=== PATIENT | female | born 1970 | race Caucasian/White ===

== ENCOUNTER 2024-11-28 18:29 | Observation (INO) | payer OTHER, SELFPAY ==
[2024-11-28] VITALS (37 sets, daily range): BP systolic 101–137; BP diastolic 57–92; PULSE 83–135; TEMP 36.4; O2SAT 68–100; BMI 21.3; BMI 21.5
--- NOTE | 2024-11-28 18:59 | ECG_ITS ---
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 Measurements Intervals [place] Rate: 136 P: -20023 DE: -60227 QRS: 38 QRSD: 72 T: 165 QT: 310 QTc: 389 Interpretive Statements 91563 Atrial flutter with variable AV conduction with rapid ventricular response Nonspecific ST-T wave changes 9150 abnormal ECG No previous ECG available for comparison Electronically Signed On 11-29-2024 6:48:37 EST by JED GONZALEZ M.D.
--- NOTE | 2024-11-28 19:02 | ED.GENADUL1 ---
HPI HPI - General Adult General Chief complaint: Arrhythmia/Palpitations Stated complaint: HEART IS RACING Time Seen by Provider: 11/28/24 18:44 Source: patient Mode of arrival: walk-in Limitations: no limitations History of Present Illness HPI narrative: Patient is a 54-year-old female who presents to the emergency department for evaluation of palpitations that began about 3 hours ago. She states she picked up her son from school for spring and as she was walking into a store, she developed a sensation that her heart was racing. She has no jairo chest pain or shortness of breath. She states her mother has a history of A-fib so she took one of her mother's Cardizem pills. She does not know the dosage. She states she feels her symptoms are not as severe at this time. She states she had a similar episode in June of last year. She was seen at [facility] and had cardiology follow-up where she was instructed to take an aspirin daily. She does not believe she has been in A-fib since that time. She denies any fevers, cough, congestion or recent illness. Related Data Allergies Allergy/AdvReac Type Severity Reaction Status Date / Time codeine Allergy Severe Migraine Verified 11/28/24 20:03 Sulfa (Sulfonamide AdvReac Intermediate Weakness Verified 11/28/24 20:03 Antibiotics) Opioid HPI Opioid Management Most Recent Opioid Data: No Data to Display Review of Systems ROS Constitutional Denies: fever or chills Ears, nose, mouth, and throat Denies: throat pain or nasal congestion Cardiovascular Reports: palpitations; Denies: chest pain Respiratory Denies: shortness of breath or cough Gastrointestinal Denies: nausea or vomiting Musculoskeletal Denies: back pain Integumentary/Breast Denies: rash Neurological Denies: numbness in extremities or weakness in extremities Hematologic/Lymphatic Denies: easy bruising or easy bleeding PFSH PFS Social History Little interest or pleasure in doing things: not at all Feeling down, depressed, or hopeless: not at all Exam Narrative Exam Narrative: Gen.: Awake, alert, in no distress Head: Normocephalic, atraumatic ENT: Moist mucous membranes Respiratory: No respiratory distress, lungs clear bilaterally Cardio: Irregular rate and rhythm, tachycardic Extremities: Moves extremities equally Psych: Normal mood and affect Neuro: No focal neuro deficit Skin: Warm, dry, intact Constitutional Vital Signs, click to edit/add: Last Vital Signs Pulse 83 11/28/24 21:00 Resp 18 11/28/24 21:00 BP 106/66 11/28/24 21:00 Pulse Ox 80 L 11/28/24 21:00 O2 Del Method Room Air 11/28/24 19:03 Course Vital Signs Vital signs: Vital Signs Pulse Rate 127 H 11/28/24 18:47 Respiratory Rate 20 11/28/24 18:47 Blood Pressure 137/87 11/28/24 18:47 Pulse Oximetry 100 11/28/24 18:47 Oxygen Delivery Method Room Air 11/28/24 18:47 Pulse Rate 83 11/28/24 21:00 Respiratory Rate 18 11/28/24 21:00 Blood Pressure 106/66 11/28/24 21:00 Pulse Oximetry 80 L 11/28/24 21:00 Oxygen Delivery Method Room Air 11/28/24 19:03 Medical Decision Making MDM Narrative Medical decision making narrative: 2152: Based on the pill present in the patient's belongings, she took 30 mg of oral Cardizem prior to arrival. Patient was initially given 10 mg IV bolus of Cardizem in addition to a second bolus of 20 mg IV Cardizem and a drip was initiated at 10 mg/hr. laboratory studies reviewed and noted within normal limits. Chest x-ray is unremarkable. Patient reevaluated by attending physician. She is now rate controlled, still in A-fib. She was given prophylaxis of Lovenox subq. Patient will be admitted for further evaluation and treatment. SHARED APC VISIT, PHYSICIAN ATTESTATION: [id number] I performed a substantive part of the MDM during the patient?s E/M visit. I personally evaluated and examined the patient. I personally made or approved the documented management plan and acknowledge its risk of complications. Medical Records Medical records reviewed: Yes I reviewed the patient's medical records Lab Data Lab results reviewed: Yes I reviewed the patient's lab results Labs: Lab Results 11/28/24 Range/Units 18:58 WBC 7.7 (4.0-11.0) 10^3/uL RBC 5.07 (4.20-5.40) 10^6/uL Hgb 15.6 (12.0-16.0) g/dL Hct 46.1 (36.0-48.0) % MCV 90.9 (81.0-99.0) fL MCH 30.8 (26.7-34.0) pg MCHC 33.8 (29.9-35.2) g/dL RDW 12.4 (11.0-15.0) % Plt Count 311 (150-450) 10^3/uL MPV 8.7 L (9.5-13.5) fL Neut % (Auto) 68.9 (43.0-75.0) % Lymph % (Auto) 23.8 (20.5-60.0) % King % (Auto) 6.0 (1.7-12.0) % Eos % (Auto) 0.5 L (0.9-7.0) % Baso % (Auto) 0.5 (0.2-2.0) % Neut # (Auto) 5.3 (1.4-6.5) 10^3/uL Lymph # (Auto) 1.8 (1.2-3.8) 10^3/uL King # (Auto) 0.5 (0.3-0.8) 10^3/uL Eos # (Auto) 0.0 (0.0-0.7) 10^3/uL Baso # (Auto) 0.0 (0.0-0.1) 10^3/uL Abs Immat Gran (auto) 0.02 (0.00-0.03) 10^3/uL Imm/Tot Granulo (auto) 0.3 (0.0-0.5) % PT 10.2 (9.0-11.6) sec INR 0.96 Sodium 145 (136-145) mmol/L Potassium 3.6 (3.5-5.1) mmol/L Chloride 110 H (98-107) mmol/L Carbon Dioxide 26.2 (21.0-32.0) mmol/L Anion Gap 12.4 BUN 16.0 (7.0-18.0) mg/dL Creatinine 0.77 (0.55-1.02) mg/dL Est GFR ( Amer) >60 (>=60 mL/min/1.73m^2) Est GFR (Non-Af Amer) >60 (>=60 mL/min/1.73m^2) BUN/Creatinine Ratio 20.8 Glucose 81 (74-106) mg/dL Lactate 1.1 (0.4-2.0) mmol/L Calcium 8.9 (8.5-10.1) mg/dL Magnesium 2.1 (1.8-2.4) mg/dL Total Bilirubin 0.5 (0.2-1.0) mg/dL AST 23 (15-37) U/L ALT 32 (14-59) U/L Alkaline Phosphatase 50 (46-116) U/L Troponin I High Sens 23.6 (4.0-51.3) pg/mL NT-Pro-B Natriuret Pep 52.0 (<=900.0) pg/mL Total Protein 7.2 (6.4-8.2) g/dL Albumin 3.9 (3.4-5.0) g/dL Globulin 3.3 g/dL Albumin/Globulin Ratio 1.2 TSH 1.171 (0.358-3.740) uIU/mL Imaging Data Chest x-ray: Attestation: I have reviewed the pertinent imaging results. ECG Data Attestation: I personally reviewed and interpreted this ECG as follows: (A-fib with RVR at a rate of 136, no acute ST elevation. Mild artifact noted. EKG reviewed by attending physician.) Discharge Plan Discharge Chief Complaint: Arrhythmia/Palpitations Patient Disposition: Admitted as Observation Time of Disposition Decision: 21:57
[2024-11-28] MEDS: DILTIAZEM HCL 25 MG/5 ML VIAL 10 MG IV (19:18)
[2024-11-28] MEDS: 0.9 % SODIUM CHLORIDE 1,000 ML 999 ML IV (19:18)
[2024-11-28 19:35] LABS: Basophils Percent Auto 0.5 % (0.2-2.0); Eosinophils Percent Auto 0.5 % (0.9-7.0); Hematocrit 46.1 % (36.0-48.0); Hemoglobin 15.6 g/dL (12.0-16.0); Immature Granulocytes Abs Auto 0.02 10^3/uL (0.00-0.03); Immature Granulocytes Pct Auto 0.3 % (0.0-0.5); Lymphocytes Absolute Auto 1.8 10^3/uL (1.2-3.8); Lymphocytes Percent Auto 23.8 % (20.5-60.0); Mean Corpuscular HGB Conc 33.8 g/dL (29.9-35.2); Mean Corpuscular Hemoglobin 30.8 pg (26.7-34.0); Mean Corpuscular Volume 90.9 fL (81.0-99.0); Mean Platelet Volume 8.7 fL (9.5-13.5); Monocytes Absolute Auto 0.5 10^3/uL (0.3-0.8); Neutrophils Absolute Auto 5.3 10^3/uL (1.4-6.5); Neutrophils Percent Auto 68.9 % (43.0-75.0); Platelet Count 311 10^3/uL (150-450); Red Blood Count 5.07 10^6/uL (4.20-5.40); Red Cell Distribution Width 12.4 % (11.0-15.0); White Blood Count 7.7 10^3/uL (4.0-11.0)
[2024-11-28 19:46] LABS: INR 0.96; Prothrombin Time 10.2 sec (9.0-11.6)
[2024-11-28 19:50] LABS: Lactate/Lactic Acid 1.1 mmol/L (0.4-2.0)
[2024-11-28 19:56] LABS: Alanine Aminotransferase 32 U/L (14-59); Albumin Globulin Ratio 1.2; Albumin Level 3.9 g/dL (3.4-5.0); Alkaline Phosphatase 50 U/L (46-116); Anion Gap 12.4; Aspartate Amino Transferase 23 U/L (15-37); BUN Creatinine Ratio 20.8; Bilirubin Total 0.5 mg/dL (0.2-1.0); Calcium 8.9 mg/dL (8.5-10.1); Carbon Dioxide 26.2 mmol/L (21.0-32.0); Chloride 110 mmol/L (98-107); Estimated GFR (African America >60 (>=60 mL/min/1.73m^2); Estimated GFR (Non-African Ame >60 (>=60 mL/min/1.73m^2); Globulin 3.3 g/dL; Glucose 81 mg/dL (74-106); Magnesium 2.1 mg/dL (1.8-2.4); Potassium 3.6 mmol/L (3.5-5.1); Sodium 145 mmol/L (136-145); Thyroid Stimulating Hormone 1.171 uIU/mL (0.358-3.740); Total Protein 7.2 g/dL (6.4-8.2); Troponin I High Sensitivity 23.6 pg/mL (4.0-51.3)
[2024-11-28] MEDS: dilTIAZem HCL 125 MG in 0.9 % SODIUM CHLORIDE 100 ML 10 MG IV (20:03)
[2024-11-28] MEDS: ENOXAPARIN SODIUM 40 MG/0.4 ML SYRINGE SUBQ (20:19)
[2024-11-28] MEDS: DILTIAZEM HCL 25 MG/5 ML VIAL 20 MG IV (20:37)
[2024-11-29] VITALS (99 sets, daily range): BP systolic 81–113; BP diastolic 43–73; PULSE 54–127; TEMP 36.4–36.6; O2SAT 95–97
[2024-11-29 06:18] LABS: Hematocrit 41.5 % (36.0-48.0); Hemoglobin 13.7 g/dL (12.0-16.0); Mean Corpuscular Hemoglobin 30.3 pg (26.7-34.0); Mean Corpuscular Volume 91.8 fL (81.0-99.0); Mean Platelet Volume 8.8 fL (9.5-13.5); Platelet Count 271 10^3/uL (150-450); Red Blood Count 4.52 10^6/uL (4.20-5.40); Red Cell Distribution Width 12.5 % (11.0-15.0); White Blood Count 7.3 10^3/uL (4.0-11.0)
--- NOTE | 2024-11-29 06:27 | PC.NURSE ---
Decreased Cardizem gtt 5mg/hr d/t hypotension
[2024-11-29] MEDS: ACETAMINOPHEN 325 MG TABLET 650 MG PO (06:30)
[2024-11-29 06:33] LABS: Anion Gap 10.7; BUN Creatinine Ratio 16.4; Calcium 8.1 mg/dL (8.5-10.1); Carbon Dioxide 26.4 mmol/L (21.0-32.0); Chloride 111 mmol/L (98-107); Chol HDL Ratio 2.4; Cholesterol 181 mg/dL (<=200); Estimated GFR (African America >60 (>=60 mL/min/1.73m^2); Estimated GFR (Non-African Ame >60 (>=60 mL/min/1.73m^2); Glucose 93 mg/dL (74-106); HDL Cholesterol 74 mg/dL (40-60); Potassium 4.1 mmol/L (3.5-5.1); Sodium 144 mmol/L (136-145); Triglycerides 43 mg/dL (<=150); Troponin I High Sensitivity 42.3 pg/mL (4.0-51.3); VLDL CHOLESTEROL 8.6 mg/dL
[2024-11-29] MEDS: ENOXAPARIN SODIUM 60 MG/0.6 ML SYRINGE SUBQ (08:17)
[2024-11-29] MEDS: ASPIRIN 81 MG TABLET.DR PO (08:17)
[2024-11-29] MEDS: DIGOXIN 500 MCG/2 ML AMPUL 250 MCG IV (08:43)
[2024-11-29] MEDS: METOPROLOL TARTRATE 25 MG TABLET PO (08:43)
--- NOTE | 2024-11-29 09:57 | ECG_ITS ---
[facility] Test Date: 2024-11-29 Pat Name: OLEG CORDOVA Department: Room: 2731 Gender: Female Manager Of Case: : 1970 Requested By: [id number] Order Number: [id number] Reading MD: JED GONZALEZ M.D. Measurements Intervals [place] Rate: 57 P: 74 MD: 210 QRS: 60 QRSD: 78 T: 58 QT: 430 QTc: 424 Interpretive Statements 1100 Sinus rhythm 2231 First degree AV block 9150 abnormal ECG Compared to ECG 11/28/2024 18:47:03 First degree AV block now present Atrial flutter no longer present ST (T wave) deviation no longer present Electronically Signed On 11-29-2024 10:49:02 EST by JED GONZALEZ M.D.
--- NOTE | 2024-11-29 15:22 | P.HP_ITS ---
HPI H&P: HPI History of Present Illness Chief complaint: AFIB W RVR Narrative: HPI and Hospital Course: 54-year-old female presented to the emergency department for evaluation of palpitations that began about 3 hours prior to arrival. She she is stated that she was in her usual state of health and as she was walking into a store, she developed a sensation of heart palpitations and that her heart was beating really fast. She denied any chest pain, shortness of breath. She was admitted for evaluation for heart palpitations in June and was found to have atrial fibrillation with RVR. She was discharged from the hospital on aspirin and was not started on any medications. At that time, she had an echocardiogram that according to her was normal with no significant cardiac structural abnormalities noted. In ER, she was found to have A-fib with RVR with heart rate as high as 130. She was started on IV Cardizem drip and admitted overnight to stepdown unit. Earlier today, she was started on p.o. Lopressor and she also received IV digoxin. She converted to normal sinus rhythm and was taken off of Cardizem drip. She was monitored throughout the day off of Cardizem drip and she remained in normal sinus rhythm and asymptomatic. She was started on therapeutic Lovenox for stroke prophylaxis but her Moises vas score is 0 and as such will not require anticoagulation for stroke prophylaxis. Patient was educated on A-fib.all her questions and concerns were addressed and answered. She is medically stable for discharge on low-dose aspirin along with Lopressor 25 twice daily. She was also educated on worrisome signs and symptoms and was instructed to return to ED if she develop chest pain, shortness of breath or heart palpitations. She will need to follow-up with PCP in 1 to 2 weeks. She will also need to follow-up with cardiology in 2 weeks. She would like to follow-up with Dr. Hensley of [facility]. Discharge disposition: Home Discharge status: Stable Follow-up appointments: Follow-up with PCP in 1 to 2 weeks. Follow-up with cardiology in 2 weeks. Opioid HPI Opioid Management Most Recent Pain and Opioid Data: Last Pain Scale 0 11/29/24 07:29 11/29/24 Last Pain Assessment 11/29/24 15:00 Last MAR Pain Assessment 11/29/24 07:29 Last ORT Total Score 0 11/28/24 23:52 11/28/24 Last ORT Risk Category Low Risk 11/28/24 23:52 11/28/24 Review of Systems ROS Status of ROS 10 or more systems reviewed and unremark able except as noted in history and below [facility] Medical History (Updated 11/29/24 @ 00:55 by Jennifer Conrad) Adult idiopathic generalized osteoporosis ?M81.8 - Other osteoporosis without current pathological fracture (ICD-10) Injury of meniscus of left knee ?S83.8X2A - Sprain of other specified parts of left knee, initial encounter (ICD-10) Broken foot ?S92.909A - Unspecified fracture of unspecified foot, initial encounter for closed fracture (ICD-10) Surgical History (Updated 11/29/24 @ 00:55 by Jennifer Conrad) History of foot surgery ?Z98.890 - Other specified postprocedural states (ICD-10) Family History (Updated 11/29/24 @ 00:58 by Jennifer Conrad) Grandfather Family history of stroke Mother Atrial fibrillation Social History (Updated 11/29/24 @ 01:03 by Jennifer Conrad) Within the past year, how often did you have a drink containing alcohol: never Score interpretation: A score less than 3 is consistent with normal alcohol consumption. Smoking status: Never smoker Non-prescribed substance use: denies use Highest level of school completed/degree received: Master's degree Are you now , , , , never or living with a partner: Little interest or pleasure in doing things: not at all Feeling down, depressed, or hopeless: not at all Feel stressed/tense/nervous/anxious/difficulty sleeping: not at all Do you think of yourself as: straight/heterosexual Gender Identity: female Meds Home Medications and Allergies Home Medications ?Medication ?Instructions ?Recorded ?Confirmed ?Type aspirin 81 mg tablet,delayed 81 mg PO DAILY A-fib 11/28/24 11/29/24 History release metoprolol tartrate 25 mg tablet 25 mg PO BID #60 tabs 11/29/24 Rx Allergies Allergy/AdvReac Type Severity Reaction Status Date / Time codeine Allergy Severe Migraine Verified 11/28/24 20:03 Sulfa (Sulfonamide AdvReac Intermediate Weakness Verified 11/28/24 20:03 Antibiotics) Exam Constitutional Vital Signs, click to edit/add: Last Vital Signs Temp 98 F 11/29/24 06:00 Pulse 75 11/29/24 14:00 Resp 14 11/29/24 12:00 BP 95/61 11/29/24 11:51 Pulse Ox 97 11/29/24 06:00 O2 Del Method Room Air 11/29/24 12:00 Documenting provider has reviewed patient's vital signs: yes Common normals: no apparent distress and oriented x3 General appearance: cooperative HENMT Common normals: normocephalic and head/scalp atraumatic Head and scalp: normocephalic and atraumatic Eye Common normals: conjunctivae normal and no scleral icterus Conjunctiva: conjunctiva(e) normal Respiratory Common normals: normal respiratory effort and clear to auscultation bilaterally Effort & inspection: able to speak in complete sentences Auscultation: clear to auscultation bilaterally Cardio Common normals: regular rate, S1 normal heart sound and S2 normal heart sound Rate: regular rate Heart sounds: S1 normal and S2 normal GI Common normals: Normal to inspection, nondistended, normoactive bowel sounds present, soft to palpation, non-tender and no hepatosplenomegaly Palpation: soft and no hepatosplenomegaly Extremity Common normals: no clubbing, cyanosis or edema Neuro Common normals: oriented x3, moves all extremities and no focal motor deficits Psych Common normals: mental status grossly normal, denies hallucinations, denies homicidal ideation and denies suicidal ideation Results Labs Labs: Short CBC 11/28/24 11/29/24 Range/Units 18:58 05:36 WBC 7.7 7.3 (4.0-11.0) 10^3/uL Hgb 15.6 13.7 (12.0-16.0) g/dL Hct 46.1 41.5 (36.0-48.0) % Plt Count 311 271 (150-450) 10^3/uL BMP 11/28/24 11/29/24 18:58 05:36 Sodium 145 144 Potassium 3.6 4.1 Chloride 110 H 111 H Carbon Dioxide 26.2 26.4 BUN 16.0 11.0 Creatinine 0.77 0.67 Glucose 81 93 Calcium 8.9 8.1 L Liver Function 11/28/24 Range/Units 18:58 Total Bilirubin 0.5 (0.2-1.0) mg/dL AST 23 (15-37) U/L ALT 32 (14-59) U/L Alkaline Phosphatase 50 (46-116) U/L Albumin 3.9 (3.4-5.0) g/dL Assessment and Plan Assessment and Plan (1) Atrial fibrillation with rapid ventricular response: (2) Palpitations: Plan Patient converted to sinus rhythm in the morning. She was weaned off of IV Card izem drip. Patient is stable for discharge on p.o. Lopressor 25 twice daily. She does not need anticoagulation for stroke prophylaxis due to her low [id number]- VASc score. She was instructed to use low-dose aspirin. Patient will need to follow-up with PCP and cardiology as outpatient.
--- NOTE | 2024-11-29 16:10 | PC.NURSE ---
discharge instructions given to pt and . both verbalize understanding. iv and tele dc'd. pt dressed, ambulated to exit with belongings. discharged to private vehicle.
--- NOTE | 2024-12-01 15:28 | CM.DCFOLLOWU ---
Person spoke with:patient How are you feeling? well, just tired, may have over did it today How is your pain?none Did you understand your discharge instructions?yes Do you have any questions about your discharge instructions?no Were you given any prescriptions at discharge?yes Were you able to get your prescriptions filled?yes Do you understand how to take your medications as ordered?yes Do you have any questions about your follow up appointment and do you plan to keep your follow up appointment? no questions, follow ups reviewed Is there anything else that you would like to discuss?no Questions/Comments/Concerns/Other:none
== END 2024-11-29 16:04 | disposition home or self-care (01) ==
LOC: ER 22:23 → ICU 23:47
PROVIDERS: Physician Assistant; Registered Nurse; Admitting Provider Internal Medicine; Emergency Provider Emergency Medicine; Visit Provider Internal Medicine
DX: I48.91 Unspecified atrial fibrillation (principal); R00.2 Palpitations; Z79.82 Long term (current) use of aspirin
CPT/HCPCS: 36415; 71045; 80048; 80053; 80061; 83605; 83735; 83880; 84443; 84484; 85025; 85027; 85610; 93005; 96365; 96366; 96372; 96375; 96376; 99285; G0378; J1160; J1650

== ENCOUNTER 2024-12-15 08:32 | Outpatient (OUT) | payer OTHER, SELFPAY ==
--- NOTE | 2024-12-15 | NM_ITS ---
Patient Name: OLEG CORDOVA MR#: [id number] : 1970 Exam Date: 12/15/2024 Ordering Doctor: Jesus Alberto Hensley RADIOLOGY REPORT PROCEDURE: NM MELIDA PERF SPECT REST STR COMPARISON: None. INDICATIONS: Other chest pain TECHNIQUE: Exam Description: Stress/Rest one day protocol gated SPECT Rest Imagin.8 mCi Tc-99m Cardiolite IV on 12/15/2025 Stress Imaging 30.9 mCi Tc-99m Cardiolite IV on 12/15/2025 Exercise Protocol: Romeo Heart Rate (bpm): Rest: 75 Max: 226 PMHR: 137 Blood Pressure: Rest: 118/70 Max: 158/80 Exercise Time: Minutes: 9 Seconds: 21 Stage Reached: Stage: 4 Mets 11.2 Symptoms: Rest and peak stress ECG findings were pending and the exercise portion of the study was pending per attending physician [facility] . For more details, please see separate cardiac stress test report. FINDINGS: QUALITY OF STUDY: Satisfactory PERFUSION DEFECT: None LOCATION: N/A SIZE: N/A SEVERITY: N/A TYPE: N/A WALL MOTION: Normal wall motion LV SIZE: 33 mL. TID / TCD: 0.3 LVEF: Calculated EF 90%. SUMMARY: Myocardial perfusion imaging study is normal CONCLUSION: 1. Myocardial perfusion is normal with significant diaphragmatic attenuation 2. Global left ventricular systolic function is hyperdynamic 3. No evidence of transient ischemic dilatation Dictated by: Oscar Young M.D. on 12/15/2024 at 14:24 Approved by: Oscar Young M.D. on 12/15/2024 at 14:26
--- NOTE | 2024-12-15 09:47 | PC.NURSE ---
Nursing Note Cardiac Stress Test Reviewed: Medication, allergies and patient history reviewed. Stress Test: [x ] Patient tolerated stress test well. [ ] Patient unable to tolerate walking on treadmill. Switched to Lexiscan stress test. [ x] No chest pain noted per patient [ ] Chest pain that resolved prior to leaving stress lab. [ x] No dyspnea noted. [ ] Dyspnea that resolved prior to leaving stress lab. x[ ] Patient left stress lab asymptomatic and hemodynamically stable. [ ] Patient taken to the Emergency Room due to non-resolving symptoms following stress test. [ x] Patient achieved target heart rate. [ ] Patient unable to achieve target heart rate. [ ] Aminophylline administered as reversal agent to Lexiscan (Regadenoson). [ ] Nitro administered. Nursing Comments: Patient was able to walk on treadmill with no shortness of breath reported. As we were beginning the recovery phase patient had a short run of SVT. She was able to be moved from the treadmill to the cot safely and was provided some water. Patient reported feeling some racing which ended quickly and she was able to recover. Prior to leaving the stress lab patient stated she feels back to her baseline. She was escorted to the cafeteria for breakfast.
--- NOTE | 2024-12-15 13:23 | PM.STRESS ---
Stress Test Stress Test Allergies Allergy/AdvReac Type Severity Reaction Status Date / Time codeine Allergy Severe Migraine Verified 12/15/24 12:06 Sulfa (Sulfonamide AdvReac Intermediate Weakness Verified 12/15/24 12:06 Antibiotics) Requesting physician: Jesus Alberto Hensley Procedure: After risks, benefits and alternatives were explained, written informed consent was obtained. The patient underwent treadmill exercise for stress testing. Cardiolyte was injected per protocol. Due to persistent atrial fibrillation with uncontrolled rates, she was to be transferred to the emergency room. General Information: Reason for Stress Test: [AF, palpitations] Cardiac History and Risk Factors: [AF] Resting 12 - Lead Electrocardiogram: Normal sinus rhythm Septal infarct age indeterminate Abnormal ECG Stress Test: Protocol: [Treadmill cardiolyte] Exercise Capacity: [Good] Blood Pressure Response: [Normal] Rhythm: [Sinus, atrial fibrillation with rapid ventricular response, wide complex rhythm likely due to SVT with aberrancy] ST - Response: [No significant ST depressions] Patient Response: [Palpitations] Interpretation: 1. No ischemic ST T wave abnormalities on treadmill cardiolyte stress test. 2. The patient developed atrial fibrillation with rapid ventricular response. 3. Goss Treadmill Score is +9.2. Estimated 1 year mortality: 0.5-0.6%. Risk category: Low risk. Angiography: Usually not indicated. 3. Nuclear images are to be read, interpreted and reported separately.
== END 2024-12-15 08:33 | disposition home or self-care (01) ==
LOC: NM 08:32
PROVIDERS: Visit Provider Internal Medicine Cardiovascular Disease
DX: R07.89 Other chest pain (principal)
CPT/HCPCS: 78452; 93017; A9500

== ENCOUNTER 2024-12-15 11:42 | Observation (INO) | payer OTHER, SELFPAY ==
[2024-12-15] VITALS (13 sets, daily range): BP systolic 114–135; BP diastolic 51–82; PULSE 60–148; TEMP 36.4–36.8; O2SAT 97–100; BMI 21.3
--- NOTE | 2024-12-15 12:16 | ECG_ITS ---
[facility] Test Date: 2024-12-15 Pat Name: OLEG CORDOVA Department: Room: - Gender: Female Test Pilot: : 1970 Requested By: [id number] Order Number: [id number] Reading MD: GEO CUNHA Measurements Intervals [place] Rate: 140 P: -35316 MD: -[id number] QRS: 40 QRSD: 72 T: -67 QT: 290 QTc: 372 Interpretive Statements 77967 Atrial fibrillation with rapid ventricular response [address] depression, probably digitalis effect 47976 Twave abnormality, possible inferior ischemia or digitalis effect 9150 abnormal ECG Compared to ECG 11/29/2024 09:48:03 ST (T wave) deviation now present Possible ischemia now present Sinus rhythm no longer present First degree AV block no longer present Electronically Signed On 12-15-2024 14:43:49 EDT by GEO CUNHA
--- NOTE | 2024-12-15 12:27 | ECG_ITS ---
[facility] Test Date: 2024-12-15 Pat Name: OLEG CORDOVA Department: Room: - Gender: Female Field Care Coordinator: : 1970 Requested By: [id number] Order Number: [id number] Reading MD: GEO CUNHA Measurements Intervals [place] Rate: 86 P: 76 KS: 324 QRS: 23 QRSD: 88 T: 49 QT: 378 QTc: 422 Interpretive Statements 1100 Sinus rhythm 2231 First degree AV block 6220 Possible left atrial enlargement 0102 ARTIFACT PRESENT 9150 abnormal ECG Compared to ECG 12/15/2024 11:57:24 First degree AV block now present Atrial fibrillation no longer present ST (T wave) deviation no longer present Possible ischemia no longer present Electronically Signed On 12-15-2024 14:44:31 EDT by GEO CUNHA
[2024-12-15 12:31] LABS: Basophils Absolute Auto 0.1 10^3/uL (0.0-0.1); Basophils Percent Auto 0.6 % (0.2-2.0); Eosinophils Absolute Auto 0.1 10^3/uL (0.0-0.7); Eosinophils Percent Auto 0.7 % (0.9-7.0); Hematocrit 45.9 % (36.0-48.0); Hemoglobin 15.7 g/dL (12.0-16.0); Immature Granulocytes Abs Auto 0.03 10^3/uL (0.00-0.03); Immature Granulocytes Pct Auto 0.3 % (0.0-0.5); Lymphocytes Absolute Auto 2.2 10^3/uL (1.2-3.8); Lymphocytes Percent Auto 22.1 % (20.5-60.0); Mean Corpuscular HGB Conc 34.2 g/dL (29.9-35.2); Mean Corpuscular Hemoglobin 30.7 pg (26.7-34.0); Mean Corpuscular Volume 89.8 fL (81.0-99.0); Monocytes Absolute Auto 0.5 10^3/uL (0.3-0.8); Monocytes Percent Auto 5.4 % (1.7-12.0); Neutrophils Absolute Auto 6.9 10^3/uL (1.4-6.5); Neutrophils Percent Auto 70.9 % (43.0-75.0); Platelet Count 292 10^3/uL (150-450); Red Blood Count 5.11 10^6/uL (4.20-5.40); Red Cell Distribution Width 12.5 % (11.0-15.0); White Blood Count 9.7 10^3/uL (4.0-11.0)
[2024-12-15] MEDS: MAGNESIUM SULFATE IN WATER 2 GM/50 ML PREMIX IV (12:36)
[2024-12-15] MEDS: 0.9 % SODIUM CHLORIDE 1,000 ML 999 ML IV (12:37)
[2024-12-15 12:52] LABS: Anion Gap 14.9; BUN Creatinine Ratio 16.3; Calcium 8.8 mg/dL (8.5-10.1); Carbon Dioxide 25.2 mmol/L (21.0-32.0); Chloride 110 mmol/L (98-107); Estimated GFR (African America >60 (>=60 mL/min/1.73m^2); Estimated GFR (Non-African Ame >60 (>=60 mL/min/1.73m^2); Glucose 112 mg/dL (74-106); Magnesium 1.9 mg/dL (1.8-2.4); Potassium 4.1 mmol/L (3.5-5.1); Sodium 146 mmol/L (136-145)
[2024-12-15 12:54] LABS: Troponin I High Sensitivity 85.1 pg/mL (4.0-51.3)
[2024-12-15 13:29] LABS: Troponin I High Sensitivity 115.2 pg/mL (4.0-51.3)
--- NOTE | 2024-12-15 14:15 | P.HP_ITS ---
HPI H&P: HPI History of Present Illness Chief complaint: ABNORMAL STRESS TEST Narrative: Patient with a history of intermittent atrial fibrillation who is a candidate for ablation, had a stress test to workup for the ablation and after that she felt palpitations, EKG was obtained and showed she was in atrial fibrillation with rapid ventricular response in the 140s and transferred to the emergency room. In the emergency room she was given magnesium which did convert her to normal sinus rhythm When I saw patient in the emergency room, resting fairly comfortably bed excellent questions, no other complaints Opioid HPI Opioid Management Most Recent Pain and Opioid Data: Last Pain Scale 0 11/29/24 07:29 11/29/24 Last ORT Total Score 0 11/28/24 23:52 11/28/24 Last ORT Risk Category Low Risk 11/28/24 23:52 11/28/24 Review of Systems ROS Status of ROS 10 or more systems reviewed and unremark able except as noted in history and below PFSH PFS Medical History (Updated 12/15/24 @ 14:25 by Philip Wu MD) Osteoporosis ?M81.0 - Age-related osteoporosis without current pathological fracture (ICD- 10) Atrial fibrillation with rapid ventricular response ?I48.91 - Unspecified atrial fibrillation (ICD-10) Palpitations ?R00.2 - Palpitations (ICD-10) Adult idiopathic generalized osteoporosis ?M81.8 - Other osteoporosis without current pathological fracture (ICD-10) Injury of meniscus of left knee ?S83.8X2A - Sprain of other specified parts of left knee, initial encounter (ICD-10) Broken foot ?S92.909A - Unspecified fracture of unspecified foot, initial encounter for closed fracture (ICD-10) Surgical History History of foot surgery ?Z98.890 - Other specified postprocedural states (ICD-10) Family History (Updated 11/29/24 @ 00:58 by Jennifer Conrad) Grandfather Family history of stroke Mother Atrial fibrillation Social History (Updated 11/29/24 @ 01:03 by Jennifer Conrad) Within the past year, how often did you have a drink containing alcohol: never Score interpretation: A score less than 3 is consistent with normal alcohol consumption. Smoking status: Never smoker Non-prescribed substance use: denies use Highest level of school completed/degree received: Master's degree Are you now , , , , never or living with a partner: Little interest or pleasure in doing things: not at all Feeling down, depressed, or hopeless: not at all Feel stressed/tense/nervous/anxious/difficulty sleeping: not at all Do you think of yourself as: straight/heterosexual Gender Identity: female Meds Home Medications and Allergies Home Medications ?Medication ?Instructions ?Recorded ?Confirmed ?Type aspirin 81 mg tablet,delayed 81 mg PO DAILY A-fib 11/28/24 12/15/24 History release metoprolol tartrate 25 mg tablet 25 mg PO BID #60 tabs 11/29/24 Rx Allergies Allergy/AdvReac Type Severity Reaction Status Date / Time codeine Allergy Severe Migraine Verified 12/15/24 12:06 Sulfa (Sulfonamide AdvReac Intermediate Weakness Verified 12/15/24 12:06 Antibiotics) Exam Constitutional Vital Signs, click to edit/add: Last Vital Signs Temp 98.2 F 12/15/24 11:48 Pulse 78 12/15/24 13:08 Resp 20 12/15/24 13:08 BP 118/51 12/15/24 13:08 Pulse Ox 99 12/15/24 13:08 O2 Del Method Room Air 12/15/24 13:08 Documenting provider has reviewed patient's vital signs: yes Common normals: no apparent distress Chest Common normals: inspection of chest normal Respiratory Common normals: normal respiratory effort and no retractions Cardio Common normals: regular rate, regular rhythm and no murmurs GI Common normals: Normal to inspection, nondistended, normoactive bowel sounds present Extremity Common normals: normal to inspection Results Labs Labs: Short CBC 12/15/24 Range/Units 12:20 WBC 9.7 (4.0-11.0) 10^3/uL Hgb 15.7 (12.0-16.0) g/dL Hct 45.9 (36.0-48.0) % Plt Count 292 (150-450) 10^3/uL BMP 12/15/24 12:20 Sodium 146 H Potassium 4.1 Chloride 110 H Carbon Dioxide 25.2 BUN 14.0 Creatinine 0.86 Glucose 112 H Calcium 8.8 Assessment and Plan Assessment and Plan (1) Atrial fibrillation with rapid ventricular response: (2) Palpitations: (3) Elevated troponin level: Plan Admission findings: Tachycardia secondary to atrial fibrillation with rapid ventricular response converted after magnesium infusion. Review of labs shows elevated troponin and mild hypernatremia. Patient will be admitted for workup and treatment of same Atrial fibrillation-now converted, start patient on Eliquis, consult to cardiology, check echocardiogram, check urinalysis for anything else that may have triggered the atrial fibrillation although may be related to stress test completed, track down results of stress test Hypernatremia-repeat lab in a.m. Elevated high-sensitivity troponin status post stress test-second set is also elevated, case discussed with cardiology and was okay with staying here, consult to cardiology Admission status: Patient admitted with elevated troponin status post stress test with atrial fibrillation with rapid ventricular sponsor post stress test, start patient off as observation is medically necessary treatment likely will only span 1 midnight. If changes and she requires longer hospitalization, she will be changed to inpatient status
--- NOTE | 2024-12-15 14:21 | ED.GENADUL1 ---
HPI HPI - General Adult General Chief complaint: Arrhythmia/Palpitations Stated complaint: ABNORMAL STRESS TEST Time Seen by Provider: 12/15/24 11:50 Source: patient Mode of arrival: walk-in Limitations: no limitations History of Present Illness HPI narrative: 54-year-old female to the emergency department with chief complaint of palpitations. Patient reports she had a stress test this morning. It was complicated by her going into A-fib with RVR following. She was sent to the ER for evaluation. She does have a history of paroxysmal atrial fibrillation currently only on aspirin. She follows with [facility] cardiology. She denies any chest pain or shortness of breath. Otherwise has been at her baseline health. Related Data Home Medications ?Medication ?Instructions ?Recorded ?Confirmed aspirin 81 mg tablet,delayed 81 mg PO DAILY A-fib 11/28/24 12/15/24 release Previous Rx's ?Medication ?Instructions ?Recorded metoprolol tartrate 25 mg tablet 25 mg PO BID #60 tabs 11/29/24 Allergies Allergy/AdvReac Type Severity Reaction Status Date / Time codeine Allergy Severe Migraine Verified 12/15/24 12:06 Sulfa (Sulfonamide AdvReac Intermediate Weakness Verified 12/15/24 12:06 Antibiotics) Opioid HPI Opioid Management Most Recent Opioid Data: Last Pain Scale 0 11/29/24 07:29 11/29/24 Last ORT Total Score 0 11/28/24 23:52 11/28/24 Last ORT Risk Category Low Risk 11/28/24 23:52 11/28/24 Review of Systems ROS Status of ROS 10 or more systems reviewed and unremarkable except as noted in history and below PFSH PFS Medical History (Updated 12/15/24 @ 14:25 by Philip Wu MD) Osteoporosis ?M81.0 - Age-related osteoporosis without current pathological fracture (ICD-10) Atrial fibrillation with rapid ventricular response ?I48.91 - Unspecified atrial fibrillation (ICD-10) Palpitations ?R00.2 - Palpitations (ICD-10) Adult idiopathic generalized osteoporosis ?M81.8 - Other osteoporosis without current pathological fracture (ICD-10) Injury of meniscus of left knee ?S83.8X2A - Sprain of other specified parts of left knee, initial encounter (ICD-10) Broken foot ?S92.909A - Unspecified fracture of unspecified foot, initial encounter for closed fracture (ICD-10) Surgical History History of foot surgery ?Z98.890 - Other specified postprocedural states (ICD-10) Family History (Updated 11/29/24 @ 00:58 by Jennifer Conrad) Grandfather Family history of stroke Mother Atrial fibrillation Social History (Updated 11/29/24 @ 01:03 by Jennifer Conrad) Within the past year, how often did you have a drink containing alcohol: never Score interpretation: A score less than 3 is consistent with normal alcohol consumption. Smoking status: Never smoker Non-prescribed substance use: denies use Highest level of school completed/degree received: Master's degree Are you now , , , , never or living with a partner: Little interest or pleasure in doing things: not at all Feeling down, depressed, or hopeless: not at all Feel stressed/tense/nervous/anxious/difficulty sleeping: not at all Do you think of yourself as: straight/heterosexual Gender Identity: female Exam Narrative Exam Narrative: VITALS: I have reviewed the triage vital signs. GENERAL: Well developed, well appearing adult in no acute distress. NEURO: Alert and oriented. Moves all extremities. Face is symmetric and expressive. EYES: PERRL. No scleral icterus or conjunctival injection. No discharge. HENT: Normocephalic, atraumatic. Hearing is grossly intact. Nares grossly patent and without discharge. Mucous membranes moist. NECK: No JVD. Patient moves neck without restriction. CARDIO: Rhythm regular. Tachycardic. No murmur, rub, or gallop. Pulses equal bilaterally in the upper and lower extremity. No lower extremity edema. PULM: Lungs clear to auscultation in all baumann. No wheezes, rales, or rhonchi. No conversational dyspnea. No splinting, stridor, or accessory muscle use. GI/: Abdomen is soft and non-tender. Normoactive bowel sounds. EXTREMITIES: Symmetric muscle bulk. No joint swelling. No clubbing, cyanosis, or deformity. SKIN: Warm and dry. Normal turgor. No rash or lesions appreciated. PSYCH: Mood, affect, and interaction is appropriate to the setting. Constitutional Vital Signs, click to edit/add: Last Vital Signs Temp 98.2 F 12/15/24 11:48 Pulse 78 12/15/24 13:08 Resp 20 12/15/24 13:08 BP 118/51 12/15/24 13:08 Pulse Ox 99 12/15/24 13:08 O2 Del Method Room Air 12/15/24 13:08 Course Vital Signs Vital signs: Vital Signs Temperature 98.2 F 12/15/24 11:48 Pulse Rate 148 H 12/15/24 11:48 Respiratory Rate 18 12/15/24 11:48 Blood Pressure 114/82 12/15/24 11:48 Pulse Oximetry 100 12/15/24 11:48 Oxygen Delivery Method Room Air 12/15/24 11:48 Temperature 98.2 F 12/15/24 11:48 Pulse Rate 78 12/15/24 13:08 Respiratory Rate 20 12/15/24 13:08 Blood Pressure 118/51 12/15/24 13:08 Pulse Oximetry 99 12/15/24 13:08 Oxygen Delivery Method Room Air 12/15/24 13:08 Medical Decision Making MDM Narrative Medical decision making narrative: 54-year-old female to the emergency department chief complaint of A-fib with RVR after a stress test. Tachycardic, though otherwise stable vitals. The patient is afebrile. She feels otherwise well. Cardiac workup is initiated. Fluid bolus and magnesium bolus are ordered. CBC and chemistry without major abnormality. Chest x-ray without acute findings. EKG without evidence of ischemia. Her troponin is elevated. Patient spontaneously converted after the magnesium bolus. She has no chest pain. Repeat EKG without evidence of ischemia. Her second troponin continues to increase. Case was discussed with the on-call [facility] doctor of naprapathy Dr. Jones. He agrees with plan for admission here. Reports long-term the patient may be a candidate for ablation. Case discussed with Dr. Santiago who agrees admit the patient to his service. Medical Records Medical records reviewed: Yes I reviewed the patient's medical records Lab Data Lab results reviewed: Yes I reviewed the patient's lab results Labs: Lab Results 12/15/24 12/15/24 Range/Units 12:20 13:02 WBC 9.7 (4.0-11.0) 10^3/uL RBC 5.11 (4.20-5.40) 10^6/uL Hgb 15.7 (12.0-16.0) g/dL Hct 45.9 (36.0-48.0) % MCV 89.8 (81.0-99.0) fL MCH 30.7 (26.7-34.0) pg MCHC 34.2 (29.9-35.2) g/dL RDW 12.5 (11.0-15.0) % Plt Count 292 (150-450) 10^3/uL MPV 9.0 L (9.5-13.5) fL Neut % (Auto) 70.9 (43.0-75.0) % Lymph % (Auto) 22.1 (20.5-60.0) % [place] % (Auto) 5.4 (1.7-12.0) % Eos % (Auto) 0.7 L (0.9-7.0) % Baso % (Auto) 0.6 (0.2-2.0) % Neut # (Auto) 6.9 H (1.4-6.5) 10^3/uL Lymph # (Auto) 2.2 (1.2-3.8) 10^3/uL [place] # (Auto) 0.5 (0.3-0.8) 10^3/uL Eos # (Auto) 0.1 (0.0-0.7) 10^3/uL Baso # (Auto) 0.1 (0.0-0.1) 10^3/uL Abs Immat Gran (auto) 0.03 (0.00-0.03) 10^3/uL Imm/Tot Granulo (auto) 0.3 (0.0-0.5) % Sodium 146 H (136-145) mmol/L Potassium 4.1 (3.5-5.1) mmol/L Chloride 110 H (98-107) mmol/L Carbon Dioxide 25.2 (21.0-32.0) mmol/L Anion Gap 14.9 BUN 14.0 (7.0-18.0) mg/dL Creatinine 0.86 (0.55-1.02) mg/dL Est GFR ( Amer) >60 (>=60 mL/min/1.73m^2) Est GFR (Non-Af Amer) >60 (>=60 mL/min/1.73m^2) BUN/Creatinine Ratio 16.3 Glucose 112 H (74-106) mg/dL Calcium 8.8 (8.5-10.1) mg/dL Magnesium 1.9 (1.8-2.4) mg/dL Troponin I High Sens 85.1 H* 115.2 H* (4.0-51.3) pg/mL Imaging Data Chest x-ray: Attestation: I have reviewed the pertinent imaging results. Radiologist's impression: No acute process seen in the chest ECG Data Attestation: I personally reviewed and interpreted this ECG as follows: (Normal sinus rhythm at a rate 86. No STEMI. Normal QTc at 422.) Discharge Plan Discharge Chief Complaint: Arrhythmia/Palpitations Clinical Impression: Elevated troponin level, Atrial fibrillation with rapid ventricular response Patient Disposition: Admitted As Inpatient Prescriptions / Home Meds: No Action aspirin 81 mg tablet,delayed release (DR/EC) 81 mg PO DAILY metoprolol tartrate 25 mg tablet 25 mg PO BID Qty: 60 0RF Print Language: Divehi Referrals: Leonela Evans NP [Primary Care Provider] - 1 week
[2024-12-15 15:36] LABS: Troponin I High Sensitivity 151.4 pg/mL (4.0-51.3)
--- NOTE | 2024-12-15 16:33 | PC.NURSE ---
dr. blakely notified of elevated trop
[2024-12-15] MEDS: MAGNESIUM OXIDE 400 MG TABLET PO (16:53)
[2024-12-15 18:06] LABS: Troponin I High Sensitivity 104.2 pg/mL (4.0-51.3)
[2024-12-15] MEDS: APIXABAN 5 MG TABLET PO (21:51)
[2024-12-16] VITALS (11 sets, daily range): BP systolic 101–123; BP diastolic 60–70; PULSE 58–74; TEMP 36.4–37; O2SAT 98–99
[2024-12-16 05:54] LABS: Basophils Percent Auto 0.4 % (0.2-2.0); Eosinophils Absolute Auto 0.2 10^3/uL (0.0-0.7); Eosinophils Percent Auto 2.2 % (0.9-7.0); Hemoglobin 13.2 g/dL (12.0-16.0); Immature Granulocytes Abs Auto 0.03 10^3/uL (0.00-0.03); Immature Granulocytes Pct Auto 0.4 % (0.0-0.5); Lymphocytes Absolute Auto 2.5 10^3/uL (1.2-3.8); Lymphocytes Percent Auto 36.1 % (20.5-60.0); Mean Corpuscular Hemoglobin 30.1 pg (26.7-34.0); Mean Corpuscular Volume 91.1 fL (81.0-99.0); Mean Platelet Volume 8.9 fL (9.5-13.5); Monocytes Absolute Auto 0.5 10^3/uL (0.3-0.8); Monocytes Percent Auto 7.1 % (1.7-12.0); Neutrophils Absolute Auto 3.7 10^3/uL (1.4-6.5); Neutrophils Percent Auto 53.8 % (43.0-75.0); Platelet Count 234 10^3/uL (150-450); Red Blood Count 4.39 10^6/uL (4.20-5.40); Red Cell Distribution Width 12.7 % (11.0-15.0); White Blood Count 6.9 10^3/uL (4.0-11.0)
[2024-12-16 06:10] LABS: Anion Gap 11.7; BUN Creatinine Ratio 16.9; Calcium 8.4 mg/dL (8.5-10.1); Carbon Dioxide 27.1 mmol/L (21.0-32.0); Chloride 109 mmol/L (98-107); Estimated GFR (African America >60 (>=60 mL/min/1.73m^2); Estimated GFR (Non-African Ame >60 (>=60 mL/min/1.73m^2); Glucose 110 mg/dL (74-106); Potassium 3.8 mmol/L (3.5-5.1); Sodium 144 mmol/L (136-145)
[2024-12-16] MEDS: APIXABAN 5 MG TABLET PO (08:10)
[2024-12-16] MEDS: MAGNESIUM OXIDE 400 MG TABLET PO (08:10)
--- NOTE | 2024-12-16 11:53 | CM.NOTE ---
Rounds made with Dr. Posey, pt will discharge to home today and f/u with PCP and cardiology. Dr. Posey discussed discharge medications with pt, pt verbalizes understanding.
--- NOTE | 2024-12-16 12:28 | P.DS_ITS ---
DS: Providers Provider Date of admission: 12/15/24 15:19 Primary care physician: Leonela Evans NP Consults: 12/15/24 14:15 Consult to Pharmacy Routine Consulting Provider: Reason for consultation: Please [place] me when Med Rec is Updated Has provider been notified: No 12/15/24 14:20 Consult to Cardiology Routine Reason for consultation: Abn Trop Has provider been notified: No DS: Diagnosis Discharge Diagnosis (1) Type 2 myocardial infarction due to arrhythmia: (2) Atrial fibrillation with rapid ventricular response: (3) Elevated troponin level: DS: Summary Hospital Course Hospital Course: Reason for admission: See ER note and H&P for details. 54 y/o female with a history of paroxysmal afib to ER with rapid afib. Following with cardiology and planning on ablation. Ordered stress test and during stress test developed rapid afib. Directed to ER and labs showed low magnesium. Given IV magnesium and converted back to NSR. CE elevated and admitted for monitoring. Hospital course. Troponin elevated then started to decrease. No chest pain or pressure. Remained in NSR since ER. Stress test without ST or T wave abnormalities. Nuclear portion without evidence of ischemia. Resumed on oral metoprolol and Xarelto in hospital. Marks well and discharged home. Patient had type 2 SD due to rapid afib and flow demand mismatch. Will continue metoprolol and Xarelto. Follow with cardiology in 1-2 weeks. Time Spent with Patient Time attestation: Total time spent providing and/or coordinating discharge services: Time spent: greater than 30 minutes Exam Constitutional Vital Signs, click to edit/add: Last Vital Signs Temp 97.9 F 12/16/24 11:21 Pulse 74 12/16/24 12:00 Resp 16 12/16/24 11:21 BP 110/67 12/16/24 11:21 Pulse Ox 99 12/16/24 11:30 O2 Del Method Room Air 12/16/24 11:30 Documenting provider has reviewed patient's vital signs: yes Common normals: no apparent distress, oriented x3 and alert HENMT Common normals: normocephalic Eye Common normals: PERRL and EOMs intact bilaterally Respiratory Common normals: normal respiratory effort and clear to auscultation bilaterally Cardio Common normals: regular rate, regular rhythm, no gallops, no murmurs and no rub GI Common normals: Normal to inspection, nondistended, normoactive bowel sounds present and non-tender Extremity Common normals: no pedal edema DS: Data Data Completed and Pending Labs on day of discharge: Labs from last 24 hours 12/16/24 12/15/24 12/15/24 05:40 17:40 14:56 WBC 6.9 RBC 4.39 Hgb 13.2 Hct 40.0 MCV 91.1 MCH 30.1 MCHC 33.0 RDW 12.7 Plt Count 234 MPV 8.9 L Neut % (Auto) 53.8 Lymph % (Auto) 36.1 [place] % (Auto) 7.1 Eos % (Auto) 2.2 Baso % (Auto) 0.4 Neut # (Auto) 3.7 Lymph # (Auto) 2.5 [place] # (Auto) 0.5 Eos # (Auto) 0.2 Baso # (Auto) 0.0 Abs Immat Gran (auto) 0.03 Imm/Tot Granulo (auto) 0.4 Sodium 144 Potassium 3.8 Chloride 109 H Carbon Dioxide 27.1 Anion Gap 11.7 BUN 12.0 Creatinine 0.71 Est GFR ( Amer) >60 Est GFR (Non-Af Amer) >60 BUN/Creatinine Ratio 16.9 Glucose 110 H Calcium 8.4 L Magnesium 2.0 Troponin I High Sens 104.2 H* 151.4 H* NT-Pro-B Natriuret Pep 12/15/24 12/15/24 13:02 12:20 WBC 9.7 RBC 5.11 Hgb 15.7 Hct 45.9 MCV 89.8 MCH 30.7 MCHC 34.2 RDW 12.5 Plt Count 292 MPV 9.0 L Neut % (Auto) 70.9 Lymph % (Auto) 22.1 [place] % (Auto) 5.4 Eos % (Auto) 0.7 L Baso % (Auto) 0.6 Neut # (Auto) 6.9 H Lymph # (Auto) 2.2 [place] # (Auto) 0.5 Eos # (Auto) 0.1 Baso # (Auto) 0.1 Abs Immat Gran (auto) 0.03 Imm/Tot Granulo (auto) 0.3 Sodium 146 H Potassium 4.1 Chloride 110 H Carbon Dioxide 25.2 Anion Gap 14.9 BUN 14.0 Creatinine 0.86 Est GFR ( Amer) >60 Est GFR (Non-Af Amer) >60 BUN/Creatinine Ratio 16.3 Glucose 112 H Calcium 8.8 Magnesium 1.9 Troponin I High Sens 115.2 H* 85.1 H* NT-Pro-B Natriuret Pep 169.0 Discharge Plan Discharge Disposition: Home, Self-Care Discharge Medications: Continued aspirin 81 mg tablet,delayed release (DR/EC) 81 mg PO DAILY metoprolol tartrate 25 mg tablet 25 mg PO BID Qty: 60 0RF Xarelto 20 mg tablet 20 mg PO .EM Activity: resume usual activities as tolerated Diet: advance to your usual diet Print Language: Gabonese Patient Instructions: Metoprolol (By mouth), Aspirin (By mouth), Rivaroxaban (By mouth), A-fib (Atrial Fibrillation) (DC) Forms: Portal Instructions Follow Up Appointments: December 22 @ 11am with Leonela King NP [phone] December 24 @ 11:15am with [place] [facility] at [facility] [phone]
--- NOTE | 2024-12-16 14:18 | CA_ITS ---
Patient Name: OLEG CORDOVA MR#: [id number] : 1970 Exam Date: 12/16/2024 Ordering Doctor: DR Tyrel Santiago . ECHOCARDIOGRAM REPORT PROCEDURE: CA ECHO DOPPLER COMPLETE INDICATIONS: Dyspnea, elevated TROP, atrial fibrillation COMPARISON: None. DESCRIPTION: COMPLETE ECHOCARDIOGRAM Real-time transthoracic echocardiography with 2D, M-mode, spectral and color flow Doppler performed. QUALITY: Technical quality was good. LEFT VENTRICLE: Normal chamber size. Normal left ventricular wall thickness. Normal systolic function. LV EF: Normal left ventricular ejection fraction, (>55%). DIASTOLIC: Normal diastolic function. ATRIAL SEPTUM: Visually appears intact. LEFT ATRIUM: Normal chamber size. RIGHT ATRIUM: Normal chamber size. RIGHT VENTRICLE: Normal chamber size. Normal right ventricular systolic function. TRICUSPID VALVE: Normal mobility and thickness. No stenosis with no regurgitation. Unable to assess right-sided pressures due to lack of measurable tricuspid regurgitation. MITRAL VALVE: Normal mobility and thickness. No evidence of mitral valve stenosis. There is no mitral annular calcification. No mitral regurgitation. AORTIC VALVE: Normal trileaflet appearance. No visible sclerosis. Normal leaflet mobility. No evidence of aortic valve stenosis. No aortic regurgitation. AORTIC ROOT: Normal diameter and appearance, measuring 2.5 cm. PULMONIC VALVE: Not well visualized. No stenosis. No regurgitation. PERICARDIUM: No evidence of pericardial effusion. IVC: IVC is normal in size, does not fully collapse. PLEURA: CONCLUSION: 1. Normal ventricular size and systolic function. Estimated LVEF is 55 to 60%. 2. Normal diastolic function. 3. No significant valvular dysfunction. 4. Unable to assess right-sided pressures due to lack of measurable tricuspid regurgitation. 5. The patient appears to be in sinus rhythm during the exam. Adult Echocardiography Procedure Report Left Ventricle LVEDD (3.7 - 5.6 cm): 3.56 cm LVESD (2.2 - 4.0 cm): 2.49 cm LVIVS thickness (0.6 - 1.2 cm): 0.85 cm LVPW thickness (0.5 - 1.0 cm): 1.10 cm e': 0.10 m/s E - e': 7.66 LVOT Max Gradient: 5.17 mm[Hg] LVOT Area (cm2): 1.14 m/s Peak Velocity (LVOT): 1.14 m/s Mean Velocity (LVOT): 0.73 m/s LVOT Diameter 1.93 cm Left Atrium LA Volume Index (2D A2C): 30.53 ml/m2 Left Atrium Systolic Dimension: 3.38 cm Mitral Valve MV E to A Ratio: 1.26 Mitral Valve A-Wave Peak Velocity: 0.60 m/s Mitral Valve E-Wave Peak Velocity: 0.75 m/s Right Ventricle Aorta AO Root Diam: 2.45 cm Aortic Valve AoV Area (Peak Erik): 2.82 cm2, 2.82 cm2 AoV Area (VTI): 3.00 cm2, 3.00 cm2 Peak Velocity(Antegrade Flow): 1.18 m/s Peak Gradient(Antegrade Flow): 5.53 mm[Hg] Mean Velocity(Antegrade Flow): 0.80 m/s Mean Gradient(Antegrade Flow): 2.95 mm[Hg] Velocity Time Integral: 26.56 cm Tricuspid Valve Pulmonic Valve Mean Gradient: 2.46 mm[Hg] Mean Velocity: 0.72 m/s Peak Velocity: 1.07 m/s, 0.98 m/s Peak Gradient: 3.86 mm[Hg], 4.57 mm[Hg] Right Atrium Right Atrium Systolic Pressure: 34.14 ml, 34.14 ml Dictated by: Olaf Pizano M.D. on 12/16/2024 at 17:23 Approved by: Olaf Pizano M.D. on 12/16/2024 at 17:25
--- NOTE | 2024-12-19 13:49 | CM.DCFOLLOWU ---
Person spoke with:patient How are you feeling?well How is your pain?none Did you understand your discharge instructions?yes Do you have any questions about your discharge instructions?no Were you given any prescriptions at discharge?no Were you able to get your prescriptions filled?no Do you understand how to take your medications as ordered?no Do you have any questions about your follow up appointment and do you plan to keep your follow up appointment? no questions, reviewed follow ups Is there anything else that you would like to discuss?no Questions/Comments/Concerns/Other:none
== END 2024-12-16 15:10 | disposition home or self-care (01) ==
LOC: ER 14:25 → MS 16:04
PROVIDERS: Family Medicine; Admitting Provider Family Medicine; Emergency Provider Student in an Organized Health Care Education/Training Program; PCP Nurse Practitioner Family; Visit Provider Family Medicine
DX: I48.0 Paroxysmal atrial fibrillation (principal); I21.A1 Myocardial infarction type 2; R07.89 Other chest pain; R00.2 Palpitations; R79.89 Other specified abnormal findings of blood chemistry; E87.0 Hyperosmolality and hypernatremia; Z79.82 Long term (current) use of aspirin
CPT/HCPCS: 36415; 71045; 78452; 80048; 81001; 83735; 83880; 84484; 85025; 87086; 93005; 93017; 93306; 94761; 96365; 99285; A9500; G0378; J3475

== ENCOUNTER 2025-01-13 14:23 | Outpatient (OUT) | payer OTHER, SELFPAY ==
[2025-01-13 14:39] LABS: Basophils Absolute Auto 0.1 10^3/uL (0.0-0.1); Basophils Percent Auto 0.7 % (0.2-2.0); Eosinophils Absolute Auto 0.1 10^3/uL (0.0-0.7); Eosinophils Percent Auto 1.5 % (0.9-7.0); Hematocrit 43.2 % (36.0-48.0); Hemoglobin 14.4 g/dL (12.0-16.0); Immature Granulocytes Abs Auto 0.01 10^3/uL (0.00-0.03); Immature Granulocytes Pct Auto 0.1 % (0.0-0.5); Lymphocytes Absolute Auto 2.7 10^3/uL (1.2-3.8); Lymphocytes Percent Auto 33.4 % (20.5-60.0); Mean Corpuscular HGB Conc 33.3 g/dL (29.9-35.2); Mean Corpuscular Hemoglobin 30.6 pg (26.7-34.0); Mean Corpuscular Volume 91.7 fL (81.0-99.0); Mean Platelet Volume 8.6 fL (9.5-13.5); Monocytes Absolute Auto 0.6 10^3/uL (0.3-0.8); Monocytes Percent Auto 6.9 % (1.7-12.0); Neutrophils Absolute Auto 4.7 10^3/uL (1.4-6.5); Neutrophils Percent Auto 57.4 % (43.0-75.0); Platelet Count 292 10^3/uL (150-450); Red Blood Count 4.71 10^6/uL (4.20-5.40); Red Cell Distribution Width 12.6 % (11.0-15.0); White Blood Count 8.1 10^3/uL (4.0-11.0)
[2025-01-13 14:57] LABS: Anion Gap 12.8; Calcium 9.2 mg/dL (8.5-10.1); Carbon Dioxide 29.3 mmol/L (21.0-32.0); Chloride 104 mmol/L (98-107); Estimated GFR (African America >60 (>=60 mL/min/1.73m^2); Estimated GFR (Non-African Ame >60 (>=60 mL/min/1.73m^2); Glucose 146 mg/dL (74-106); Potassium 4.1 mmol/L (3.5-5.1); Sodium 142 mmol/L (136-145)
== END 2025-01-13 14:24 | disposition home or self-care (01) ==
LOC: LAB 14:27
PROVIDERS: PCP Nurse Practitioner Family; Visit Provider Internal Medicine Cardiovascular Disease
DX: I48.0 Paroxysmal atrial fibrillation (principal)
CPT/HCPCS: 36415; 80048; 85025

== ENCOUNTER 2025-02-03 10:37 | Outpatient (OUT) | payer OTHER, SELFPAY ==
--- OUTSIDE RECORDS SUMMARY | 2025-02-03 10:59 | XMS_ITS | CCD ---
Author Organization [facility] Care Team Providers Care Addictions Counselor Name Role Phone MISC, DOCTOR Unavailable Unavailable MISC, DOCTOR Unavailable Unavailable MISC, DOCTOR Unavailable Unavailable MISC, DOCTOR Unavailable Unavailable LELA MORALES Unavailable Unavailable ELKIN GUTIERREZ Unavailable Unavailable ELKIN GUTIERREZ Unavailable Unavailable HEATHER BUSTAMANTE Unavailable Unavailable ELKIN GUTIERREZ Unavailable Unavailable Heather Bustamante Primary Care Physician Unavailable Primary Care Provider UnavailLatonia Simmons Primary Care Physician Dr. ELICEO CUELLO Attending Unavailable PCP, OTHER Primary Care Unavailable LEILA Toro Attending Provider PRANAV TORO Primary Care Physician Unavailable Primary Care Provider UnavailDOMINIQUE Swanson Referring Unavailable Pranav Toro Unavailable LEILA Toro Primary Care Provider LEILA Toro Attending Provider [phone] ROCIO Christy Attending Provider Юлия Christy Unavailable CRISTIAN CASTRO Attending Unavailable Noah Rai Unavailable LEILA Toro Primary Care Provider [phone] ROCIO Christy Attending Provider MD Noah Rai Attending Provider MIREYA WASHINGTON Attending Unavailable Shahid Kinga Primary Care Provider UnavailSawyer Jaramillohanie Unavailable JAELYN, ЮЛИЯ GUEVARA Admitting Unavailab le JAELYN, ЮЛИЯ GUEVARA Attending Unavailab le JAELYN, ЮЛИЯ GUEVARA Referring Unavailab le JAELYN, ЮЛИЯ GUEVARA Admitting Unavailab le JAELYN, ЮЛИЯ GUEVARA Attending Unavailab le JAELYN, ЮЛИЯ GUEVARA Referring Unavailab le JAELYN, ЮЛИЯ GUEVARA Attending Unavailab le JAELYN, ЮЛИЯ GUEVARA Referring Unavailab le JAELYN, ЮЛИЯ GUEVARA Admitting Unavailab le WASHINGTON, SHAHLA Gomes Attending Unavaila ble REFERRAL, SELF Referring Unavailable WASHINGTON, SHAHLA Gomes Admitting Unavaila ble WASHINGTON, SHAHLA Gomes Consulting Unavaila ble WASHINGTON, Mireya Consulting Unavailable WASHINGTON, Mireya Consulting Unavailable WASHINGTON, Mireya Consulting Unavailable JAELYN, ЮЛИЯ GUEVARA Admitting Unavailab le JAELYN, ЮЛИЯ GUEVARA Attending Unavailab le JAELYN, ЮЛИЯ GUEVARA Admitting Unavailab le JAELYN, ЮЛИЯ GUEVARA Attending Unavailab le JAELYN, ЮЛИЯ GUEVARA Admitting Unavailab le JAELYN, ЮЛИЯ GUEVARA Attending Unavailab le JAELYN, QUILL WORKER ЮЛИЯ GUEVARA Admitting Unava ilable JAELYN, ЮЛИЯ GUEVARA Attending Unavailab le JAELYN, ЮЛИЯ GUEVARA Referring Unavailab le JAELYN, ЮЛИЯ GUEVARA Admitting Unavailab le JAELYN, ЮЛИЯ GUEVARA Attending Unavailab le JAELYN, ЮЛИЯ GUEVARA Referring Unavailab le JAELYN, ЮЛИЯ GUEVARA Admitting Unavailab le JAELYN, ЮЛИЯ GUEVARA Attending Unavailab le JAELYN, ЮЛИЯ GUEVARA Referring Unavailab le Nathan, LEILA Emmanuel Primary Care Provider ROCIO Christy Attending Provider JAELYN, JAIDA GUEVARA Admitting Unava ilable JAELYN, ЮЛИЯ GUEVARA Attending Unavailab le JAELYN, ЮЛИЯ GUEVARA Referring Unavailab le JAELYN, ЮЛИЯ GUEVARA Referring Unavailab le Gennari, Angella Admitting Unavailable Zak Meyer Attending Unavailable JAELYN, ЮЛИЯ GUEVARA Admitting Unavailab le JAELYN, ЮЛИЯ GUEVARA Referring Unavailab le JAELYN, ЮЛИЯ GUEVARA Attending Unavailab le JAELYN, ЮЛИЯ GUEVARA Referring Unavailab le JAELYN, ЮЛИЯ GUEVARA Attending Unavailab le JAELYN, ЮЛИЯ GUEVARA Admitting Unavailab le JAELYN, ЮЛИЯ GUEVARA Referring Unavailab le JAELYN, ЮЛИЯ GUEVARA Admitting Unavailab le JAELYN, ЮЛИЯ GUEVARA Attending Unavailab le JAELYN, ЮЛИЯ GUEVARA Attending Unavailab le JAELYN, ЮЛИЯ GUEVARA Referring Unavailab le JAELYN, ЮЛИЯ GUEVARA Referring Unavailab le JAELYN, ЮЛИЯ GUEVARA Admitting Unavailab le JAELYN, ЮЛИЯ GUEVARA Attending Unavailab le JAELYN, ЮЛИЯ GUEVARA Referring Unavailab le JAELYN, ЮЛИЯ GUEVARA Admitting Unavailab le JAELYN, ЮЛИЯ GUEVARA Attending Unavailab le [facility], JEWEL BEARING DRILLER Pranav Emmanuel Primary Care Provider Jaelyn, MARIANOC Юлия Azar Attending Provider JAELYN, ЮЛИЯ GUEVARA Attending Unavailab le JAELYN, ЮЛИЯ GUEVARA Referring Unavailab le JAELYN, ЮЛИЯ GUEVARA Admitting Unavailab le Hajddilip, Astrit H Attending Unavailable Angella Samano Attending Unavailable Angella Samano Admitting Unavailable JAELYN, QUILL WORKER ЮЛИЯ GUEVARA Admitting Unava ilable JAELYN, QUILL WORKER ЮЛИЯ GUEVARA Attending Unava ilable MD Stanley Prince Attending Unavaila ble Angella Samano Admitting Unavailable [facility] Cardio, XXXX Consulting Unavailable Elvis Pace Consulting Unavailable Elvis Pace Consulting Unavailable Elvis Pace Consulting Unavailable Jesu Díaz GSantiago Attending Unavailable Franca DEL CASTILLO Referring Unavailable SusannanElvis vazquez Admitting Unavailable KirnRamon vazquezl Sharon Attending Unavailable NONE, XXXX Referring Unavailable Díaz, Basem G. Attending Unavailable ABUNDIO, Franca Referring Unavailable REFERRAL, SELF Referring Unavailable REFERRAL, SELF Attending Unavailable REFERRAL, SELF Admitting Unavailable JAELYN, JAIDA GUEVARA Attending Unava ilable JAELYN, JAIDA GUEVARA Referring Unava ilable JAELYN, JAIDA GUEVARA Admitting Unava ilable JAELYN, JAIDA GUEVARA Attending Unava ilable [place], PRANAV Attending Unavailable HERBERTERBEBETO, PRANAV Admitting Unavailable TESTRAKE, OSCAR Referring Unavailable TESTRAKE, OSCAR Attending Unavailable TESTRAKE, OSCAR Attending Unavailable EASTER[place], PRANAV Admitting Unavailable [place], PRANAV Attending Unavailable JAELYN, ЮЛИЯ GUEVARA Referring Unavailab le JAELYN, ЮЛИЯ GUEVARA Attending Unavailab Tino Mcgregor MD Primary Care Provider Pranav Toro APRN Primary Care Provider Nico Ochoa MD Attending Provider Pranav Toro Primary Care Unavailable Юлия Christy Admitting Unavailable Crisp, Юлия Azar Attending Unavailable Pranav Toro Primary Care Unavailable Jaelyn, Юлия Azar Admitting Unavailable Jaelyn, Юлия Azar Attending Unavailable Nico Ochoa Admitting Unavailable Don, Nico Attending Unavailable Pranav Toro Primary Care Unavailable JESUS ALBERTO RICARDO Attending Unavailable JESUS ALBERTO RICARDO Referring Unavailable JESUS ALBERTO RICARDO Referring Unavailable KUMAR, MITZI Referring Unavailable KUMAR, MITZI Referring Unavailable KUMAR, MITZI Referring Unavailable KUMAR, MITZI Referring Unavailable RANI, HANI Referring Unavailable RANI, HANI Referring Unavailable JOSE CARLOS, JESENIA Referring Unavailable JOSE CARLOS, JESENIA Referring Unavailable DAVIONJESUS ALBERTO Nova Referring Unavailable DAVIONJESUS ALBERTO Nova Referring Unavailable DAVIONJESUS ALBERTO Referring Unavailable DAVIONJESUS ALBERTO Referring Unavailable DAVIONJESUS ALBERTO Nova Admitting Unavailable DAVIONJESUS ALBERTO Referring Unavailable RANI, ANABELLAI Attending Unavailable JESUS ALBERTO RICARDO Attending Unavailable Allergies Allergy Classification Reported Allergen(s) Allergy Type Date of Onset Reaction(s) Facility (20 sources) Codeine; Translations: [CODEINE] Drug Allergy 3 AOF, Migraine, Migraine, Migraines [facility] Repository (1 source) Sulfonamides (Antibiotic) Drug allergy (disorder) AOF [facility] Repository (20 sources) Codeine; Translations: [codeine] Drug Allergy 2 Intolerance, Headache, Rash [facility] (20 sources) Sulfonamides (Antibiotic); Translations: [sulfa drugs] Drug allergy Cutaneous eruption (morphologic abnormality) [facility] (20 sources) Sulfonamides (Antibiotic); Translations: [SULFA (SULFONAMIDE ANTIBIOTICS)] Drug Allergy 5 Rash, Swelling [facility] Work Phone: (20 sources) Sulfamethoxazole ; Translations: [sulfamethoxazol e] Drug Allergy 4 Rash, muscle tightness [facility] (1 source) Codeine Drug Allergy 5 [facility] Repository (1 source) SULFAMIDE; Translations: [SULFAMIDE] Propensity to adverse reactions to drug (disorder) 5 [facility] Repository Medications Current Medications Medication Drug Class(es) Dates Sig (Normalized) Sig (Original) aspirin 81 mg delayed release oral tablet (13 sources) Platelet Aggregation Inhibitor, Nonsteroidal Anti-inflammatory Drug Start: 07-01-2024 take 1 tablet by mouth once daily Aspirin 81 mg tablet,delayed release (DR/EC) Active 81 MG PO Daily July 02, 2024 12:00am benzonatate 200 mg oral capsule (4 sources) Non-narcotic Antitussive Start: 07-26-2023 take 1 capsule by mouth every eight hours Benzonatate 200 MG 1 capsule Orally Three times a day for 3 days Jul, Active Start: 10-12-2022 take 1 capsule by mo [facility] three times daily as needed Benzonatate 200 MG 1 capsule PRN Orally Three times a day for 3 days Sep, Not-Taking calcium ascorbate 500 mg oral tablet (8 sources) Start: 12-27-2023 take 1 tablet by mouth once daily Ascorbate Calcium (Vitamin C) 500 mg tablet Active 500 MG PO Daily December 27, 2023 12:00am calcium carbonate 420 mg chewable tablet (8 sources) Start: 12-27-2023 take 1 tablet by mouth three times daily Calcium Carbonate ([place]) 168 mg calcium (420 mg) tablet,chewable Active 168 MG PO Three times daily December 27, 2023 12:00am Calcium Carbonate / Vitamin D (1 source) Calcium Carbonate-Vitamin D (CALCIUM-D PO) Take by mouth Active Calcium Citrate / Vitamin D (13 sources) Start: 02-13-2024 take 1 tablet by mouth twice daily calcium-vitamin D 1 tab, Oral, BID, Refill(s) 0 Start Date: 02/13/24 Status: Ordered cephalexin 500 mg oral capsule (20 sources) Cephalosporin Antibacterial Start: 03-28-2023 take 1 capsule by mouth three times daily cephALEXin (KEFLEX) 500 mg capsule Take 1 capsule by mouth three times daily. 21 capsule 04/20/2023 Active Start: 11-02-2022 take 1 capsule by mo uth every eight hours cephALEXin (KEFLEX) 500 mg capsule Take 1 capsule by mouth every 8 hours. 15 capsule 2 11/02/2022 Active Start: 10-25-2022 End: 11-01-2022 take 1 capsule by mouth every twelve hours Keflex 500 mg Cap 500 mg = 1 cap(s), Oral, q12hr, X 7 day(s), # 14 cap(s), Refills(s) 0, Pharmacy: [facility] #[id number], 175, cm, 08/03/22 8:15:00 EST, Height/Length Dosing, 63.4, kg, 08/03/22 8:15:00 EST, Weight Dosing Start Date: 10/25/22 Stop Date: 11/01/22 Status: Ordered Start: 08-03-2022 End: 08-10-2022 take 1 capsule by mouth every twelve hours Keflex 500 mg Cap 500 mg = 1 cap(s), Oral, q12hr, X 7 day(s), # 14 cap(s), Refills(s) 0, Pharmacy: [facility] #[id number], 175, cm, 08/03/22 8:15:00 EST, Height/Length Dosing, 63.4, kg, 08/03/22 8:15:00 EST, Weight Dosing Start Date: 08/03/22 Stop Date: 08/10/22 Status: Ordered Start: 07-04-2022 End: 07-11-2022 take 1 capsule by mouth every twelve hours Keflex 500 mg Cap 500 mg = 1 cap(s), Oral, q12hr, X 7 day(s), # 14 cap(s), Refills(s) 0, Pharmacy: [facility] #[id number], 175, cm, 05/18/22 13:10:00 EDT, Height/Length Dosing, 63.4, kg, 05/18/22 13:10:00 EDT, Weight Dosing Start Date: 07/04/22 Stop Date: 07/11/22 Status: Ordered Comment on above: Take 1 capsule by mo ut every 8 hours. Take 1 capsule by mo ut three times daily. cholecalciferol 0.01 mg oral capsule (8 sources) Vitamin D Start: 12-27-19 take 1 capsule by mouth once daily Cholecalciferol (Vitamin D3) 10 mcg (400 unit) capsule Active 10 MCG PO Daily December 27, 2023 12:00am Start: 12-27-2023 take 1 capsule by mo uth once daily Cholecalciferol (Vitamin D3) 10 mcg (400 unit) capsule Active 10 MCG PO Daily December 26, 2023 11:00pm Start: 12-27-2023 take 10 ug by mouth once daily Cholecalciferol (Vitamin D3) Active 10 MCG PO Daily December 27, 2023 12:00am ciclopirox 80 mg/ml topical solution (4 sources) Start: 11-14-2024 End: 12-14-2024 Ciclopirox (CICLODAN) 8 % solution Apply to affected area daily at bedtime. 6.6 mL 2 11/14/2024 12/14/2024 Active Start: 04-05-2023 End: 05-05-2023 Ciclopirox (LOPROX) 8 % solu tion Indications: Onychomycosis Apply to affected area daily at bedtime. 6.6 mL 2 04/05/2023 05/05/2023 Active Comment on above: Apply to affected ar ea daily at bedtime. Clotrimazole (4 sources) Azole Antifungal Clotrimazole 1 % 1 application to affected area Topically Twice a day for 30 days Active Cranberry preparation (20 sources) Non-Standardized Food Allergenic Extract, Non-Standardized Plant Allergenic Extract Start: 03-11-2020 Cranberry oral capsule Refill(s) 0 Start Date: 03/11/20 Status: Ordered Daily Multiple Vitamins (20 sources) Start: 03-13-2011 Daily Multiple Vitamins Oral, Daily, Refill(s) 0 Start Date: 03/13/11 Status: Ordered 1 ml denosumab 60 mg/ml prefilled syringe (3 sources) RANK Ligand Inhibitor Start: 10-06-2024 Denosuma b (Prolia) 60 mg/mL syringe Active 60 MG SUBCUT EVERY 6 MONTHS October 06, 2024 1:00am Fish Oils (1 source) omega-3 (FISH OI L) 300 MG capsule Take by mouth Daily Active Magnesium Chloride (4 sources) Start: 07-04-2024 magnesium chlo ride Active PO July 03, 2024 11:00pm Start: 07-04-2024 magnesium chlo ride Active PO July 04, 2024 12:00am magnesium gluconate 550 mg oral tablet (1 source) take 1 tablet by mouth in the morning magnesium 30 MG tablet Take 30 mg by mouth in the morning and 30 mg before bedtime. Active methylPREDNISolone 4 mg oral tablet (2 sources) Corticosteroid Start: 2022 methylPREDNISolone 4 MG as directed Orally as directed for 6 days Jul, Active metoprolol tartrate 25 mg oral tablet (2 sources) beta-Adrenergic Kite Start: 2024 take 1 tablet by mouth twice daily Metoprolol Tartrate 25 mg tablet Active 25 MG PO Twice daily 60 December 05, 2024 12:00am Cardiology Milk thistle extract (3 sources) Start: 2024 milk thistle Active PO October 06, 2024 1:00am Start: 10-06-2024 milk thistle A ctive PO October 06, 2024 12:00am Multiple Vitamin (multivitamin) tablet (1 source) take 1 tablet by mouth once daily Multiple Vitamin (multivitamin) tablet Take 1 tablet by mouth Daily Active Probiotic Product (PROBIOTIC BLEND PO) (1 source) Probiotic Produc t (PROBIOTIC BLEND PO) Take by mouth Active rivaroxaban 20 mg oral tablet (17 sources) Factor Xa Inhibitor Start: 12-17-19 take 1 tablet by mouth once daily at dinner Rivaroxaban (Xarelto) 20 mg tablet Active 20 MG PO Daily December 16, 2024 12:00am must administer with evening meal take 1 tablet by essie th once daily at dinner rivaroxaban (XARELTO) 20 mg tablet Take 20 mg by mouth daily with dinner. Active Comment on above: Take 20 mg by mouth daily with dinner. terbinafine 250 mg oral tablet (10 sources) Allylamine Antifungal Start: 3 take 1 tablet by mouth once daily terbinafine HCl (LAMISIL) 250 mg tablet Indications: Onychomycosis Take 1 tablet by mouth once daily. 30 tablet 2 04/30/2023 Active Comment on above: Take 1 tablet by essie once daily. Ubidecarenone-[place] 3-Vit E (Co Z-15-[place] E-Fish Oil) 25-150-200 mg-mg-unit capsule (8 sources) Start: take 1 capsule by mouth once daily Ubidecarenone-[place] 3-Vit E (Co J-63-Yfgmaao E-Fish Oil) 25-150-200 mg-mg-unit capsule Active 1 CAP PO Daily December 26, 2023 11:00pm Start: 12-27-2023 take 1 capsule by mo [facility] once daily Ubidecarenone-[place] 3-Vit E (Co G-44-Jyqfdtt E-Fish Oil) 25-150-200 mg-mg-unit capsule Active 1 CAP PO Daily December 27, 2023 12:00am vitamin K2 (4 sources) Start: 07-04-2024 vitamin K2 Act hong PO July 03, 2024 11:00pm Start: 07-04-2024 vitamin K2 Act hong PO July 04, 2024 12:00am Completed/Discontinued Medications Medication Drug Class(es) Dates Sig (Normalized) Sig (Original) D-Mannose (14 sources) D-Mannose OTC, P RN Not-Taking/PRN D-Mannose OTC, P RN Not-Taking D-Mannose OTC, d aily Active D-Mannose (8 sources) Start: 12-24-2023 End: 12-27-2023 take 1 capsule by mouth once D-Mannose 500 mg capsule Discontinued 500 MG PO December 24, 2023 12:00am December 27, 2023 12:48pm Start: 12-24-2023 End: 12-27-2023 take 1 capsule by mouth once D-Mannose 500 mg capsule Discontinued 500 MG PO December 23, 2023 11:00pm December 27, 2023 11:48am Start: 12-24-2023 End: 12-27-2023 take 500 mg by mouth once D-Mannose Discontinued 500 M G PO December 24, 2023 12:00am December 27, 2023 12:48pm estradiol 0.1 mg/ml vaginal cream (20 sources) Estrogen Start: 12-24-2023 End: 12-27-2023 Estradiol 0.01 % (0.1 mg/gra m) cream Discontinued VAGINAL As Directed December 24, 2023 12:00am December 27, 2023 12:48pm FreeTextSig: as directed Vaginal; Note: Source Status: Not-TakingundefinedPRN; Provider: Nathan Gipson ( ) Start: 10-26-2022 estradiol (EST RACE) 0.01 % (0.1 mg/gram) vaginal cream Indications: Urethral caruncle Use 1 g vaginally two times a week. 42.5 g 10/26/2022 Active Estradiol 0.1 MG /GM as directed Vaginal Not-Taking/PRN Estradiol 0.1 MG /GM as directed Vaginal Not-Taking Comment on above: Use 1 g vaginally tw o times a week. Lactobacillus Combination No.9 (Adult 50 Plus Probiotic) 4 billion cell capsule (8 sources) Start: 12-27-19 End: 07-04-20 take 4 capsules by mouth once daily Lactobacillus Combination No.9 (Adult 50 Plus Probiotic) 4 billion cell capsule Discontinued 4000 MMU CELLS PO Daily December 26, 2023 11:00pm July 04, 2024 8:39am administer with a meal Start: 12-27-2023 End: 07-04-2024 take 4 capsules by mouth once daily Lactobacillus Combination No.9 (Adult 50 Plus Probiotic) 4 billion cell capsule Discontinued 4000 MMU CELLS PO Daily December 27, 2023 12:00am July 04, 2024 9:39am administer with a meal Start: 12-27-2023 take 4 capsules by m outh once daily Lactobacillus Combination No.9 (Adult 50 Plus Probiotic) 4 billion cell capsule Active 4000 MMU CELLS PO Daily December 27, 2023 12:00am administer with a meal nitrofurantoin, macrocrystals 25 mg / nitrofurantoin, monohydrate 75 mg oral capsule (3 sources) Nitrofuran Antibacterial Start: 10-12-2022 take 1 capsule by mouth every twelve hours Macrobid 100 MG 1 capsule with food Orally every 12 hrs for 7 day(s) Sep, Not-Taking Start: 05-18-2022 End: 05-25-2022 take 1 capsule by mouth twice daily Macrobid 100 mg Cap 100 mg = 1 cap(s), Oral, BID, X 7 day(s), # 14 cap(s), Refills(s) 0, Pharmacy: [facility] #[id number], 175, cm, 05/18/22 13:10:00 EDT, Height/Length Dosing, 63.4, kg, 05/18/22 13:10:00 EDT, Weight Dosing Start Date: 05/18/22 Stop Date: 05/25/22 Status: Ordered polymyxin b 29224 unt/ml / trimethoprim 1 mg/ml ophthalmic solution (2 sources) Dihydrofolate Reductase Inhibitor Antibacterial, Polymyxin-class Antibacterial Start: 10-12-2022 take 1 drop(s) into the eye(s) four times daily Polymyxin B-Trimethoprim 57882-8.1 UNIT/ML 1 drop into affected eye(s) Ophthalmic Four times a day for 5 day(s) Sep, Not-Taking 1.17 ml romosozumab-aqqg 89.7 mg/ml prefilled syringe (20 sources) Start: 06-30-2024 inject 210 mg by subcutaneous injection every month Evenity 210 mg, SubCutaneous, qMonth, Refills(s) 0 Start Date: 06/30/24 Status: Ordered Start: 09-12-2023 romosozumab-aq qg 105 mg/1.17 mL subcutaneous syringe every 3 months. 09/12/2023 Active Start: 09-12-2023 End: 10-06-2024 Romosozumab-Aqqg (Evenity) 1 05 mg/1.17 mL syringe Discontinued 105 MG SUBCUT every month 1.17 July 15, 2024 11:08am October 06, 2024 9:37am Evenity 105 MG/1 .17ML 2.34 mL Subcutaneous Active Problems Active Problems Problem Classification Problem Date Documented Da te Episodic/Chronic Abdominal pain (20 sources) Abdominal discomfort 12-01-2019 Episodic Acquired foot deformities (5 sources) Bunion; Translations: [Hallux valgus (acquired), unspecified foot] 02-05-2024 Chronic Anxiety disorders (3 sources) Anxiety; Translations: [Anxiety disorder, unspecified] 07-07-2024 Chronic Calculus of urinary tract (20 sources) History of calculus of kidney; Translations: [Personal history of urinary calculi] Onset: 2 05-18-2022 Episodic Cardiac dysrhythmias (11 sources) Unspecified atrial fibrillation; Translations: [Atrial fibrillation] Onset: 4 Chronic Comment on above: Afib [place] November 2024 Disorders of lipid metabolism (18 sources) Hyperlipidemia; Translations: [Hyperlipidemia, unspecified] Chronic Genitourinary symptoms and ill-defined conditions (20 sources) Urinary incontinence 12-01-2019 Chronic Genitourinary symptoms and ill-defined conditions (20 sources) Microscopic hematuria; Translations: [Michael hematuria] Onset: 3 12-01-2019 Episodic Inflammation; infection of eye (except that caused by tuberculosis or sexually transmitteddisease) (1 source) Unspecified conjunctivitis Episodic Joint disorders and dislocations; trauma-related (4 sources) Tear of meniscus of knee; Translations: [Unspecified tear of unspecified meniscus, current injury, unspecified knee, initial encounter] Episodic Mycoses (2 sources) Tinea unguium; Translations: [Onychomycosis] Episodic Nonspecific chest pain (2 sources) Other chest pain; Translations: [Other chest pain] Onset: 5 Episodic Open wounds of extremities (1 source) Open wound of toe; Translations: [Unspecified open wound of unspecified toe(s) without damage to nail, initial encounter] 05-17-2023 Episodic Osteoporosis (20 sources) Osteoporosis; Translations: [Age-related osteoporosis without current pathological fracture] Onset: 4 Chronic Other aftercare (1 source) 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; Translations: [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] Onset: 2 Episodic Other aftercare (2 sources) Patient encounter status; Translations: [Other mcc (current) drug therapy] 01-09-2025 Episodic Other aftercare (2 sources) Other mcc (current) drug therapy; Translations: [Long-term (current) use of other medications] Onset: 5 01-19-2025 Episodic Other and unspecified benign neoplasm (1 source) Benign neoplasm of transverse colon; Translations: [BENIGN NEOPLASM OF TRANSVERSE COLON] Onset: 8 Episodic Other and unspecified benign neoplasm (14 sources) Polyp of colon; Translations: [Polyp of colon] Episodic Other and unspecified benign neoplasm (1 source) Polyp of colon Episodic Other and unspecified benign neoplasm (4 sources) History of polyp of colon; Translations: [Personal history of colonic polyps] Episodic Other connective tissue disease (8 sources) Decrease in height; Translations: [Loss of height] 12-27-2023 Episodic Other connective tissue disease (1 source) Pain in right foot; Translations: [Pain in right foot] 02-05-2024 Episodic Other diseases of bladder and urethra (1 source) Urethral caruncle; Translations: [Urethral caruncle] Episodic Other diseases of veins and lymphatics (4 sources) Venous varices; Translations: [Varicose veins of other specified sites] Episodic Other nervous system disorders (4 sources) Complex regional pain syndrome I of left lower limb; Translations: [Complex regional pain syndrome I of left lower limb] Onset: 2 Chronic Other nervous system disorders (14 sources) Cataplexy; Translations: [Narcolepsy with cataplexy] Chronic Other nervous system disorders (1 source) Narcolepsy with cataplexy Chronic Other nervous system disorders (1 source) Complex regional pain syndrome; Translations: [Complex regional pain syndrome I, unspecified] 04-30-2023 Chronic Other nervous system disorders (1 source) Complex regional pain syndrome type II of left lower limb; Translations: [Causalgia of left lower limb] 07-05-2023 Chronic Other nervous system disorders (1 source) Causalgia of left lower limb; Translations: [Complex regional pain syndrome type 2 of left lower extremity] Onset: 3 Chronic Other nervous system disorders (4 sources) Complex regional pain syndrome, type I; Translations: [Complex regional pain syndrome I, unspecified] Chronic Other nervous system disorders (1 source) Skin sensation disturbance; Translations: [Unspecified disturbances of skin sensation] Episodic Other nutritional; endocrine; and metabolic disorders (2 sources) Hypocalcemia; Translations: [Hypocalcemia] 01-09-2025 Chronic Comment on above: hx of Other nutritional; endocrine; and metabolic disorders (2 sources) Hypocalcemia; Translations: [Hypocalcemia] Onset: 5 01-19-2025 Chronic Other screening for suspected conditions (not mental disorders or infectious disease) (20 sources) Encounter for screening for malignant neoplasm of colon; Translations: [Encounter for screening mammogram for malignant neoplasm of breast] Onset: 8 03-09-2014 Episodic Other skin disorders (1 source) Dystrophia unguium; Translations: [Nail dystrophy] 11-15-2024 Episodic Other upper respiratory infections (5 sources) Chronic sinusitis, unspecified; Translations: [Rhinosinusitis] Chronic Trisha-; endo-; and myocarditis; cardiomyopathy (except that caused by tuberculosis or sexually transmitted disease) (2 sources) Cardiac tamponade; Translations: [Cardiac tamponade] Onset: 5 Episodic Phlebitis; thrombophlebitis and thromboembolism (8 sources) Personal history of other venous thrombosis and embolism; Translations: [Phlebitis and thrombophlebitis of left tibial vein] Onset: 2 Episodic Prolapse of female genital organs (1 source) Pelvic floor dysfunction; Translations: [Other female genital prolapse] Chronic Residual codes; unclassified (8 sources) Obstructive sleep apnea syndrome; Translations: [Obstructive sleep apnea (adult) (pediatric)] Onset: 4 Chronic Residual codes; unclassified (14 sources) Postmenopausal state; Translations: [Asymptomatic menopausal state] Episodic Residual codes; unclassified (14 sources) Postoperative state; Translations: [Other specified postprocedural states] Episodic Residual codes; unclassified (1 source) Other specified postprocedural states Episodic Residual codes; unclassified (8 sources) Menopause present; Translations: [Asymptomatic menopausal state] 12-27-2023 Episodic Spondylosis; intervertebral disc disorders; other back problems (20 sources) Low back pain; Translations: [LBP [Low back pain]] Onset: 0 Episodic Unclassified (20 sources) Asymptomatic microscopic hematuria 05-18-2022 Urinary tract infections (20 sources) Recurrent urinary tract infection; Translations: [Urinary tract infectious disease] Onset: 2 12-01-2019 Episodic Varicose veins of lower extremity (20 sources) Varicose veins of lower extremity 08-25-2019 Episodic Past or Other Problems Problem Classification Problem Date Documented Da te Episodic/Chronic Acute bronchitis (14 sources) Acute bronchitis; Translations: [Acute bronchitis NOS] Onset: 07-21-2009 Episodic Other bone disease and musculoskeletal deformities (14 sources) Somatic dysfunction of lumbar region; Translations: [Nonallopathic lesion of lumbar region] Onset: 09-12-2010 Episodic Other connective tissue disease (3 sources) Loss of height; Translations: [Loss of height] Onset: 06-19-2024 12-27-2023 Episodic Other connective tissue disease (1 source) Pain in right foot; Translations: [Pain in right foot] Onset: 02-05-2024 Episodic Other connective tissue disease (1 source) Muscle weakness (generalized); Translations: [Muscle weakness (generalized)] Onset: 01-29-2024 Episodic Other lower respiratory disease (14 sources) Cough; Translations: [Cough] Onset: 08-08-2011 Episodic Other upper respiratory infections (20 sources) Acute pansinusitis; Translations: [Acute pansinusitis] Onset: 07-21-2009 Episodic Poisoning by other medications and drugs (14 sources) Allergic reaction to drug; Translations: [Allergic reaction to drug, not elsewhere classified] Onset: 07-25-2012 Episodic Residual codes; unclassified (1 source) Family history of malignant neoplasm of breast; Translations: [FAMILY HX MALIG NEOPLASM OF BREAST] Onset: 06-24-2018 Episodic Residual codes; unclassified (4 sources) Asymptomatic menopausal state; Translations: [Asymptomatic postmenopausal status (age-related) (natural)] Onset: 06-19-2024 Episodic Unclassified (1 source) Acute cough R05.1 Results Test Name Value Interpretation Reference Range Facility 30on 01-29-2025 30 Problem: Pain - Adul t Goal: Verbalizes/displays adequate comfort level or baseline comfort level 01/29/2025 105 by Lady Lopez RN Outcome: Adequate for Discharge 01/29/2025 0848 by Lady Lopez RN Outcome: Progressing Problem: Safety - Adult Goal: Free from fall injury 01/29/2025 1056 by Lady Lopez RN Outcome: Adequate for Discharge 01/29/2025 0848 by Lady Lopez RN Outcome: Progressing Problem: Discharge Planning Goal: Discharge to home or other facility with appropriate resources 01/29/2025 105 by Lady Lopez RN Outcome: Adequate for Discharge 01/29/2025 0848 by Lady Lopez RN Outcome: Progressing Problem: Chronic Conditions and Co-morbidities Goal: Patient's chronic conditions and co-morbidity symptoms are monitored and maintained or improved 01/29/2025 1056 by Lady Lopez RN Outcome: Adequate for Discharge 01/29/2025 0848 by Lady Lopez RN Outcome: Progressing Problem: Cardiovascular - Adult Goal: Maintains optimal cardiac output and hemodynamic stability Outcome: Adequate for Discharge Goal: Absence of cardiac dysrhythmias or at baseline Outcome: Adequate for Discharge Problem: Genitourinary - Adult Goal: Absence of urinary retention Outcome: Adequate for Discharge Goal: Urinary catheter remains patent Outcome: Adequate for Discharge Problem: Metabolic/Fluid and Electrolytes - Adult Goal: Electrolytes maintained within normal limits Outcome: Adequate for Discharge Goal: Hemodynamic stability and optimal renal function maintained Outcome: Adequate for Discharge Problem: Hematologic - Adult Goal: Maintains hematologic stability Outcome: Adequate for Discharge Problem: Skin/Tissue Integrity - Adult Goal: Incisions, wounds, or drain sites healing without S/S of infection Outcome: Adequate for Discharge Problem: Musculoskeletal - Adult Goal: Return mobility to safest level of function Outcome: Adequate for Discharge Goal: Return ADL status to a safe level of function Outcome: Adequate for Discharge Problem: Neurosensory - Adult Goal: Achieves stable or improved neurological status Outcome: Adequate for Discharge Problem: Respiratory - Adult Goal: Achieves optimal ventilation and oxygenation Outcome: Adequate for Discharge Problem: Infection - Adult Goal: Absence of infection at discharge Outcome: Adequate for Discharge [facility] 30 Problem: Pain - Adul t Goal: Verbalizes/displays adequate comfort level or baseline comfort level Outcome: Progressing Problem: Safety - Adult Goal: Free from fall injury Outcome: Progressing Problem: Discharge Planning Goal: Discharge to home or other facility with appropriate resources Outcome: Progressing Problem: Chronic Conditions and Co-morbidities Goal: Patient's chronic conditions and co-morbidity symptoms are monitored and maintained or improved Outcome: Progressing The patient is Moderately Stable - Low risk of patient condition declining or worsening The patient's goals for the shift include comfort The clinical goals for the shift include VSS Normal [facility] 30 The patient is Moderately Stable - Low risk of patient condition declining or worsening The patient's goals for the shift include comfort, rest The clinical goals for the shift include vss, safety Problem: Pain - Adult Goal: Verbalizes/displays adequate comfort level or baseline comfort level Outcome: Progressing Problem: Safety - Adult Goal: Free from fall injury Outcome: Progressing Problem: Discharge Planning Goal: Discharge to home or other facility with appropriate resources Outcome: Progressing Flowsheets (Taken 01/28/20251999) Discharge to home or other facility with appropriate resources: Identify barriers to discharge with patient and caregiver Arrange for needed discharge resources and transportation as appropriate Identify discharge learning needs (meds, wound care, etc) Problem: Chronic Conditions and Co-morbidities Goal: Patient's chronic conditions and co-morbidity symptoms are monitored and maintained or improved Outcome: Progressing Flowsheets (Taken 01/28/20251999) Care Plan - Patient's Chronic Conditions and Co-Morbidity Symptoms are Monitored and Maintained or Improved: Monitor and assess patient's chronic conditions and comorbid symptoms for stability, deterioration, or improvement Collaborate with multidisciplinary team to address chronic and comorbid conditions and prevent exacerbation or deterioration Update acute care plan with appropriate goals if chronic or comorbid symptoms are exacerbated and prevent overall improvement and discharge Problem: Cardiovascular - Adult Goal: Maintains optimal cardiac output and hemodynamic stability Outcome: Progressing Flowsheets (Taken 01/28/20251999) Maintains optimal cardiac output and hemodynamic stability: Monitor blood pressure and heart rate Monitor urine output and notify Licensed Independent Practitioner for values outside of normal range Assess for signs of decreased cardiac output Administer fluid and/or volume expanders as ordered Goal: Absence of cardiac dysrhythmias or at baseline Outcome: Progressing Flowsheets (Taken 01/28/20251999) Absence of cardiac dysrhythmias or at baseline: Monitor cardiac rate and rhythm Assess for signs of decreased cardiac output Administer antiarrhythmia medication and electrolyte replacement as ordered Problem: Genitourinary - Adult Goal: Absence of urinary retention Outcome: Progressing Flowsheets (Taken 01/28/20251999) Absence of urinary retention: Assess patient???s ability to void and empty bladder Monitor intake/output and perform bladder scan as needed Goal: Urinary catheter remains patent Outcome: Progressing Problem: Metabolic/Fluid and Electrolytes - Adult Goal: Electrolytes maintained within normal limits Outcome: Progressing Flowsheets (Taken 01/28/20251999) Electrolytes maintained within normal limits: Monitor labs and assess patient for signs and symptoms of electrolyte imbalances Administer electrolyte replacement as ordered Monitor response to electrolyte replacements, including repeat lab results as appropriate Goal: Hemodynamic stability and optimal renal function maintained Outcome: Progressing Flowsheets (Taken 01/28/20251999) Hemodynamic stability and optimal renal function maintained: Monitor labs and assess for signs and symptoms of volume excess or deficit Monitor intake, output and patient weight Monitor urine specific gravity, serum osmolarity and serum sodium as indicated or ordered Monitor response to interventions for patient's volume status, including labs, urine output, blood pressure (other measures as available) Problem: Hematologic - Adult Goal: Maintains hematologic stability Outcome: Progressing Flowsheets (Taken 01/28/20251999) Maintains hematologic stability: Assess for signs and symptoms of bleeding or hemorrhage Monitor labs for bleeding or clotting disorders Administer blood products/factors as ordered Problem: Skin/Tissue Integrity - Adult Goal: Incisions, wounds, or drain sites healing without S/S of infection Outcome: Progressing Flowsheets (Taken 01/28/20251999) Incisions, wounds, or drain sites healing without sign and symptoms of infection: ADMISSION and DAILY: Assess and document risk factors for pressure ulcer development TWICE DAILY: Assess and document dressing/incision, wound bed, drain sites and surrounding tissue Implement wound care per orders Initiate isolation precautions as appropriate Problem: Musculoskeletal - Adult Goal: Return mobility to safest level of function Outcome: Progressing Flowsheets (Taken 01/28/20251999) Return mobility to safest level of function: Assess patient stability and activity tolerance for standing, transferring and ambulating with or without assistive devices Assist with transfers and ambulation using safe patient handling equipment as needed Ensure adequate protection for wounds/incisions during mobilization Goal: Return (more content not included)... Normal [facility] NURSNOTEon 01-29-2025 NURSNOTE AVS reviewed with patient. All questions answered. Pt denies further questions. Pt discharged at this time and wheeled to main entrance. [facility] 30on 01-28-2025 30 Daily Case Managemen t Update Multidisciplinary rounds have been completed. Barriers to Discharge: Pending clinical course and improvement in clinical condition. Patient s/p ablation yesterday and developed hematoma. Plan to hold Xarelto today, monitor over night. Discharge dispo: pending clinical course, plan at this time is for patient to discharge home when medically ready. Diet: Dietary Orders (From admission, onward) Start Ordered 01/27/25 5141 Regular Diet Diet effective now Question: Room Service? Answer: Yes 01/27/25 1717 01/23/25 175 Special Kitchen Request Once Comments: [place] x 2 01/23/25 1757 Physician Expected Discharge Date: 01/29/2025 Discharge Delays: PT Six Click Score: 23 OT Six Click Score: PT Recommendations: Patient is able to return to prior living environment OT Recommendations: New Consults: Consult Orders (From admission, onward) Start Ordered 01/28/25 1007 Inpatient consult to Vascular Surgery Once Specialty: Vascular Surgery Provider: (Not yet assigned) Question Answer Comment [facility] VASCULAR SURGERY TEAM Reason for Consult? Per Dr. Ricardo, consult for hematoma s/p ablation Level of Consultation Consultation Only 01/28/25 1007 01/21/25 1638 Inpatient consult to MICU Once Provider: (Not yet assigned) Question Answer Comment [facility] MICU TEAM Reason for Consult? Tamponade Level of Consultation Consultation and Management 01/21/25 1638 Normal [facility] 30 The patient is Moderately Stable - Low risk of patient condition declining or worsening The patient's goals for the shift include comfort, rest The clinical goals for the shift include vss, safety Problem: Pain - Adult Goal: Verbalizes/displays adequate comfort level or baseline comfort level Outcome: Progressing Problem: Safety - Adult Goal: Free from fall injury Outcome: Progressing Problem: Discharge Planning Goal: Discharge to home or other facility with appropriate resources Outcome: Progressing Flowsheets (Taken 01/27/20252029) Discharge to home or other facility with appropriate resources: Identify barriers to discharge with patient and caregiver Arrange for needed discharge resources and transportation as appropriate Identify discharge learning needs (meds, wound care, etc) Problem: Chronic Conditions and Co-morbidities Goal: Patient's chronic conditions and co-morbidity symptoms are monitored and maintained or improved Outcome: Progressing Flowsheets (Taken 01/27/20252029) Care Plan - Patient's Chronic Conditions and Co-Morbidity Symptoms are Monitored and Maintained or Improved: Monitor and assess patient's chronic conditions and comorbid symptoms for stability, deterioration, or improvement Collaborate with multidisciplinary team to address chronic and comorbid conditions and prevent exacerbation or deterioration Update acute care plan with appropriate goals if chronic or comorbid symptoms are exacerbated and prevent overall improvement and discharge Problem: Cardiovascular - Adult Goal: Maintains optimal cardiac output and hemodynamic stability Outcome: Progressing Flowsheets (Taken 01/27/20252029) Maintains optimal cardiac output and hemodynamic stability: Monitor blood pressure and heart rate Monitor urine output and notify Licensed Independent Practitioner for values outside of normal range Assess for signs of decreased cardiac output Administer fluid and/or volume expanders as ordered Goal: Absence of cardiac dysrhythmias or at baseline Outcome: Progressing Flowsheets (Taken 01/27/20252029) Absence of cardiac dysrhythmias or at baseline: Monitor cardiac rate and rhythm Assess for signs of decreased cardiac output Administer antiarrhythmia medication and electrolyte replacement as ordered Problem: Genitourinary - Adult Goal: Absence of urinary retention Outcome: Progressing Flowsheets (Taken 01/27/20252029) Absence of urinary retention: Assess patient???s ability to void and empty bladder Monitor intake/output and perform bladder scan as needed Goal: Urinary catheter remains patent Outcome: Progressing Problem: Metabolic/Fluid and Electrolytes - Adult Goal: Electrolytes maintained within normal limits Outcome: Progressing Flowsheets (Taken 01/27/20252029) Electrolytes maintained within normal limits: Monitor labs and assess patient for signs and symptoms of electrolyte imbalances Administer electrolyte replacement as ordered Monitor response to electrolyte replacements, including repeat lab results as appropriate Goal: Hemodynamic stability and optimal renal function maintained Outcome: Progressing Flowsheets (Taken 01/27/20252029) Hemodynamic stability and optimal renal function maintained: Monitor labs and assess for signs and symptoms of volume excess or deficit Monitor intake, output and patient weight Monitor urine specific gravity, serum osmolarity and serum sodium as indicated or ordered Monitor response to interventions for patient's volume status, including labs, urine output, blood pressure (other measures as available) Problem: Hematologic - Adult Goal: Maintains hematologic stability Outcome: Progressing Flowsheets (Taken 01/27/20252029) Maintains hematologic stability: Assess for signs and symptoms of bleeding or hemorrhage Monitor labs for bleeding or clotting disorders Administer blood products/factors as ordered Problem: Skin/Tissue Integrity - Adult Goal: Incisions, wounds, or drain sites healing without S/S of infection Outcome: Progressing Flowsheets (Taken 01/27/20252029) Incisions, wounds, or drain sites healing without sign and symptoms of infection: ADMISSION and DAILY: Assess and document risk factors for pressure ulcer development TWICE DAILY: Assess and document dressing/incision, wound bed, drain sites and surrounding tissue Implement wound care per orders Initiate isolation precautions as appropriate Problem: Musculoskeletal - Adult Goal: Return mobility to safest level of function Outcome: Progressing Flowsheets (Taken 01/27/20252029) Return mobility to safest level of function: Assess patient stability and activity tolerance for standing, transferring and ambulating with or without assistive devices Assist with transfers and ambulation using safe patient handling equipment as needed Ensure adequate protection for wounds/incisions during mobilization Goal: Return (more content not included)... Normal [facility] CT ABDOMEN PELVIS W IV CONTR [place] 01-28-2025 CT ABDOMEN PELVIS W IV CONTRAST CT ABDOMEN AND PELVIS WITH CONTRAST COMPARISON: None. HISTORY: Status post ablation, hematoma, rule out bleed. TECHNIQUE: 100 mL of Omnipaque nonionic contrast injected intravenously without reported complication. Axial images obtained from the lung bases to the pubic symphysis with sagittal and coronal 2D reformatted images. Oral contrast administered: No. Automatic exposure control (AEC) was utilized. FINDINGS: Gallbladder is present. Small noncalcified gallstone or polyp. Subcentimeter benign cyst or meningioma at the dome of the liver. Innumerable hypoattenuating splenic lesions including with an accessory spleen likely benign cysts or hemangiomas. Pancreas, kidneys, and adrenal glands demonstrate no acute findings. No free intraperitoneal fluid or free intraperitoneal air. No bowel obstruction. Appendix is in the right lower quadrant extending into the pelvis and is unremarkable. No abdominal aortic aneurysm. There is fat stranding of the right inguinal region without a discrete hematoma. No evidence for pseudoaneurysm or active extravasation. There is an adjacent fat-containing hernia likely an inguinal hernia, although femoral hernia is not excluded. No bowel within the hernia sac. No acute osseous abnormality. Dilated left gonadal vein. There is change in caliber with narrowing of the left renal vein between the aorta and SMA which can be seen with nutcracker syndrome. There are prominent left pelvic vessels. IMPRESSION: 1. Fat stranding of the right inguinal region compatible with a recent catheterization, without a discrete hematoma. No evidence for pseudoaneurysm or active extravasation. 2. Innumerable hypoattenuating splenic lesions likely benign cysts or hemangiomas. Atypical infectious process is not excluded. 3. Chronic changes including prominent left pelvic vessels and left gonadal vein, which can be seen with nutcracker syndrome. All CT scans at this facility use dose modulation, iterative reconstruction, and/or weight based dosing when appropriate to reduce radiation dose to as low as reasonably achievable. Electronically signed: Guanako De Paz. Not Vldtd Invalid Interpretation Code [facility] HEMOGLOBIN AND HEMATOCRIT, B LOODon 01-28-2025 Hematocrit (Bld) [Volume fraction] 36.0 % Normal 36.0-45.0 [facility] Comment on above: Performed By: #### L [id number] #### [facility] ([facility]) [address] [place] [address] Hemoglobin (Bld) [Mass/Vol] 12.0 g/dL Normal 12.0-15.0 [facility] Comment on above: Performed By: #### L [id number] #### [facility] ([facility]) [address] [place] [address] Orders Onlyon 01-28-2025 Orders Only [id number] LivOleg Kate 1970 F Date Provider Department Center 01/28/2025 [facility] Family History Problem Relation Age of Onset Atrial fibrillation Mother Coronary artery disease Brother Family Status - Relation Status Age at Mother Alive Father Alive Brother Alive Normal [facility] 30on 01-27-2025 30 Daily Case Managemen t Update Multidisciplinary rounds have been completed. Barriers to Discharge: Pericardial drain removed yesterday, plan for repeat echo and ct today. Overnight patient converted in a flutter, due to this cardiology is planning for patient to go for atrial flutter ablation (possibly today). Discharge dispo: pending clinical course, plan at this time is for patient to discharge home when medically ready. Diet: Dietary Orders (From admission, onward) Start Ordered 01/27/25 0843 Diet NPO Diet effective now Comments: Sips with medications Question: Reason for NPO: Answer: Operation/Procedure 01/27/25 0842 01/23/25 175 Special Kitchen Request Once Comments: [place] x 2 01/23/25 175 Physician Expected Discharge Date: 01/28/2025 Discharge Delays: PT Six Click Score: 23 OT Six Click Score: PT Recommendations: Patient is able to return to prior living environment OT Recommendations: New Consults: Consult Orders (From admission, onward) Start Ordered 01/21/25 1638 Inpatient consult to MICU Once Provider: (Not yet assigned) Question Answer Comment [facility] MICU TEAM Reason for Consult? Tamponade Level of Consultation Consultation and Management 01/21/25 1638 Therapy Orders (From admission, onward) Start Ordered 01/22/25 0700 PT eval and treat Until therapy completed Question: Reason for PT? Answer: weakness post pericardiocentesis 01/22/25 0700 Normal [facility] 30 The patient is Moderately Stable - Low risk of patient condition declining or worsening The patient's goals for the shift include comfort The clinical goals for the shift include VSS Normal [facility] BASIC METABOLIC PANELon 05-0 Anion gap [Moles/Vol] 11 mmol/L Normal 7-20 [facility] Comment on above: Performed By: #### L [id number] #### [facility] ([facility]) [address] [place] [address] Calcium [Mass/Vol] 8.9 mg/dL Normal 8.6-10.3 [facility] Comment on above: Performed By: #### L [id number] #### [facility] ([facility]) [address] [place] [address] Chloride [Moles/Vol] 105 mmol/L Normal 98-107 [facility] Comment on above: Performed By: #### L [id number] #### [facility] ([facility]) [address] [place] [address] CO2 [Moles/Vol] 26 mmol/L Normal 21-31 [facility] Comment on above: Performed By: #### L [id number] #### [facility] ([facility]) [address] [place] [address] Creatinine [Mass/Vol] 0.68 mg/dL Normal 0.60-1.20 [facility] Comment on above: Performed By: #### L [id number] #### [facility] ([facility]) [address] [place] [address] GLOMERULAR FILTRATION RATE ML/MIN/1.73 SQ M.PREDICTED 102.2 mL/min/1.73m*2 Normal >60.0 [facility] Comment on above: Result Comment: The [facility]???s estimated glomerular filtration rate (eGFR) will no longer include consideration of race in its calculation. The National Kidney Foundation???s eGFR Task Force developed new recommendations for the estimation of the glomerular filtration rate in the [place] They recommend immediate implementation of the new equation refit without the race variable in all laboratories because the calculation does not include race. In addition to not including race in the calculation and reporting, it included diversity in its development, and has acceptable performance characteristics and potential consequences that do not disproportionately affect any one group of individuals. Performed By: #### L [id number] #### [facility] ([facility]) [address] [facility] [address] Glucose [Mass/Vol] 108 mg/dL High 70-100 [facility] Comment on above: Performed By: #### L [id number] #### [facility] ([facility]) [address] [place] [address] Potassium [Moles/Vol] 3.8 mmol/L Normal 3.5-5.1 [facility] Comment on above: Performed By: #### L [id number] #### [facility] ([facility]) [address] [place] [address] Sodium [Moles/Vol] 138 mmol/L Normal 136-145 [facility] Comment on above: Performed By: #### L [id number] #### [facility] ([facility]) [address] [place] [address] Urea nitrogen [Mass/Vol] 12 mg/dL Normal 7-25 [facility] Comment on above: Performed By: #### L [id number] #### [facility] ([facility]) [address] [place] [address] UREA NITROGEN/CREATININE (MASS RATIO) IN SER/PLAS 17.6 Normal [facility] Comment on above: Performed By: #### L [id number] #### [facility] ([facility]) [address] [place] [address] CT CHEST WO IV CONTRASTon CT CHEST WO IV CONTRAST CT CHEST WO IV CONTRAST 01/27/2025 9:54 AM CLINICAL INDICATIONS:Pericardi al effusion. Status post pericardiocentesis. TECHNIQUE: Multidetector CT axial slices of the chest were obtained without IV contrast. Multiplanar reformats were performed and viewed on a separate workstation and reviewed to further define anatomy and possible pathology. All CT scans at this facility use dose modulation, iterative reconstruction, and/or weight based dosing when appropriate to reduce radiation dose to as low as reasonably achievable. COMPARISON: Cardiac echo 01/26/2025 FINDINGS: Small concentric pericardial effusion thickness measuring up to 3 mm. No enlarged mediastinal or extra lymph nodes. No coronary artery calcifications. No thoracic aortic aneurysm. No lung nodules. Minimal left base atelectasis. Trace pleural effusions. Minimal basilar atelectasis greater on the left. IMPRESSION: Minimal pericardial effusion. Minimal basilar atelectasis, trace pleural effusions. Electronically signed: Lela Doe. Not Vldtd Invalid Interpretation Code [facility] HPon 01-27-2025 HP H&P reviewed. The patient was examined and there are no changes to the H&P. Normal [facility] MAGNESIUMon 01-27-2025 Magnesium [Mass/Vol] 1.7 mg/dL Low 1.9-2.7 [facility] Comment on above: Performed By: #### L [id number] #### [facility] ([facility]) [address] [place] [address] 30on 01-26-2025 30 Daily Case Managemen t Update Multidisciplinary rounds have been completed. Barriers to Discharge: This morning patient had c/o episodes of diarrhea. Due to this plan was made to decrease Colchicine dosage. Patient continues to be on amio gtt, with plan to transition to oral once closer to discharge. Pericardial drain removed today, with plan for repeat echo and ct tomorrow. Discharge dispo: Pending clinical course, PT rec home, plan at this time is for patient to discharge home when medically ready. Diet: Dietary Orders (From admission, onward) Start Ordered 01/23/251756 Special Kitchen Request Once Comments: [place] x 2 01/23/25 1757 01/22/25 0763 Regular Diet Diet effective now Question: Room Service? Answer: Yes 01/22/25 0738 Physician Expected Discharge Date: 01/24/2025 Discharge Delays: PT Six Click Score: 21 OT Six Click Score: PT Recommendations: Home OT Recommendations: New Consults: Consult Orders (From admission, onward) Start Ordered 01/21/25 1638 Inpatient consult to MICU Once Provider: (Not yet assigned) Question Answer Comment [facility] [employer] MICU TEAM Reason for Consult? Tamponade Level of Consultation Consultation and Management 01/21/25 1638 Therapy Orders (From admission, onward) Start Ordered 01/22/25 0700 PT eval and treat Until therapy completed Question: Reason for PT? Answer: weakness post pericardiocentesis 01/22/25 0700 [facility] 30 The patient is Moderately Stable - Low risk of patient condition declining or worsening The patient's goals for the shift include comfort, ambulation The clinical goals for the shift include VSS, safety Over the shift, the patient did not make progress toward the following goals. Barriers to progression include na. Recommendations to address these barriers include na. Normal [facility] 30 The patient is Moderately Stable - Low risk of patient condition declining or worsening The patient's goals for the shift include comfort, ambulation The clinical goals for the shift include VSS, safety . [facility] 30on 01-25-2025 30 The patient is Moderately Stable - Low risk of patient condition declining or worsening The patient's goals for the shift include comfort, ambulation The clinical goals for the shift include VSS, safety [facility] BASIC METABOLIC PANELon 05-0 Anion gap [Moles/Vol] 11 mmol/L Normal 7-20 [facility] Comment on above: Performed By: #### L [id number] #### [facility] ([facility]) [address] [place] [address] Calcium [Mass/Vol] 8.9 mg/dL Normal 8.6-10.3 [facility] Comment on above: Performed By: #### L [id number] #### [facility] ([facility]) [address] [place] [address] Chloride [Moles/Vol] 105 mmol/L Normal 98-107 [facility] Comment on above: Performed By: #### L [id number] #### [facility] ([facility]) [address] [place] [address] CO2 [Moles/Vol] 28 mmol/L Normal 21-31 [facility] Comment on above: Performed By: #### L [id number] #### [facility] ([facility]) [address] [place] [address] Creatinine [Mass/Vol] 0.76 mg/dL Normal 0.60-1.20 [facility] Comment on above: Performed By: #### L [id number] #### [facility] ([facility]) [address] [place] [address] GLOMERULAR FILTRATION RATE ML/MIN/1.73 SQ M.PREDICTED 91.9 mL/min/1.73m*2 Normal >60.0 [facility] Comment on above: Result Comment: The [facility]???s estimated glomerular filtration rate (eGFR) will no longer include consideration of race in its calculation. The National Kidney Foundation???s eGFR Task Force developed new recommendations for the estimation of the glomerular filtration rate in the [place] They recommend immediate implementation of the new equation refit without the race variable in all laboratories because the calculation does not include race. In addition to not including race in the calculation and reporting, it included diversity in its development, and has acceptable performance characteristics and potential consequences that do not disproportionately affect any one group of individuals. Performed By: #### L [id number] #### [facility] ([facility]) [address] [place] [address] Glucose [Mass/Vol] 120 mg/dL High 70-100 [facility] Comment on above: Performed By: #### L [id number] #### [facility] ([facility]) [address] [place] [address] Potassium [Moles/Vol] 3.8 mmol/L Normal 3.5-5.1 [facility] Comment on above: Performed By: #### L [id number] #### [facility] ([facility]) [address] [place] [address] Sodium [Moles/Vol] 140 mmol/L Normal 136-145 [facility] Comment on above: Performed By: #### L [id number] #### [facility] ([facility]) [address] [place] [address] Urea nitrogen [Mass/Vol] 13 mg/dL Normal 7-25 [facility] Comment on above: Performed By: #### L [id number] #### [facility] ([facility]) [address] [place] [address] UREA NITROGEN/CREATININE (MASS RATIO) IN SER/PLAS 17.1 Normal [facility] Comment on above: Performed By: #### L [id number] #### [facility] ([facility]) [address] [place] [address] CBCon 01-25-2025 Erythrocyte distribution width (RBC) [Ratio] 13.0 % Normal 11.5-15.0 [facility] Comment on above: Performed By: #### L [id number] #### [facility] ([facility]) [address] [place] [address] ERYTHROCYTE MEAN CORPUSCULAR HEMOGLOBIN CONCENTRATION (G/DL) BY AUTOMATED 32.8 g/dL Normal 32.0-35.0 [facility] Comment on above: Performed By: #### L [id number] #### [facility] ([facility]) [address] [place] [address] Hematocrit (Bld) [Volume fraction] 40.2 % Normal 36.0-45.0 [facility] Comment on above: Performed By: #### L [id number] #### [facility] ([facility]) [address] [place] [address] Hemoglobin (Bld) [Mass/Vol] 13.2 g/dL Normal 12.0-15.0 [facility] Comment on above: Performed By: #### L [id number] #### [facility] ([facility]) [address] [place] [address] MCH (RBC) [Entitic mass] 30.4 pg Normal 27.0-33.0 [facility] Comment on above: Performed By: #### L [id number] #### [facility] ([facility]) [address] [place] [address] MCV (RBC) [Entitic vol] 92.6 fL Normal 82.0-98.0 [facility] Comment on above: Performed By: #### L [id number] #### [facility] ([facility]) [address] [place] [address] PLATELETS (10*3/UL) IN BLOOD AUTOMATED COUNT 282 10*3/uL Normal 150-400 [facility] Comment on above: Performed By: #### L [id number] #### [facility] ([facility]) [address] [place] [address] RBC (Bld) [#/Vol] 4.34 10*6/uL Normal 3.80-5.00 [facility] Comment on above: Performed By: #### L [id number] #### [facility] ([facility]) [address] [place] [address] WBC (Bld) [#/Vol] 8.07 10*3/uL Normal 4.00-10.60 [facility] Comment on above: Performed By: #### L [id number] #### [facility] ([facility]) [address] [place] [address] NURSNOTEon 01-25-2025 NURSNOTE Patient Name: Oleg Peck : 1970 Primary Care Physician: Pranav Toro NP Admission Date: 01/21/2025 RAPID RESPONSE TEAM ICU TRANSFER FOLLOW-UP NOTE SUBJECTIVE / OBJECTIVE: Follow-up for previous transfer out of the ICU notification for 01/24/25 at 1810. ASSESSMENT / INTERVENTIONS: Recent Vital Signs: Vitals: 01/25/25 0430 01/25/25 0811 01/25/25 1200 01/25/251999 BP: 105/65 109/58 110/59 BP Location: Left arm Left arm Patient Position: Sitting Sitting Pulse: 72 62 70 Resp: 18 18 17 Temp: 36.1 ???C (97 ???F) TempSrc: Temporal SpO2: 98% 98% 94% Weight: 64.3 kg (141 lb 12.8 oz) Height: Latest Labs: Lab Results Component Value Date WBC 8.07 01/25/2025 WBC 11.06 (H) 01/23/2025 HGB 13.2 01/25/2025 HGB 12.3 01/24/2025 HCT 40.2 01/25/2025 HCT 37.7 01/24/2025 MCV 92.6 01/25/2025 MCV 94.3 01/23/2025 PLT 282 01/25/2025 PLT 220 01/23/2025 NEUTROABS 8.03 (H) 01/23/2025 NEUTROABS 10.50 (H) 01/21/2025 Lab Results Component Value Date GLUCOSE 120 (H) 01/25/2025 GLUCOSE 90 01/24/2025 CALCIUM 8.9 01/25/2025 CALCIUM 8.2 (L) 01/24/2025 NA 140 01/25/2025 NA 140 01/24/2025 K 3.8 01/25/2025 K 3.8 01/24/2025 CO2 28 01/25/2025 CO2 23 01/24/2025 CL 105 01/25/2025 CL 112 (H) 01/24/2025 BUN 13 01/25/2025 BUN 6 (L) 01/24/2025 CREATININE 0.76 01/25/2025 CREATININE 0.54 (L) 01/24/2025 EGFR 91.9 01/25/2025 EGFR 108.0 01/24/2025 BCR 17.1 01/25/2025 BCR 11.1 01/24/2025 Lab Results Component Value Date MG 1.7 (L) 01/24/2025 MG 1.9 01/23/2025 Lab Results Component Value Date PHOS 2.4 (L) 01/24/2025 PHOS 1.6 (L) 01/23/2025 Lab Results Component Value Date ALT 56 (H) 01/24/2025 ALT 54 (H) 01/23/2025 AST 42 (H) 01/24/2025 AST 66 (H) 01/23/2025 ALKPHOS 55 01/24/2025 ALKPHOS 44 01/23/2025 BILITOT 0.7 01/24/2025 BILITOT 0.9 01/23/2025 Lab Results Component Value Date INR 1.23 (H) 01/23/2025 INR 1.31 (H) 01/21/2025 Follow-up: Pt resting at time of follow-up. Vitals stable. Pt up and walking halls several times today per RN. No concerns noted per primary RN. Pericardial drain remains. Echo ordered in AM. Encourage RN to call with any questions or concerns. Michelle Whitney RN Rapid Response Team Nurse [phone] 01/25/2025 11:58 PM Normal [facility] NURSNOTE Patient Name: Oleg Peck : 1970 Primary Care Physician: Pranav Toro NP Admission Date: 01/21/2025 RAPID RESPONSE TEAM ICU TRANSFER FOLLOW-UP NOTE SUBJECTIVE / OBJECTIVE: Follow-up for previous transfer out of the ICU notification for 01/24 at 1810. ASSESSMENT / INTERVENTIONS: Recent Vital Signs: Vitals: 01/25/25 0123 01/25/25 0400 01/25/25 0430 01/25/25 0811 BP: 114/61 91/55 105/65 BP Location: Left arm Patient Position: Sitting Pulse: 73 65 72 Resp: 25 18 18 Temp: 36.1 ???C (97 ???F) TempSrc: Temporal SpO2: 97% 95% 98% Weight: 64.3 kg (141 lb 12.8 oz) Height: Latest Labs: Lab Results Component Value Date WBC 11.06 (H) 01/23/2025 WBC 13.26 (H) 01/23/2025 HGB 12.3 01/24/2025 HGB 10.9 (L) 01/23/2025 HCT 37.7 01/24/2025 HCT 34.2 (L) 01/23/2025 MCV 94.3 01/23/2025 MCV 91.7 01/23/2025 PLT 220 01/23/2025 PLT 202 01/23/2025 NEUTROABS 8.03 (H) 01/23/2025 NEUTROABS 10.50 (H) 01/21/2025 Lab Results Component Value Date GLUCOSE 90 01/24/2025 GLUCOSE 89 01/23/2025 CALCIUM 8.2 (L) 01/24/2025 CALCIUM 8.0 (L) 01/23/2025 NA 140 01/24/2025 NA 138 01/23/2025 K 3.8 01/24/2025 K 4.4 01/23/2025 CO2 23 01/24/2025 CO2 23 01/23/2025 CL 112 (H) 01/24/2025 CL 109 (H) 01/23/2025 BUN 6 (L) 01/24/2025 BUN 10 01/23/2025 CREATININE 0.54 (L) 01/24/2025 CREATININE 0.63 01/23/2025 EGFR 108.0 01/24/2025 EGFR 104.0 01/23/2025 BCR 11.1 01/24/2025 BCR 15.9 01/23/2025 Lab Results Component Value Date MG 1.7 (L) 01/24/2025 MG 1.9 01/23/2025 Lab Results Component Value Date PHOS 2.4 (L) 01/24/2025 PHOS 1.6 (L) 01/23/2025 Lab Results Component Value Date ALT 56 (H) 01/24/2025 ALT 54 (H) 01/23/2025 AST 42 (H) 01/24/2025 AST 66 (H) 01/23/2025 ALKPHOS 55 01/24/2025 ALKPHOS 44 01/23/2025 BILITOT 0.7 01/24/2025 BILITOT 0.9 01/23/2025 Lab Results Component Value Date INR 1.23 (H) 01/23/2025 INR 1.31 (H) 01/21/2025 Follow-up: Spoke with patient and primary RN. Patient resting comfortably in the chair. Vitals and labs are stable. No concerns at this time. Encouraged to reach out with any changes. Tesfaye Khan RN Rapid Response Team Nurse [phone] 01/25/2025 9:52 AM Normal [facility] 30on 01-24-2025 30 The patient is Moderately Stable - Low risk of patient condition declining or worsening The patient's goals for the shift include sleep The clinical goals for the shift include stable vs Over the shift, the patient did make progress toward the following goals. Problem: Pain - Adult Goal: Verbalizes/displays adequate comfort level or baseline comfort level Outcome: Progressing Problem: Safety - Adult Goal: Free from fall injury Outcome: Progressing Problem: Discharge Planning Goal: Discharge to home or other facility with appropriate resources Outcome: Progressing Normal [facility] CLOSTRIDIOIDES DIFFICILE DNA AMPLIFICATIONon 01-24-2025 CLOSTRIDIOIDES DIFFICILE (TOXIN A/B) Negative Normal Negative [facility] Comment on above: Order Comment: Testi ng methodology is an in vitro diagnostic test for the direct, qualitative detection of the Clostridioides difficile Toxin A gene (tcdA) in unformed stool specimens of patients suspected of having Clostridioides difficile-infection (CDI). The Dinorah C. difficile Assay is intended for use as an aid in diagnosis of CDI. The assay utilizes helicase-dependent amplification (HDA) for the amplification of a highly conserved fragment of the Toxin A gene sequence.Testing methodology is an in vitro diagnostic test for the direct, qualitative detection of the Clostridioides difficile Toxin A gene (tcdA) in unformed stool specimens of patients suspected of having Clostridioides difficile-infection (CDI). The Dinorah C. difficile Assay is intended for use as an aid in diagnosis of CDI. The assay utilizes helicase-dependent amplification (HDA) for the amplification of a highly conserved fragment of the Toxin A gene sequence. Performed By: #### L [id number] ####[facility] ([facility])[address] [place] [address] COMPREHENSIVE METABOLIC PANE Rishi 01-24-2025 Albumin [Mass/Vol] 3.5 g/dL Normal 3.5-5.7 [facility] Comment on above: Performed By: #### L [id number] #### [facility] ([facility]) [address] [place] [address] ALP [Catalytic activity/Vol] 55 U/L Normal 34-104 [facility] Comment on above: Performed By: #### L [id number] #### [facility] ([facility]) [address] [place] [address] ALT [Catalytic activity/Vol] 56 U/L High 7-52 [facility] Comment on above: Performed By: #### L [id number] #### [facility] ([facility]) [address] [place] [address] Anion gap [Moles/Vol] 9 mmol/L Normal 7-20 [facility] Comment on above: Performed By: #### L [id number] #### [facility] ([facility]) [address] [place] [address] AST [Catalytic activity/Vol] 42 U/L High 13-39 [facility] Comment on above: Performed By: #### L [id number] #### [facility] ([facility]) [address] [place] [address] Bilirubin [Mass/Vol] 0.7 mg/dL Normal 0.3-1.0 [facility] Comment on above: Performed By: #### L [id number] #### [facility] ([facility]) [address] [place] [address] Calcium [Mass/Vol] 8.2 mg/dL Low 8.6-10.3 [facility] Comment on above: Performed By: #### L [id number] #### [facility] ([facility]) [address] [place] [address] Chloride [Moles/Vol] 112 mmol/L High 98-107 [facility] Comment on above: Performed By: #### L [id number] #### [facility] ([facility]) [address] [place] [address] CO2 [Moles/Vol] 23 mmol/L Normal 21-31 [facility] Comment on above: Performed By: #### L [id number] #### [facility] ([facility]) [address] [place] [address] Creatinine [Mass/Vol] 0.54 mg/dL Low 0.60-1.20 [facility] Comment on above: Performed By: #### L [id number] #### [facility] ([facility]) [address] [place] [address] GLOMERULAR FILTRATION RATE ML/MIN/1.73 SQ M.PREDICTED 108.0 mL/min/1.73m*2 Normal >60.0 [facility] Comment on above: Result Comment: The [facility]???s estimated glomerular filtration rate (eGFR) will no longer include consideration of race in its calculation. The National Kidney Foundation???s eGFR Task Force developed new recommendations for the estimation of the glomerular filtration rate in the [place] They recommend immediate implementation of the new equation refit without the race variable in all laboratories because the calculation does not include race. In addition to not including race in the calculation and reporting, it included diversity in its development, and has acceptable performance characteristics and potential consequences that do not disproportionately affect any one group of individuals. Performed By: #### L [id number] #### [facility] ([facility]) [address] [place] [address] Glucose [Mass/Vol] 90 mg/dL Normal 70-100 [facility] Comment on above: Performed By: #### L [id number] #### [facility] ([facility]) [address] [place] [address] Potassium [Moles/Vol] 3.8 mmol/L Normal 3.5-5.1 [facility] Comment on above: Performed By: #### L [id number] #### [facility] ([facility]) [address] [place] [address] Protein [Mass/Vol] 5.9 g/dL Low 6.0-8.3 [facility] Comment on above: Performed By: #### L [id number] #### [facility] ([facility]) [address] [place] [address] Sodium [Moles/Vol] 140 mmol/L Normal 136-145 [facility] Comment on above: Performed By: #### L [id number] #### [facility] ([facility]) [address] [place] [address] Urea nitrogen [Mass/Vol] 6 mg/dL Low 7-25 [facility] Comment on above: Performed By: #### L [id number] #### [facility] ([facility]) [address] [place] [address] UREA NITROGEN/CREATININE (MASS RATIO) IN SER/PLAS 11.1 Normal [facility] Comment on above: Performed By: #### L [id number] #### [facility] ([facility]) [address] [place] [address] HEMOGLOBIN AND HEMATOCRIT, B LOODon 01-24-2025 Hematocrit (Bld) [Volume fraction] 37.7 % Normal 36.0-45.0 [facility] Comment on above: Performed By: #### L [id number] #### [facility] ([facility]) [address] [facility] [place] [address] Hemoglobin (Bld) [Mass/Vol] 12.3 g/dL Normal 12.0-15.0 [facility] Comment on above: Performed By: #### L [id number] #### [facility] ([facility]) [address] [place] [address] MAGNESIUMon 01-24-2025 Magnesium [Mass/Vol] 1.7 mg/dL Low 1.9-2.7 [facility] Comment on above: Performed By: #### L [id number] #### [facility] ([facility]) [address] [place] [address] NURSNOTEon 01-24-2025 NURSNOTE Patient Name: Oleg Peck : 1970 Primary Care Physician: Pranav Toro NP Admission Date: 01/21/2025 RAPID RESPONSE TEAM ICU TRANSFER FOLLOW-UP NOTE SUBJECTIVE / OBJECTIVE: Follow-up for previous transfer out of the ICU notification for 01/24 at 1510. ASSESSMENT / INTERVENTIONS: Recent Vital Signs: Vitals: 01/24/25 0700 01/24/25 0800 01/24/25 1811 01/24/252021 BP: 104/60 102/71 100/52 113/50 BP Location: Left arm Patient Position: Sitting Pulse: (!) 133 (!) 121 91 82 Resp: Temp: 37.1 ???C (98.8 ???F) TempSrc: Temporal SpO2: 98% 97% 98% Weight: Height: Latest Labs: Lab Results Component Value Date WBC 11.06 (H) 01/23/2025 WBC 13.26 (H) 01/23/2025 HGB 12.3 01/24/2025 HGB 10.9 (L) 01/23/2025 HCT 37.7 01/24/2025 HCT 34.2 (L) 01/23/2025 MCV 94.3 01/23/2025 MCV 91.7 01/23/2025 PLT 220 01/23/2025 PLT 202 01/23/2025 NEUTROABS 8.03 (H) 01/23/2025 NEUTROABS 10.50 (H) 01/21/2025 Lab Results Component Value Date GLUCOSE 90 01/24/2025 GLUCOSE 89 01/23/2025 CALCIUM 8.2 (L) 01/24/2025 CALCIUM 8.0 (L) 01/23/2025 NA 140 01/24/2025 NA 138 01/23/2025 K 3.8 01/24/2025 K 4.4 01/23/2025 CO2 23 01/24/2025 CO2 23 01/23/2025 CL 112 (H) 01/24/2025 CL 109 (H) 01/23/2025 BUN 6 (L) 01/24/2025 BUN 10 01/23/2025 CREATININE 0.54 (L) 01/24/2025 CREATININE 0.63 01/23/2025 EGFR 108.0 01/24/2025 EGFR 104.0 01/23/2025 BCR 11.1 01/24/2025 BCR 15.9 01/23/2025 Lab Results Component Value Date MG 1.7 (L) 01/24/2025 MG 1.9 01/23/2025 Lab Results Component Value Date PHOS 2.4 (L) 01/24/2025 PHOS 1.6 (L) 01/23/2025 Lab Results Component Value Date ALT 56 (H) 01/24/2025 ALT 54 (H) 01/23/2025 AST 42 (H) 01/24/2025 AST 66 (H) 01/23/2025 ALKPHOS 55 01/24/2025 ALKPHOS 44 01/23/2025 BILITOT 0.7 01/24/2025 BILITOT 0.9 01/23/2025 Lab Results Component Value Date INR 1.23 (H) 01/23/2025 INR 1.31 (H) 01/21/2025 Follow-up: Vital signs have remained stable since transfer out of ICU earlier today. Recent lab work is largely unchanged. No questions or concerns reported by primary nurse, but encouraged to reach out to [employer] if anything changes over night. Ayan Galvin RN Rapid Response Team Nurse [phone] 01/24/2025 11:48 PM Normal [facility] PHOSPHORUSon 01-24-2025 Magnesium [Mass/Vol] 2.4 mg/dL Low 2.5-5.0 [facility] Comment on above: Performed By: #### L [id number] #### [facility] ([place]) [address] [place] [address] 30on 01-23-2025 30 Problem: Pain - Adul t Goal: Verbalizes/displays adequate comfort level or baseline comfort level Outcome: Progressing Problem: Safety - Adult Goal: Free from fall injury Outcome: Progressing Problem: Discharge Planning Goal: Discharge to home or other facility with appropriate resources Outcome: Progressing Problem: Chronic Conditions and Co-morbidities Goal: Patient's chronic conditions and co-morbidity symptoms are monitored and maintained or improved Outcome: Progressing Problem: Cardiovascular - Adult Goal: Maintains optimal cardiac output and hemodynamic stability Outcome: Progressing Goal: Absence of cardiac dysrhythmias or at baseline Outcome: Progressing Problem: Genitourinary - Adult Goal: Absence of urinary retention Outcome: Progressing Goal: Urinary catheter remains patent Outcome: Progressing Problem: Metabolic/Fluid and Electrolytes - Adult Goal: Electrolytes maintained within normal limits Outcome: Progressing Goal: Hemodynamic stability and optimal renal function maintained Outcome: Progressing Problem: Hematologic - Adult Goal: Maintains hematologic stability Outcome: Progressing Problem: Skin/Tissue Integrity - Adult Goal: Incisions, wounds, or drain sites healing without S/S of infection Outcome: Progressing Problem: Musculoskeletal - Adult Goal: Return mobility to safest level of function Outcome: Progressing Goal: Return ADL status to a safe level of function Outcome: Progressing Normal [facility] APTTon 01-23-2025 ACTIVATED PARTIAL THROMBOPLASTIN TIME IN PPP BY COAGULATION ASSAY 38.1 Seconds High 25.0-35.0 [facility] Comment on above: Order Comment: Check aPTT every 6 hours while on heparin infusion, or per protocol. Result Comment: Clin ical significance of the APTT is questionable in the presence of heparin. Performed By: #### L [id number] #### [facility] ([facility]) [address] [place] [address] ACTIVATED PARTIAL THROMBOPLASTIN TIME IN PPP BY COAGULATION ASSAY 130.3 Seconds Critically high 25.0-35.0 [facility] Comment on above: Order Comment: Check aPTT every 6 hours while on heparin infusion, or per protocol. Result Comment: Clin ical significance of the APTT is questionable in the presence of heparin. Performed By: #### L [id number] ####[facility] ([facility])[address] [facility] [place] [address] ACTIVATED PARTIAL THROMBOPLASTIN TIME IN PPP BY COAGULATION ASSAY 102.2 Seconds High 25.0-35.0 [facility] Comment on above: Order Comment: Check aPTT every 6 hours while on heparin infusion, or per protocol. Result Comment: Clin ical significance of the APTT is questionable in the presence of heparin. Performed By: #### L [id number] ####[facility] ([facility])[address] [place] [address] BASIC METABOLIC PANELon 05-0 2-2024 Anion gap [Moles/Vol] 10 mmol/L Normal 7-20 [facility] Comment on above: Performed By: #### L [id number] #### [facility] ([facility]) [address] [place] [address] Calcium [Mass/Vol] 8.0 mg/dL Low 8.6-10.3 [facility] Comment on above: Performed By: #### L [id number] #### [facility] ([facility]) [address] [place] [address] Chloride [Moles/Vol] 109 mmol/L High 98-107 [facility] Comment on above: Performed By: #### L [id number] #### [facility] ([facility]) [address] [place] [address] CO2 [Moles/Vol] 23 mmol/L Normal 21-31 [facility] Comment on above: Performed By: #### L [id number] #### [facility] ([facility]) [address] [place] [address] Creatinine [Mass/Vol] 0.63 mg/dL Normal 0.60-1.20 [facility] Comment on above: Performed By: #### L [id number] #### [facility] ([facility]) [address] [place] [address] GLOMERULAR FILTRATION RATE ML/MIN/1.73 SQ M.PREDICTED 104.0 mL/min/1.73m*2 Normal >60.0 [facility] Comment on above: Result Comment: The [facility]???s estimated glomerular filtration rate (eGFR) will no longer include consideration of race in its calculation. The National Kidney Foundation???s eGFR Task Force developed new recommendations for the estimation of the glomerular filtration rate in the [place] They recommend immediate implementation of the new equation refit without the race variable in all laboratories because the calculation does not include race. In addition to not including race in the calculation and reporting, it included diversity in its development, and has acceptable performance characteristics and potential consequences that do not disproportionately affect any one group of individuals. Performed By: #### L [id number] #### [facility] ([facility]) [address] [place] [address] Glucose [Mass/Vol] 89 mg/dL Normal 70-100 [facility] Comment on above: Performed By: #### L [id number] #### [facility] ([facility]) [address] [place] [address] Potassium [Moles/Vol] 4.4 mmol/L Normal 3.5-5.1 [facility] Comment on above: Performed By: #### L [id number] #### [facility] ([facility]) [address] [place] [address] Sodium [Moles/Vol] 138 mmol/L Normal 136-145 [facility] Comment on above: Performed By: #### L [id number] #### [facility] ([facility]) [address] [place] [address] Urea nitrogen [Mass/Vol] 10 mg/dL Normal 7-25 [facility] Comment on above: Performed By: #### L [id number] #### [facility] ([facility]) [address] [place] [address] UREA NITROGEN/CREATININE (MASS RATIO) IN SER/PLAS 15.9 Normal [facility] Comment on above: Performed By: #### L [id number] #### [facility] ([facility]) [address] [place] [address] CBCon 01-23-2025 Erythrocyte distribution width (RBC) [Ratio] 13.4 % Normal 11.5-15.0 [facility] Comment on above: Performed By: #### L [id number] ####[facility] ([facility])[address] [place] [address] ERYTHROCYTE MEAN CORPUSCULAR HEMOGLOBIN CONCENTRATION (G/DL) BY AUTOMATED 33.1 g/dL Normal 32.0-35.0 [facility] Comment on above: Performed By: #### L [id number] ####[facility] ([facility])[address] [place] [address] Hematocrit (Bld) [Volume fraction] 34.1 % Low 36.0-45.0 [facility] Comment on above: Performed By: #### L [id number] ####[facility] ([facility])[address] [place] [address] Hemoglobin (Bld) [Mass/Vol] 11.3 g/dL Low 12.0-15.0 [facility] Comment on above: Performed By: #### L [id number] ####[facility] ([facility])[address] [place] [address] MCH (RBC) [Entitic mass] 30.4 pg Normal 27.0-33.0 [facility] Comment on above: Performed By: #### L [id number] ####[facility] ([facility])[address] [place] [address] MCV (RBC) [Entitic vol] 91.7 fL Normal 82.0-98.0 [facility] Comment on above: Performed By: #### L [id number] ####[facility] ([facility])[address] [place] [address] PLATELETS (10*3/UL) IN BLOOD AUTOMATED COUNT 202 10*3/uL Normal 150-400 [facility] Comment on above: Performed By: #### L [id number] ####[facility] ([facility])[address] [place] [address] RBC (Bld) [#/Vol] 3.72 10*6/uL Low 3.80-5.00 [facility] Comment on above: Performed By: #### L [id number] ####[facility] ([facility])[address] [place] [address] WBC (Bld) [#/Vol] 13.26 10*3/uL High 4.00-10.60 [facility] Comment on above: Performed By: #### L [id number] ####[facility] ([facility])[address] [place] [address] CBC WITH AUTO DIFFERENTIALon 01-23-2025 Basophils (Bld) [#/Vol] 0.03 10*3/uL Normal 0.00-0.20 [facility] Comment on above: Performed By: #### L [id number] #### [facility] ([facility]) [address] [place] [address] Basophils/100 WBC (Bld) 0.3 % Normal 0.0-1.0 [facility] Comment on above: Performed By: #### L [id number] #### [facility] ([facility]) [address] [address] Eosinophils (Bld) [#/Vol] 0.03 10*3/uL Normal 0.00-0.50 [facility] Comment on above: Performed By: #### L [id number] #### [facility] ([facility]) [address] [place] [address] Eosinophils/100 WBC (Bld) 0.3 % Normal 0.0-6.0 [facility] Comment on above: Performed By: #### L [id number] #### [facility] ([facility]) [address] [place] [address] Erythrocyte distribution width (RBC) [Ratio] 13.7 % Normal 11.5-15.0 [facility] Comment on above: Performed By: #### L [id number] #### [facility] ([facility]) [address] [place] [address] ERYTHROCYTE MEAN CORPUSCULAR HEMOGLOBIN CONCENTRATION (G/DL) BY AUTOMATED 32.5 g/dL Normal 32.0-35.0 [facility] Comment on above: Performed By: #### L [id number] #### [facility] ([facility]) [address] [place] [address] Hematocrit (Bld) [Volume fraction] 36.3 % Normal 36.0-45.0 [facility] Comment on above: Performed By: #### L [id number] #### [facility] ([facility]) [address] [place] [address] Hemoglobin (Bld) [Mass/Vol] 11.8 g/dL Low 12.0-15.0 [facility] Comment on above: Performed By: #### L [id number] #### [facility] ([facility]) [address] [place] [address] Immature granulocytes (Bld) [#/Vol] 0.05 10*3/uL Normal 0.00-0.20 [facility] Comment on above: Performed By: #### L [id number] #### [facility] ([facility]) [address] [place] [address] Immature granulocytes/100 WBC (Bld) 0.5 % Normal 0.0-1.0 [facility] Comment on above: Performed By: #### L [id number] #### [facility] ([facility]) [address] [place] [address] Lymphocytes (Bld) [#/Vol] 1.85 10*3/uL Normal 1.20-4.00 [facility] Comment on above: Performed By: #### L [id number] #### [facility] ([facility]) [address] [place] [address] Lymphocytes/100 WBC (Bld) 16.7 % Low 20.0-45.0 [facility] Comment on above: Performed By: #### L [id number] #### [facility] ([facility]) [address] [place] [address] MCH (RBC) [Entitic mass] 30.6 pg Normal 27.0-33.0 [facility] Comment on above: Performed By: #### L [id number] #### [facility] ([facility]) [address] [place] [address] MCV (RBC) [Entitic vol] 94.3 fL Normal 82.0-98.0 [facility] Comment on above: Performed By: #### L [id number] #### [facility] ([facility]) [address] [place] [address] Monocytes (Bld) [#/Vol] 1.07 10*3/uL High 0.10-1.00 [facility] Comment on above: Performed By: #### L [id number] #### [facility] ([facility]) [address] [place] [address] Monocytes/100 WBC (Bld) 9.7 % Normal 5.0-12.0 [facility] Comment on above: Performed By: #### L [id number] #### [facility] ([facility]) [address] [place] [address] Neutrophils (Bld) [#/Vol] 8.03 10*3/uL High 1.60-7.60 [facility] Comment on above: Performed By: #### L [id number] #### [facility] ([facility]) [address] [place] [address] Neutrophils/100 WBC (Bld) 72.5 % High 40.0-72.0 [facility] Comment on above: Performed By: #### L [id number] #### [facility] ([facility]) [address] [place] [address] NRBC (PER 100 WBCS) BY AUTOMATED COUNT 0.0 % Normal 0 [facility] Comment on above: Performed By: #### L [id number] #### [facility] ([facility]) [address] [place] [address] PLATELETS (10*3/UL) IN BLOOD AUTOMATED COUNT 220 10*3/uL Normal 150-400 [facility] Comment on above: Performed By: #### L [id number] #### [facility] ([facility]) [address] [place] [address] RBC (Bld) [#/Vol] 3.85 10*6/uL Normal 3.80-5.00 [facility] Comment on above: Performed By: #### L [id number] #### [facility] ([facility]) [address] [place] [address] WBC (Bld) [#/Vol] 11.06 10*3/uL High 4.00-10.60 [facility] Comment on above: Performed By: #### L [id number] #### [facility] ([facility]) [address] [place] [address] COMPREHENSIVE METABOLIC PANE Rishi 01-23-2025 Albumin [Mass/Vol] 3.5 g/dL Normal 3.5-5.7 [facility] Comment on above: Performed By: #### L [id number] #### [facility] ([facility]) [address] [place] [address] ALP [Catalytic activity/Vol] 44 U/L Normal 34-104 [facility] Comment on above: Performed By: #### L [id number] #### [facility] ([facility]) [address] [place] [address] ALT [Catalytic activity/Vol] 54 U/L High 7-52 [facility] Comment on above: Performed By: #### L [id number] #### [facility] ([facility]) [address] [place] [address] Anion gap [Moles/Vol] 8 mmol/L Normal 7-20 [facility] Comment on above: Performed By: #### L [id number] #### [facility] ([facility]) [address] [place] [address] AST [Catalytic activity/Vol] 66 U/L High 13-39 [facility] Comment on above: Performed By: #### L [id number] #### [facility] ([facility]) [address] [place] [address] Bilirubin [Mass/Vol] 0.9 mg/dL Normal 0.3-1.0 [facility] Comment on above: Performed By: #### L [id number] #### [facility] ([facility]) [address] [place] [address] Calcium [Mass/Vol] 7.8 mg/dL Low 8.6-10.3 [facility] Comment on above: Performed By: #### L [id number] #### [facility] ([facility]) [address] [place] [address] Chloride [Moles/Vol] 109 mmol/L High 98-107 [facility] Comment on above: Performed By: #### L [id number] #### [facility] ([facility]) [address] [place] [address] CO2 [Moles/Vol] 26 mmol/L Normal 21-31 [facility] Comment on above: Performed By: #### L [id number] #### [facility] ([facility]) [address] [place] [address] Creatinine [Mass/Vol] 0.51 mg/dL Low 0.60-1.20 [facility] Comment on above: Performed By: #### L [id number] #### [facility] ([facility]) [address] [place] [address] GLOMERULAR FILTRATION RATE ML/MIN/1.73 SQ M.PREDICTED 109.5 mL/min/1.73m*2 Normal >60.0 [facility] Comment on above: Result Comment: The [facility]???s estimated glomerular filtration rate (eGFR) will no longer include consideration of race in its calculation. The National Kidney Foundation???s eGFR Task Force developed new recommendations for the estimation of the glomerular filtration rate in the [place] They recommend immediate implementation of the new equation refit without the race variable in all laboratories because the calculation does not include race. In addition to not including race in the calculation and reporting, it included diversity in its development, and has acceptable performance characteristics and potential consequences that do not disproportionately affect any one group of individuals. Performed By: #### L [id number] #### [facility] ([facility]) [address] [place] [address] Glucose [Mass/Vol] 98 mg/dL Normal 70-100 [facility] Comment on above: Performed By: #### L [id number] #### [facility] ([facility]) [address] [place] [address] Potassium [Moles/Vol] 3.7 mmol/L Normal 3.5-5.1 [facility] Comment on above: Performed By: #### L [id number] #### [facility] ([facility]) [address] [place] [address] Protein [Mass/Vol] 5.5 g/dL Low 6.0-8.3 [facility] Comment on above: Performed By: #### L [id number] #### [facility] ([facility]) [address] [place] [address] Sodium [Moles/Vol] 139 mmol/L Normal 136-145 [facility] Comment on above: Performed By: #### L [id number] #### [facility] ([facility]) [address] [place] [address] Urea nitrogen [Mass/Vol] 10 mg/dL Normal 7-25 [facility] Comment on above: Performed By: #### L [id number] #### [facility] ([facility]) [address] [place] [address] UREA NITROGEN/CREATININE (MASS RATIO) IN SER/PLAS 19.6 Normal [facility] Comment on above: Performed By: #### L [id number] #### [facility] ([facility]) [address] [place] [address] HEMOGLOBIN AND HEMATOCRIT, B LOODon 01-23-2025 Hematocrit (Bld) [Volume fraction] 34.2 % Low 36.0-45.0 [facility] Comment on above: Performed By: #### L [id number] ####[facility] ([facility])[address] [place] [address] Hemoglobin (Bld) [Mass/Vol] 10.9 g/dL Low 12.0-15.0 [facility] Comment on above: Performed By: #### L [id number] ####[facility] ([facility])[address] [place] [address] Hematocrit (Bld) [Volume fraction] 37.6 % Normal 36.0-45.0 [facility] Comment on above: Performed By: #### L [id number] ####[facility] ([facility])[address] [place] [address] Hemoglobin (Bld) [Mass/Vol] 12.3 g/dL Normal 12.0-15.0 [facility] Comment on above: Performed By: #### L [id number] ####[facility] ([facility])[address] [place] [address] Hematocrit (Bld) [Volume fraction] 38.2 % Normal 36.0-45.0 [facility] Comment on above: Performed By: #### L [id number] ####[facility] ([facility])[address] [place] [address] Hemoglobin (Bld) [Mass/Vol] 12.6 g/dL Normal 12.0-15.0 [facility] Comment on above: Performed By: #### L [id number] ####[facility] ([facility])[address] [place] [address] HIGH SENSITIVITY TROPONIN Io n 01-23-2025 HS TROPONIN I (NG/L) 1765 ng/L Critically high <15 [facility] Comment on above: Performed By: #### L [id number] #### [facility] ([facility]) [address] [place] [address] MAGNESIUMon 01-23-2025 Magnesium [Mass/Vol] 1.9 mg/dL Normal 1.9-2.7 [facility] Comment on above: Performed By: #### L [id number] #### [facility] ([facility]) [address] [place] [address] Magnesium [Mass/Vol] 1.9 mg/dL Normal 1.9-2.7 [facility] Comment on above: Performed By: #### L [id number] ####[facility] ([facility])[address] [place] [address] PHOSPHORUSon 01-23-2025 Magnesium [Mass/Vol] 1.6 mg/dL Low 2.5-5.0 [facility] Comment on above: Performed By: #### L [id number] #### [facility] ([facility]) [address] [place] [address] Magnesium [Mass/Vol] 1.6 mg/dL Low 2.5-5.0 [facility] Comment on above: Performed By: #### L [id number] ####[facility] ([facility])[address] [place] [address] PROTIME-INRon 01-23-2025 INR IN PPP BY COAGULATION ASSAY 1.23 High 0.90-1.10 [facility] Comment on above: Result Comment: [facility]ARFARIN THERAPY CONDITION INR PROPHYLAXIS OF VENOUS THROMBOSIS 2-3 (HIGH-RISK SURGERY) TREATMENT OF VENOUS THROMBOSIS 2-3 TREATMENT OF PULMONARY EMBOLISM 2-3 PREVENTION OF SYSTEMIC EMBOLISM: 2-3 ACUTE MYOCARDIAL INFARCTION TISSUE HEART VALVES VALVULAR HEART DISEASE ATRIAL FIBRILLATION RECURRENT SYSTEMIC EMBOLISM MECHANICAL HEART VALVE 2.5-3.5 FROM: ORAL ANTICOAGULANTS. MECHANISM OF ACTION, CLINICAL EFFECTIVENESS, AND OPTIMAL THERAPEUTIC RANGE. CHEST 1995;108:231S-246S. Performed By: #### L [id number] ####[facility] ([facility])[address] [place] [address] PROTHROMBIN TIME (PT) IN PPP BY COAGULATION ASSAY 15.5 Seconds High 12.3-14.8 [facility] Comment on above: Performed By: #### L [id number] ####[facility] ([facility])[address] [place] [address] VENOUS BLOOD GAS WITH IONIZE D CALCIUMon 01-23-2025 Base excess Calc (BldV) [Moles/Vol] 0.7 mmol/L Normal [facility] Comment on above: Performed By: #### L [id number] ####[facility] [id number] [place] [address] [place] CALCIUM IONIZED (MMOL/L) IN BLOOD 1.17 mmol/L Normal 1.15-1.33 [facility] Comment on above: Performed By: #### L [id number] ####[facility] RESP[facility] [id number] [place] [address] [place] CO2 (BldV) [Partial pressure] 40 mm[Hg] Normal 40-50 [facility] Comment on above: Performed By: #### L [id number] ####[facility] RESPIRATORY [id number] [place] [address] [place] HCO3 (Bld) [Moles/Vol] 25.4 mmol/L Normal [facility] Comment on above: Performed By: #### L [id number] ####[facility] RESPIRATORY [id number] [place] [address] [facility] Oxygen (BldV) [Partial pressure] 21 mm[Hg] Invalid Interpretation Code 35-45 [facility] Comment on above: Performed By: #### L [id number] ####[facility] RESPIRATORY [id number] [place] [address] [facility] OXYGEN SATURATION (%) IN VENOUS BLOOD 28.8 % Invalid Interpretation Code 65.0-75.0 [facility] Comment on above: Performed By: #### L [id number] ####[facility] RESPIRATORY [id number] [place] [address] [facility] PH OF VENOUS BLOOD 7.41 Normal 7.31-7.41 [facility] Comment on above: Performed By: #### L [id number] ####[facility] RESPIRATORY [id number] [place] [address] [facility] 30on 01-22-2025 30 Daily Case Managemen t Update Multidisciplinary rounds have been completed. Barriers to Discharge: 01/22- patient went for afib ablation, patient turned hernandez in PACU, bedside ECHO showed cardiac tamponade, taken to technology lab teacher and urgent pericardiocentesis / drain placement completed. No pressors, doing well, drain output minimal. Pt ot = home. cb Diet: Dietary Orders (From admission, onward) Start Ordered 01/22/25 0739 Regular Diet Diet effective now Question: Room Service? Answer: Yes 01/22/25 0738 Physician Expected Discharge Date: 01/24/2025 Discharge Delays: PT Six Click Score: 18 OT Six Click Score: PT Recommendations: Home OT Recommendations: New Consults: Consult Orders (From admission, onward) Start Ordered 01/21/25 1706 Inpatient consult to Cardiothoracic Surgery Once Specialty: Cardiothoracic Surgery Provider: (Not yet assigned) Question Answer Comment [facility]ing Group CARDIOTHORACIC SURGERY TEAM Reason for Consult? tamponade Level of Consultation Consultation and Management 01/21/25 1705 01/21/25 1638 Inpatient consult to MICU Once Provider: (Not yet assigned) Question Answer Comment Consulting Group MICU TEAM Reason for Consult? Tamponade Level of Consultation Consultation and Management 01/21/25 1638 Therapy Orders (From admission, onward) Start Ordered 01/22/25 0700 PT eval and treat Until therapy completed Question: Reason for PT? Answer: weakness post pericardiocentesis 01/22/25 0700 Normal [facility] APTTon 01-22-2025 ACTIVATED PARTIAL THROMBOPLASTIN TIME IN PPP BY COAGULATION ASSAY 27.8 Seconds Normal 25.0-35.0 [facility] Comment on above: Order Comment: Basel ine aPTT before initiating heparin infusion. Result Comment: Clin ical significance of the APTT is questionable in the presence of heparin. Performed By: #### L [id number] #### [facility] ([facility]) [address] [place] [address] BASIC METABOLIC PANELon 05 Anion gap [Moles/Vol] 11 mmol/L Normal 7-20 [facility] Comment on above: Performed By: #### L [id number] ####[facility] ([facility])[address] [place] [address] Calcium [Mass/Vol] 7.9 mg/dL Low 8.6-10.3 [facility] Comment on above: Performed By: #### L [id number] ####[facility] ([facility])[address] [place] [address] Chloride [Moles/Vol] 106 mmol/L Normal 98-107 [facility] Comment on above: Performed By: #### L [id number] ####[facility] ([facility])[address] [place] [address] CO2 [Moles/Vol] 26 mmol/L Normal 21-31 [facility] Comment on above: Performed By: #### L [id number] ####[facility] ([facility])[address] [place] [address] Creatinine [Mass/Vol] 0.60 mg/dL Normal 0.60-1.20 [facility] Comment on above: Performed By: #### L [id number] ####[facility] ([facility])[address] [place] [address] GLOMERULAR FILTRATION RATE ML/MIN/1.73 SQ M.PREDICTED 105.3 mL/min/1.73m*2 Normal >60.0 [facility] Comment on above: Result Comment: The [facility]???s estimated glomerular filtration rate (eGFR) will no longer include consideration of race in its calculation. The National Kidney Foundation???s eGFR Task Force developed new recommendations for the estimation of the glomerular filtration rate in the [place] They recommend immediate implementation of the new equation refit without the race variable in all laboratories because the calculation does not include race. In addition to not including race in the calculation and reporting, it included diversity in its development, and has acceptable performance characteristics and potential consequences that do not disproportionately affect any one group of individuals. Performed By: #### L [id number] ####[facility] ([facility])[address] [place] [address] Glucose [Mass/Vol] 132 mg/dL High 70-100 [facility] Comment on above: Performed By: #### L [id number] ####[facility] ([facility])[address] [place] [address] Potassium [Moles/Vol] 3.6 mmol/L Normal 3.5-5.1 [facility] Comment on above: Performed By: #### L [id number] ####[facility] ([facility])[address] [place] [address] Sodium [Moles/Vol] 139 mmol/L Normal 136-145 [facility] Comment on above: Performed By: #### L [id number] ####[facility] ([facility])[address] [place] [address] Urea nitrogen [Mass/Vol] 15 mg/dL Normal 7-25 [facility] Comment on above: Performed By: #### L [id number] ####[facility] ([facility])[address] [place] [address] UREA NITROGEN/CREATININE (MASS RATIO) IN SER/PLAS 25.0 Normal [facility] Comment on above: Performed By: #### L [id number] ####[facility] ([facility])[address] [place] [address] CBCon 01-22-2025 Erythrocyte distribution width (RBC) [Ratio] 12.8 % Normal 11.5-15.0 [facility] Comment on above: Performed By: #### L [id number] #### [facility] ([facility]) [address] [place] [address] ERYTHROCYTE MEAN CORPUSCULAR HEMOGLOBIN CONCENTRATION (G/DL) BY AUTOMATED 33.5 g/dL Normal 32.0-35.0 [facility] Comment on above: Performed By: #### L [id number] #### [facility] ([facility]) [address] [place] [address] Hematocrit (Bld) [Volume fraction] 32.2 % Low 36.0-45.0 [facility] Comment on above: Performed By: #### L [id number] #### [facility] ([facility]) [address] [place] [address] Hemoglobin (Bld) [Mass/Vol] 10.8 g/dL Low 12.0-15.0 [facility] Comment on above: Performed By: #### L [id number] #### [facility] ([facility]) [address] [place] [address] MCH (RBC) [Entitic mass] 30.1 pg Normal 27.0-33.0 [facility] Comment on above: Performed By: #### L [id number] #### [facility] ([facility]) [address] [place] [address] MCV (RBC) [Entitic vol] 89.7 fL Normal 82.0-98.0 [facility] Comment on above: Performed By: #### L [id number] #### [facility] ([facility]) [address] [place] [address] PLATELETS (10*3/UL) IN BLOOD AUTOMATED COUNT 214 10*3/uL Normal 150-400 [facility] Comment on above: Performed By: #### L [id number] #### [facility] ([facility]) [address] [place] [address] RBC (Bld) [#/Vol] 3.59 10*6/uL Low 3.80-5.00 [facility] Comment on above: Performed By: #### L [id number] #### [facility] ([facility]) [address] [place] [address] WBC (Bld) [#/Vol] 14.50 10*3/uL High 4.00-10.60 [facility] Comment on above: Performed By: #### L [id number] #### [facility] ([facility]) [address] [place] [address] CONSULTon 01-22-2025 CONSULT Inpatient consult to Cardiothoracic Surgery Consult performed by: Js Jaime CNP Consult ordered by: Jesus Alberto Ricardo MD Reason for consult: Pericardial Effusion, Possible need for Pericardial Window Cardiothoracic Surgery Consultation Note 01/22/2025 Room: [address] [place] [address] Reason For Consult tamponade Referring Provider: Jesus Alberto Ricardo MD History Of Present Illness Oleg Peck is a 54 y.o. female with PMH of paroxysmal atrial fibrillation, first knew about June 2024 at which she had sudden episode of Afib with RVR admitted to [facility] and converted spontaneously on the second day. Had another episode in november that converted back on the next day. Patient was given pill in pocket by Dr. Ricardo. Underwent elective PBI ([facility]) with PFA ablation on 01/22/2025, became hypotensive in the PACU, bedside echo performed and showed cardiac tamponade. She was emergently taken to technology lab teacher with urgent pericardiocentesis with removal of 250mL of saguinous pericardial fluid. Admitted to MICU for close observation. CT Surgery was consulted during the case yesterday for assessment of pericardial window. CT Surgery Team present in technology lab teacher, cardiology interventionalist successfully placed pericardial drain and hemodynamics improved with patient. She received Kcentra in wire coater due to xarelto stopped morning of ablation. Colchine started prophylactically for pericarditis. Overnight patient had around 70mL of sanguinous output from pericardial drain. Remains hemodynamically stable. HGB 11.6 today. Limited echo performed this morning. Assessment: Principal Problem: Paroxysmal atrial fibrillation (CMS/HCC) Active Problems: Tamponade Plan : -Patient seen and evaluated by Cardiothoracic Team. Dr. Joseph Harrison personally reviewed Echocardiogram, CXR, and Other Diagnostic Testing. Findings discussed with patient. Explained current disease process and reviewed treatment options. -CT Surgery Recommendation: Cardiology planning to start heparin gtt and assess re-accumulation of pericardial fluid, transition to Xarelto, and if no re-accumulation Cardiology team will pull drain. If re-accumulation CT Surgery will assess need for pericardial window. -Medical management per primary and Cardiology Teams. -CT Surgery will continue to follow from a distance. Past Medical History She has a past medical history of Atrial fibrillation (CMS/HCC), Complex regional pain syndrome of lower limb, Deep vein thrombosis (CMS/HCC), Displaced fracture of fifth metatarsal bone, left foot, initial encounter for closed fracture, Hallux rigidus of right foot, Peripheral vascular disease, Recurrent UTI, and Varicose veins of both lower extremities with pain. Surgical History She has a past surgical history that includes Foot fracture surgery and Knee surgery. Family History Family History Problem Relation Name Age of Onset Atrial fibrillation Mother Coronary artery disease Brother Social History She reports that she has never smoked. She has never used smokeless tobacco. She reports that she does not currently use alcohol. She reports that she does not use drugs. Allergies Codeine and Sulfamide Medications Medications Prior to Admission Medication Sig Dispense Refill Last Dose calcium carb/vit D3/minerals (CALCIUM-VITAMIN D ORAL) Take by mouth. Past Week magnesium carb,citrate,oxide 300 mg magnesium tablet Take 30 mg by mouth twice a day. Past Week multivitamin tablet Take by mouth. Past Week mjkws-5t-ioq-epa-fish oil ([place]-3 Fish OiL) 300-1,000 mg capsule Take by mouth in the morning. Past Week rivaroxaban (Xarelto) 20 mg tablet Take 1 tablet (20 mg) by mouth daily with evening meal. Take with food. 90 tablet 3 Past Week aspirin 81 mg EC tablet Take 81 mg by mouth in the morning. Not Taking flecainide (Tambocor) 100 mg tablet Take 2 tablets (200 mg) by mouth 1 (one) time if needed (take with metoprolol when in Afib. Do not repeat) for up to 4 doses. (Patient not taking: Reported on 01/21/2025) 2 tablet 3 Not Taking metoprolol tartrate (Lopressor) 25 mg tablet Take 25 mg by mouth if needed. As needed when in A-Fib Not Taking Active Hospital Medications Medication Dose Route Frequency Last Admin acetaminophen 650 mg oral q4h PRN 650 mg at 01/22/25 0507 amoxicillin-pot clavulanate 1 tablet oral BID 1 tablet at 01/22/25 0958 colchicine 0.6 mg oral BID 0.6 mg at 01/22/25 0958 furosemide 40 mg intravenous Once melatonin 6 mg oral Nightly PRN 6 mg at 01/22/25 0119 prochlorperazine 5 mg intravenous Once PRN Review of Systems Review of Systems: All 14 Systems Reviewed and Negative unless otherwise indicated in the above HPI. Last Recorded Vitals Patient Vitals for the past 24 hrs: BP Temp Temp src Pulse Resp SpO2 Weight 01/22/25 1100 -- -- -- 82 21 97 % -- 01/22/25 1000 128/73 -- -- 81 24 98 % -- 01/22/25 0900 128/64 -- -- 86 (!) 29 96 % -- 01/22/25 0800 127/66 -- -- 77 20 (more content not included)... [facility] CONSULT - Attestation signed by Rubin Alcantara MD at 01/23/2025 3:54 PM I personally saw the patient on rounds and agree with the assessment And plan of the medical anthropology director as documented in his patient progress note from today Cardiology Consult Note Reason for Consult: afib s/p ablation complicated with pericardial effusion HPI: Oleg Peck is a 54 y.o. female with pmh of paroxysmal atrial fibrillation, first knew about June 2024 at which she had sudden episode of Afib with RVR admitted to [facility] and converted spontaneously on the second day, had another episode in november that converted back on the next day. Patient was given pill in pocket by Dr. Ricardo. Patient underwent elective afib, patient udnerwent PBI ([facility]ACA) with PFA ablation on 01/22/2025, patient turned sandy in the PACU, bedside echo showed cardiac tamponade, patient was taken to technology lab teacher with urgent pericardiocentesis with removal of 250 and admitted to MICU. Overnight patient had around 70ml of blood from pericardial drain. Didn't require pressor or transfusion. Cardiology ROS: Review of Systems Constitutional: Negative for activity change and unexpected weight change. HENT: Negative for congestion and rhinorrhea. Respiratory: Negative for cough. Cardiovascular: Negative for chest pain. Gastrointestinal: Negative for abdominal pain. Genitourinary: Negative for urgency. Musculoskeletal: Negative for back pain. Skin: Negative for rash. Neurological: Negative for syncope. Psychiatric/Behaviora l: Negative for behavioral problems. Past Medical History She has a past medical history of Atrial fibrillation (CMS/HCC), Complex regional pain syndrome of lower limb, Deep vein thrombosis (CMS/HCC), Displaced fracture of fifth metatarsal bone, left foot, initial encounter for closed fracture, Hallux rigidus of right foot, Peripheral vascular disease, Recurrent UTI, and Varicose veins of both lower extremities with pain. Surgical History She has a past surgical history that includes Foot fracture surgery and Knee surgery. Social History She reports that she has never smoked. She has never used smokeless tobacco. She reports that she does not currently use alcohol. She reports that she does not use drugs. Family History Family History Problem Relation Name Age of Onset Atrial fibrillation Mother Coronary artery disease Brother Allergies Codeine and Sulfamide Medications Current Outpatient Medications Medication Instructions aspirin 81 mg, oral, Daily calcium carb/vit D3/minerals (CALCIUM-VITAMIN D ORAL) oral flecainide (TAMBOCOR) 200 mg, oral, Once as needed magnesium carb,citrate,oxide 30 mg, oral, 2 times daily metoprolol tartrate (LOPRESSOR) 25 mg, oral, As needed, As needed when in A-Fib multivitamin tablet oral uuksu-7q-tit-epa-fish oil ([place]-3 Fish OiL) 300-1,000 mg capsule oral, Daily RT rivaroxaban (XARELTO) 20 mg, oral, Daily with evening meal, Take with food. Medications Prior to Admission Medication Sig Dispense Refill Last Dose calcium carb/vit D3/minerals (CALCIUM-VITAMIN D ORAL) Take by mouth. Past Week magnesium carb,citrate,oxide 300 mg magnesium tablet Take 30 mg by mouth twice a day. Past Week multivitamin tablet Take by mouth. Past Week kzqkt-8p-acy-epa-fish oil ([place]-3 Fish OiL) 300-1,000 mg capsule Take by mouth in the morning. Past Week rivaroxaban (Xarelto) 20 mg tablet Take 1 tablet (20 mg) by mouth daily with evening meal. Take with food. 90 tablet 3 Past Week aspirin 81 mg EC tablet Take 81 mg by mouth in the morning. Not Taking flecainide (Tambocor) 100 mg tablet Take 2 tablets (200 mg) by mouth 1 (one) time if needed (take with metoprolol when in Afib. Do not repeat) for up to 4 doses. (Patient not taking: Reported on 01/21/2025) 2 tablet 3 Not Taking metoprolol tartrate (Lopressor) 25 mg tablet Take 25 mg by mouth if needed. As needed when in A-Fib Not Taking Last Recorded Vitals Patient Vitals for the past 24 hrs: BP Temp Temp src Pulse Resp SpO2 Height Weight 01/22/25 0900 128/64 -- -- 86 (!) 29 96 % -- -- 01/22/25 0800 127/66 -- -- 77 20 99 % -- -- 01/22/25 0700 125/65 -- -- 75 20 98 % -- -- 01/22/25 0600 125/66 -- -- 73 24 98 % -- -- 01/22/25 0500 83/52 -- -- 62 (!) 28 98 % -- -- 01/22/25 0400 116/73 36.4 ???C (97.5 ???F) Temporal 74 25 99 % -- 69 kg (152 lb 1.9 oz) 01/22/25 0306 94/54 -- -- -- -- -- -- -- 01/22/25 0300 (!) 86/48 -- -- 59 21 98 % -- -- 01/22/25 0200 126/71 -- -- 87 21 97 % -- -- 01/22/25 0100 136/79 -- -- 89 (!) 27 99 % -- -- 01/22/25 0045 -- -- -- 90 (!) 27 99 % -- -- 01/22/25 0000 125/78 36.4 ???C (97.5 ???F) Temporal 95 20 98 % -- -- 01/21/25 2300 129/78 -- -- 98 25 99 % -- -- 01/21/25 2245 -- -- -- 95 23 99 % -- -- 01/21/25 2230 128/75 -- -- -- -- -- -- -- (more content not included)... Normal [facility] HEMOGLOBIN AND HEMATOCRIT, B LOODon 01-22-2025 Hematocrit (Bld) [Volume fraction] 36.6 % Normal 36.0-45.0 [facility] Comment on above: Performed By: #### L [id number] #### [facility]) [address] [place] [address] Hemoglobin (Bld) [Mass/Vol] 12.2 g/dL Normal 12.0-15.0 [facility] Comment on above: Performed By: #### L [id number] #### [facility]) [address] [place] [address] Hematocrit (Bld) [Volume fraction] 34.3 % Low 36.0-45.0 [facility] Comment on above: Performed By: #### L [id number] ####[facility])[address] [place] [address] Hemoglobin (Bld) [Mass/Vol] 11.6 g/dL Low 12.0-15.0 [facility] Comment on above: Performed By: #### L [id number] ####[facility] ([facility])[address] [place] [address] HPon 01-22-2025 HP - Attestation signed by Rubin Alcantara MD at 01/23/2025 3:54 PM I personally saw the patient on rounds and agree with the assessment And plan of the medical anthropology director as documented in his patient progress note from today Cardiology Consult Note Reason for Consult: afib s/p ablation complicated with pericardial effusion HPI: Oleg Peck is a 54 y.o. female with pmh of paroxysmal atrial fibrillation, first knew about June 2024 at which she had sudden episode of Afib with RVR admitted to [facility] and converted spontaneously on the second day, had another episode in november that converted back on the next day. Patient was given pill in pocket by Dr. Ricardo. Patient underwent elective afib, patient udnerwent PBI ([facility]ACA) with PFA ablation on 01/22/2025, patient turned sandy in the PACU, bedside echo showed cardiac tamponade, patient was taken to technology lab teacher with urgent pericardiocentesis with removal of 250 and admitted to MICU. Overnight patient had around 70ml of blood from pericardial drain. Didn't require pressor or transfusion. Cardiology ROS: Review of Systems Constitutional: Negative for activity change and unexpected weight change. HENT: Negative for congestion and rhinorrhea. Respiratory: Negative for cough. Cardiovascular: Negative for chest pain. Gastrointestinal: Negative for abdominal pain. Genitourinary: Negative for urgency. Musculoskeletal: Negative for back pain. Skin: Negative for rash. Neurological: Negative for syncope. Psychiatric/Behaviora l: Negative for behavioral problems. Past Medical History She has a past medical history of Atrial fibrillation (CMS/HCC), Complex regional pain syndrome of lower limb, Deep vein thrombosis (CMS/HCC), Displaced fracture of fifth metatarsal bone, left foot, initial encounter for closed fracture, Hallux rigidus of right foot, Peripheral vascular disease, Recurrent UTI, and Varicose veins of both lower extremities with pain. Surgical History She has a past surgical history that includes Foot fracture surgery and Knee surgery. Social History She reports that she has never smoked. She has never used smokeless tobacco. She reports that she does not currently use alcohol. She reports that she does not use drugs. Family History Family History Problem Relation Name Age of Onset Atrial fibrillation Mother Coronary artery disease Brother Allergies Codeine and Sulfamide Medications Current Outpatient Medications Medication Instructions aspirin 81 mg, oral, Daily calcium carb/vit D3/minerals (CALCIUM-VITAMIN D ORAL) oral flecainide (TAMBOCOR) 200 mg, oral, Once as needed magnesium carb,citrate,oxide 30 mg, oral, 2 times daily metoprolol tartrate (LOPRESSOR) 25 mg, oral, As needed, As needed when in A-Fib multivitamin tablet oral uwlly-6n-unx-epa-fish oil ([place]-3 Fish OiL) 300-1,000 mg capsule oral, Daily RT rivaroxaban (XARELTO) 20 mg, oral, Daily with evening meal, Take with food. Medications Prior to Admission Medication Sig Dispense Refill Last Dose calcium carb/vit D3/minerals (CALCIUM-VITAMIN D ORAL) Take by mouth. Past Week magnesium carb,citrate,oxide 300 mg magnesium tablet Take 30 mg by mouth twice a day. Past Week multivitamin tablet Take by mouth. Past Week lnkrv-1n-cug-epa-fish oil ([place]-3 Fish OiL) 300-1,000 mg capsule Take by mouth in the morning. Past Week rivaroxaban (Xarelto) 20 mg tablet Take 1 tablet (20 mg) by mouth daily with evening meal. Take with food. 90 tablet 3 Past Week aspirin 81 mg EC tablet Take 81 mg by mouth in the morning. Not Taking flecainide (Tambocor) 100 mg tablet Take 2 tablets (200 mg) by mouth 1 (one) time if needed (take with metoprolol when in Afib. Do not repeat) for up to 4 doses. (Patient not taking: Reported on 01/21/2025) 2 tablet 3 Not Taking metoprolol tartrate (Lopressor) 25 mg tablet Take 25 mg by mouth if needed. As needed when in A-Fib Not Taking Last Recorded Vitals Patient Vitals for the past 24 hrs: BP Temp Temp src Pulse Resp SpO2 Height Weight 01/22/25 0900 128/64 -- -- 86 (!) 29 96 % -- -- 01/22/25 0800 127/66 -- -- 77 20 99 % -- -- 01/22/25 0700 125/65 -- -- 75 20 98 % -- -- 01/22/25 0600 125/66 -- -- 73 24 98 % -- -- 01/22/25 0500 83/52 -- -- 62 (!) 28 98 % -- -- 01/22/25 0400 116/73 36.4 ???C (97.5 ???F) Temporal 74 25 99 % -- 69 kg (152 lb 1.9 oz) 01/22/25 0306 94/54 -- -- -- -- -- -- -- 01/22/25 0300 (!) 86/48 -- -- 59 21 98 % -- -- 01/22/25 0200 126/71 -- -- 87 21 97 % -- -- 01/22/25 0100 136/79 -- -- 89 (!) 27 99 % -- -- 01/22/25 0045 -- -- -- 90 (!) 27 99 % -- -- 01/22/25 0000 125/78 36.4 ???C (97.5 ???F) Temporal 95 20 98 % -- -- 01/21/25 2300 129/78 -- -- 98 25 99 % -- -- 01/21/25 2245 -- -- -- 95 23 99 % -- -- 01/21/25 2230 128/75 -- -- -- -- -- -- -- (more content not included)... Normal [facility] MAGNESIUMon 01-22-2025 Magnesium [Mass/Vol] 1.3 mg/dL Low 1.9-2.7 [facility] Comment on above: Performed By: #### L [id number] #### [facility] ([facility]) [address] [place] [address] PHOSPHORUSon 01-22-2025 Magnesium [Mass/Vol] 2.6 mg/dL Normal 2.5-5.0 [facility] Comment on above: Performed By: #### L [id number] #### [facility] ([facility]) [address] [place] [address] PLATELET COUNTon 01-22-2025 PLATELETS (10*3/UL) IN BLOOD AUTOMATED COUNT 217 10*3/uL Normal 150-400 [facility] Comment on above: Performed By: #### L [id number] #### [facility] ([facility]) [address] [place] [address] ANESon 01-21-2025 ANES - Attestation signed by Nico Waggoner MD at 01/21/2025 12:42 PM I reviewed the patient's history and examined the patient. I attest to this preprocedural evaluation. Patient: Oleg Peck Procedure Information Date/Time: 01/21/25 1130 Procedure: Ablation a-fib paroxysmal - PC APPROVED Location: [facility] SLACKLINE OPERATOR 1 EP / [facility] (Cath) Providers: Jesus Alberto Ricardo MD Relevant Problems Anesthesia (within normal limits) No issues with anesthesia in the past. Sleep study done 07/2024 negative for sleep apnea. Cardio Patient has no significant cardiac history outside of Afib. METS > 4 (+) Paroxysmal atrial fibrillation (CMS/HCC) (+) Varicose veins of both lower extremities with pain Endo (within normal limits) /Renal (within normal limits) Neuro/Psych (within normal limits) Pulmonary (within normal limits) Past Surgical History: Procedure Laterality Date FOOT FRACTURE SURGERY KNEE SURGERY Allergies Allergen Reactions Codeine Headache Sulfamide Other JOINT PAIN OB History No obstetric history on file. Estimated Date of Delivery: None noted. Scheduled Meds:ceFAZolin, 2 g, intravenous, Once Continuous Infusions:lactated Ringer's, 50 mL/hr PRN Meds:.PRN medications: Insert peripheral IV AND Saline lock IV AND sodium chloride Temp 35.9 ???C (96.6 ???F) (Temporal) No lab exists for component: LABALBU Date of Last Liquid: 01/20/25 Date of Last Solid: 01/20/25 Time of Last Liquid: 2100 Time of Last Solid: 1800 Clinical information reviewed: Tobacco Allergies Meds Problems Med Hx Surg Hx Fam Hx Soc Hx Physical Exam Airway Mallampati: I TM distance: >3 FB Neck ROM: full Cardiovascular - normal exam Dental - normal exam Pulmonary - normal exam Abdominal - normal exam Anesthesia Plan ASA 3 general (GETA with standard ASA monitoring and arterial line) The patient is not a current smoker. Patient was previously instructed to abstain from smoking on day of procedure. Patient did not smoke on day of procedure. intravenous induction Postoperative administration of opioids is intended. Trial extubation is planned. Anesthetic plan and risks discussed with patient. Use of blood products discussed with patient who consented to blood products. Plan discussed with attending. Additional Equipment Requests Normal [facility] BILIRUBIN, DIRECTon 01-22-20 25 Magnesium [Mass/Vol] 0.2 mg/dL Normal 0-0.2 [facility] Comment on above: Performed By: #### L [id number] #### [facility] ([facility]) [address] [place] [address] BILIRUBIN, TOTALon 5 Bilirubin [Mass/Vol] 0.9 mg/dL Normal 0.3-1.0 [facility] Comment on above: Performed By: #### L [id number] ####[facility] ([facility])[address] [place] [address] CBCon 01-21-2025 Erythrocyte distribution width (RBC) [Ratio] 12.8 % Normal 11.5-15.0 [facility] Comment on above: Performed By: #### L [id number] #### [facility] ([facility]) [address] [place] [address] ERYTHROCYTE MEAN CORPUSCULAR HEMOGLOBIN CONCENTRATION (G/DL) BY AUTOMATED 33.0 g/dL Normal 32.0-35.0 [facility] Comment on above: Performed By: #### L [id number] #### [facility] ([facility]) [address] [place] [address] Hematocrit (Bld) [Volume fraction] 38.5 % Normal 36.0-45.0 [facility] Comment on above: Performed By: #### L [id number] #### [facility] ([facility]) [address] [place] [address] MCH (RBC) [Entitic mass] 30.5 pg Normal 27.0-33.0 [facility] Comment on above: Performed By: #### L [id number] #### [facility] ([facility]) [address] [place] [address] MCV (RBC) [Entitic vol] 92.3 fL Normal 82.0-98.0 [facility] Comment on above: Performed By: #### L [id number] #### [facility] ([facility]) [address] [place] [address] PLATELETS (10*3/UL) IN BLOOD AUTOMATED COUNT 248 10*3/uL Normal 150-400 [facility] Comment on above: Performed By: #### L [id number] #### [facility] ([facility]) [address] [place] [address] RBC (Bld) [#/Vol] 4.17 10*6/uL Normal 3.80-5.00 [facility] Comment on above: Performed By: #### L [id number] #### [facility] ([facility]) [address] [place] [address] WBC (Bld) [#/Vol] 7.62 10*3/uL Normal 4.00-10.60 [facility] Comment on above: Performed By: #### L [id number] #### [facility] ([facility]) [address] [place] [address] CBC WITH AUTO DIFFERENTIALon 01-21-2025 Basophils (Bld) [#/Vol] 0.02 10*3/uL Normal 0.00-0.20 [facility] Comment on above: Performed By: #### L [id number] ####[facility] ([facility])[address] [place] [address] Basophils/100 WBC (Bld) 0.2 % Normal 0.0-1.0 [facility] Comment on above: Performed By: #### L [id number] ####[facility] ([facility])[address] [place] [address] Eosinophils (Bld) [#/Vol] 0.01 10*3/uL Normal 0.00-0.50 [facility] Comment on above: Performed By: #### L [id number] ####[facility] ([facility])[address] [place] [address] Eosinophils/100 WBC (Bld) 0.1 % Normal 0.0-6.0 [facility] Comment on above: Performed By: #### L [id number] ####[facility] ([facility])[address] [place] [address] Erythrocyte distribution width (RBC) [Ratio] 12.8 % Normal 11.5-15.0 [facility] Comment on above: Performed By: #### L [id number] ####[facility] ([facility])[address] [place] [address] ERYTHROCYTE MEAN CORPUSCULAR HEMOGLOBIN CONCENTRATION (G/DL) BY AUTOMATED 34.1 g/dL Normal 32.0-35.0 [facility] Comment on above: Performed By: #### L [id number] ####[facility] ([facility])[address] [place] [address] Hematocrit (Bld) [Volume fraction] 34.9 % Low 36.0-45.0 [facility] Comment on above: Performed By: #### L [id number] ####[facility] ([facility])[address] [place] [address] Hemoglobin (Bld) [Mass/Vol] 11.9 g/dL Low 12.0-15.0 [facility] Comment on above: Performed By: #### L [id number] ####[facility] ([facility])[address] [place] [address] Immature granulocytes (Bld) [#/Vol] 0.05 10*3/uL Normal 0.00-0.20 [facility] Comment on above: Performed By: #### L [id number] ####[facility] ([facility])[address] [place] [address] Immature granulocytes/100 WBC (Bld) 0.4 % Normal 0.0-1.0 [facility] Comment on above: Performed By: #### L [id number] ####[facility] ([facility])[address] [place] [address] Lymphocytes (Bld) [#/Vol] 1.10 10*3/uL Low 1.20-4.00 [facility] Comment on above: Performed By: #### L [id number] ####[facility] ([facility])[address] [place] [address] Lymphocytes/100 WBC (Bld) 9.2 % Low 20.0-45.0 [facility] Comment on above: Performed By: #### L [id number] ####[facility] ([facility])[address] [place] [address] MCH (RBC) [Entitic mass] 30.7 pg Normal 27.0-33.0 [facility] Comment on above: Performed By: #### L [id number] ####[facility] ([facility])[address] [place] [address] MCV (RBC) [Entitic vol] 89.9 fL Normal 82.0-98.0 [facility] Comment on above: Performed By: #### L [id number] ####[facility] ([facility])[address] [place] [address] Monocytes (Bld) [#/Vol] 0.23 10*3/uL Normal 0.10-1.00 [facility] Comment on above: Performed By: #### L [id number] ####[facility] ([facility])[address] [place], [place] [address] Monocytes/100 WBC (Bld) 1.9 % Low 5.0-12.0 [facility] Comment on above: Performed By: #### L [id number] ####[facility] ([facility])[address] [place] [address] Neutrophils (Bld) [#/Vol] 10.50 10*3/uL High 1.60-7.60 [facility] Comment on above: Performed By: #### L [id number] ####[facility] ([facility])[address] [place], [place] [address] Neutrophils/100 WBC (Bld) 88.2 % High 40.0-72.0 [facility] Comment on above: Performed By: #### L [id number] ####[facility] ([facility])[address] [place] [address] NRBC (PER 100 WBCS) BY AUTOMATED COUNT 0.0 % Normal 0 [facility] Comment on above: Performed By: #### L [id number] ####[facility] ([facility])[address] [place] [address] PLATELETS (10*3/UL) IN BLOOD AUTOMATED COUNT 236 10*3/uL Normal 150-400 [facility] Comment on above: Performed By: #### L [id number] ####[facility] ([facility])[address] [place] [address] RBC (Bld) [#/Vol] 3.88 10*6/uL Normal 3.80-5.00 [facility] Comment on above: Performed By: #### L [id number] ####[facility] ([facility])[address] [address] WBC (Bld) [#/Vol] 11.91 10*3/uL High 4.00-10.60 [facility] Comment on above: Performed By: #### L [id number] ####[facility] ([facility])[address] [place] [address] FIBRINOGENon 01-21-2025 Magnesium [Mass/Vol] 219 mg/dL Normal 150-425 [facility] Comment on above: Performed By: #### L [id number] #### [facility] ([facility]) [address] [address] HEMOGLOBINon 01-21-2025 Hemoglobin (Bld) [Mass/Vol] 12.7 g/dL Normal 12.0-15.0 [facility] Comment on above: Performed By: #### L [id number] ####[facility] ([facility])[address] [place] [address] Performed By: #### L [id number] #### [facility] ([facility]) [address] [place] [address] Hemoglobin (Bld) [Mass/Vol] 12.9 g/dL Normal 12.0-15.0 [facility] Comment on above: Performed By: #### L [id number] ####[facility] ([facility])[address] [place] [address] HEMOGLOBIN AND HEMATOCRIT, B LOODon 01-21-2025 Hematocrit (Bld) [Volume fraction] 33.7 % Low 36.0-45.0 [facility] Comment on above: Performed By: #### L [id number] #### [facility] ([facility]) [address] [place] [address] Hemoglobin (Bld) [Mass/Vol] 11.5 g/dL Low 12.0-15.0 [facility] Comment on above: Performed By: #### L [id number] #### [facility] [place]) [place] [address] HPon 01-21-2025 HP - Attestation signed by Mitzi Valero MD at 01/22/2025 1:36 PM I evaluated the patient with the resident/fellow Angela Peterson MD on the same day, agree with the findings as described with the following additions or corrections: 54-year-old female, brought in for elective A-fib ablation. Complicated by obstructive shock secondary to cardiac tamponade, stat pericardiocentesis performed. Hemorrhagic pericardial effusion noted. Keep in ICU, maintain MAP above 65. Pericardial drain in place, drainage per cardiology recommendations. Coagulopathy secondary to anticoagulation, status post Kcentra. She will need resumption of anticoagulation after resolution of pericardial effusion. Chest pain, likely secondary to above, symptomatic management. Atrial fibrillation status post ablation, I personally provided direct critical care services consisting of decision making of high complexity to assess, and support: Circulatory failure requiring vasopressor support Coordination of care with cardiology and to prevent further deterioration for the organ dysfunction. Critical Care minutes were 36, which excludes time performing separately billed procedures, updating family, and teaching. Adult ICU History & Physical Patient - Oleg Pekc Age - 54 y.o. - 1970 Date of Admission - 01/21/2025 9:47 AM Chief Complaint Cardiac tamponade History of Present Illness 54 years old female past medical history significant for A-fib presented today for elective ablation with Dr. Ricardo. After A-fib ablation procedure, while in PACU, patient was observed to be hernandez?, Blood pressure dropped to systolic of 60s in PACU, stat bedside echo did show cardiac tamponade, Kcentra was given to reverse the Xarelto that was received earlier, patient was taken emergently [employer] for pericardiocentesis, with 280 mL fluid removed. Upon arrival to the ICU, patient was on nonrebreather, blood pressure 140s/60s mmHg, not requiring pressors, heart rate in 90s, pericardial drain in place, feeling tired, with no SOB reported. PMH: Patient has a past medical history of Atrial fibrillation (CMS/HCC), Complex regional pain syndrome of lower limb, Deep vein thrombosis (CMS/HCC), Displaced fracture of fifth metatarsal bone, left foot, initial encounter for closed fracture, Hallux rigidus of right foot, Peripheral vascular disease, Recurrent UTI, and Varicose veins of both lower extremities with pain. PSH: Patient has a past surgical history that includes Foot fracture surgery and Knee surgery. SH: Patient reports that she has never smoked. She has never used smokeless tobacco. She reports that she does not currently use alcohol. She reports that she does not use drugs. Alc/Tobacco/Drug: Patient reports that she does not currently use alcohol. reports that she has never smoked. She has never used smokeless tobacco. reports no history of drug use. Medications: Patient Current Facility-Administered Medications: diphenhydrAMINE (BENADryl) injection 12.5 mg, 12.5 mg, intravenous, q15 min PRN, Uriah Tierney MD fentaNYL (Sublimaze) injection 25 mcg, 25 mcg, intravenous, q15 min PRN, Uriah Tierney MD fentaNYL (Sublimaze) injection 50 mcg, 50 mcg, intravenous, q5 min PRN, Nico Waggoner MD fentaNYL (Sublimaze) injection 50 mcg, 50 mcg, intravenous, Once, Uriah Tierney MD fentaNYL (Sublimaze) injection 50 mcg, 50 mcg, intravenous, q15 min PRN, Uriah Tierney MD furosemide (Lasix) injection 40 mg, 40 mg, intravenous, Once, Jesus Alberto Ricardo MD haloperidol lactate (Haldol) injection 2 mg, 2 mg, intravenous, q10 min PRN, Nico Waggoner MD, 2 mg at 01/21/25 1511 heparin irrigation 2 units/mL in NS, , , PRN, John Hamm MD, 1,000 mL at 01/21/25 1657 lactated Ringer's bolus 300 mL, 300 mL, intravenous, Once, Nico Waggoner MD lactated Ringer's infusion, 50 mL/hr, intravenous, Continuous, Jesus Alberto Ricardo MD, Last Rate: 50 mL/hr at 01/21/25 1138, 900 mL at 01/21/25 1339 lidocaine (PF) (Xylocaine) 10 mg/mL (1 %) injection, , , PRN, John Hamm MD, 20 mL at 01/21/25 1657 naloxone (Narcan) injection 0.1 mg, 0.1 mg, intravenous, PRN, Uriah Tierney MD Oxygen Therapy, , inhalation, Continuous, Uriah Tierney MD Oxygen Therapy, , inhalation, Continuous, Uriah Tierney MD prochlorperazine (Compazine) injection 5 mg, 5 mg, intravenous, Once PRN, Uriah Tierney MD sodium chloride 0.9 % infusion, 20 mL/hr, intravenous, Continuous, Jesus Alberto Ricardo MD sodium chloride 0.9 % infusion, 20 mL/hr, intravenous, Continuous, Jose Fernandez MD Insert peripheral IV, , , Once AND Saline lock IV, , , Once AND sodium chloride flush 10 mL, 10 mL, intravenous, q8h PRN, Jesus Alberto Ricardo MD Allergies: Patient Codeine and Sulfa (more content not included)... Normal [facility] H&P reviewed. The patient was examined and there are no changes to the H&P. Patient received atrial fibrillation ablation today on 01/21/2025. Post-op, patient became hemodynamically unstable. Bedside TTE revealed tamponade. Patient will undergo emergency pericardiocentesis. Normal [facility] Electrophysiology Consult Note [place] [facility] Reason for visit: Afib 01/13/25 Pt here to discuss about ablation. Prior HPI: Oleg Peck is a 54 y.o. year old with JASE? no significant cardiac medical history has come here to establish care for afib. She was recently admitted to [facility] in Jun 2024 for afib. Cardiology was consulted for AF while she was inpatient where she spontaneously converted to SR. Patient then presented to [facility] ED last week for palpitations and was noted to be in Afib and converted to SR without any DCCV. Sleep study done 07/2024 negative for sleep apnea. She has come to seek more treatment options. EKG: SR PMH: Past Medical History: Diagnosis Date Atrial fibrillation (CMS/HCC) Complex regional pain syndrome of lower limb Deep vein thrombosis (CMS/HCC) Displaced fracture of fifth metatarsal bone, left foot, initial encounter for closed fracture Hallux rigidus of right foot Peripheral vascular disease Recurrent UTI Varicose veins of both lower extremities with pain PSH: Past Surgical History: Procedure Laterality Date FOOT FRACTURE SURGERY KNEE SURGERY SH: Social Determinants of Health Tobacco Use: Low Risk (01/20/2025) Patient History Smoking Tobacco Use: Never Smokeless Tobacco Use: Never Passive Exposure: Not on file Alcohol Use: Not on file Financial Resource Strain: Not on file Food Insecurity: Not on file Transportation Needs: Not on file Physical Activity: Not on file Stress: Not on file Social Connections: Not on file Intimate Partner Violence: Not on file Depression: Not at risk (07/05/2023) Received from [facility] PHQ-2 PHQ-2 score: 0 Housing Stability: Not on file Utilities: Not on file Health Literacy: Not on file Allergies: Allergies Allergen Reactions Codeine Headache Sulfamide Other JOINT PAIN Weight: 64.9kg Visit Vitals Smoking Status Never Meds: No current facility-administered medications on file prior to encounter. Current Outpatient Medications on File Prior to Encounter Medication Sig Dispense Refill aspirin 81 mg EC tablet Take 81 mg by mouth in the morning. calcium carb/vit D3/minerals (CALCIUM-VITAMIN D ORAL) Take by mouth. magnesium carb,citrate,oxide 300 mg magnesium tablet Take 30 mg by mouth twice a day. metoprolol tartrate (Lopressor) 25 mg tablet Take 25 mg by mouth if needed. As needed when in A-Fib multivitamin tablet Take by mouth. sryyr-5i-ryp-epa-fish oil ([place]-3 Fish OiL) 300-1,000 mg capsule Take by mouth in the morning. ROS: Review of Systems Cardiovascular: Positive for chest pain and irregular heartbeat. Respiratory: Negative for hemoptysis. Physical Exam: Constitutional General Appearance: well-nourished, well-developed, appears stated age Level of Distress: comfortable Eyes CARLA Neck Neck: supple, trachea midline Carotid Arteries: bilateral normal upstroke, no bruits Jugular Veins: normal jugular venous pressure Thyroid: not enlarged Lungs Respiratory Effort: unlabored Chest Exam: normal curvature, no thoracic deformity Auscultation: clear, no wheezing, no rales, no rhonchi Cardiovascular Chest wall: Rate And Rhythm: regular Heart Sounds: normal S1, normal s2, no gallop Systolic Murmur: not heard Diastolic Murmur: not heard Extremities: no cyanosis, no edema, no peripheral signs of emboli Peripheral Pulses Radial Pulse: normal Abdomen Inspection and Palpation: soft, non distended, no bruit, non tender Neurologic Gait: normal gait Labs: @LABRESULTS@ No results found for: CHOLESTEROL TOTAL , HDL , LDL CALC , LDL DIRECT , TRIGLYCERIDES , TSH , T3 TOTAL , T4 TOTAL , THYROID PEROXIDASE AB , BNP EKG: No results found for this or any previous visit (from the past 4464 hour(s)). Echo: 07/01/24 Assessment and Plan: - New Dx of AF: Patient has a new Dx of AF. I discussed with her about various treatment options and RF modification. At this stage, the option would be to consider a pill in pocket approach vs Afib ablation as she wants to rely less on medications mcc. Afib ablation would require placement of multiple catheters in the heart under moderate sedation which will include diagnostic catheters, ICE catheters and ablation catheters. The risk of the procedures can be described as minor and major minor complications being discomfort in the groin area, bleeding, infection and vascular complications at this fistula formation, pseudoaneurysm, nerve injury. Major complications would include catheter induced cardiac perforation leading to tamponade/ pericardial effusion which may or may not require surgical intervention. Other complications are phrenic nerve injury leading to paralysis, thromboembolism including pulmonary and systemic event leading to stroke or endorgan injury or or PV stenosis or AE fistula as post ablation adverse effects. (more content not included)... Normal [facility] LACTATE DEHYDROGENASEon 04-3 0-2024 LACTATE DEHYDROGENASE (U/L) IN SER/PLAS BY LAC->PYR RXN 186 U/L Normal 140-271 [facility] Comment on above: Performed By: #### L [id number] ####[facility] ([facility])[address] [place] [address] POCT GLUCOSE METER UNSOLICIT ED RESULTSon 01-21-2025 Glucose [Mass/Vol] 92 mg/dL Normal 70-105 [facility] Comment on above: Order Comment: Waive d Testing in the ED is performed under the ED CLIA certificate #[id number]. Result Comment: lwag enh Performed By: #### L [id number] #### [facility] ([facility]) [address] [place] [address] POCT PERFUSION PANEL UNSOLIC ITED RESULTSon 01-21-2025 CO2 [Moles/Vol] 19.0 mmol/L Low 21.0-29.0 [facility] Comment on above: Performed By: #### L [id number] ####[facility] ([facility])[address] [place] [address] Glucose [Mass/Vol] 213 mg/dL High 70-105 [facility] Comment on above: Performed By: #### L [id number] ####[facility] ([facility])[address] [place] [address] HCO3 (Bld) [Moles/Vol] 17.7 mmol/L Low 23.0-28.0 [facility] Comment on above: Performed By: #### L [id number] ####[facility] ([facility])[address] [place] [address] Hematocrit (Bld) [Volume fraction] 35 % Low 38-51 [facility] Comment on above: Performed By: #### L [id number] ####[facility] ([facility])[address] [place] [address] Hemoglobin (Bld) [Mass/Vol] 11.9 g/dL Low 12.0-17.0 [facility] Comment on above: Performed By: #### L [id number] ####[facility] ([facility])[address] [place] [address] POCT BASE EXCESS -7.0 mmol/L Low -2.0-3.0 [facility] Comment on above: Performed By: #### L [id number] ####[facility] ([facility])[address] [place] [address] POCT IONIZED CALCIUM 1.19 mmol/L Normal 1.12-1.32 [facility] Comment on above: Performed By: #### L [id number] ####[facility] ([facility])[address] [place] [address] POCT PCO2 30.9 mmHg Low 41.0-51.0 [facility] Comment on above: Performed By: #### L [id number] ####[facility] ([facility] [facility] [address] POCT PH 7.37 Normal 7.31-7.41 [facility] Comment on above: Performed By: #### L [id number] ####[facility] ([facility])[address] [address] POCT PO2 81 mmHg Normal 80-105 [facility] Comment on above: Performed By: #### L [id number] ####[facility] ([facility])[address] [address] POCT SO2 96 % Normal 95-98 [facility] Comment on above: Performed By: #### L [id number] ####[facility] ([facility])[address] [address] Potassium [Moles/Vol] 3.4 mmol/L Low 3.5-4.9 [facility] Comment on above: Performed By: #### L [id number] ####[facility] ([facility])[address] [address] Sodium [Moles/Vol] 139 mmol/L Normal 138.0-146.0 [facility] Comment on above: Performed By: #### L [id number] ####[facility] ([facility])[address] [address] PROTIME-INRon 01-21-2025 INR IN PPP BY COAGULATION ASSAY 1.31 High 0.90-1.10 [facility] Comment on above: Result Comment: [facility] P RECOMMENDED INR FOR WARFARIN THERAPY CONDITION INR PROPHYLAXIS OF VENOUS THROMBOSIS 2-3 (HIGH-RISK SURGERY) TREATMENT OF VENOUS THROMBOSIS 2-3 TREATMENT OF PULMONARY EMBOLISM 2-3 PREVENTION OF SYSTEMIC EMBOLISM: 2-3 ACUTE MYOCARDIAL INFARCTION TISSUE HEART VALVES VALVULAR HEART DISEASE ATRIAL FIBRILLATION RECURRENT SYSTEMIC EMBOLISM MECHANICAL HEART VALVE 2.5-3.5 FROM: ORAL ANTICOAGULANTS. MECHANISM OF ACTION, CLINICAL EFFECTIVENESS, AND OPTIMAL THERAPEUTIC RANGE. CHEST 1995;108:231S-246S. Performed By: #### L [id number] ####[facility] [place] [address] PROTHROMBIN TIME (PT) IN PPP BY COAGULATION ASSAY 16.2 Seconds High 12.3-14.8 [facility] Comment on above: Performed By: #### L [id number] ####[facility] ([facility])[address] [place] [address] INR IN PPP BY COAGULATION ASSAY 1.05 Normal 0.90-1.10 [facility] Comment on above: Result Comment: [facility] P RECOMMENDED INR FOR WARFARIN THERAPY CONDITION INR PROPHYLAXIS OF VENOUS THROMBOSIS 2-3 (HIGH-RISK SURGERY) TREATMENT OF VENOUS THROMBOSIS 2-3 TREATMENT OF PULMONARY EMBOLISM 2-3 PREVENTION OF SYSTEMIC EMBOLISM: 2-3 ACUTE MYOCARDIAL INFARCTION TISSUE HEART VALVES VALVULAR HEART DISEASE ATRIAL FIBRILLATION RECURRENT SYSTEMIC EMBOLISM MECHANICAL HEART VALVE 2.5-3.5 FROM: ORAL ANTICOAGULANTS. MECHANISM OF ACTION, CLINICAL EFFECTIVENESS, AND OPTIMAL THERAPEUTIC RANGE. CHEST 1995;108:231S-246S. Performed By: #### L [id number] ####[facility] ([facility])[address] [place] [address] PROTHROMBIN TIME (PT) IN PPP BY COAGULATION ASSAY 13.7 Seconds Normal 12.3-14.8 [facility] Comment on above: Performed By: #### L [id number] ####[facility] ([facility])[address] [place] [address] Prep for Procedureon 025 Prep for Procedure [id number] Oleg Peck 1970 F Date Provider Department Center 01/21/20251986-ARLET OL[facility] Family History Problem Relation Age of Onset Atrial fibrillation Mother Coronary artery disease Brother Family Status - Relation Status Age at Mother Alive Father Alive Brother Alive Normal [facility] TYPE AND SCREENon 01-21-2025 AB SCREEN Negative Normal [facility] Comment on above: Performed By: #### L [id number] #### [facility] ([facility]) [address] [place] [address] ABO group Nom (Bld) A Normal [facility] Comment on above: Performed By: #### L [id number] #### [facility] ([facility]) [address] [place] [address] RH TYPE IN BLOOD Positive Normal [facility] Comment on above: Performed By: #### L [id number] #### [facility] ([facility]) [address] [place] [address] Orders Onlyon 01-19-2025 Orders Only [id number] Oleg Peck 1970 F Date Provider Department Center 01/19/2025 CODY VANEGAS [facility] Family History Problem Relation Age of Onset Atrial fibrillation Mother Coronary artery disease Brother Family Status - Relation Status Age at Mother Alive Father Alive Brother Alive Normal [facility] Basophils Auto (Bld) [#/Vol] on 01-13-2025 Basophils (Bld) [#/Vol] Automated basoph il count 0.0-0.1 [facility] Basophils/100 WBC Auto (Bld) on 01-13-2025 Basophils/100 WBC (Bld) Automated basophil % 0. 2-2.0 [facility] Eosinophils/100 WBC Auto (Bl d)on 01-13-2025 Eosinophils/100 WBC (Bld) Automated eosinophil % 0.9-7.0 [facility] Erythrocyte distribution wid th Auto (RBC) [Ratio]on 01-13-2025 Erythrocyte distribution width (RBC) [Ratio] Erythrocyte distribution width [Ratio] by Automated count 11.0-15.0 [facility] Estimated glomerular filtrat ion rate (GFR) non- Americanon 01-13-2025 GFR/1.73 sq M.predicted among non-blacks MDRD (S/P/Bld) [Vol rate/Area] Estimated glomerular filtration rate (GFR) non- >=60 mL/min/1.73 m 2 [facility] Follow-Upon 01-13-2025 Follow-Up [id number] Oleg Peck 1970 F Date Provider Department Center 01/13/2025 JESUS ALBERTO MANCINI MELANY [facility] Family History Problem Relation Age of Onset Atrial fibrillation Mother Coronary artery disease Brother Family Status - Relation Status Age at Mother Alive Father Alive Brother Alive Level of Service:[address] [place] OFFICE/OUTPATIENT ESTABLISHED HIGH MDM 40 MIN Normal [facility] Hematocrit Auto (Bld) [Volum e fraction]on 01-13-2025 Hematocrit (Bld) [Volume fraction] Hematocrit [Volume Fraction] of Blood by Automated count 36.0-48.0 [facility] Hemoglobin [Mass/volume] in Bloodon 01-13-2025 Hemoglobin (Bld) [Mass/Vol] Hemoglobin [Mass/volume] in Blood 12.0-16.0 [facility] Laboratory - Chemistry and C hemistry - challengeon 01-13-2025 Calcium [Mass/Vol] 9.2 mg/dL 8.5-10.1 [facility] Chloride [Moles/Vol] 104 mmol/L 98-107 [facility] CO2 [Moles/Vol] 29.3 mmol/L 21.0-32.0 [facility] Creatinine [Mass/Vol] 0.76 mg/dL 0.55-1.02 [facility] GFR/1.73 sq M.predicted MDRD (S/P/Bld) [Vol rate/Area] mL/min/{1.73_m2} >=60 mL/min/1.73 m 2 [facility] Glucose [Mass/Vol] 146 mg/dL High 74-106 [facility] Potassium [Moles/Vol] 4.1 mmol/L 3.5-5.1 [facility] Sodium [Moles/Vol] 142 mmol/L 136-145 [facility] Urea nitrogen [Mass/Vol] 19.0 mg/dL High 7.0-18.0 [facility] Urea nitrogen/Creatinine [Mass ratio] 25.0 mg/mg [facility] Laboratory - Hematology and Cell countson 01-13-2025 Immature granulocytes/100 WBC (Bld) 0.1 % 0.0-0.5 [facility] Leukocytes [#/volume] correc jacob for nucleated erythrocytes in Blood by Automated counon 01-13-2025 WBC corrected for nucl RBC Auto (Bld) [#/Vol] Leukocytes [#/volume] corrected for nucleated erythrocytes in Blood by Automated coun 4.0-11.0 [facility] Lymphocytes Auto (Bld) [#/Vo l]on 01-13-2025 Lymphocytes (Bld) [#/Vol] Lymphocytes [#/volume] in Blood by Automated count 1.2-3.8 [facility] Lymphocytes/100 WBC Auto (Bl d)on 01-13-2025 Lymphocytes/100 WBC (Bld) Lymphocytes/100 leukocytes in Blood by Automated count 20.5-60.0 [facility] MCH Auto (RBC) [Entitic mass ]on 01-13-2025 MCH (RBC) [Entitic mass] MCH [Entitic mass] by Automated count 26.7-34.0 [facility] MCHC Auto (RBC) [Mass/Vol]on 01-13-2025 MCHC (RBC) [Mass/Vol] MCHC [Mass/volume] by Automated count 29.9-35.2 [facility] MCV Auto (RBC) [Entitic vol] on 01-13-2025 MCV (RBC) [Entitic vol] MCV [Entitic vol ume] by Automated count 81.0-99.0 [facility] Monocytes Auto (Bld) [#/Vol] on 01-13-2025 Monocytes (Bld) [#/Vol] Automated blood monocyte count 0.3-0.8 [facility] Monocytes/100 WBC Auto (Bld) on 01-13-2025 Monocytes/100 WBC (Bld) Automated monocyte % 1. 7-12.0 [facility] Neutrophils Auto (Bld) [#/Vo l]on 01-13-2025 Neutrophils (Bld) [#/Vol] Neutrophils [#/volume] in Blood by Automated count 1.4-6.5 [facility] Neutrophils/100 WBC Auto (Bl d)on 01-13-2025 Neutrophils/100 WBC (Bld) Automated neutrophil % 43.0-75.0 [facility] No Panel Informationon 01-13 Eosinophils # (Auto) 0.1 10 3/uL 0.0-0.7 [facility] Immature Granulocyte # (Auto) 0.01 10 3/uL 0.00-0.03 [facility] Platelet mean volume Auto (B ld) [Entitic vol]on 01-13-2025 Platelet mean volume (Bld) [Entitic vol] Platelet mean volume [Entitic volume] in Blood by Automated count Low 9.5-13.5 [facility] Platelets Auto (Bld) [#/Vol] on 01-13-2025 Platelets (Bld) [#/Vol] Platelets [#/vol ume] in Blood by Automated count 150-450 [facility] RBC Auto (Bld) [#/Vol]on RBC (Bld) [#/Vol] Erythrocytes [#/volume] in Blood by Automated count 4.20-5.40 [facility] Serum or plasma anion gap de terminationon 01-13-2025 Anion gap [Moles/Vol] Serum or plasma an ion gap determination [facility] Calciumon 01-12-2025 Calcium [Mass/Vol] 9.7 mg/dL Normal 8.6-10.3 [facility] Comment on above: Performed By: #### V [id number], [place] #### [facility] [address] [place] [address] [facility] Calcium [Mass/volume] in Ser um or PlasmaOrdered By: Nico Ochoa on 01-12-2025 Calcium [Mass/Vol] Calcium [Mass/volume ] in Serum or Plasma 8.6-10.3 [facility] Vitamin D 25 Hydroxy Totalon 01-12-2025 Vitamin D 25 Hydroxy Total 70.9 ng/mL Normal 30-100 [facility] Comment on above: Result Comment: GRETA MIN D STATUS 25([place])VITAMIN D RANGE (ng/mL) Deficient <20 Insufficient 20 to <30 Sufficient 30 to 100 Reference: Miguel MF,Maalika NC, Danielle LITTLE, et al. Evaluation,treatment, and prevention of vitamin D deficiency; an Endocrine Society clinical practice guideline. JCEM. 2010; 96(7):1911-30. PERFORMED BY: [facility] [address] [id number] PATHOLOGIST [employer] PRETTY DE LA CRUZ M.D. Performed By: #### V [id number], [place] #### [facility] [address] [id number] [facility] Vitamin D+Metabolites [Mass/ volume] in Serum or PlasmaOrdered By: Nico Ochoa on 01-12-2025 Vitamin D+Metabolites [Mass/Vol] Vitamin D+Metabolites [Mass/volume] in Serum or Plasma 30-100 [facility] Comment on above: VITAMIN D STATUS 25( [place])VITAMIN D RANGE (ng/mL) Deficient <20 Insufficient 20 to <30Sufficient 30 to 100Reference: Miguel MF,Malaika NC, Danielle LITTLE, et al. Evaluation,treatment, and prevention of vitamin D deficiency; an Endocrine Society clinical practice guideline. JCEM. 2010; 96(7):1911-30. Orders Onlyon 12-17-2024 Orders Only [id number] Oleg Peck 1970 F Date Provider Department Center 12/17/2024 241-JESUS ALBERTO RICARDO [facility] Family History Problem Relation Age of Onset Atrial fibrillation Mother Coronary artery disease Brother Family Status - Relation Status Age at Mother Alive Father Alive Brother Alive Normal [facility] Orders Only [id number] Oleg Peck S 1970 F Date Provider Department Center 12/17/2024 Edgar-ARLET OLIVA [facility] Family History Problem Relation Age of Onset Atrial fibrillation Mother Coronary artery disease Brother Family Status - Relation Status Age at Mother Alive Father Alive Brother Alive Normal [facility] Basophils Auto (Bld) [#/Vol] on 12-16-2024 Basophils (Bld) [#/Vol] Automated basoph il count 0.0-0.1 [facility] Basophils/100 WBC Auto (Bld) on 12-16-2024 Basophils/100 WBC (Bld) Automated basophil % 0. 2-2.0 [facility] Eosinophils/100 WBC Auto (Bl d)on 12-16-2024 Eosinophils/100 WBC (Bld) Automated eosinophil % 0.9-7.0 [facility] Erythrocyte distribution wid th Auto (RBC) [Ratio]on 12-16-2024 Erythrocyte distribution width (RBC) [Ratio] Erythrocyte distribution width [Ratio] by Automated count 11.0-15.0 [facility] Estimated glomerular filtrat ion rate (GFR) non- Americanon 12-16-2024 GFR/1.73 sq M.predicted among non-blacks MDRD (S/P/Bld) [Vol rate/Area] Estimated glomerular filtration rate (GFR) non- >=60 mL/min/1.73 m 2 [facility] Hematocrit Auto (Bld) [Volum e fraction]on 12-16-2024 Hematocrit (Bld) [Volume fraction] Hematocrit [Volume Fraction] of Blood by Automated count 36.0-48.0 [facility] Hemoglobin [Mass/volume] in Bloodon 12-16-2024 Hemoglobin (Bld) [Mass/Vol] Hemoglobin [Mass/volume] in Blood 12.0-16.0 [facility] Laboratory - Chemistry and C hemistry - challengeon 12-16-2024 Calcium [Mass/Vol] 8.4 mg/dL Low 8.5-10.1 [facility] Chloride [Moles/Vol] 109 mmol/L High 98-107 [facility] CO2 [Moles/Vol] 27.1 mmol/L 21.0-32.0 [facility] Creatinine [Mass/Vol] 0.71 mg/dL 0.55-1.02 [facility] GFR/1.73 sq M.predicted MDRD (S/P/Bld) [Vol rate/Area] mL/min/{1.73_m2} >=60 mL/min/1.73 m 2 [facility] Glucose [Mass/Vol] 110 mg/dL High 74-106 [facility] Magnesium [Mass/Vol] 2.0 mg/dL 1.8-2.4 [facility] Potassium [Moles/Vol] 3.8 mmol/L 3.5-5.1 [facility] Sodium [Moles/Vol] 144 mmol/L 136-145 [facility] Urea nitrogen [Mass/Vol] 12.0 mg/dL 7.0-18.0 [facility] Urea nitrogen/Creatinine [Mass ratio] 16.9 mg/mg [facility] Laboratory - Hematology and Cell countson 12-16-2024 Immature granulocytes/100 WBC (Bld) 0.4 % 0.0-0.5 [facility] Leukocytes [#/volume] correc jacob for nucleated erythrocytes in Blood by Automated counon 12-16-2024 WBC corrected for nucl RBC Auto (Bld) [#/Vol] Leukocytes [#/volume] corrected for nucleated erythrocytes in Blood by Automated coun 4.0-11.0 [facility] Lymphocytes Auto (Bld) [#/Vo l]on 12-16-2024 Lymphocytes (Bld) [#/Vol] Lymphocytes [#/volume] in Blood by Automated count 1.2-3.8 [facility] Lymphocytes/100 WBC Auto (Bl d)on 12-16-2024 Lymphocytes/100 WBC (Bld) Lymphocytes/100 leukocytes in Blood by Automated count 20.5-60.0 [facility] MCH Auto (RBC) [Entitic mass ]on 12-16-2024 MCH (RBC) [Entitic mass] MCH [Entitic mass] by Automated count 26.7-34.0 [facility] MCHC Auto (RBC) [Mass/Vol]on 12-16-2024 MCHC (RBC) [Mass/Vol] MCHC [Mass/volume] by Automated count 29.9-35.2 [facility] MCV Auto (RBC) [Entitic vol] on 12-16-2024 MCV (RBC) [Entitic vol] MCV [Entitic vol ume] by Automated count 81.0-99.0 [facility] Monocytes Auto (Bld) [#/Vol] on 12-16-2024 Monocytes (Bld) [#/Vol] Automated blood monocyte count 0.3-0.8 [facility] Monocytes/100 WBC Auto (Bld) on 12-16-2024 Monocytes/100 WBC (Bld) Automated monocyte % 1. 7-12.0 [facility] Neutrophils Auto (Bld) [#/Vo l]on 12-16-2024 Neutrophils (Bld) [#/Vol] Neutrophils [#/volume] in Blood by Automated count 1.4-6.5 [facility] Neutrophils/100 WBC Auto (Bl d)on 12-16-2024 Neutrophils/100 WBC (Bld) Automated neutrophil % 43.0-75.0 [facility] No Panel Informationon 12-16 Eosinophils # (Auto) 0.2 10 3/uL 0.0-0.7 [facility] Immature Granulocyte # (Auto) 0.03 10 3/uL 0.00-0.03 [facility] Platelet mean volume Auto (B ld) [Entitic vol]on 12-16-2024 Platelet mean volume (Bld) [Entitic vol] Platelet mean volume [Entitic volume] in Blood by Automated count Low 9.5-13.5 [facility] Platelets Auto (Bld) [#/Vol] on 12-16-2024 Platelets (Bld) [#/Vol] Platelets [#/vol ume] in Blood by Automated count 150-450 [facility] RBC Auto (Bld) [#/Vol]on RBC (Bld) [#/Vol] Erythrocytes [#/volume] in Blood by Automated count 4.20-5.40 [facility] Serum or plasma anion gap de terminationon 12-16-2024 Anion gap [Moles/Vol] Serum or plasma an ion gap determination [facility] Basophils Auto (Bld) [#/Vol] on 12-15-2024 Basophils (Bld) [#/Vol] Automated basoph il count 0.0-0.1 [facility] Basophils/100 WBC Auto (Bld) on 12-15-2024 Basophils/100 WBC (Bld) Automated basophil % 0. 2-2.0 [facility] Eosinophils/100 WBC Auto (Bl d)on 12-15-2024 Eosinophils/100 WBC (Bld) Automated eosinophil % Low 0.9-7.0 [facility] Erythrocyte distribution wid th Auto (RBC) [Ratio]on 12-15-2024 Erythrocyte distribution width (RBC) [Ratio] Erythrocyte distribution width [Ratio] by Automated count 11.0-15.0 [facility] Estimated glomerular filtrat ion rate (GFR) non- Americanon 12-15-2024 GFR/1.73 sq M.predicted among non-blacks MDRD (S/P/Bld) [Vol rate/Area] Estimated glomerular filtration rate (GFR) non- >=60 mL/min/1.73 m 2 [facility] Hematocrit Auto (Bld) [Volum e fraction]on 12-15-2024 Hematocrit (Bld) [Volume fraction] Hematocrit [Volume Fraction] of Blood by Automated count 36.0-48.0 [facility] Hemoglobin [Mass/volume] in Bloodon 12-15-2024 Hemoglobin (Bld) [Mass/Vol] Hemoglobin [Mass/volume] in Blood 12.0-16.0 [facility] Laboratory - Chemistry and C hemistry - challengeon 12-15-2024 Natriuretic peptide B (Bld) [Mass/Vol] 169.0 pg/mL <=900.0 [facility] Calcium [Mass/Vol] 8.8 mg/dL 8.5-10.1 [facility] Chloride [Moles/Vol] 110 mmol/L High 98-107 [facility] CO2 [Moles/Vol] 25.2 mmol/L 21.0-32.0 [facility] Creatinine [Mass/Vol] 0.86 mg/dL 0.55-1.02 [facility] GFR/1.73 sq M.predicted MDRD (S/P/Bld) [Vol rate/Area] mL/min/{1.73_m2} >=60 mL/min/1.73 m 2 [facility] Glucose [Mass/Vol] 112 mg/dL High 74-106 [facility] Magnesium [Mass/Vol] 1.9 mg/dL 1.8-2.4 [facility] Potassium [Moles/Vol] 4.1 mmol/L 3.5-5.1 [facility] Sodium [Moles/Vol] 146 mmol/L High 136-145 [facility] Urea nitrogen [Mass/Vol] 14.0 mg/dL 7.0-18.0 [facility] Urea nitrogen/Creatinine [Mass ratio] 16.3 mg/mg [facility] Laboratory - Hematology and Cell countson 12-15-2024 Immature granulocytes/100 WBC (Bld) 0.3 % 0.0-0.5 [facility] Leukocytes [#/volume] correc jacob for nucleated erythrocytes in Blood by Automated counon 12-15-2024 WBC corrected for nucl RBC Auto (Bld) [#/Vol] Leukocytes [#/volume] corrected for nucleated erythrocytes in Blood by Automated coun 4.0-11.0 [facility] Lymphocytes Auto (Bld) [#/Vo l]on 12-15-2024 Lymphocytes (Bld) [#/Vol] Lymphocytes [#/volume] in Blood by Automated count 1.2-3.8 [facility] Lymphocytes/100 WBC Auto (Bl d)on 12-15-2024 Lymphocytes/100 WBC (Bld) Lymphocytes/100 leukocytes in Blood by Automated count 20.5-60.0 [facility] MCH Auto (RBC) [Entitic mass ]on 12-15-2024 MCH (RBC) [Entitic mass] MCH [Entitic mass] by Automated count 26.7-34.0 [facility] MCHC Auto (RBC) [Mass/Vol]on 12-15-2024 MCHC (RBC) [Mass/Vol] MCHC [Mass/volume] by Automated count 29.9-35.2 [facility] MCV Auto (RBC) [Entitic vol] on 12-15-2024 MCV (RBC) [Entitic vol] MCV [Entitic vol ume] by Automated count 81.0-99.0 [facility] Monocytes Auto (Bld) [#/Vol] on 12-15-2024 Monocytes (Bld) [#/Vol] Automated blood monocyte count 0.3-0.8 [facility] Monocytes/100 WBC Auto (Bld) on 12-15-2024 Monocytes/100 WBC (Bld) Automated monocyte % 1. 7-12.0 [facility] Neutrophils Auto (Bld) [#/Vo l]on 12-15-2024 Neutrophils (Bld) [#/Vol] Neutrophils [#/volume] in Blood by Automated count High 1.4-6.5 [facility] Neutrophils/100 WBC Auto (Bl d)on 12-15-2024 Neutrophils/100 WBC (Bld) Automated neutrophil % 43.0-75.0 [facility] No Panel Informationon 12-15 Troponin I High Sensitivity 104.2 pg/mL Critically high 4.0-51.3 [facility] Comment on above: RESULTS CALLED TO MIGUEL ROMAN RNCUT-OFF POINTS HAVE BEEN ESTABLISHED BASED ON THE FOURTHUNIVERSAL DEFINITION OF MYOCARDIAL INFARCTION. THE UPPERREFERENCE LIMIT (URL) OF TROPONIN, DEFINED THE 99THPERCENTILE OF cTnI DISTRIBUTION IN A REFERENCE POPULATION,HAS BEEN CONFIRMED THE DECISION THRESHOLD FOR MIDIAGNOSIS.99TH PERCENTILE = 51.4 PG/MLNOTE: HIGH-SENSITIVITY TROPONIN ASSAY IS NOT INTENDED TO BEUSED IN ISOLATION BUT SHOULD BE INTERPRETED IN CONJUNCTIONWITH OTHER DIAGNOSTIC AND CLINICAL INFORMATION. Eosinophils # (Auto) 0.1 10 3/uL 0.0-0.7 [facility] Immature Granulocyte # (Auto) 0.03 10 3/uL 0.00-0.03 [facility] Platelet mean volume Auto (B ld) [Entitic vol]on 12-15-2024 Platelet mean volume (Bld) [Entitic vol] Platelet mean volume [Entitic volume] in Blood by Automated count Low 9.5-13.5 [facility] Platelets Auto (Bld) [#/Vol] on 12-15-2024 Platelets (Bld) [#/Vol] Platelets [#/vol ume] in Blood by Automated count 150-450 [facility] RBC Auto (Bld) [#/Vol]on RBC (Bld) [#/Vol] Erythrocytes [#/volume] in Blood by Automated count 4.20-5.40 [facility] Serum or plasma anion gap de terminationon 12-15-2024 Anion gap [Moles/Vol] Serum or plasma an ion gap determination [facility] Prep for Procedureon 025 Prep for Procedure [id number] Elieluzzo,Oleg S 1970 Date Provider Department Center 12/10/2024 1987-ARLET OLIVA [facility] Family History Problem Relation Age of Onset Atrial fibrillation Mother Coronary artery disease Brother Family Status - Relation Status Age at Mother Alive Father Alive Brother Alive Normal [facility] Orders Onlyon 12-03-2024 Orders Only [id number] Elieluzzo,Oleg S 1970 Date Provider Department Center 12/03/2024 Chris-NIRU ALFARO MELANY [facility] Family History Problem Relation Age of Onset Atrial fibrillation Mother Coronary artery disease Brother Family Status - Relation Status Age at Mother Alive Father Alive Brother Alive Normal [facility] Office Visiton 12-02-2024 Follow-up visit [id number] Elieluzzo,Oleg S 1970 Date Provider Department Center 12/02/2024 241-JESUS ALBERTO RICARDO MELAYN [facility] Family History Problem Relation Age of Onset Atrial fibrillation Mother Coronary artery disease Brother Family Status - Relation Status Age at Mother Alive Father Alive Brother Alive Level of Service:[address]959 [place] OFFICE/OUTPATIENT NEW MODERATE MDM 45 MINUTES Normal [facility] Laboratory - Chemistry and C hemistry - challengeon 11-29-2024 Calcium [Mass/Vol] 8.1 mg/dL [facility] CNOVon 11-14-2024 CNOV Office Visit (PODIWS ) OLEG PECK ([id number]) 1970 F Date Time Provider Department 11/14/24 2:20 PM OSCAR VENEGAS PODIWS During your visit today, we recorded the following information about you: Esmer Bravo LPN 11/15/2024 8:43 AM Signed AMB ROOMING INTAKE FLOWSHEET DATA Risk Screening Do you have concerns about personal safety or safety in the home?: No Patient presents with: Left Foot - Established Patient, Nail Fungus DALI Pollock Matthew 11/15/2024 8:43 AM Signed FOLLOW UP PODIATRIC OFFICE VISIT Chief Complaint: This 54 year old who presents for follow up:left 2nd toenail Patient presents to clinic for follow-up left 2nd toenail thickening. She complains of thickening of the left 2nd toenail with discoloration. She has tried oral medication (lamisil) x 3 months back in 2022 but the nail is still discolored. She is here to discuss options. PAIN EVALUATION No data found in the last 1 encounters. No results found for: HBA1C PCP: Pranav King (Inactive) PAST MEDICAL HISTORY Diagnosis Date Complex regional pain syndrome History of DVT in adulthood +Xarelto Current Outpatient Medications Medication Sig aspirin, enteric coated (ASPIRIN, ENTERIC COATED) 81 mg EC tablet Take 81 mg by mouth once daily. Ciclopirox (CICLODAN) 8 % solution Apply to affected area daily at bedtime. romosozumab-aqqg 105 mg/1.17 mL subcutaneous syringe every 3 months. terbinafine HCl (LAMISIL) 250 mg tablet Take 1 tablet by mouth once daily. (Patient not taking: Reported on 07/05/2023) cephALEXin (KEFLEX) 500 mg capsule Take 1 capsule by mouth three times daily. (Patient not taking: Reported on 04/30/2023) rivaroxaban (XARELTO) 20 mg tablet Take 20 mg by mouth daily with dinner. (Patient not taking: Reported on 07/05/2023) cephALEXin (KEFLEX) 500 mg capsule Take 1 capsule by mouth every 8 hours. (Patient not taking: Reported on 04/05/2023) estradiol (ESTRACE) 0.01 % (0.1 mg/gram) vaginal cream Use 1 g vaginally two times a week. (Patient not taking: Reported on 04/05/2023) No current facility-administered medications for this visit. ALLERGIES Allergen Reactions Codeine Intolerance migraines Sulfa (Sulfonamide * Rash Rash and then muscle tightening PAST SURGICAL HISTORY Procedure Laterality Date ARTHRS KNEE W/MENISCECTOMY MEDANDLAT W/SHAVING Left Clean out CYSTO.PANENDO 11/02/2022 FOOT SURGERY HX Left 03/23/2022 5th Metatarsal Physical Exam: OBJECTIVE: Constitutional: Pt is a well developed 54 year old female who is alert, oriented, cooperative and in no apparent distress. Eyes: Following during examination. No redness or drainage. Respiratory: RR normal and nonlabored. Even breathing. No evidence of distress. Psychology: Patient is engaged during conversation. Normal affect and mood. Does not appear depressed or anxious. NVSI unchanged from previous visit. Dermatological: Left 2nd toenail is discolored, dystrophic. Small black discoloration is noted along the left 5th toenail Musculoskeletal/Ortho paedic: Patient has no pain to palpation of left foot ASSESSMENT: (L60.3) Onychodystrophy (primary encounter diagnosis) PLAN: Discussed dystrophic appearance of left 2nd toenail. Has already tried lamisil without success to the 2nd nail. Discussed options not limited to periodic filing vs trying topical medication (low success), repeating oral medication vs removal. Patient is going to try topical. If no improvement, may consider removal In order to perform a complete physical exam, debridement of 2nd toenail was performed. This incidental service is integral to the evaluation and management visit in order to appropriately manage and treat the patient (for their complaint or for this visit). Discussed small area of black discoloration of left 5th toenail. Patient does not recall any trauma. Discussed options not limited to monitoring vs debridement of nail vs referral to derm. She is going to monitor. If no change, consider removal of nail and biopsy Can follow-up in 3 months Oscar Venegas DPM Allergies As of Date: 11/14/2024 Noted Allergy Reaction CODEINE 10/26/2022 5 - Intolerance Comments: migraines SULFA (SULFONAMIDE ANTIBIOTICS) 10/26/2022 2 - Rash Comments: Rash and then muscle tightening Date Reviewed: 11/14/2024 Reviewed by: Esmer Bravo LPN - Fully Assessed Reason for Visit: Established Patient [175] Nail Fungus [764] Primary Visit Diagnosis:Onychodystr ophy [L60.3] Order(s):Ciclopirox (CICLODAN) 8 % solutionApply to affected area daily at bedtime.Disp: 6.6 mLRfl: 2 Prescriptions as of 11/15/2024 - aspirin, enteric coated (ASPIRIN, ENTERIC COATED) 81 mg EC tablet Take 81 mg by mouth once daily. - Ciclopirox (CICLODAN) 8 % solution Apply to affected area daily at bedtime. - romosozumab-aqqg 105 mg/1.17 mL subcutan (more content not included)... Normal [facility] [id number] 10-07-2024 HbA1c (Bld) [Mass fraction] 5.2 % Normal <=5.9 [facility] Comment on above: Performed By: #### [id number] #### [facility] [address] [place] [address] CHEMISTRYOrdered By: SYSTEM SYSTEM on 10-06-2024 Albumin [Mass/Vol] 4.3 g/dL Normal 3.3 - 5.0 gm/dL Rem[facility] Chem Albumin/Globulin [Mass ratio] 1.7 {ratio} Normal 1.1 - 2.2 [facility] ALP [Catalytic activity/Vol] 39 [iU]/d Normal 21 - 98 Int._Unit/L [facility] ALT No additional P-5'-P [Catalytic activity/Vol] 22 [iU]/d Normal 6 - 46 Int._Unit/L [facility] Anion gap [Moles/Vol] 9 mmol/L Normal 6 - 16 mEq/L [facility] AST [Catalytic activity/Vol] 22 [iU]/d Normal 5 - 43 Int._Unit/L [facility] Bilirubin [Mass/Vol] 1.0 mg/dL Normal 0.0 - 1 .1 mg/dL [facility] Calcium [Mass/Vol] 9.2 mg/dL Normal 8.9 - 11. 1 mg/dL [facility] Chloride [Moles/Vol] 104 mmol/L Normal 101 - 1 11 mmol/L [facility] Cholesterol [Mass/Vol] 223 mg/dL High 120 - 200 mg/dL [facility] Cholesterol in HDL [Mass/Vol] 69 mg/dL Invalid Interpretation Code [facility] Comment on above: Result Comment: '>= 60 LOW RISK' '<= 40 HIGH RISK' Cholesterol in LDL [Mass/Vol] 145 mg/dL High <=129mg/dL [facility] Cholesterol in VLDL [Mass/Vol] 16 mg/dL Normal 7 - 40 mg/dL [facility] CO2 [Moles/Vol] 30 mmol/L Normal 21 - 31 mmol/L [facility] Creatinine [Mass/Vol] 0.7 mg/dL Normal 0.5 - 1.3 mg/dL [facility] eGFR 101 mL/min/1.73 m2 Normal >=59mL/mi n/ 1.73 m2 [facility] Globulin (S) [Mass/Vol] 2.5 g/dL Normal 1.4 - 4.0 gm/dL [facility] Glucose [Mass/Vol] 90 mg/dL Normal 55 - 199 mg/dL [facility] Potassium [Moles/Vol] 4.2 mmol/L Normal 3.5 - 5.3 mmol/L [facility] Protein [Mass/Vol] 6.8 g/dL Normal 6.0 - 7.8 gm/dL [facility] Sodium [Moles/Vol] 139 mmol/L Normal 135 - 145 mmol/L [facility] Triglyceride [Mass/Vol] 80 mg/dL Normal <=149mg/dL R emisol Chem Urea nitrogen [Mass/Vol] 14 mg/dL Normal 5 - 21 mg/dL [facility] Urea nitrogen/Creatinine [Mass ratio] 20 mg/mg Normal 10 - 20 [facility] CMPon 10-06-2024 Albumin [Mass/Vol] 4.3 g/dL Normal 3.3-5.0 [facility] Comment on above: Performed By: #### 2 [id number] #### [facility] [address] [place] [address] Albumin/Globulin (S) [Mass conc ratio] 1.7 Normal 1.1-2.2 [facility] Comment on above: Performed By: #### 2 [id number] #### [facility] [address] [place] [address] ALP [Catalytic activity/Vol] 39 Int._Unit/L Normal 21-98 [facility] Comment on above: Performed By: #### 2 [id number] #### [facility] [address] [place] [address] ALT No additional P-5'-P [Catalytic activity/Vol] 22 Int._Unit/L Normal 6-46 [facility] Comment on above: Performed By: #### 2 [id number] #### [facility] [address] [place] [address] Anion gap [Moles/Vol] 9 mmol/L Normal 6-16 [facility] Comment on above: Performed By: #### 2 [id number] #### [facility] [address] [place] [address] AST [Catalytic activity/Vol] 22 Int._Unit/L Normal 5-43 [facility] Comment on above: Performed By: #### 2 [id number] #### [facility] [address] [place] [address] Bilirubin [Mass/Vol] 1.0 mg/dL Normal 0.0-1.1 [facility] Comment on above: Performed By: #### 2 [id number] #### [facility] [address] [place] [address] Calcium [Mass/Vol] 9.2 mg/dL Normal 8.9-11.1 [facility] Comment on above: Performed By: #### 2 [id number] #### [facility] [address] [place] [address] Chloride [Moles/Vol] 104 mmol/L Normal 101-111 [facility] Comment on above: Performed By: #### 2 [id number] #### [facility] [address] [place] [address] CO2 [Moles/Vol] 30 mmol/L Normal 21-31 [facility] Comment on above: Performed By: #### 2 [id number] #### [facility] [address] [place] [address] Creatinine [Mass/Vol] 0.7 mg/dL Normal 0.5-1.3 [facility] Comment on above: Performed By: #### 2 [id number] #### [facility] [address] [place] [address] Globulin (S) [Mass/Vol] 2.5 g/dL Normal 1.4-4.0 [facility] Comment on above: Performed By: #### 2 [id number] #### [facility] [address] [place] [address] Glucose [Mass/Vol] 90 mg/dL Normal 55-199 [facility] Comment on above: Performed By: #### 2 [id number] #### [facility] [address] [place] [address] Potassium [Moles/Vol] 4.2 mmol/L Normal 3.5-5.3 [facility] Comment on above: Performed By: #### 2 [id number] #### [facility] [address] [place] [address] Protein [Mass/Vol] 6.8 g/dL Normal 6.0-7.8 [facility] Comment on above: Performed By: #### 2 [id number] #### [facility] [address] [place] [address] Sodium [Moles/Vol] 139 mmol/L Normal 135-145 [facility] Comment on above: Performed By: #### 2 [id number] #### [facility] [address] [place] [address] Urea nitrogen [Mass/Vol] 14 mg/dL Normal 5-21 [facility] Comment on above: Performed By: #### 2 [id number] #### [facility] [address] [place] [address] Urea nitrogen/Creatinine [Mass ratio] 20 No Units Normal 10-20 [facility] Comment on above: Performed By: #### 2 [id number] #### [facility] [address] [place] [address] Lipid Panelon 10-06-2024 Cholesterol [Mass/Vol] 223 mg/dL High 120-200 Fi [facility] Comment on above: Performed By: #### 2 [id number] #### [facility] [address] [place] [address] Cholesterol in HDL [Mass/Vol] 69 mg/dL Invalid Interpretation Code [facility] Comment on above: Result Comment: '>= 60 LOW RISK' '<= 40 HIGH RISK' Performed By: #### 2 [id number] #### [facility] [address] [place] [address] Cholesterol in LDL [Mass/Vol] 145 mg/dL High <=129 [facility] Comment on above: Performed By: #### 2 [id number] #### [facility] [address] [place] [address] Cholesterol in VLDL [Mass/Vol] 16 mg/dL Normal 7-40 [facility] Comment on above: Performed By: #### 2 [id number] #### [facility] [address] [place] [address] Triglyceride [Mass/Vol] 80 mg/dL Normal <=149 F [facility] Comment on above: Performed By: #### 2 [id number] #### [facility] [address] [place] [address] eGFRon 10-06-2024 eGFR 101 mL/min/1.73 m2 Normal >=59 [facility] Comment on above: Performed By: #### 1 [id number] #### [facility] [address] [place] [address] Calciumon 08-26-2024 Calcium [Mass/Vol] 9.3 mg/dL Normal 8.9-11.1 [facility] Comment on above: Performed By: #### 2 [id number] #### [facility] [address] [place] [address] Laboratory - Chemistry and C hemistry - challengeon 08-26-2024 Calcium [Mass/Vol] 9.3 mg/dL Normal 8.9 - 11. 1 mg/dL [facility] MA Mamm Screen w/CAD if perf and 3D Bilon 07-29-2024 MA Mamm Screen w/CAD if perf and 3D Perry Exam Date/Time: 07/29/2024 08:41 EST Reason for Exam: Z12.31 Report IMPRESSION: BIRADS 1 NEGATIVE, NORMAL INTERVAL FOLLOW-UP Follow-up: 12 MONTH RECALL Density: Category C - Heterogeneously dense. Vascular calcifications: Absent. EXAM: MA Mamm Screen w/CAD if perf and 3D Perry DATE: 07/29/2024 8:03 AM CLINICAL HISTORY: Z12.31. COMPARISONS: 07/27/2023, 07/26/2022, 06/16/2021, and 06/13/2020. TECHNIQUE: Routine full-field digital mammograms and 3D breast tomosynthesis were obtained of both breasts. FINDINGS: There are no developing densities, suspicious microcalcifications, or areas of architectural distortion identified on the current study. No significant changes are identified from the prior studies, given differences in technique and positioning. Dense Breast: Yes. CAD analysis was performed and used in the interpretation. Board Certified Radiologists. Accredited by the ACR and FDA. MAMMOGRAPHY IS VERY IMPORTANT TO YOUR HEALTH. THE CURRENT [place] GUIDELINES RECOMMENDS ANNUAL MAMMOGRAPHY BEGINNING AT AGE 40. THIS FACILITY UTILIZES A REMINDER SYSTEM TO ENSURE ALL PATIENTS RECEIVE REMINDER NOTIFICATIONS AT THE APPROPRIATE TIME BASED ON THE RECOMMENDATIONS OF THIS EXAM. Report Ordering Provider: REFERRAL, SELF FINAL REPORT Dictated: 07/29/2024 1:19 pm Rodger Tucker MD Signed (Electronic Signature): 07/29/2024 1:19 pm Signed by: Rodger Tucker MD Transcribed by: KATIE Technologist: DARSHAN Assessment: BI-RADS Category 1-Negative Recommendation: Normal interval follow-up Normal [facility] Calciumon 07-22-2024 Calcium [Mass/Vol] 9.8 mg/dL Normal 8.9-11.1 [facility] Comment on above: Performed By: #### 2 [id number] #### [facility] [address] [place] [address] Laboratory - Chemistry and C hemistry - challengeOrdered By: SYSTEM SYSTEM on 07-22-2024 Calcium [Mass/Vol] 9.8 mg/dL 8.9-11.1 Remiso l Chem Heart and Vascular Office/Cl inic Noteon 07-21-2024 Heart and Vascular Office/Clinic Note Heart and Vascular Office/Clinic Note Chief Complaint INPT F/U AFIB History of Present Illness The patient is a pleasant 54-year-old female who was seen by myself in a hospital consultation due to symptomatic atrial fibrillation. It was symptomatic. Following the discharge, she was seen by pulmonology, sleep study is being scheduled. She presents today with no new symptoms. She believes that her palpitations are rather related to stress. Review of Systems ROS - Provider Constitutional: no fever, no chills, no fatigue Skin:no rash, no lesions ENMT: no ear pain, no sore throat, no congestion. Respiratory: no shortness of breath, no cough, no wheezing. Cardiovascular: no chest pain, no palpitations, no edema. Gastrointestinal: no nausea, no vomiting, no diarrhea, no GI bleeding. Genitourinary: no dysuria, no frequencyno hematuria Musculoskeletal: no back pain, no trauma. Neurologic: no headache, no dizziness, no numbness, no weakness. Psychiatric: no sleeping problems, no irritability, no mood swings/depression. Heme/Lymph: no bleeding tendency, no bruising tendency, no petechiae, Allergy/Immuno logic: no seasonal allergies, no food allergies, no recurrent infections Physical Exam Vitals & Measurements HR: 67(Peripheral) RR: 16 BP: 120/82 SpO2: 99% HT: 68 in HT: 172 cm WT: 62.6 kg WT: 137.72 lb BMI: 21.16 General: alert, no acute distress Neck: Supple, noJVD nocarotid bruit Cardiovascular: regular rate and rhythm, no murmur normal peripheral perfusion Respiratory: Lungs CTAB, respirations non labored Extremities: no edema left lower extremity. no edema right lower extremity Neurological: oriented x 4, LOC appropriate for age, speech normal Skin: Warm, dry, intact- no rash or concerning lesions Assessment/Plan 1. Paroxysmal atrial fibrillation. The patient may need referral to clinical cardiac electrophysiology, should episodes become more frequent. Continue aspirin for cardioembolic protection. Follow-up No qualifying data available 1 year Problem List/Past Medical History Ongoing Abdominal discomfort Asymptomatic microscopic hematuria History of kidney stones Leaking of urine Microscopic hematuria JASE (obstructive sleep apnea) Recurrent UTI Varicose veins of both lower extremities with pain Historical None Procedure/Surgical History bilateral foot surgery, Colonoscopy, Foot, Procedure on foot, Tonsillectomy, wisdom teeth removal. Medications aspirin 81 mg Oral EC Tab, 81 mg= 1 tab(s), Oral, Daily calcium-vitamin D, 1 tab, Oral, BID Daily Multiple Vitamins, Oral, Daily Evenity, 210 mg, SubCutaneous, qMonth Allergies codeine sulfa drugs (Rash) Social History Alcohol - Denies Alcohol Use, 06/30/2024 DENIES, Household alcohol concerns: No., 03/11/2020 Substance Abuse - Denies Substance Abuse, 06/30/2024 DENIES, Household substance abuse concerns: No., 03/11/2020 Tobacco - Denies Tobacco Use, 06/30/2024 Never (less than 100 in lifetime) Tobacco Use:. Never Smokeless Tobacco Use:., 07/21/2024 Family History Heart disease: Brother. Rheumatoid arthritis: Mother. Immunizations Vaccine Date Status Comments SARS-CoV-2 (COVID-19) mRNA BNT-162b2 vax 12/24/2020 Given Prophylaxis SARS-CoV-2 (COVID-19) mRNA BNT-162b2 vax 12/03/2020 Given Prophylaxis Normal [facility] Comment on above: Result Comment: Elec tronically Signed By: Katelynn SANTILLAN, Elvis Herrera\.br\Date and Time Signed: 07/21/24 09:07 EDT CHEMISTRYOrdered By: SYSTEM SYSTEM on 07-01-2024 Troponin HS 23.50 pg/mL Normal 10.10 - 27.10 pg/mL [facility] Comment on above: Interpretive Data: T he 95% CI (Confidence Interval) PPV (Positive Predictive Value) for myocardial infarction in females is 38 pg/mL, in males 51 pg/mL. The results should be used in conjunction with clinical conditions of myocardial infarction. (Access High Sensitivity Troponin I Instructions For Use, Historic Futures, April 2018) Troponin HS 9.10 pg/mL Low 10.10 - 27.10 pg/mL [facility] Comment on above: Interpretive Data: T he 95% CI (Confidence Interval) PPV (Positive Predictive Value) for myocardial infarction in females is 38 pg/mL, in males 51 pg/mL. The results should be used in conjunction with clinical conditions of myocardial infarction. (Access High Sensitivity Troponin I Instructions For Use, Historic Futures, April 2018) ED Note-Physicianon 07-01-20 ED Note-Physician ED Note-Physician Basic Information Time Seen: Hu MENSAH, Baudilio Garcia 06/30/2024 20:02 Chief Complaint pt to ED with c/o possible afib. pt denies known diagnosis. denies meds for afib. states apple watch alerted afib for last hour and nurse daughter instructed patient to come get checked. denies CP, mild SOB per pt. heart rate 100-130s in triage. History of Present Illness A 54-year-old female reports to the emergency department with complaints of atrial fibrillation. Reports that she did feel some shortness of breath as well as palpitations, and her Apple Watch told her that she was in A-fib. States that has been going on for an hour. She states that she has has mild shortness of breath and palpitations. Reports otherwise healthy except some osteoporosis. Denies any chest pain with this. Denies any cardiac history otherwise. Review of Systems No other aggravating or relieving factors no other associated symptoms no other prior treatments or complaints. Family: Reviewed and noncontributory Social: lives at home Review of systems negative unless otherwise specified in the HPI. Physical Exam Vitals & Measurements T: 35.5 ?C(Oral) HR: 103(Peripheral) RR: 21 BP: 119/67 SpO2: 98% HT: 170.18 cm WT: 63.2 kg BMI: 21.82 General: The patient appears well and in no apparent distress. Patient is resting comfortably on bed. Afebrile Skin: Warm, dry, no pallor noted. Head: Normocephalic, atraumatic Neck: No JVD Eye: PERRLA, EOMI ENT: Moist mucus membranes Cardiovascular: Irregularly irregular rate normal peripheral perfusion Respiratory: No respiratory distress no accessory muscle use no obvious audible wheezing Chest Wall: no deformity Musculoskeletal: normal ROM, no deformity, no swelling GI: No obvious distention soft nontender nondistended no guarding rebounding or rigidity Neurological: A&O moves all extremities equal strength and symmetry Psychiatric: Cooperative and appropriate Medical Decision Making MEDICAL DECISION MAKING Number and Complexity of Problems Differential Diagnosis: [] [facility] Data External documents reviewed: [] My EKG interpretation: Reviewed My CT interpretation: [] My X-ray interpretation: Reviewed My Ultrasound interpretation: [] Decision rules/scores evaluated: [] Discussed with: [] Treatment and Disposition ED Course: 54-year-old female reports to the emergency department with concerns of being in A-fib. EKG did reveal patient is in A-fib with RVR. No known history of this. Due to this, we did do a full cardiac workup. Laboratory noted. No acute changes seen. Due to her symptoms, I did give her 5 of Cardizem push, and then started on Cardizem drip. Patient given an injection of Lovenox for her blood thinners. Due to to her new onset A-fib, did discuss case with the hospitalist who was agreeable with admission of the patient. Shared decision making: [] Code status: [] Assessment/Plan Atrial fibrillation, new onset (I48.91: Unspecified atrial fibrillation) Orders: diltiazem, 5 mg = 1 mL, Soln-IV, IV Push, Once, Stop date 06/30/24 21:34:00 EDT, NOW, Start date 06/30/24 21:34:00 EDT, Infuse over 2 minute(s), 06/30/24 21:34:00 EDT diltiazem 100 mg [5 mg/hr] + Sodium Chloride 0.9% intravenous solution 100 mL, 100 mL, IV, 5 mL/hr, STAT, Start date 06/30/24 21:34:00 EDT, 20 hour(s), Total volume (mL): 100, 5-15 mg/hr, Titrate per protocol, 65.1 kg, 1.76, m2 enoxaparin, 60 mg = 0.6 mL, Injection, SubCutaneous, Once, Stop date 06/30/24 21:34:00 EDT, STAT, Start date 06/30/24 21:34:00 EDT, 06/30/24 21:34:00 EDT Basic Metabolic Panel CBC w/ Auto Diff ED Cardiac Monitoring eGFR Extra SST Tube Magnesium Level PT & PTT Saline Lock Insert Troponin 0 Hr. Troponin 1 Hr. Troponin 3 Hr. Troponin 6 Hr. UA with Cult Rflx XR Chest Single View Medications Administered Given diltiazem additive 100 mg [5 mg/hr] + Sodium Chloride 0.9% intravenous solution 100 mL, IV diltiazem 5 mg/mL IV Giuliana 5 mL, 5 mg, IV Push Lovenox 60 mg/0.6 mL SC Giuliana, 60 mg, SubCutaneous Disposition Plan Patient Discharge Condition Stable Discharge Disposition To be admitted Discharge Prescription List Prescriptions No active prescription medications Follow-up No qualifying data available Attestation Patient seen and evaluated by the physician assistant city attorney. Attending physician was present in the emergency department and supervised care. This visit was performed by both the physician and an APC. I performed all aspects of the MDM as documented. This report was transcribed using voice recognition software. Every effort was made to ensure accuracy, however, inadvertently computerized claim clerk mistakes may be present. Appropriate healthcare PPE was used in evaluating this patient. The patient was placed in a mask. The healthcare provider was wearing mask, gloves, and utilizing proper hand hygiene. All equipment was properly cleansed. I performed a sub (more content not included)... Normal [facility] Comment on above: Result Comment: Elec tronically Signed By: Baudilio Lui PA-C\.br\Date and Time Signed: 07/01/24 00:04 EDT\.br\Electronically Co-Signed By: Hemal Anderson M.D..br\Date and Time Co-Signed: 07/01/24 03:20 EDT Inpatient Clinical Summaryon 07-01-2024 Inpatient Clinical Summary Inpatient Clinical Summary [place] [id number] Clinical Summary Person Information: Name: OLEG PECK Age: 54 Years : 1970 Sex: Female PCP: PRANAV TORO CNP Marital Status: Race: White Ethnicity: Non- or Language: Welsh Visit Id: Visit Reason: Shortness of breath; Palpitations; AFIB Speciality: Acuity: Enc Type: Observation Med Service: Medical Arrival: 06/30/2024 19:54:04 Discharge: Dispo Type: Admitted as IP to this Hosp Address: [address] [place] [address] [id number] Provider Notes: Diagnosis: 1:Atrial fibrillation, new onset; 2:Osteoporosis; 3:History of DVT in adulthood Problems Active History of kidney stones Asymptomatic microscopic hematuria Leaking of urine Abdominal discomfort Microscopic hematuria Recurrent UTI Varicose veins of both lower extremities with pain Smoking Status: Never Smoker Functional Status: Sensory Deficits: History of Falls: Mobility Assistance Prior to Admission: Independent ADLs: Independent Current Level of Assistance for Self-Care/Mobility: Cognitive Status: Oriented x 3 Allergies codeine sulfa drugs () Measurements: Height: 170.18 cm Weight: 63.2 kg Blood Pressure: 102 mmHg / 67 mmHg BMI: 21.82 kg/m2 Procedures No Procedures Documented Immunizations No Immunizations Documented This Visit Final Med List: aspirin (aspirin 81 mg Oral EC Tab) 1 Tablets By Mouth every day. Refills: 0. calcium-vitamin D 1 tab By Mouth 2 times a day. multivitamin (Daily Multiple Vitamins) By Mouth every day. romosozumab (Evenity) 210 Milligram Subcutaneous once a month. Care Team Members: Attending Physician: Angella Samano MD Consulting Physician: [facility] Cardio, XXXX; Katelynn SANTILLAN, Elvis Herrera Referring Physician: Follow up: With: Address: When: lEvis Pace [address] [place] [address] [phone] Business (1) Comments: Call for followup appointment 2-3 weeks With: Address: When: PRANAVLuis Miguel GODINEZMARGARITABEBETO [address] [place] [address] [phone] Business (1) Comments: Call for followup appointment 10-14 days Type Location Start Finish State ASU IV Other () [facility] Surgical Services 07/14/2024 8:00 AM 07/14/2024 10:00 AM Confirmed MA Screen (FT) FT.[email or web address] 07/29/2024 8:00 AM 07/29/2024 8:15 AM Confirmed Patient Education Information: Atrial Fibrillation Normal [facility] Inpatient Patient Summaryon 07-01-2024 Inpatient Patient Summary Inpatient Patient Summary [address] [address] Patient Discharge Instructions PERSON INFORMATION Name: OLEG PECK Date of : 1970 Current Date: 07/01/2024 13:54:12 PHYSICIANS Admitting Physician: Angella Samano MD Primary Care Physician: PRANAV TORO CNP PCP Phone Number: [phone] Comment: Discharge Diagnosis: 1:Atrial fibrillation, new onset; 2:Osteoporosis; 3:History of DVT in adulthood Condition at Discharge: Stable OLEG PECK has been given the following list of follow-up instructions, prescriptions, and patient education materials: PATIENT FOLLOW-UP INFORMATION Diet: Fat Modified- Low cholesterol Discharge Activity: Activity as tolerated Discharge Restrictions: No restrictions Wound Care Instructions: Remove Your Dressing In Days Call Your Doctor For: IF UNABLE TO CONTACT YOUR PHYSICIAN AND YOU FEEL IT IS AN EMERGENCY, GO TO THE NEAREST EMERGENCY ROOM OR CALL 911 Home Treatment: Devices/Equipment: None Special Services: Additional Instructions: undergo outpatient sleep study - Primary Care Physician to provide the following pending test results: None Follow up: With: Address: When: Elvis Pace [address] [place] [phone] [employer] (1) Comments: Call for followup appointment 2-3 weeks With: Address: When: PRANAV TORO [address] [place] [phone] [employer] (1) Comments: Call for followup appointment 10-14 days In the event that this physician does not participate in your insurance network, please consult with your insurance company to find a nearby participating provider. Type Location Start Finish State ASU IV Other (FT) [facility] Surgical Services 07/14/2024 8:00 AM 07/14/2024 10:00 AM Confirmed MA Screen (FT) FT.[email or web address] 07/29/2024 8:00 AM 07/29/2024 8:15 AM Confirmed Comment: LIV Noland DEBRA S, have received the attached patient education materials/instruction s and have verbalized understanding: Patient Signature Date Clinican/Nurse Signature Date HERE ARE THE MEDICATION CHANGES THAT OCCURRED DURING YOUR HOSPITAL STAY New Medications [id number], [address], [place] [phone], [phone] aspirin (aspirin 81 mg Oral EC Tab) 1 Tablets By Mouth every day. Refills: 0. Last Dose: ____Next Dose: ____ Medications to Continue with No Changes Other Medications calcium-vitamin D 1 tab By Mouth 2 times a day., pt unsure of dose Last Dose: ____Next Dose: ____ multivitamin (Daily Multiple Vitamins) By Mouth every day. Last Dose: ____Next Dose: ____ romosozumab (Evenity) 210 Milligram Subcutaneous once a month. Last Dose: ____Next Dose: ____ Comment: MEDICATION LIST PROVIDED FOR YOU IS A LIST OF YOUR CURRENT MEDICATIONS. PLEASE CARRY THIS WITH YOU AT ALL TIMES. aspirin (aspirin 81 mg Oral EC Tab) 1 Tablets By Mouth every day. Refills: 0. calcium-vitamin D 1 tab By Mouth 2 times a day. multivitamin (Daily Multiple Vitamins) By Mouth every day. romosozumab (Evenity) 210 Milligram Subcutaneous once a month. Pharmacy Information: Comment: PATIENT EDUCATION INFORMATION Instructions: Atrial Fibrillation Atrial fibrillation (AFib) is a type of irregular or rapid heartbeat (arrhythmia). In AFib, the top part of the heart (atria) beats in an irregular pattern. This makes the heart unable to pump blood normally and effectively. The goal of treatment is to prevent blood clots from forming, control your heart rate, or restore your heartbeat to a normal rhythm. If this condition is not treated, it can cause serious problems, such as a weakened heart muscle (cardiomyopathy) or a stroke. What are the causes? This condition is often caused by medical conditions that damage the heart's electrical system. These include: ? High blood pressure (hypertension). This is the most common cause. ? Certain heart problems or conditions, such as heart failure, coronary artery disease, heart valve problems, or heart surgery. ? Diabetes. ? Overactive thyroid (hyperthyroidism). ? Chronic kidney disease. ? Certain lung conditions, such as emphysema, pneumonia, or COPD. ? Obstructive sleep apnea. In some cases, the cause of this condition is not known. What increases the risk? This condition is more likely to develop in: ? Older adults. ? Athletes who do endurance exercise. ? People who have a family history of AFib. ? Males. ? People who are . ? People who are obese. ? People who smoke or misuse alcohol. What are the signs or symptoms? Symptoms of this conditio (more content not included)... Normal [facility] Inpatient Patient Summary Inpatient Patient Summary OLEG PECK :1970 Visit Date:06/30/2024 Inpatient Discharge Instructions Your Care Team Admitting Physician - Selwyn SANTILLAN, Angella Consulting Physician - [facility] Cardio, XXXX Katelynn SANTILLAN, Elvis Herrera Reason for Your Visit pt to ED with c/o possible afib. pt denies known diagnosis. denies meds for afib. states apple watch alerted afib for last hour and nurse daughter instructed patient to come get checked. denies CP, mild SOB per pt. heart rate 100-130s in triage. Your Diagnosis Atrial fibrillation, new onset Osteoporosis History of DVT in adulthood Palpitations Shortness of breath Tests Performed T4 & TSH -- Results Pending -- TSH With T4fr Reflex -- Results Pending -- Cardiac Echo -- Results Pending -- XR Chest Single View Please visit your patient portal for your results or contact your primary care physician. This Is Your Medications List aspirin (aspirin 81 mg Oral EC Tab) calcium-vitamin D multivitamin (Daily Multiple Vitamins) romosozumab (Evenity) Procedure History bilateral foot surgery, Colonoscopy, Foot, Procedure on foot, Tonsillectomy, wisdom teeth removal. Discharge Vitals Temperature (Axillary) 36.4 ?C Heart Rate (Monitored) 55 Respiratory Rate 18 Blood Pressure 102/67 Height 170.18 cm Weight 63.2 kg BMI 21.82 What to do next Instructions From Your Doctor Event Name Event Result Discharge Activity Activity as tolerated Discharge Restrictions No restrictions Discharge Diet(s) Fat Modified- Low cholesterol Pending Diagnostic Test Results None Discharge Instructions undergo outpatient sleep study - Previously Scheduled Follow-Up Appointments Sunday 8:00 AM EDT Where: [facility] Sunday 8:00 AM EST Where: [facility] New Follow Up Appointments after Discharge Follow Up with Elvis Pace When: Comments: Call for followup appointment 2-3 weeks Where: [address] [place] [address] [phone] Business (1) Follow Up with PRANAV TORO When: Comments: Call for followup appointment 10-14 days Where: [address] [place] [address] [phone] Business (1) Medications What How Much When Instructions Next Dose New aspirin (aspirin 81 mg Oral EC Tab) 1 Tablets By Mouth Every day Pickup at [facility] #[id number] 07/02/24 Unchanged calcium-vitamin D 1 tab By Mouth 2 times a day 10/8 pm Unchanged multivitamin (Daily Multiple Vitamins) By Mouth Every day 07/02 Unchanged romosozumab (Evenity) 210 Milligram Subcutaneous Once a month Pharmacy Information [facility][id number]: [address] [place] [id number] [phone] Test Results CBC BMP WBC: 7.5 E9/L (06/30/24 20:10:00) Glucose Lvl: 102 mg/dL (06/30/24 20:10:00) RBC: 4.8 E12/L (06/30/24 20:10:00) BUN: 19 mg/dL (06/30/24 20:10:00) HGB: 14.6 gm/dL (06/30/24:10:) Creatinine: 0.7 mg/dL (06/30/24:10:00) Hct: 42.8 % (06/30/24 20:10:00) BUN/Creat Ratio: 18 (06/30/24:10:) MCV: 89.7 fL (06/30/24:10:00) Sodium Lvl: 141 mmol/L (06/30/24 20:10:) MCH: 30.6 pg (06/30/24:10:00) Potassium Lvl: 3.6 mmol/L (06/30/24:10:00) MCHC: 34.1 gm/dL (06/30/24:10:) Chloride: 106 mmol/L (06/30/24:10:00) RDW: 13 % (06/30/24:10:) CO2: 29 mmol/L (06/30/24 20:10:00) Platelet: 254 E9/L (06/30/24 20:10:00) AGAP: 9 mEq/L (06/30/24 20:10:00) MPV: 6.9 fL (06/30/24:10:00) Calcium Lvl: 9.2 mg/dL (06/30/24 20:10:00) Allergies codeine sulfa drugs (Rash) Problems Ongoing - Any problem that you are currently receiving treatment for. Abdominal discomfort Asymptomatic microscopic hematuria History of kidney stones Leaking of urine Microscopic hematuria Recurrent UTI Varicose veins of both lower extremities with pain Historical - Any problem that you are no longer receiving treatment for. None Education Materials Atrial Fibrillation Atrial fibrillation (AFib) is a type of irregular or rapid heartbeat (arrhythmia). In AFib, the top part of the heart (atria) beats in an irregular pattern. This makes the heart unable to pump blood normally and effectively. The goal of treatment is to prevent blood clots from forming, control your heart rate, or restore your heartbeat to a normal rhythm. If this condition is not treated, it can cause serious problems, such as a weakened heart muscle (cardiomyopathy) or a stroke. What are the causes? This condition is often caused by medical conditions that damage the heart's electrical system. These include: ? High blood pressure (hypertension). This is the most common cause. ? Certain heart problems or conditions, such as heart failure, coronary artery disease, heart valve problems, or heart surgery. ? Diabetes. ? Overactive thyroid (hyperthyroidism). ? Chronic kidney disease. ? C (more content not included)... Normal [facility] Interdisciplinary Note - Wayne e Manageron 07-01-2024 Interdisciplinary Note - Acid Filler Interdisciplinary Note - Acid Filler CRM to room 326 Patient is awake, alert and oriented. Patient is from home with her spouse. Patient verified PCP, DME and insurance. Patient has a ride at [place]. Patient is an observation. She came in with A FIB. Patient is assigned to [facility], see notes. Patient was seen by cardiology. She had ECHO. Per patient she is a DC today. Patient declined any needs for DME, HH or PM. Patient was provided CRM contact, emiliano board updated. CRM following Normal [facility] Comment on above: Result Comment: Elec tronically Signed By: Oleksandr Mi\.br\Date and Time Signed: 07/01/24 13:02 EDT Troponin 3 Hr.on 07-01-2024 Troponin HS 9.10 pg/mL Low 10.10-27.10 [facility] Comment on above: Result Comment: The 95% CI (Confidence Interval) PPV (Positive Predictive Value) for myocardial infarction in females is 38 pg/mL, in males 51 pg/mL. The results should be used in conjunction with clinical conditions of myocardial infarction. (Access High Sensitivity Troponin I Instructions For Use, Cathleen Garland, April 2018) Performed By: #### 1 [id number] #### [facility] [address] [place] [address] Troponin 6 Hr.on 07-01-2024 Troponin HS 23.50 pg/mL Normal 10.10-27.10 [facility] Comment on above: Order Comment: pt is getting pt care done. will check back up soon. [id number] Result Comment: The 95% CI (Confidence Interval) PPV (Positive Predictive Value) for myocardial infarction in females is 38 pg/mL, in males 51 pg/mL. The results should be used in conjunction with clinical conditions of myocardial infarction. (Access High Sensitivity Troponin I Instructions For Use, Cathleen Garland, April 2018) Performed By: #### 1 [id number] ####[facility] [address] [place] [address] UA with Cult Rflxon 07-01-20 24 Bilirubin Ql (U) Negative Normal Negative [facility] Comment on above: Performed By: #### 4 [id number] #### [facility] [address] [place] [address] Clarity (U) Clear Normal Clear [facility] Comment on above: Performed By: #### 4 [id number] #### [facility] [address] [place] [address] Color (U) Colorless Abnormal Yellow [facility] Comment on above: Result Comment: Micr oscopic readings are only performed on those samples that meet specific criteria set forth by [facility]. Performed By: #### 4 [id number] #### [facility] [address] [place] [address] Epithelial cells.squamous Auto (Urine sed) [#/Area] 0-2 Invalid Interpretation Code [facility] Comment on above: Performed By: #### 4 [id number] #### [facility] [address] [place] [address] Glucose Ql (U) Negative Normal Negative [facility] Comment on above: Performed By: #### 4 [id number] #### [facility] [address] [place] [address] Hemoglobin Auto test strip (U) [Mass/Vol] Negative Normal Negative [facility] Comment on above: Performed By: #### 4 [id number] #### [facility] [address] [place] [address] Ketones Auto test strip Ql (U) Negative Normal Negative [facility] Comment on above: Performed By: #### 4 [id number] #### [facility] [address] [place] [address] Leukocyte esterase Auto test strip Ql (U) 25 Mouna/uL Normal Negative [facility] Comment on above: Performed By: #### 4 [id number] #### [facility] [address] [place] [address] Mucus Auto Ql (U) Negative Normal Negative [facility] Comment on above: Performed By: #### 4 [id number] #### [facility] [address] [place] [address] Nitrite Auto test strip Ql (U) Negative Normal Negative [facility] Comment on above: Performed By: #### 4 [id number] #### [facility] [address] [place] [address] pH (U) 7.0 [pH] Invalid Interpretation Code 5.0-9.0 [facility] Comment on above: Performed By: #### 4 [id number] #### [facility] [address] [place] [address] Protein Ql (U) Negative Normal Negative [facility] Comment on above: Performed By: #### 4 [id number] #### [facility] [address] [place] [address] RBC Ql (U) 0-3 Normal 0-3 [facility] Comment on above: Performed By: #### 4 [id number] #### [facility] [address] [place] [address] Specific gravity (U) [Rel density] 1.010 Invalid Interpretation Code 1.005-1.030 [facility] Comment on above: Performed By: #### 4 [id number] #### [facility] [address] [place] [address] Urobilinogen (U) [Mass/Vol] Negative Normal Negative [facility] Comment on above: Performed By: #### 4 [id number] #### [facility] [address] [place] [address] WBC Auto (Urine sed) [#/Area] 0-5 Normal 0-5 [facility] Comment on above: Performed By: #### 4 [id number] #### [facility] [address] [place] [address] URINALYSISOrdered By: SYSTEM SYSTEM on 07-01-2024 Bilirubin Ql (U) Negative Normal Negativemg/ dL [facility] UA Auto SS Clarity (U) Clear (07/01/24 2:06 AM) Normal Clear [facility] UA Auto SS Color (U) Colorless 1 *ABN* (07/01/24 2:06 AM) Invalid Interpretation Code Yellow [facility] UA Auto SS Comment on above: Interpretive Data: M icroscopic readings are only performed on those samples that meet specific criteria set forth by [facility]. Epithelial cells.squamous Auto (Urine sed) [#/Area] 0-2 graded/HPF Invalid Interpretation Code [facility] UA Auto SS Glucose Ql (U) Negative Normal Negativemg/ dL [facility] UA Auto SS Hemoglobin Auto test strip (U) [Mass/Vol] Negative Normal Negativemg/ dL [facility] UA Auto SS Ketones Auto test strip Ql (U) Negative Normal Negativemg/ dL [facility] UA Auto SS Leukocyte esterase Auto test strip Ql (U) 25 Mouna/uL Mouna/uL Normal NegativeLeu /uL [facility] UA Auto SS Mucus Auto Ql (U) Negative Normal Negativegr a ded/LPF [facility] UA Auto SS Nitrite Auto test strip Ql (U) Negative Normal Negativemg/ dL [facility] UA Auto SS pH (U) 7.0 *NA* (07/01/24 2:06 AM) Invalid Interpretation Code 5.0 - 9.0 [facility] UA Auto SS Protein Ql (U) Negative Normal Negativemg/ dL [facility] UA Auto SS RBC Ql (U) 0-3 graded/HPF Normal 0-3graded/H PF [facility] UA Auto SS Specific gravity (U) [Rel density] 1.010 *NA* (07/01/24 2:06 AM) Invalid Interpretation Code 1.005 - 1.030 [facility] UA Auto SS Urobilinogen (U) [Mass/Vol] Negative Normal Negativemg/ dL [facility] UA Auto SS WBC Auto (Urine sed) [#/Area] 0-5 graded/HPF Normal 0-5graded/H PF [facility] UA Auto SS URINALYSISOrdered By: Baudilio olivas on 07-01-2024 UA Spec Desc Clean Catch (07/01/24 2:06 AM) Normal [facility] UA Auto SS XR Chest Single Viewon 07-01 XR Chest Single View Exam Date/Time: 06/30/2024 20:39 EDT Reason for Exam: Chest pain Report IMPRESSION: NO RADIOGRAPHIC EVIDENCE OF ACUTE INTRATHORACIC PROCESS. EXAM: XR Chest Single View History: Chest pain. Shortness of breath. Technique: Portable AP view of the chest. Comparison: Chest radiograph 03/14/2022 Findings: The cardiomediastinal silhouette is within normal limits. No pneumothorax, pleural effusion, or consolidation. No acute osseous abnormality. Ordering Provider: Baudilio Lui FINAL REPORT Dictated: 07/01/2024 10:03 am Brayan Davies DO Signed (Electronic Signature): 07/01/2024 10:03 am Signed by: Brayan Davies DO Transcribed by: KATIE Technologist: AYAAN Technical Comments Radiation Dose: Ka,r in mGy = na DAP = na Normal [facility] BMPon 06-30-2024 Anion gap [Moles/Vol] 9 mmol/L Normal -16 [facility] Comment on above: Performed By: #### 2 [id number] #### [facility] [address] [place] [address] Urea nitrogen/Creatinine [Mass ratio] 18 No Units Normal 07-13 [facility] Comment on above: Performed By: #### 2 [id number] #### [facility] [address] [place] [address] Calcium [Mass/Vol] 9.2 mg/dL Normal 8.9-11.1 [facility] Comment on above: Performed By: #### 2 [id number] #### [facility] [address] [place] [address] Chloride [Moles/Vol] 106 mmol/L Normal 101-111 [facility] Comment on above: Performed By: #### 2 [id number] #### [facility] [address] [place] [address] CO2 [Moles/Vol] 29 mmol/L Normal 21-31 [facility] Comment on above: Performed By: #### 2 [id number] #### [facility] [address] [place] [address] Creatinine [Mass/Vol] 0.7 mg/dL Normal 0.5-1.3 [facility] Comment on above: Performed By: #### 2 [id number] #### [facility] [address] [place] [address] Glucose [Mass/Vol] 102 mg/dL Normal 55-199 [facility] Comment on above: Performed By: #### 2 [id number] #### [facility] [address] [place] [address] Potassium [Moles/Vol] 3.6 mmol/L Normal 3.5-5.3 [facility] Comment on above: Performed By: #### 2 [id number] #### [facility] [address] [place] [address] Sodium [Moles/Vol] 141 mmol/L Normal 135-145 [facility] Comment on above: Performed By: #### 2 [id number] #### [facility] [address] [place] [address] Urea nitrogen [Mass/Vol] 19 mg/dL Normal 5-21 [facility] Comment on above: Performed By: #### 2 [id number] #### [facility] [address] [place] [address] CBC w/ Auto Diffon 4 Basophils/100 WBC (Bld) 0.7 % Normal 0.0-2.0 F [facility] Comment on above: Performed By: #### 2 [id number] #### [facility] [address] [place] [address] Basophils/Leukocytes Auto (Bld) [Pure # fraction] 0.1 E9/L Normal 0.0-0.2 [facility] Comment on above: Performed By: #### 2 [id number] #### [facility] [address] [place] [address] Eosinophils (Bld) [#/Vol] 0.1 E9/L Normal 0.0-0.5 [facility] Comment on above: Performed By: #### 2 [id number] #### [facility] [address] [place] [address] Eosinophils/100 WBC (Bld) 1.7 % Normal 0.0-8.0 [facility] Comment on above: Performed By: #### 2 [id number] #### [facility] [address] [place] [address] Erythrocyte distribution width (RBC) [Ratio] 13.0 % Normal 10.9-14.2 [facility] Comment on above: Performed By: #### 2 [id number] #### [facility] [address] [place] [address] Hematocrit (Bld) [Volume fraction] 42.8 % Normal 34.0-46.0 [facility] Comment on above: Performed By: #### 2 [id number] #### [facility] [address] [place] [address] Hemoglobin (Bld) [Mass/Vol] 14.6 g/dL Normal 12.0-16.0 [facility] Comment on above: Performed By: #### 2 [id number] #### [facility] [address] [place] [address] Lymphocytes (Bld) [#/Vol] 3.1 E9/L Normal 1.0-4.0 [facility] Comment on above: Performed By: #### 2 [id number] #### [facility] [address] [place] [address] Lymphocytes/100 WBC (Bld) 41.2 % Normal 14.0-50.0 [facility] Comment on above: Performed By: #### 2 [id number] #### [facility] [address] [place] [address] MCH (RBC) [Entitic mass] 30.6 pg Normal 27.0-34.0 [facility] Comment on above: Performed By: #### 2 [id number] #### [facility] [address] [place] [address] MCHC (RBC) [Mass/Vol] 34.1 g/dL Normal 31.4-36.0 [facility] Comment on above: Performed By: #### 2 [id number] #### [facility] [address] [place] [address] MCV (RBC) [Entitic vol] 89.7 fL Normal 80.0-100.0 F [facility] Comment on above: Performed By: #### 2 [id number] #### [facility] [address] [place] [address] Monocytes (Bld) [#/Vol] 0.6 E9/L Normal 0.2-1.0 F [facility] Comment on above: Performed By: #### 2 [id number] #### [facility] [address] [place] [address] Neutrophils (Bld) [#/Vol] 3.7 E9/L Normal 2.0-7.5 [facility] Comment on above: Performed By: #### 2 [id number] #### [facility] [address] [place] [address] Neutrophils/100 WBC (Bld) 48.9 % Normal 36.0-75.0 [facility] Comment on above: Performed By: #### 2 [id number] #### [facility] [address] [place] [address] Platelet mean volume (Bld) [Entitic vol] 6.9 fL Normal 6.4-10.8 [facility] Comment on above: Performed By: #### 2 [id number] #### [facility] [address] [place] [address] Platelets (Bld) [#/Vol] 254.0 E9/L Normal 150.0-500.0 [facility] Comment on above: Performed By: #### 2 [id number] #### [facility] [address] [place] [address] RBC (Bld) [#/Vol] 4.8 E12/L Normal 4.3-5.9 [facility] Comment on above: Performed By: #### 2 [id number] #### [facility] [address] [place] [address] WBC corrected for nucl RBC Auto (Bld) [#/Vol] 7.5 E9/L Normal 4.0-11.0 [facility] Comment on above: Performed By: #### 2 [id number] #### [facility] [address] [place] [address] CHEMISTRYOrdered By: SYSTEM SYSTEM on 06-30-2024 Troponin HS 3.30 pg/mL Low 10.10 - 27.10 pg/mL [facility] Comment on above: Interpretive Data: T he 95% CI (Confidence Interval) PPV (Positive Predictive Value) for myocardial infarction in females is 38 pg/mL, in males 51 pg/mL. The results should be used in conjunction with clinical conditions of myocardial infarction. (Access High Sensitivity Troponin I Instructions For Use, Cathleen Chaya, April 2018) Calcium [Mass/Vol] 9.2 mg/dL Normal 8.9 - 11. 1 mg/dL [facility] Chloride [Moles/Vol] 106 mmol/L Normal 101 - 1 11 mmol/L [facility] CO2 [Moles/Vol] 29 mmol/L Normal 21 - 31 mmol/L [facility] Creatinine [Mass/Vol] 0.7 mg/dL Normal 0.5 - 1.3 mg/dL [facility] Chem eGFR 101 mL/min/1.73 m2 Normal >=59mL/mi n/ 1.73 m2 [facility] Glucose [Mass/Vol] 102 mg/dL Normal 55 - 199 mg/dL [facility] Magnesium [Mass/Vol] 1.9 mg/dL Normal 1.3 - 2 .4 mg/dL [facility] Potassium [Moles/Vol] 3.6 mmol/L Normal 3.5 - 5.3 mmol/L [facility] Sodium [Moles/Vol] 141 mmol/L Normal 135 - 145 mmol/L [facility] Urea nitrogen [Mass/Vol] 19 mg/dL Normal 5 - 21 mg/dL [facility] CHEMISTRYOrdered By: Mary Sigala on 06-30-2024 Anion gap [Moles/Vol] 9 mmol/L Normal 6 - 16 mEq/L [facility] Chem S Urea nitrogen/Creatinine [Mass ratio] 18 mg/mg Normal 10 - 20 [facility] Chem S COAGULATIONOrdered By: Rene Castro on 06-30-2024 aPTT Coag (PPP) [Time] 37.8 s High 25.1 - 36.5 second(s) [facility] Comment on above: Interpretive Data: P arameter 15 days - 4 weeks 1 - 5 months 6 - 11 months 1 - 5 years 6 - 10 years 11 - 17 years PTT Mean: 35.4 (27.6-45.6) Mean: 33.5 (24.8-40.7) Mean: 32.4 (25.1-40.7) Mean: 31.6 (24.0-39.2) Mean: 31.6 (26.9-38.7) Mean: 31.0 (24.6-38.4) Pediatric Reference ranges were obtained from a study by David Churchill et al. prepared from 1437 samples obtained at 7 different centers using the same coagulation reagent and instrumentation as [facility]. Currently there are no coagulation studies available worldwide for children to 14 days, and no normal ranges. Heparin therapeutic range (represented by Anti-Factor Xa activity of 0.2 - 0.4 U/mL) corresponds to PTT of 56.6 - 109.0 sec. INR Coag (PPP) [Relative time] 0.97 {INR} Invalid Interpretation Code [facility] Comment on above: Interpretive Data: I NR results are specifically intended to assess patients stabilized on long-term Anticoagulation therapy suggested INR s Less Intensive Anticoagulation 2.0 3.0 Conventional Range 3.0 4.5 PT Coag (PPP) [Time] 10.9 s Normal 9.4 - 1 2.5 second(s) [facility] Comment on above: Interpretive Data: 1 5 days - 4 weeks 1 - 5 months 6 -11 months 1-5 years 6-10 years 11 -17 years Mean: 11.2 (9.5-12.6) Mean: 11.0 (9.7-12.8) Mean: 11.0 (9.8-13.0) Mean: 11.3 (9.9-13.4) Mean: 11.7 (10.0-14.6) Mean: 11.8 (10.0 - 14.1) Pediatric Reference ranges were obtained from a study by amilcar Kelly al. prepared from 1437 samples obtained at 7 different centers using the same coagulation reagent and instrumentation as [facility]. Currently there are no coagulation studies available worldwide for children to 14 days, and no normal ranges. ED Clinical Summaryon 2023 ED Clinical Summary ED Clinical Summary [place] [id number] ED Clinical Summary Person Information Name: OLEG PECK Amanda/[facility] Age: 54 Years : 1970 Sex: Female Language: Welsh PCP: PRANAV TORO CNP Marital Status: Visit Id: Visit Reason: Shortness of breath; Palpitations; AFIB Speciality: Acuity: 2 Enc Type: Observation Med Service: Medical Arrival: 06/30/2024 19:54:04 Discharge: LOS: 000 02:26 Checkin: 06/30/2024 19:54:04 Checkout: 06/30/2024 22:20:25 Dispo Type: Admitted as IP to this [facility] EVENTS: Event Name Event Status Request Date/Time Start Date/Time Complete Date/Time Arrive Complete 06/30/2024 19:54:04 06/30/2024 19:54:04 06/30/2024 19:54:04 Document Home Meds Request 06/30/2024 19:54:04 Triage Complete 06/30/2024 19:54:04 06/30/2024 20:03:16 06/30/2024 20:03:16 EKG Complete 06/30/2024 19:55:46 06/30/2024 20:01:23 Registration Complete 06/30/2024 19:56:12 06/30/2024 19:56:12 06/30/2024 19:56:12 Reg Complete Request 06/30/2024 19:56:12 Reg Bed Request Complete 06/30/2024 19:56:12 06/30/2024 19:56:12 06/30/2024 19:56:12 Bed Assign Complete 06/30/2024 19:57:20 06/30/2024 19:57:20 06/30/2024 19:57:20 Dr Exam Complete 06/30/2024 19:57:20 06/30/2024 20:02:56 06/30/2024 20:02:56 RN Exam Complete 06/30/2024 19:57:20 06/30/2024 20:09:44 06/30/2024 20:09:44 Registration Start 06/30/2024 20:02:56 06/30/2024 21:41:12 Dr Exam Complete 06/30/2024 20:05:43 06/30/2024 20:05:43 06/30/2024 20:05:43 Pending Labs Request 06/30/2024 20:15:58 Lab Complete 06/30/2024 20:15:58 06/30/2024 21:13:18 Patient Care Request 06/30/2024 20:15:58 X-Ray Complete 06/30/2024 20:15:58 06/30/2024 20:23:02 06/30/2024 20:39:32 Pending Labs Complete 06/30/2024 20:19:26 06/30/2024 20:19:26 06/30/2024 21:44:56 Lab Complete 06/30/2024 20:19:26 06/30/2024 20:19:26 06/30/2024 21:44:56 Pending Labs Complete 06/30/2024 20:21:39 06/30/2024 20:21:39 06/30/2024 20:21:39 Wet Read Request 06/30/2024 20:39:32 Meds Admin Request 06/30/2024 21:35:06 Observation Request 06/30/2024 21:41:11 Patient Care Request 06/30/2024 21:41:11 Patient Care Request 06/30/2024 21:41:13 Patient Care Request 06/30/2024 21:41:13 Patient Care Request 06/30/2024 21:41:14 Patient Care Request 06/30/2024 21:41:14 Inpatient Bed Ready Complete 06/30/2024 22:20:25 06/30/2024 22:20:25 06/30/2024 22:20:25 ADDRESS: [address] [facility] [phone] PHYS DOC NOTES: MEDICAL INFORMATION: Prescriptions Given: Medications to Continue with No Changes Other Medications calcium-vitamin D 1 tab By Mouth 2 times a day. cranberry (Cranberry oral capsule) multivitamin (Daily Multiple Vitamins) By Mouth every day. romosozumab (Evenity) 210 Milligram Subcutaneous once a month. PATIENT EDUCATION INFORMATION: Instructions: Follow up: DIAGNOSIS: Atrial fibrillation, new onset Normal [facility] ED Patient Education Noteon 06-30-2024 ED Patient Education Note ED Patient Education Note Normal [facility] ED Patient Summaryon 024 ED Patient Summary ED Patient Summary [address] [address] Patient Discharge Instructions Person Information Name: OLEG PECK Age: 54 Years Arrival Date: 06/30/2024 19:54:04 Discharge Diagnosis: Atrial fibrillation, new onset Primary Care Physician: PRANAV TORO CNP Provider Information Primary Provider: Hemal Anderson M.D. Advanced Oxyhydrogen Welder:None The exam and treatment you received in the Emergency Department were for an urgent problem and are not intended as complete care. It is important that you follow up with a doctor, nurse practitioner, or physician?s assistant city attorney for ongoing care. If your symptoms become worse or you do not improve as expected and you are unable to reach your usual health care provider, you should return to the Emergency Department. We are available 24 hours a day. OLEG PECK has been given the following list of patient education materials, prescriptions and follow-up instructions: Follow-up Instructions: In the event that this physician does not participate in your insurance network, please consult with your insurance company to find a nearby participating provider. Patient Education Materials: A MESSAGE TO ALL PATIENTS REGARDING OPIOIDS PRESCRIPTION OPIOIDS: WHAT YOU NEED TO KNOW Prescription opioids can be used to help relieve oorakeyf-dm-ekvscr pain and are often prescribed following a surgery or injury, or for certain health conditions. These medications can be an important part of the treatment but also come with serious risks. It is important to work with your healthcare provider to make sure you are getting the safest, most effective care. WHAT ARE THE RISKS AND SIDE EFFECTS OF OPIOID USE? Prescription opioids carry serious risks of addiction and overdose, especially with prolonged use. An opioid overdose, often marked by slowed breathing, can cause sudden . The use of prescription opioids can have a number of side effects as well, even when taken as directed: ? Tolerance?meaning you might need to take more of the medication for the same pain relief ? Physical dependence?meaning you have symptoms of withdrawal when a medication is stopped ? Increased sensitivity to pain ? Constipation ? Nausea, vomiting, and dry mouth ? Sleepiness and dizziness ? Confusion ? Depression ? Low levels of testosterone that can result in lower sex drive, energy, and strength ? Itching and sweating RISKS ARE GREATER WITH: ? History of drug misuse, substance use disorder, or overdose ? Mental health conditions (such as depression or anxiety) ? Sleep apnea ? Older age (65 years and older) ? Avoid alcohol while taking prescription opioids. Also, unless specifically advised by your health care provider, medications to avoid include: ? Benzodiazepines (such as Xanax or Valium) ? Muscle relaxants (such as Soma or Flexeril) ? Hypnotics (such as Ambien or Lunesta) ? Other prescription opioids KNOW YOUR OPTIONS Talk to your health care provider about ways to manage your pain that don?t involve prescription opioids. Some of these options may actually work better and have fewer risks and side effects. Options may include: ? Pain relievers such as acetaminophen, ibuprofen, and naproxen ? Some medication that are also used for depression or seizures ? Physical therapy and exercise ? Cognitive behavioral therapy, a psychological, goal-directed approach, in which patients learn how to modify physical, behavioral, and emotional triggers of pain and stress. IF YOU ARE PRESCRIBED OPIOIDS FOR PAIN: ? Never take opioids in greater amounts or more often than prescribed. ? Follow up with your primary health care provider. o Work together to create a plan on how to manage your pain. o Talk about ways to help manage your pain that don?t involve prescription opioids. o Talk about any and all concerns and side effects. ? Help prevent misuse and abuse o Never sell or share prescription opioids. o Never use another person?s prescription opioids. ? Store prescription opioids in a secure place and out of reach of others (this may include visitors, children, friends, and family). ? Safely dispose of unused prescription opioids: Find your community drug take-back program or your pharmacy mail-back program, or flush them down the toilet, following guidance from the Food and Drug Administration (www.fda.gov/Drugs/Re sourcesForYou). ? Visit www.cdc.gov/drugoverd ose to learn about the risks of opioids abuse and overdose. ? If you believe you may be struggling with addiction, tell your health point of care technician and ask for guidance or call [facility]?S National Helpline at 5-063-883-YXLR. o Source: [place] Department of Health and Human Services/Center for Disease Control & Prevention [facility] Medications Given: (more content not included)... Normal [facility] HEMATOLOGYOrdered By: SYSTEM SYSTEM on 06-30-2024 Basophils/100 WBC (Bld) 0.7 % Normal 0.0 - 2.0 % [facility] Basophils/Leukocytes Auto (Bld) [Pure # fraction] 0.1 E9/L Normal 0.0 - 0.2 E9/L [facility] Eosinophils (Bld) [#/Vol] 0.1 E9/L Normal 0.0 - 0.5 E9/L [facility] Eosinophils/100 WBC (Bld) 1.7 % Normal 0.0 - 8.0 % [facility] Erythrocyte distribution width (RBC) [Ratio] 13.0 % Normal 10.9 - 14.2 % [facility] Hematocrit (Bld) [Volume fraction] 42.8 % Normal 34.0 - 46.0 % [facility] Hemoglobin (Bld) [Mass/Vol] 14.6 g/dL Normal 12.0 - 16.0 gm/dL [facility] Lymphocytes (Bld) [#/Vol] 3.1 E9/L Normal 1.0 - 4.0 E9/L [facility] Lymphocytes/100 WBC (Bld) 41.2 % Normal 14.0 - 50.0 % [facility] MCH (RBC) [Entitic mass] 30.6 pg Normal 27.0 - 34.0 pg [facility] MCHC (RBC) [Mass/Vol] 34.1 g/dL Normal 31.4 - 36.0 gm/dL [facility] MCV (RBC) [Entitic vol] 89.7 fL Normal 80.0 - 100.0 fL [facility] Monocytes (Bld) [#/Vol] 0.6 E9/L Normal 0.2 - 1.0 E9/L [facility] Monocytes/100 WBC (Bld) 7.5 % Normal 4.0 - 14.0 % [facility] Neutrophils (Bld) [#/Vol] 3.7 E9/L Normal 2.0 - 7.5 E9/L [facility] Neutrophils/100 WBC (Bld) 48.9 % Normal 36.0 - 75.0 % [facility] Platelet mean volume (Bld) [Entitic vol] 6.9 fL Normal 6.4 - 10.8 fL [facility] Platelets (Bld) [#/Vol] 254.0 E9/L Normal 150. 0 - 500.0 E9/L [facility] RBC (Bld) [#/Vol] 4.8 E12/L Normal 4.3 - 5.9 E12/L [facility] WBC corrected for nucl RBC Auto (Bld) [#/Vol] 7.5 E9/L Normal 4.0 - 11.0 E9/L [facility] Magnesiumon 06-30-2024 Magnesium [Mass/Vol] 1.9 mg/dL Normal 1.3-2.4 [facility] Comment on above: Performed By: #### 2 [id number] #### [facility] [address] [place] [address] PT & PTTon 06-30-2024 aPTT Coag (PPP) [Time] 37.8 second(s) High 25.1-36.5 [facility] Comment on above: Result Comment: Para meter 15 days - 4 weeks 1 - 5 months 6 - 11 months 1 - 5 years 6 - 10 years 11 - 17 years PTT Mean: 35.4 (27.6-45.6) Mean: 33.5 (24.8-40.7) Mean: 32.4 (25.1-40.7) Mean: 31.6 (24.0-39.2) Mean: 31.6 (26.9-38.7) Mean: 31.0 (24.6-38.4) Pediatric Reference ranges were obtained from a study by amilcar Kelly al. prepared from 1437 samples obtained at 7 different centers using the same coagulation reagent and instrumentation as [facility]. Currently there are no coagulation studies available worldwide for children to 14 days, and no normal ranges. Heparin therapeutic range (represented by Anti-Factor Xa activity of 0.2 - 0.4 U/mL) corresponds to PTT of 56.6 - 109.0 sec. Performed By: #### 1 [id number] #### [facility] [address] [place] [address] INR Coag (PPP) [Relative time] 0.97 {INR} Invalid Interpretation Code [facility] Comment on above: Result Comment: INR results are specifically intended to assess patients stabilized on long-term Anticoagulation therapy suggested INR?s ?Less Intensive Anticoagulation? 2.0 ? 3.0 Conventional Range 3.0 ? 4.5 Performed By: #### 1 [id number] #### [facility] [address] [place] [address] PT Coag (PPP) [Time] 10.9 second(s) Normal 9.4-12.5 [facility] Comment on above: Result Comment: 15 d ays - 4 weeks 1 - 5 months 6 -11 months 1-5 years 6-10 years 11 -17 years Mean: 11.2 (9.5-12.6) Mean: 11.0 (9.7-12.8) Mean: 11.0 (9.8-13.0) Mean: 11.3 (9.9-13.4) Mean: 11.7 (10.0-14.6) Mean: 11.8 (10.0 - 14.1) Pediatric Reference ranges were obtained from a study by amilcar Kelly al. prepared from 1437 samples obtained at 7 different centers using the same coagulation reagent and instrumentation as [facility]. Currently there are no coagulation studies available worldwide for children to 14 days, and no normal ranges. Performed By: #### 1 [id number] #### [facility] [address] [place] [address] Troponin 0 Hr.on 06-30-2024 Troponin HS <2.30 Low 10.10-27.10 [facility] Comment on above: Result Comment: The 95% CI (Confidence Interval) PPV (Positive Predictive Value) for myocardial infarction in females is 38 pg/mL, in males 51 pg/mL. The results should be used in conjunction with clinical conditions of myocardial infarction. (Access High Sensitivity Troponin I Instructions For Use, [employer]ures, April 2018) Performed By: #### 1 [id number] #### [facility] [address] [place] [address] Troponin 1 Hr.on 06-30-2024 Troponin HS 3.30 pg/mL Low 10.10-27.10 [facility] Comment on above: Result Comment: The 95% CI (Confidence Interval) PPV (Positive Predictive Value) for myocardial infarction in females is 38 pg/mL, in males 51 pg/mL. The results should be used in conjunction with clinical conditions of myocardial infarction. (Access High Sensitivity Troponin I Instructions For Use, [employer], April 2018) Performed By: #### 1 [id number] #### [facility] [address] [place] [address] UA with Cult Rflxon 06-30-20 Type of Urine collection method Clean Catch Normal [facility] Comment on above: Performed By: #### 4 [id number] #### [facility] [address] [place] [address] eGFRon 06-30-2024 eGFR 101 mL/min/1.73 m2 Normal >=59 [facility] Comment on above: Performed By: #### 1 [id number] #### [facility] [address] [place] [address] Calciumon 06-16-2024 Calcium [Mass/Vol] 9.0 mg/dL Normal 8.9-11.1 [facility] Comment on above: Performed By: #### 2 [id number] #### [facility] [address] [place] [address] Laboratory - Chemistry and C hemistry - challengeOrdered By: SYSTEM SYSTEM on 06-16-2024 Calcium [Mass/Vol] 9.0 mg/dL 8.9-11.1 Rem[facility] l Chem Calciumon 05-15-2024 Calcium [Mass/Vol] 9.3 mg/dL Normal 8.9-11.1 [facility] Comment on above: Performed By: #### 2 [id number] #### [facility] [address] [place] [address] Laboratory - Chemistry and C hemistry - challengeOrdered By: SYSTEM SYSTEM on 05-15-2024 Calcium [Mass/Vol] 9.3 mg/dL 8.9-11.1 Remiso l Chem Calciumon 04-14-2024 Calcium [Mass/Vol] 9.1 mg/dL Normal 8.9-11.1 [facility] Comment on above: Performed By: #### 2 [id number] #### [facility] [address] [place] [address] Laboratory - Chemistry and C hemistry - challengeOrdered By: SYSTEM SYSTEM on 04-14-2024 Calcium [Mass/Vol] 9.1 mg/dL 8.9-11.1 [facility] Chem Coding Summary.on 03-17-2024 Coding Summary. BOTUSorb69UJo2tOu+PG h lYWQ+GB3YCCEkI00nwDFh vU3hO4CXYYjWZjriLOTTR PgNHpXjeeRwWY4ydUJjUM Ju IC8+YI2fUGAcSajdhFXgs 6B2lNW3Z43pln9jPBbbgJ Y5MDKeHnZzdfecg6azyUx 6IDcuNmluOyBt SPGxuN83OKO0vL70Jd11h XEmxARra6xcwLl3FvLyNH McMEF6wOgtBVmqi8VqSZM qO86quLBjq1O7 TKZmoKxoyEYqJwVebIL9y Q2yKHehhltsz6tfiejwDv q9fg01vTGfb7C0yYK2H9H gvrY1KYXqfALa DbneySSBvJ5pclpfc1nmk vkiYkDbMZPfSRf9VRv9AC VgjRmwRrIjUP88KNG9UXN zqiSsB1VyRXPt sOwvPtZ3t7Y3Qu4RZ2FRN sdsW8ZTHOTTYWraaZC+PC 48kg42J2EvRdfdNpf6ORS mZRC5yTL6yQ7x EYFmZXmbz2A0vHE1H8Nhv fRcne5ne5wyVEKeOKdbB9 2qzDPbb1I9UNCwzQV2ZGC ykLtgHzLzkQ96 Oyc+YQKxcRpvz3HxVkcsu 3dzv4ovjAp8TbswYIZkjs NigAutMPO6w4DjJa2sISR lbHL3nGX6vX3t JiHjIxU0VXgdW769PyVqv UXtGfvsE53xA5VhnBY+PH UtTks5NLKoaNkrFC8pQ2S hZGRpbmctbGVm dOvhNN5iTCBpwoikALFwe S6lKGPnW5w9TvYgRjM5NY msW9MrZEFpexqxWh32yN0 nYuIyXjC4SCvm W6GygnZ8EZCtdEAzSVfyZ CF4R09mv1Z7EYRwCKHqTK X9yJN6yD8fgXaooxtcpLD mdDsgdmVydGlj XDghPKiyP793WOPiwKzjY kNvZGluZyBEYXRlOiAgMD YvMjQvMjAyNDwvdGQ+PHR dGIN4cJuqMUBg aHTdSAquAa6ikOsxaPugY V2lRIHoymqeKIGcaV9cBH QirQMbvBxkFS3cIEKsrqs mo929WiJhUUO4 SDMqhXPtA6MvdB8vIaHsK XJsCJPvH4UkvKRsNHpcO0 03HVawHtG1ZVPgerMgI6D sLWFsaWduOiB0 z6Y8Gh0Gq6SydebkN0Jmd KQgWvDwFfmpHAl6L5BcIe wvdHI+GZ36EDRmZD08QQa 4SBM0rNxzUPew AAXqK3PqlF9bMtYhEWTuK GRkOyc+PHRhYmxlIHdpZH RoPScxMDAlJyBzdHlsZT0 eMx3jSZYcMFLs kFmcdWRrErQxo7rbKREfY JoqSC3roAgqL0LcyRU0NE Yvq3d4Is52P72iY4CtrYP +AJExsDB4cIX9 tV9oVqJpEiB8VWtrX889M mKexEWjUbsno2hni2krnU v4UgY0BINpgkKzzQliBCD 7f6UqPo79C32l IHdpZHRoPSIxNSUiIHZhb Rqdqz5ksT2gSl7+PGNvbC J6cPL8xG6wOwZaFxR2BCp pT559LvMcoVQx Pnvkd8kzj6deaLt1CxDeD BAetkPuqVqeMRY4x8JdNc 39T7YjvRaqh2JrMdy7dm1 9iEAot4E9wTF1 I8MbCBVokysgxTJraWseT O5gBLVltkjaPVAteG5hGQ MfA9u4FzFeIiZ3MFseK3I iwsF1IQBsuYOo ZNHfhEYWyC1hzucxo6hyk lylJtSeJXYlKPl1SWe4HG ShpNkkPiOzLYF1DdS0NUK 6kSChhW2wgEmc pnkauE2dJzc+ETQ8bZGaa UYJTX5nLxnhoVS+PHRkIH H3hPuuMQnzYOFxjQ4bTUJ kG7j1CfHoGnK7 RKnpA2LoqgK8VFJsmQDiN JNbxUTEgB3xvkftr5qkhc fpDkNrAYBfPTv6PVg4VFL saWduOiBsZWZ0 VrA4UXI6vOOfzM0frRezq apvuT2mBuh+QmlydGggRG G5BTo7G0WtGhk9LKIwlMg pRX2pxXOgFYah Fq3enPzmlFubBH4lEQJxi fsev248OqCxy3tuDUUiqL PkRXnvENP1A32qn6C7FJY xNDRaHPS6xZC5 qP8cuSuvljutsAVgnYzha gTvmSswSJhbWMsrF689UF HqrEvuJvCgOFo6O6MjKun 7FSOmpKmoTZ9c aGGzHFvwCi0isNesmLkeZ K8iKVGojxgyd645JmUdd2 bePOTnwBLpVWvoBSC9Z91 bu6L1TYTdZLQb DWM6oRA7uB7dwWewpltec GVmdDsgdmVydGljYWwtYW jsF863GHZhsEthAdAhmFj 2P3UqEqy6EZLp eBnaOV7leHNoOUpdTe7ur HyfsCxqOH2fIGNzdkpdv9 43CoYug5msXKVatNMvYCx jYZD7N81xt4I6 RSVfOKGaGTG5fUW9jN3ip GlnbjogbGVmdDsgdmVydG ifZGftFHdmS746CVAzzXg nPlBhdGllbnQg EQzrXSb8V8KnCwchjUU+P O01YIVsFS70eRKkfJTfq0 tstQb5ApBlTFEoUSU6bIn qEPmbq1PbEUHd E45yxXNyg9J9ZZCaoZawx GQmZjGudTX0oU4sDUknfl ply4usjxgyTsyfu0rsnk7 4hL19A44zFYed ZHRoPSIzMCUiIHZhbGlnb m6ccG3eJl7+QMKcrSS3tX U8nQ3wLDOjGiD4AJnoC65 9InRvcCIvPjxj x0thz8gpaUn0FxC9VIHmd eJsjAqyZYC2h7DyTt02B9 9sIHdpZHRoPSIyMCUiIHZ edIelck1qpR2u Ii8+YOLdjGR9vHK8zJ1wR bOmQrZ7ASreW155KpPjgF OzBkegE74oU0JheXA+PHR vBlg7JDCuqOhh OL0upSUsOVbiOn4xBXV3J xCqTpMjHWhzG2EsMVUmgs pfazcpeVI9LRZsVQKilJ8 2Zn7jaDuoKGJf wQYKvI3bjyseu7pjdhvnZ pXfMSYoTJj6SXh6SDSjpG cfVaTwSXL0EtT3IFK4gSH ufM3mwOmaooeq iV9lC5NuRBOoccdhXm97g T3oCiLkWfC4KLzlHwz+U0 DCTqBuRl1qOVYELlSLIJJ 8J2DzQwy9AXHg tMjjSH2ioBLdDPytUo7de VyqzBdwOQ4mRBMjlwseCH YmiS4sYLWogHVteOilAH6 lCQEoibcef621 GyCeYKD8OXPezDCtD4Fnw H5iMeXsXQXrBDLgA6MsoW UjYAbtM963UDjrVoB1OKI acaLrX1FmQFAb tFfsJbG9r2T8Qd5kME7lN w7nJRQ0DK00BI80yCCpd2 W6kHP5I6RcQEHvyqifqgm vmEN6EZWrFFHy lT34wESoOEkeOh0kq3V0b 530YCXjYWUmgX50Dm3ryD xrNGCkqTQJeM3kpufff1v vcjogIzAwMDAw XDs4DKk2RJLdeOetUbGyX BJ6IxF9ZUH9mPYuvI8uyN nvbljtpB6hOnt+NTUgWWV kbvZ9I0CgCwe1 ZOBdsKsfXN9mwTChBSlnD p8jvNythFygQU0mSAXtej svTJOlsT9uYOXgxBJuiIr zRI0kGZFthaix v637AdDgTFE1BZQjrUVnN 5JfiG5dGxYnBPMpWVUiK5 PriOQaHOgdO732FHpcBtT 1KMBwpjIvQ2Bz UEKrhCkyDiE3d0H9Wr3JM K5gxHR0B8RuJac4LIAxjU upZU1bbBGfQPigBb2anCf upNyvTV6tDUIn iobbUPVuuH3nPCYgqGPpq VvqLR0oIDGrmltsq099Om LfPCT6SQHjzAFfK9ZyeU2 yOiAjMDAwMDAw X6QqwRSmZVicS274YNupJ hR9NZMprnXoN1PcCLWgoD zmXpL6t8Q0Gl8FCWM1ppJ cxmu8Y3AwQsgb dHI+VH84XVOsTS18fYDui YLss9rouLk5HxYeLCYjTK D5jIqhJBphl2EnVTVtA10 uyNNdh3D5YVYt tYqrjXPsLxTspCV4aX5gP Wpdtqehs3shafnzSirxd6 icpq86aY62T66uQVhsGSI oPSIzMCUiIHZh zFrxtt3hjS9vYn5+PGNvb DV8dSO2sU6nZhAbXfI4LA iwS877KvDfuRFlBnucr0c gg1xqpAt6TqUf SQLoijZqbKzyIID1p9ZwD b38O23rTRqcUXBjFJQxXO NcOOIgjVbpcr4eiP4aFz9 +NW4oq9wcgv38 hK51mWC+NIUrXTF8vZxaD HyiCTTnbO1oHCklPaM0AA KaGvWjgF39dTAxMObpVz5 apPydgKzdAB3o HAHgzdljf731NbDem8ieA WLpfATqYPlnFDD0C66kp9 I8FIDbPRXcSYY3dLE3zH9 hbGlnbjogbGVm dDsgdmVydGljYWwtYWxpZ 441EFQglLffBmDfdHQtB8 xozxDDAH3sQoskaRV+PHR qVPM9hQdiLVlk AOVciU3iFVGzL6w4CgXhI wP6GQujW2NyboY4BHArkB EaGBXvoNHDdX8zytrpl9p vcjogIzAwMDAw KSw1EAy9ZGZvrPkgLxXfM UM7IoX8LEF2aDEyhY7sfF dacqlxfT2uGnx+RklOOjw vdGQ+PHRkIHN0 jQpyGHpjLQXgtG8iQNYbL 2p2ScHiJjW6VVujA2Jeza D9CPByuVIzGLBlxFIKsG6 kpszjs1pfvpvt RjTtGZKgBTx3QTd8QIAmy HweMwPoBUY0JnF5ERV2sS QhxK2wbBxhmdwmsT2eMmi +TVJOOjwvdGQ+ LDZpVPI7wPgiTLslNRJfy R9vIHYpE2e8UbZvHfG6QN djG4AqxpG5LGOnsBJgDMH nbKFIjK4xlyxb d3wdkrsxQzOeHLAoQFr5C Ls2KZWnjVtpJlNnPLQ5Lf D9CCA5nCYypV1edHjmivo mwB9zVhp+UGF5 OWA4TM05TM45M0AzJojve GFibGU+PHRhYmxlIHdpZH RoPScxMDAlJyBzdHlsZT0 oZx4bBYLwLGOh bGxhcHNlOiBjb (more content not included)... Normal [facility] Physician Orderon 03-17-2024 Physician Order [id number]# 1.00TIFF Normal [facility] CHEMISTRYOrdered By: SYSTEM SYSTEM on 03-14-2024 Calcium [Mass/Vol] 9.4 mg/dL Normal 8.9 - 11. 1 mg/dL Remisol Chem Calciumon 03-14-2024 Calcium [Mass/Vol] 9.4 mg/dL Normal 8.9-11.1 [facility] Comment on above: Performed By: #### 2 [id number] #### [facility] [address] [place] [address] Consent for Treatmenton 02-23 Consent for Treatment [id number]#1 .00TIFF Normal [facility] Physician Orderon 02-19-2024 Physician Order [id number]# 1.00TIFF Normal [facility] Physician Orderon 02-14-2024 Physician Order [id number]# 1.00TIFF Normal [facility] Physician Order [id number]# 1.00TIFF Normal [facility] Calciumon 02-13-2024 Calcium [Mass/Vol] 8.8 mg/dL Low 8.9-11.1 [facility] Comment on above: Performed By: #### 2 [id number] #### [facility] [address] [place] [address] Consent for Treatmenton 01-23 Consent for Treatment [id number]#1 .00TIFF Normal [facility] - Chemistry and C hemistry - challengeOrdered By: SYSTEM SYSTEM on 02-13-2024 Calcium [Mass/Vol] 8.8 mg/dL 8.9-11.1 Remiso l Chem CNOVon 02-05-2024 CNOV Office Visit (PODIWS ) OLEG PECK ([id number]) 1970 F Date Time Provider Department 02/05/24 9:45 AM OSCAR VENEGAS During your visit today, we recorded the following information about you: Esmer Bravo LPN 02/05/2024 12:30 PM Signed AMB ROOMING INTAKE FLOWSHEET DATA Pain Pain Level: 2 Pain Location: Foot-Right Description: Dull, Aching Duration Amount of Time: 3 Duration Units: Weeks Frequency: Intermittent Intervention/Comfort measure: Reposition, Relaxation Patient presents with: Right Foot - Established Patient, Follow Up, Pain Esmer BravoDALI Oscar Venegas 02/05/2024 12:30 PM Signed FOLLOW UP PODIATRIC OFFICE VISIT Chief Complaint: This 53 year old who presents for right foot pain Patient presents to clinic for evaluation of right foot Has been doing therapy for osteoporosis. Was doing a baps board and noticed after doing the exercises, started having pain in the right great toe, medial eminence. Patient states she has slowed down the therapy and the pain has gotten better She made this appointment becasuse she has history of rsd and wanted to have her foot evaluated. Complains of dull ache, 1- PAIN EVALUATION 02/05/2024 0938 Pain Level: 2 Pain Location: Foot-Right Description: Dull;Aching Duration Amount of Time: 3 Duration Units: Weeks Frequency: Intermittent Intervention/Comfort measure: Reposition;Relaxation No results found for: HBA1C PCP: Pranav King PAST MEDICAL HISTORY Diagnosis Date Complex regional pain syndrome History of DVT in adulthood +Xarelto Current Outpatient Medications Medication Sig romosozumab-aqqg 105 mg/1.17 mL subcutaneous syringe every 3 months. terbinafine HCl (LAMISIL) 250 mg tablet Take 1 tablet by mouth once daily. (Patient not taking: Reported on 07/05/2023) cephALEXin (KEFLEX) 500 mg capsule Take 1 capsule by mouth three times daily. (Patient not taking: Reported on 04/30/2023) rivaroxaban (XARELTO) 20 mg tablet Take 20 mg by mouth daily with dinner. (Patient not taking: Reported on 07/05/2023) cephALEXin (KEFLEX) 500 mg capsule Take 1 capsule by mouth every 8 hours. (Patient not taking: Reported on 04/05/2023) estradiol (ESTRACE) 0.01 % (0.1 mg/gram) vaginal cream Use 1 g vaginally two times a week. (Patient not taking: Reported on 04/05/2023) No current facility-administered medications for this visit. ALLERGIES Allergen Reactions Codeine Intolerance migraines Sulfa (Sulfonamide * Rash Rash and then muscle tightening PAST SURGICAL HISTORY Procedure Laterality Date ARTHRS KNEE W/MENISCECTOMY MEDANDLAT W/SHAVING Left Clean out CYSTO.PANENDO 11/02/2022 FOOT SURGERY HX Left 03/23/2022 5th Metatarsal Physical Exam: OBJECTIVE: Constitutional: Pt is a well developed 53 year old female who is alert, oriented, cooperative and in no apparent distress. Eyes: Following during examination. No redness or drainage. Respiratory: RR normal and nonlabored. Even breathing. No evidence of distress. Psychology: Patient is engaged during conversation. Normal affect and mood. Does not appear depressed or anxious. NVSI unchanged from previous visit. Dermatological: Nails 1-5 b/l are normal. Webspaces clean and dry 1-4 b/l. Skin appears well hydrated and supple. good color, texture, turgor. No open lesions present. No callosities present. Musculoskeletal/Ortho paedic: Patient has no pain to palpation of b/l feet Small dorsal exostosis noted to the dorsal aspect of right 1st metatarsal Xrays of b/l feet reviewed. There has been distal metatarsal osteotomy of b/l 1st metatarsal with one screw fixation. Healed fifth metatarsal fracture, left foot. There is dorsal spurring of right 1st metatarsal ASSESSMENT: (M20.21) Hallux rigidus of right foot (primary encounter diagnosis) PLAN: Discussed pain in right foot. She does have small dorsal spurring of right 1st metatarsal Would continue with wider shoes and/or gel padding to avoid rubbing on dorsal spur Could consider cheilectomy but with her history of rsd, if the pain is tolerable, would continue with conservative care Can follow-up carin Venegas DPM Allergies As of Date: 02/05/2024 Noted Allergy Reaction CODEINE 10/26/2022 5 - Intolerance Comments: migraines SULFA (SULFONAMIDE ANTIBIOTICS) 10/26/2022 2 - Rash Comments: Rash and then muscle tightening Date Reviewed: 02/05/2024 Reviewed by: Esmer Bravo LPN - Fully Assessed Reason for Visit: Established Patient [175] Follow Up [171] Pain [78] Primary Visit Diagnosis:Hallux rigidus of right foot [M20.21] Prescriptions as of 02/05/2024 - romosozumab-aqqg 105 mg/1.17 mL subcutaneous syringe every 3 months. - terbinafine HCl (LAMISIL) 250 mg tablet Take 1 tablet by mouth once daily. - cephALEXin (KEFLEX) 500 mg capsule Take 1 capsule by mouth three t (more content not included)... Normal [facility] XR FOOT 3V AP/LAT/OBL RTon 0 02-05-2024 XR FOOT 3V AP/LAT/OBL RT * * *Final Report* * * DATE OF EXAM: Feb 05 2024 9:34AM [id number] [id number] - XR FOOT 3V AP/LAT/OBL RT / PROCEDURE REASON: Pain in right foot * * * * Physician Interpretation * * * * PROCEDURE: Right foot INDICATION: Pain in right foot .PT STATES RIGHT FOOT PAIN NEAR MTP, BUNION SURGERY 12 YEARS AGO TECHNIQUE: XR FOOT 3V AP/LAT/OBL RT COMPARISON: 04/05/2023 AP view only FINDINGS: Prior bunionectomy surgery, unchanged. No fracture or dislocation. No erosion or focal soft tissue swelling. IMPRESSION: No acute abnormality Master Barber: ANÍBAL Transcribe Date/Time: Feb 09 2024 7:15A Dictated by : ADAN GARRIDO MD This examination was interpreted and the report reviewed and electronically signed by: ADAN GARRIDO MD on Feb 09 2024 7:16AM EST [id number] Normal [facility]G [facility] ([id number]) 1970 F Date Time Provider Department 01/21/24 OSCAR VENEGAS During your visit today, we recorded the following information about you: Stephanie Song 01/21/2024 2:22 PM Signed Patient called wanting to see if Dr. Venegas would prefer to have an x-ray performed while she is up at [facility]. Please refer to 01/20/24 [employer] message. Lorena Pereira RN 02/06/2024 3:[address] Venegas responded to [employer] message. Allergies As of Date: 01/21/2024 Noted Allergy Reaction CODEINE 10/26/2022 5 - Intolerance Comments: migraines SULFA (SULFONAMIDE ANTIBIOTICS) 10/26/2022 2 - Rash Comments: Rash and then muscle tightening Date Reviewed: 07/05/2023 Reviewed by: Jie Pastrana LPN - Fully Assessed Reason for Visit: Patient Question [1477] Prescriptions as of 02/06/2024 - romosozumab-aqqg 105 mg/1.17 mL subcutaneous syringe every 3 months. - terbinafine HCl (LAMISIL) 250 mg tablet Take 1 tablet by mouth once daily. - cephALEXin (KEFLEX) 500 mg capsule Take 1 capsule by mouth three times daily. - rivaroxaban (XARELTO) 20 mg tablet Take 20 mg by mouth daily with dinner. - cephALEXin (KEFLEX) 500 mg capsule Take 1 capsule by mouth every 8 hours. - estradiol (ESTRACE) 0.01 % (0.1 mg/gram) vaginal cream Use 1 g vaginally two times a week. Problem List As Of Date: 01/21/2024 (None) Encounter Status:Closed by LORENA PEREIRA on 02/06/[address] [facility] Physician Orderon 01-15-2024 Physician Order [id number]# 1.00TIFF Normal [facility] Consent for Treatmenton 12-24 Consent for Treatment [id number]#1 .00TIFF Normal [facility] Calciumon 01-11-2024 Calcium [Mass/Vol] 9.2 mg/dL Normal 8.9-11.1 [facility] Comment on above: Performed By: #### 2 [id number] ####[facility] [address] [place] [address] Consent for Treatmenton 12-23 Consent for Treatment [id number]#1 .00TIFF Normal [facility] Laboratory - Chemistry and C hemistry - challengeOrdered By: SYSTEM SYSTEM on 01-11-2024 Calcium [Mass/Vol] 9.2 mg/dL 8.9-11.1 Remiso l Chem Physician Orderon 01-11-2024 Physician Order [id number]# 1.00TIFF Normal [facility] Physician Orderon 12-13-2023 Physician Order [id number]# 1.00TIFF Normal [facility] Physician Orderon 12-12-2023 Physician Order [id number]#1 .00TIFF Normal [facility] Calciumon 12-11-2023 Calcium [Mass/Vol] 9.3 mg/dL Normal 8.9-11.1 [facility] Comment on above: Performed By: #### 2 [id number] ####[facility] [address] [place] [address] Consent for Treatmenton 11-22 Consent for Treatment [id number]#1 .00TIFF Normal [facility] Laboratory - Chemistry and C hemistry - challengeOrdered By: SYSTEM SYSTEM on 12-11-2023 Calcium [Mass/Vol] 9.3 mg/dL 8.9-11.1 Remiso l Chem Physician Orderon 11-13-2023 Physician Order [id number]#1. 00TIFF Normal [facility] Consent for Treatmenton 10-25 Consent for Treatment [id number]#1 .00TIFF Normal [facility] Calciumon 11-09-2023 Calcium [Mass/Vol] 9.4 mg/dL Normal 8.9-11.1 [facility] Comment on above: Performed By: #### 2 [id number] ####[facility] [address] [place] [address] Consent for Treatmenton 10-25 Consent for Treatment [id number]#1 .00TIFF Normal [facility] Laboratory - Chemistry and C hemistry - challengeOrdered By: SYSTEM SYSTEM on 11-09-2023 Calcium [Mass/Vol] 9.4 mg/dL 8.9-11.1 Remiso l Chem Physician Orderon 10-12-2023 Physician Order [id number]# 1.00TIFF Normal [facility] Consent for Treatmenton 09-24 Consent for Treatment [id number]#1 .00TIFF Normal [facility] CHEMISTRYOrdered By: SYSTEM SYSTEM on 10-09-2023 Calcium [Mass/Vol] 9.0 mg/dL Normal 8.9 - 11. 1 mg/dL Remisol Chem Calciumon 10-09-2023 Calcium [Mass/Vol] 9.0 mg/dL Normal 8.9-11.1 [facility] Comment on above: Performed By: #### 2 [id number] ####[facility] [address] [place] [address] Physician Orderon 09-11-2023 Physician Order [id number]#1 .00TIFF Normal [facility] CHEMISTRYOrdered By: SYSTEM SYSTEM on 09-07-2023 Calcium [Mass/Vol] 9.2 mg/dL Normal 8.9 - 11. 1 mg/dL Remisol Chem Calciumon 09-07-2023 Calcium [Mass/Vol] 9.2 mg/dL Normal 8.9-11.1 [facility] Comment on above: Performed By: #### 2 [id number] ####[facility] [address] [place] [address] Consent for Treatmenton 08-24 Consent for Treatment [id number]#1 .00TIFF Normal [facility] Physician Orderon 09-07-2023 Physician Order [id number]# 1.00TIFF [facility] Physician Orderon 08-09-2023 Physician Order [id number]# 1.00TIFF [facility] CHEMISTRYOrdered By: SYSTEM SYSTEM on 08-08-2023 Calcium [Mass/Vol] 9.0 mg/dL Normal 8.9 - 11. 1 mg/dL [facility] Remisol Calciumon 08-08-2023 Calcium [Mass/Vol] 9.0 mg/dL Normal 8.9-11.1 [facility] Comment on above: Performed By: #### 2 [id number] ####[facility] [address] [place] [address] Consent for Treatmenton 07-25 Consent for Treatment [id number]#1 .00TIFF [facility] Insurance Correspondenceon 10-01-2022 Insurance Correspondence [id number]# 1.00TIFF [facility] Physician Orderon 08-01-2023 Physician Order [id number]# 1.00TIFF [facility] Consent for Treatmenton Consent for Treatment [id number]#1 .00TIFF [facility] MA Mamm Screen w/CAD if perf and 3D Bilon 07-27-2023 MA Mamm Screen w/CAD if perf and 3D Perry Exam Date/Time: 07/27/2023 07:52 EDT Reason for Exam: Z09.23 Report IMPRESSION: BIRADS 1 NEGATIVE, NORMAL INTERVAL FOLLOW-UP. EXAMINATION: MA Mamm Screen w/CAD if perf and 3D Perry CLINICAL HISTORY: Z09.23 COMPARISON: Priors dating back to 2013. RESULT: Digital mammography and 3D tomosynthesis of bilateral breasts was performed. Heterogenously dense, which may obscure small masses. There is no suspicious mass, asymmetry, architectural distortion, or calcification. Vascular calcifications: Absent. CAD analysis was performed and used in the interpretation. Dense Breast: Yes Follow-up: 12 MONTH RECALL. Board Certified Radiologists. Accredited by the ACR and FDA. MAMMOGRAPHY IS VERY IMPORTANT TO YOUR HEALTH. THE [place] GUIDELINES RECOMMEND THAT WOMEN 40 YEARS OF AGE AND OLDER SHOULD HAVE A MAMMOGRAM EVERY YEAR. A REMINDER LETTER WILL BE SENT AT THE APPROPRIATE TIME. THIS FACILITY UTILIZES A REMINDER SYSTEM TO ENSURE ALL PATIENTS RECEIVE REMINDER NOTIFICATIONS AT THE APPROPRIATE TIME BASED ON THE RECOMMENDATIONS OF THIS EXAM. THIS INCLUDES REMINDERS FOR ROUTINE SCREENING MAMMOGRAMS, DIAGNOSTIC MAMMOGRAMS IN WHICH THE PATIENT IS ASKED TO RETURN FOR ADDITIONAL VIEWS, OR OTHER BREAST IMAGING INTERVENTIONS WHEN APPROPRIATE. THE PATIENT WILL BE PLACED IN THE APPROPRIATE REMINDER SYSTEM INCLUDING A REMINDER AT THE APPROPRIATE TIME FOR ANY PENDING ADDITIONAL VIEWS. Report Ordering Provider: REFERRAL, SELF FINAL REPORT Dictated: 07/27/2023 3:19 pm Zuhair Wayne MD Signed (Electronic Signature): 07/27/2023 3:19 pm Signed by: Zuhair Wayne MD Transcribed by: KATIE Technologist: [facility] Assessment: BI-RADS Category 1-Negative Recommendation: Normal interval follow-up Normal [facility] CNOVon 07-05-2023 CNOV Office Visit (SPAGWO ) OLEG PECK ([id number]) 1970 F Date Time Provider Department 07/05/23 9:00 AM CRISTIAN CASTRO During your visit today, we recorded the following information about you: Pulse Respiration 83/minute 18/minute Cristian Castro MD 07/05/2023 10:00 AM Signed [facility] General Today's Date: 07/05/2023 Last Visit: N/A Name: Oleg Liv : 1970 Purpose: New Patient Consultation Chief complaint: left foot pain Referring Clinician: Oscar Venegas Pertinent Past Medical History: H/O DVT in adulthood, Complex regional pain syndrome, Pertinent Past Surgeries: left 5th Metatarsal repair (03/23/2022) History of Present Illness (HPI): 07/04/2023 - Initial HPI (Cristian Castro MD ) DURATION AND ONSET: The pain complaint has been present for approximately 15 months. The pain had a sudden onset. The mechanism of injury is known and is as follows: she fell and fractured her left 5th metatarsal, had surgery 2 weeks later (03/23/2022), complicated recovery by DVT. Also had meniscal tear left knee, repaired on 09/15/2022). She reports that, shortly after the surgery, she began noticing some tremors at night in the left foot, numbness was also noted during the daytime. She saw Neurology virtually, was advised alpha-lipoic acid. EMG was advised, cost considerations were a factor in not obtaining. She was diagnosed with possible CRPS by a pain management doctor, had sympathetic block a few weeks prior to the knee surgery, reports this did not help. Reports was advised an antidepressant, which she declined talking. Overall, she has reported gradual improvement in her condition, but she was not entirely satisfied with her experience and is looking for another pain physician to be on her team as needed. Reports that she had DEXA scan, diagnosed with Osteoporosis, starting infusions soon. PRIOR TREATMENTS: Medications, Injections: (Sympathetic Nerve Block, left lumbar, 08/2022), Surgery (See Past Surgeries), Physical Therapy PAIN DESCRIPTION: Currently, she is having no pain. She has intermittent numbness, primarily in the dorsal and lateral foot. There is no radiation. The numbness is worse when sitting, better when on her feet. RED FLAG SYMPTOMS: denies red flags. Current Pain Medications: Neuropathics: NSAIDS: Opioids (when applicable): Date last refilled: Quantity supplied: Quantity remaining: Last taken: Muscle Relaxants: Topicals: Other Prescription or OTC Pain Medications: Anti-depressants or Mood-Stabilizers: None Anti-Coagulants: None Current Therapies Attended: PT virtually Treatment History: PAIN PROCEDURES: DATE PROCEDURE IMPROVEMENT 08/2022 Lumbar Sympathetic, Left No relief MEDICATIONS Taken TO DATE (for the chief complaint(s)): Neuropathics: none NSAIDS: None Opioids: None Muscle Relaxants: none Topicals: None Other Prescription or OTC Pain Medications: None Past Therapies Attended: Physical Therapy: Around 40 visits have been attended. Treatment dates: Between 05/2022 and 11/2022. Improvement in pain and function: yes. 40 Visits of Acupuncture (2022) - out of pocket, minimal relief (in [place], private practice) Data Reviewed Today: Allergies: ALLERGIES Allergen Reactions Codeine Intolerance migraines Sulfa (Sulfonamide * Rash Rash and then muscle tightening INTAKE PAIN ASSESSMENT 07/03/2023 07/05/2023 Are you having pain associated with your visit today? No Yes, Provider notified Pain Scales - Verbal (Numeric Rating or Visual Analog Scale) Pain Level - - Pain Location - Foot-Left Description - Numbness;Aching Duration Amount of Time - - Duration Units - Years Frequency - Continuous Intervention/Comfort measure - (No Data) Compliance: PDMP website checked and validated on 07/05/2023 by Cristian Castro MD All prescriptions have been APPROPRIATELY filled. No suspicious activity was identified. [facility] 5/325, #30 (08/2022) Recent Drug screens: AG SPINE COMBINATION 07/05/2023 Questionnaire GREENLIGHT Completed Date 07/05/2023 Questionnaire Opiod Risk Tool Completed Date 07/05/2023 Greenlight Questionnaire GREENLIGHT Completed Date 07/05/2023 Opioid Risk Tool Opiod Risk Tool Date Completed 07/05/2023 MADAY-7 Anxiety Score 0 Completed Date 07/05/2023 PHQ9P Score 0 Completed Date 07/05/2023 (All drug screens are appropriate unless indicated otherwise) Risk Assessment: MADAY-7: MADAY - 7 SCORES 06/26/2022 07/05/2023 MADAY-7 Score 3 0 (0-4) minimal anxiety, (5-9) mild anxiety, (10-14) moderate anxiety, (15-21) severe anxiety PHQ-9: (more content not included)... Normal [facility] Alanine aminotransferase [En zymatic activity/volume] in Serum or PlasmaOrdered By: Юлия Christy on 06-28-2023 ALT [Catalytic activity/Vol] 13 U/L 7-52 [facility] Albumin [Mass/volume] in Ser um or Plasma by Bromocresol green (BCG) dye binding methoOrdered By: Юлия Christy on 06-28-2023 Albumin BCG dye [Mass/Vol] 4.4 g/dL 3.5-5.7 [facility] Alkaline phosphatase [Enzyma tic activity/volume] in Serum or PlasmaOrdered By: Юлия Christy on 06-28-2023 ALP [Catalytic activity/Vol] 48 U/L 34-104 [facility] Aspartate aminotransferase [ Enzymatic activity/volume] in Serum or PlasmaOrdered By: Юлия Christy on 06-28-2023 AST [Catalytic activity/Vol] 14 U/L 13-39 [facility] Basophils Auto (Bld) [#/Vol] Ordered By: Юлия Christy on 06-28-2023 Basophils (Bld) [#/Vol] 0.0 10*3/uL 0.0-0.2 [facility] Basophils/100 WBC Auto (Bld) Ordered By: Юлия Christy on 06-28-2023 Basophils/100 WBC (Bld) 0.6 % . [facility] Bilirubin.total [Mass/volume ] in Serum or PlasmaOrdered By: Юлия Christy on 06-28-2023 Bilirubin [Mass/Vol] 0.5 mg/dL 0.3-1.0 [facility] Calcium [Mass/volume] in Ser um or PlasmaOrdered By: Юлия Christy on 06-28-2023 Calcium [Mass/Vol] 9.3 mg/dL 8.6-10.3 [facility] Carbon dioxide, total [Moles /volume] in Serum or PlasmaOrdered By: Юлия Christy on 06-28-2023 CO2 [Moles/Vol] 29.9 mmol/L 21.0-31.0 [facility] Chloride [Moles/volume] in S chino or PlasmaOrdered By: Юлия Christy on 06-28-2023 Chloride [Moles/Vol] 103 mmol/L 98-107 [facility] Creatinine [Mass/volume] in Serum or PlasmaOrdered By: Юлия Christy on 06-28-2023 Creatinine [Mass/Vol] 0.67 mg/dL 0.60-1.20 [facility] Eosinophils Auto (Bld) [#/Vo l]Ordered By: Юлия Christy on 06-28-2023 Eosinophils (Bld) [#/Vol] 0.1 10*3/uL 0.0-0.45 [facility] Eosinophils/100 WBC Auto (Bl d)Ordered By: Юлия Christy on 06-28-2023 Eosinophils/100 WBC (Bld) 1.0 % . [facility] Erythrocyte distribution wid th Auto (RBC) [Ratio]Ordered By: Юлия Christy on 06-28-2023 Erythrocyte distribution width (RBC) [Ratio] 12.8 % 11.9-15.3 [facility] Globulin Calc (S) [Mass/Vol] Ordered By: Юлия Christy on 06-28-2023 Globulin (S) [Mass/Vol] 2.1 g/dL [facility] Glucose [Mass/volume] in Ser um or PlasmaOrdered By: Юлия Christy on 06-28-2023 Glucose [Mass/Vol] 91 mg/dL 70-100 [facility] Comment on above: ADA recommended refe rence rangeRandom Glucose Reference Range is dependent on time and content of last meal. Glucose of more than 200 mg/dL in a nonstressed, ambulatory subject supports the diagnosis of Diabetes Mellitus. Hematocrit Auto (Bld) [Volum e fraction]Ordered By: Юлия Christy on 06-28-2023 Hematocrit (Bld) [Volume fraction] 42.7 % 34.0-46.4 [facility] Hemoglobin [Mass/volume] in BloodOrdered By: Юлия Christy on 06-28-2023 Hemoglobin (Bld) [Mass/Vol] 14.4 g/dL 11.8-15.4 [facility] Leukocytes [#/volume] correc jacob for nucleated erythrocytes in Blood by Automated counOrdered By: Юлия Christy on 06-28-2023 WBC corrected for nucl RBC Auto (Bld) [#/Vol] 7.6 10*3/uL 3.8-11.6 [facility] Lymphocytes Auto (Bld) [#/Vo l]Ordered By: Юлия Christy on 06-28-2023 Lymphocytes (Bld) [#/Vol] 1.7 10*3/uL 1.00-4.8 [facility] Lymphocytes/100 WBC Auto (Bl d)Ordered By: Юлия Christy on 06-28-2023 Lymphocytes/100 WBC (Bld) 22.3 % . [facility] MCH Auto (RBC) [Entitic mass ]Ordered By: Юлия Christy on 06-28-2023 MCH (RBC) [Entitic mass] 30.2 pg 24.7-34.3 [facility] MCHC Auto (RBC) [Mass/Vol]Or dered By: Юлия Christy on 06-28-2023 MCHC (RBC) [Mass/Vol] 33.6 g/dL 32.0-35.0 [facility] MCV Auto (RBC) [Entitic vol] Ordered By: Юлия Christy on 06-28-2023 MCV (RBC) [Entitic vol] 89.8 fL 80-100 [facility] Monocytes Auto (Bld) [#/Vol] Ordered By: Юлия Christy on 06-28-2023 Monocytes (Bld) [#/Vol] 0.4 10*3/uL 0.0-0.8 [facility] Monocytes/100 WBC Auto (Bld) Ordered By: Юлия Christy on 06-28-2023 Monocytes/100 WBC (Bld) 5.3 % . [facility] Neutrophils Auto (Bld) [#/Vo l]Ordered By: Юлия Christy on 06-28-2023 Neutrophils (Bld) [#/Vol] 5.4 10*3/uL 1.8-7.7 [facility] Neutrophils/100 WBC Auto (Bl d)Ordered By: Юлия Christy on 06-28-2023 Neutrophils/100 WBC (Bld) 70.8 % . [facility] No Panel InformationOrdered By: Юлия Christy on 06-28-2023 Estimated GFR (CKD-EPI) > 60.0 mL/Min [facility] Creatinine Clearance (Chem N/A [facility] Nucleated erythrocytes [Pres ence] in Blood by Automated countOrdered By: Юлия Christy on 06-28-2023 Nucleated RBC Auto Ql (Bld) 0.0 /100{WBC} 0-0.5 [facility] Parathyrin.intact [Mass/volu me] in Serum or PlasmaOrdered By: Юлия Christy on 06-28-2023 Parathyrin.intact [Mass/Vol] 40.9 pg/mL 12 [facility] Platelet mean volume Auto (B ld) [Entitic vol]Ordered By: Юлия Christy on 06-28-2023 Platelet mean volume (Bld) [Entitic vol] 7.1 fL 6.3-10.7 [facility] Platelets Auto (Bld) [#/Vol] Ordered By: Юлия Christy on 06-28-2023 Platelets (Bld) [#/Vol] 266 10*3/uL 150-450 [facility] Potassium [Moles/volume] in Serum or PlasmaOrdered By: Юлия Christy on 06-28-2023 Potassium [Moles/Vol] 4.2 mmol/L 3.5-5.1 [facility] Protein [Mass/volume] in Ser um or PlasmaOrdered By: Юлия Christy on 06-28-2023 Protein [Mass/Vol] 6.5 g/dL 6.4-8.9 [facility] RBC Auto (Bld) [#/Vol]Ordere d By: Юлия Christy on 06-28-2023 RBC (Bld) [#/Vol] 4.76 10*6/uL 3.60-5.00 [facility] Serum or plasma albumin/glob ulin mass ratioOrdered By: Юлия Christy on 06-28-2023 Albumin/Globulin [Mass ratio] 2.1 {ratio} [facility] Serum or plasma anion gap de terminationOrdered By: Юлия Christy on 06-28-2023 Anion gap [Moles/Vol] 11.3 mmol/L 6.0-15.0 [facility] Sodium [Moles/volume] in Ser um or PlasmaOrdered By: Юлия Christy on 06-28-2023 Sodium [Moles/Vol] 140 mmol/L 136-145 [facility] Thyrotropin [Units/volume] i n Serum or PlasmaOrdered By: Юлия Christy on 06-28-2023 TSH Qn 1.24 m[IU]/L 0.45-5.33 [facility] Urea nitrogen [Mass/volume] in Serum or PlasmaOrdered By: Юлия Christy on 06-28-2023 Urea nitrogen [Mass/Vol] 22 mg/dL 7-25 [facility] Vitamin D+Metabolites [Mass/ volume] in Serum or PlasmaOrdered By: Юлия Christy on 06-28-2023 Vitamin D+Metabolites [Mass/Vol] 41.6 ng/mL 30-100 [facility] Comment on above: VITAMIN D STATUS 25( [place])VITAMIN D RANGE (ng/mL) Deficient <20 Insufficient 20 to <30Sufficient 30 to 100Reference: Miguel CORREA,Malaika GOMEZ, Danielle LITTLE, et al. Evaluation,treatment, and prevention of vitamin D deficiency; an Endocrine Society clinical practice guideline. JCEM. 2010; 96(7):1911-30. WBC Auto (Bld) [#/Vol]Ordere d By: Юлия Christy on 06-28-2023 WBC (Bld) [#/Vol] 7.6 10*3/uL 3.8-11.6 [facility] Hepatic function 2000 panelo n 04-30-2023 Albumin [Mass/Vol] 4.2 g/dL 3.9 - 4.9 g/dL [facility] ALP [Catalytic activity/Vol] 60 U/L 34 - 123 U/L [facility] ALT [Catalytic activity/Vol] 13 U/L 7 - 38 U/L [facility] AST [Catalytic activity/Vol] 16 U/L 13 - 35 U/L [facility] Bilirubin [Mass/Vol] 1.0 mg/dL 0.2 - 1 .3 mg/dL [facility] Bilirubin.conjugated [Mass/Vol] <0.2 mg/dL [facility] Protein [Mass/Vol] 6.8 g/dL 6.3 - 8.0 g/dL [facility] UA DIP, URINE (POC)on 2022 BILIRUBIN UA (POCT) Negative Negative [facility] CLARITY UA (POCT) Clear [facility] COLOR UA (POCT) Yellow [facility] GLUCOSE UA (POCT) Negative Negative mg/dL [facility] HEMOGLOBIN/BLOOD UA (POCT) Small Abnormal Negative [facility] KETONE UA (POCT) Negative Negative mg/dL [facility] LEUKOCYTES UA (POCT) Negative Negative [facility] NITRITE UA (POCT) Negative Negative [facility] PH UA (POCT) 7.5 4.5 - 8.0 [facility] Protein Ql (U) Negative Negative mg/dL [facility] SPECIFIC GRAVITY UA (POCT) 1.015 1.005 - 1.030 [facility] UROBILINOGEN UA (POCT) 0.2 E.U./dL Zuleika l E.U./dL [facility] US KIDNEY/BLADDERon 10-26-19 US KIDNEY/BLADDER * * *Final Report* * * DATE OF EXAM: Oct 26 2022 7:38PM [facility] 105 - KIDNEY/BLADDER / PROCEDURE REASON: Recurrent UTI * * * * Physician Interpretation * * * * EXAMINATION: RENAL ULTRASOUND CLINICAL HISTORY: Recurrent UTI TECHNIQUE: Sonography of the kidneys and urinary bladder was performed. Images were obtained and stored in a permanent archive. MQ: [id number] COMPARISON: None RESULT: Right Kidney: -Renal length: 9.7 cm -Parenchyma: Normal parenchymal echogenicity. Normal parenchymal thickness. -Collecting system: No hydronephrosis. Likely extrarenal pelvis -Calculus: No echogenic, shadowing calculus. -Lesion: None. Left Kidney: -Renal length: 10.2 cm -Parenchyma: Normal parenchymal echogenicity. Normal parenchymal thickness. -Collecting system: No hydronephrosis. -Calculus: No echogenic, shadowing calculus. -Lesion: None. Bladder: Normal sonographic appearance. Bilateral ureteral jets are seen. Prevoid volume urinary bladder is 394 cc. Postvoid volume 22 cc IMPRESSION: Small post void residual. Master Barber: ANÍBAL Transcribe Date/Time: Oct 26 2022 10:19P Dictated by : KELSEY BEAULIEU MD This examination was interpreted and the report reviewed and electronically signed by: KELSEY BEAULIEU MD on Oct 26 2022 10:19PM EST [id number] N Normal [facility] URINALYSISOrdered By: Tenisha conrad on 10-25-2022 Bacteria LM Ql (Urine sed) 3+ /HPF Invalid Interpretation Code Trace/HPF [facility] UA Auto SS Bilirubin Ql (U) Negative (10/25/22 8:37 AM) Normal Negative [facility] UA Auto SS Clarity (U) SL CLOUDY Invalid Interpretation Code [facility] UA Auto SS Color (U) Yellow (10/25/22 8:37 AM) Normal Yellow [facility] UA Auto SS Crystals LM Ql (Urine sed) Present (10/25/22 8:37 AM) Normal [facility] UA Auto SS Epithelial cells.squamous LM.HPF (Urine sed) [#/Area] 0-2 /HPF Normal 0-2/HPF [facility] UA Aut o SS Glucose Test strip (U) [Mass/Vol] Negative (10/25/22 8:37 AM) Normal Negative [facility] UA Auto SS Hemoglobin Ql (U) Trace *ABN* (10/25/22 8:37 AM) Invalid Interpretation Code Negative [facility] UA Auto SS Ketones (U) [Mass/Vol] Negative (10/25/22 8:37 AM) Normal Negative [facility] UA Auto SS [place].plasma/[place]. RBC (Bld) [Mass ratio] 0-3 /HPF Normal 0-3/HPF [facility] UA A uto SS Mucus Ql (Urine sed) Trace (10/25/22 8:37 AM) Normal [facility] UA Auto SS Nitrite Ql (U) Positive *ABN* (10/25/22 8:37 AM) Invalid Interpretation Code Negative [facility] UA Auto SS pH (U) 7.5 *NA* (10/25/22 8:37 AM) Invalid Interpretation Code 5.0 - 9.0 [facility] UA Auto SS Protein (U) [Mass/Vol] Negative (10/25/22 8:37 AM) Normal Negative [facility] UA Auto SS Specific gravity (U) [Rel density] 1.015 *NA* (10/25/22 8:37 AM) Invalid Interpretation Code 1.005 - 1.030 [facility] UA Auto SS UA Spec Desc AM Void (10/25/22 8:37 AM) Normal [facility] UA Auto SS Urobilinogen Qn (U) 0.2879019 {Stacey'U}/dL Normal 0.0 - 1.0 EU/dL [facility] UA Auto SS WBC Auto Ql (U) Trace *ABN* (10/25/22 8:37 AM) Invalid Interpretation Code Negative [facility] UA Auto SS WBC LM.HPF (Urine sed) [#/Area] 6-15 /HPF Invalid Interpretation Code 0-5/HPF [facility] UA Auto SS Automated erythrocytes count in urine sediment (number/area)Ordered By: Pranav Toro on 10-12-2022 RBC Auto (Urine sed) [#/Area] 50-100 [HPF] 0-4 [facility] Automated leukocytes count i n urine sediment (number/area)Ordered By: Pranav Toro on 10-12-2022 WBC Auto (Urine sed) [#/Area] Innumerable [HPF] 0-4 [facility] Automated urine sediment mikey cium oxalate crystal count by microscopy (number/high powOrdered By: Pranav Toro on 10-12-2022 Calcium oxalate crystals LM.HPF (Urine sed) [#/Area] Rare [HPF] [facility] Casts typing in urine sedime nt by light microscopyOrdered By: Pranav Toro on 10-12-2022 Casts LM Nom (Urine sed) None seen [LPF] None Seen [facility] Color Auto (U)Ordered By: Ric Toro on 10-12-2022 Color (U) Alma Yellow [facility] Ketones Auto test strip (U) [Mass/Vol]Ordered By: Pranav Toro on 10-12-2022 Ketones (U) [Mass/Vol] 1+ Negative [facility] - UrinalysisOrder ed By: Pranav Toro on 10-12-2022 Hyaline casts LM Ql (Urine sed) None seen [LPF] 0-8 [facility] Protein Auto test strip (U) [Mass/Vol]Ordered By: Pranav Toro on 10-12-2022 Protein (U) [Mass/Vol] 300 mg/dL Negative [facility] Specific gravity Auto test s trip (U) [Rel density]Ordered By: Pranav Toro on 10-12-2022 Specific gravity (U) [Rel density] 1.022 1.001-1.030 [facility] Squamous epithelial cells de tection in urine sediment by light microscopyOrdered By: Pranav Toro on 10-12-2022 Epithelial cells.squamous LM Ql (Urine sed) 0-1 [HPF] 0-2 [facility] Urinalysis - AUTOMATEDon Appearance (U) cloudy [employer] Other Color (U) [email or web address] Other Glucose Ql (U) Negative [employer] Other Hemoglobin Ql (U) large [employer] Other Ketones Ql (U) 40mg/dL [employer] Other Leukocyte esterase Test strip Ql (U) [employer] Other Protein Ql (U) >=300mg/dL [employer] Other Specific gravity (U) [Rel density] 1.030 [email or web address] Other Urinalysis Gross Exam Positive [employer] Other Urobilinogen (U) [Mass/Vol] 0.2 mg/dL [email or web address] Other Urinalysis - AUTOMATED No rt [employer]ENT[facility] Other Urine Cultureon 10-12-2022 Urine Culture 75,000 [email or web address] Other Urine Culture <16 Susceptible [employer] Other Urine Culture <8/4 Susceptible [employer] Other Urine Culture <8 Susceptible [employer] Other Urine Culture <4 Susceptible [employer] Other Urine Culture <2 Susceptible [employer] Other Urine Culture <1 Susceptible [employer] Other Urine Culture <0.25 Susceptible [employer] Other Urine Culture <0.5 Susceptible [employer] Other Urine Culture <32 Susceptible [employer] Other Urine Culture <0.5/9.5 Susceptible [employer] Other Urine bacteria detection by automated methodOrdered By: Pranav Toro on 10-12-2022 Bacteria Auto Ql (U) 3+ None Seen [facility] Urine clarity by refractomet ry automatedOrdered By: Pranav Toro on 10-12-2022 Clarity Refractometry automated (U) Turbid Clear [facility] Urine glucose measurement by automated test strip (mass/volume)Ordered By: Pranav Toro on 10-12-2022 Glucose Auto test strip (U) [Mass/Vol] Normal mg/dL Normal [facility] Urine hemoglobin detection b y automated test stripOrdered By: Pranav Toro on 10-12-2022 Hemoglobin Auto test strip Ql (U) 3+ Negative [facility] Urine leukocyte esterase det ection by automated test stripOrdered By: Pranav Toro on 10-12-2022 Leukocyte esterase Auto test strip Ql (U) 4+ Negative [facility] Urine nitrite detection by t est stripOrdered By: Pranav Toro on 10-12-2022 Nitrite Ql (U) Positive [facility] Urine pH measurement by auto mated test stripOrdered By: Pranav Toro on 10-12-2022 pH (U) 5.0 [pH] [facility] Urine sediment crystal ident ification by light microscopyOrdered By: Pranav Toro on 10-12-2022 Crystals LM Nom (Urine sed) None seen [HPF] [facility] Urine total bilirubin detect ion by test stripOrdered By: Pranav Toro on 10-12-2022 Bilirubin Ql (U) Negative [facility] Urobilinogen Auto test strip (U) [Mass/Vol]Ordered By: Pranav Toro on 10-12-2022 Urobilinogen (U) [Mass/Vol] Normal mg/dL Normal [facility] CHEMISTRYOrdered By: SYSTEM SYSTEM on 03-14-2022 Anion gap [Moles/Vol] 10 mmol/L Normal 6 - 16 mEq/L [facility] Remisol Calcium [Mass/Vol] 9.4 mg/dL Normal 8.9 - 11. 1 mg/dL [facility] Chloride [Moles/Vol] 104 mmol/L Normal 101 - 1 11 mmol/L [facility] CO2 [Moles/Vol] 28 mmol/L Normal 21 - 31 mmol/L [facility] Creatinine [Mass/Vol] 0.8 mg/dL Normal 0.5 - 1.3 mg/dL [facility] Remisol GFR/1.73 sq M.predicted among blacks MDRD (S/P/Bld) [Vol rate/Area] mL/min/1.73 m2 Normal >=59mL/min/ 1.73 m2 [facility] Chem S GFR/1.73 sq M.predicted among non-blacks MDRD (S/P/Bld) [Vol rate/Area] mL/min/1.73 m2 Normal >=59mL/min/ 1.73 m2 [facility] Chem S Glucose [Mass/Vol] 93 mg/dL Normal 55 - 199 mg/dL [facility] Remisol Potassium [Moles/Vol] 3.5 mmol/L Normal 3.5 - 5.3 mmol/L [facility] Sodium [Moles/Vol] 138 mmol/L Normal 135 - 145 mmol/L [facility] Urea nitrogen [Mass/Vol] 20 mg/dL Normal 5 - 21 mg/dL [facility] Remisol Urea nitrogen/Creatinine [Mass ratio] 25 mg/mg High 10 - 20 [facility] Remisol HEMATOLOGYOrdered By: SYSTEM SYSTEM on 03-14-2022 Basophils/100 WBC (Bld) 0.5 % Normal 0.0 - 2.0 % [facility] HemeAutoSS Basophils/Leukocytes Auto (Bld) [Pure # fraction] 0.0 E9/L Normal 0.0 - 0.2 E9/L [facility] HemeAutoSS Eosinophils/100 WBC (Bld) 1.1 % Normal 0.0 - 8.0 % [facility] HemeAutoSS Eosinophils/Leukocytes Auto (Bld) [Pure # fraction] 0.1 E9/L Normal 0.0 - 0.5 E9/L [facility] HemeAutoSS Lymphocytes/100 WBC (Bld) 24.7 % Normal 14.0 - 50.0 % [facility] HemeAutoSS Lymphocytes/Leukocytes Auto (Bld) [Pure # fraction] 1.8 E9/L Normal 1.0 - 4.0 E9/L [facility] HemeAutoSS Monocytes/100 WBC (Bld) 6.2 % Normal 4.0 - 14.0 % [facility] HemeAutoSS Monocytes/Leukocytes Auto (Bld) [Pure # fraction] 0.5 E9/L Normal 0.2 - 1.0 E9/L [facility] HemeAutoSS Neutrophils/100 WBC (Bld) 67.5 % Normal 36.0 - 75.0 % [facility] HemeAutoSS Neutrophils/Leukocytes Auto (Bld) [Pure # fraction] 4.9 E9/L Normal 2.0 - 7.5 E9/L [facility] HemeAutoSS HEMATOLOGYOrdered By: Katy Connor on 03-14-2022 Erythrocyte distribution width (RBC) [Ratio] 13.3 % Normal 10.9 - 14.2 % [facility] HemeAutoSS Hematocrit (Bld) [Volume fraction] 45.7 % Normal 34.0 - 46.0 % [facility] HemeAutoSS Hemoglobin (Bld) [Mass/Vol] 15.3 g/dL Normal 12.0 - 16.0 gm/dL [facility] HemeAutoSS MCH (RBC) [Entitic mass] 29.9 pg Normal 27.0 - 34.0 pg [facility] HemeAutoSS MCHC (RBC) [Mass/Vol] 33.4 g/dL Normal 31.4 - 36.0 gm/dL [facility] HemeAutoSS MCV (RBC) [Entitic vol] 89.5 fL Normal 80.0 - 100.0 fL [facility] HemeAutoSS Platelet mean volume (Bld) [Entitic vol] 7.3 fL Normal 6.4 - 10.8 fL [facility] HemeAutoSS Platelets (Bld) [#/Vol] 310.0 E9/L Normal 150. 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 MAMMO PERRY SCREEN, 05/03/2016. MAMMO RT DX, 04/28/2015. MG MAMM SCREEN PERRY W CAD, 05/23/2017. INDICATIONS: Screening mammography Calculator Name NCI Breast Cancer Risk Assessment Tool 5 Year Breast Cancer Risk 1.20%Lifetime Breast Cancer Risk 11.10%Personal Breast Cancer NoPersonal Ovarian Cancer NoTreatments NoneFamily Cancers Aunt-paternal with breast cancer at age 50. LOCATION: [facility] BREAST COMPOSITION: Extremely dense, which may lower the sensitivity of mammography (>75% glandular). FINDINGS: DIAGNOSTIC CATEGORY 2--BENIGN FINDING. RIGHT BREAST: No significant suspicious finding. No significant change has occurred. LEFT BREAST: No significant suspicious finding. Scattered benign-appearing calcifications are present. No significant change has occurred. RECOMMENDATIONS: ROUTINE MAMMOGRAM AND CLINICAL EVALUATION. PLEASE NOTE: A NORMAL MAMMOGRAM DOES NOT EXCLUDE THE POSSIBILITY OF BREAST CANCER. A CLINICALLY SUSPICIOUS PALPABLE LUMP SHOULD BE BIOPSIED. Dictated by: Lela Morales MD on 06/12/2018 at 17:27 Approved by: Lela Morales MD on 06/12/2018 at 17:33 Normal [facility] Vital Signs Date Time Vital Sign Value Performing Clinician Facility 10-06-2024 08:33-0500 Body height 170.18 cm [facility] 10-06-2024 08:33-0500 Body mass index (BMI) [Ratio] 22.5 kg/m2 [facility] 10-06-2024 08:33-0500 Body temperature 98.2 [degF] [facility] 10-06-2024 08:33-0500 Body weight 65.31 kg [facility] 10-06-2024 08:33-0500 Diastolic blood pressure 78 mm[Hg] [facility] 10-06-2024 08:33-0500 Heart rate 76 /min [facility] 10-06-2024 08:33-0500 Respiratory rate 20 /min [facility] 10-06-2024 08:33-0500 SaO2% (BldA) [Mass fraction] 98 % [facility] 10-06-2024 08:33-0500 Systolic blood pressure 116 mm[Hg] [facility] 08-26-2024 08:27-0500 Heart rate 75 /min ЮЛИЯ CHRISTY [facility] 08-26-2024 08:27-0500 SaO2% (BldA) [Mass fraction] 100 % ЮЛИЯ CHRISTY [facility] 08-26-2024 08:27-0500 Respiratory rate 18 /min ЮЛИЯ JAELYN [facility] 08-26-2024 08:25-0500 Blood Pressure Location ЮЛИЯ JAELYN [facility] 08-26-2024 08:25-0500 Diastolic blood pressure 73 mm[Hg] ЮЛИЯ JAELYN [facility] 08-26-2024 08:25-0500 Mean blood pressure 87 mm[Hg] ЮЛИЯ JAELYN [facility] 08-26-2024 08:25-0500 Systolic blood pressure 113 mm[Hg] ЮЛИЯ JAELYN [facility] 07-22-2024 07:54-0400 Heart rate 80 /min ЮЛИЯ CHRISTY [facility] 07-22-2024 07:54-0400 SaO2% (BldA) [Mass fraction] 97 % ЮЛИЯ JAELYN [facility] 07-22-2024 07:53-0400 Respiratory rate 20 /min ЮЛИЯ JAELYN [facility] 07-22-2024 07:53-0400 Body temperature 97.52 [degF] ЮЛИЯ CHRISTY [facility] 07-22-2024 07:53-0400 Blood Pressure Location ЮЛИЯ JAELYN [facility] 07-22-2024 07:53-0400 Diastolic blood pressure 72 mm[Hg] ЮЛИЯ CHRISTY [facility] 07-22-2024 07:53-0400 Mean blood pressure 87 mm[Hg] ЮЛИЯ CHRISTY [facility] 07-22-2024 07:53-0400 Systolic blood pressure 117 mm[Hg] ЮЛИЯ CHRISTY [facility] 07-21-2024 07:56-0400 Diastolic blood pressure 82 mm[Hg] Elvis Mullinsnus [facility] 07-21-2024 07:56-0400 Heart rate 67 /min Elvis Susannanus [facility] 07-21-2024 07:56-0400 Respiratory rate 16 /min Elvis Susannanus [facility] 07-21-2024 07:56-0400 SaO2% (BldA) [Mass fraction] 99 % Elvis Mullinsnus [facility] 07-21-2024 07:56-0400 Systolic blood pressure 120 mm[Hg] Elvis Mullinsnus [facility] 07-04-2024 09:36-0400 Body mass index (BMI) [Ratio] 21.4 kg/m2 [employer] Pranav Easterwood Work Phone: [facility] 07-04-2024 09:36-0400 Body temperature 97.3 [degF] [employer] Pranav Easterwood Work Phone: [facility] 07-04-2024 09:36-0400 Body weight 62.14 kg [employer] Pranav Easterwood Work Phone: [facility] 07-04-2024 09:36-0400 Diastolic blood pressure 82 mm[Hg] [employer] Pranav Easterwood Work Phone: [facility] 07-04-2024 09:36-0400 Heart rate 62 /min [employer] Pranav Easterwood Work Phone: [facility] 07-04-2024 09:36-0400 SaO2% (BldA) [Mass fraction] 99 % [employer] Pranav Easterwood Work Phone: [facility] 07-04-2024 09:36-0400 Systolic blood pressure 134 mm[Hg] [facility] 07-04-2024 09:31-0400 Body height 170.18 cm JEWEL BEARING DRILLERAtilio Gipson [facility] Work Phone: [facility] 07-04-2024 09:31-0400 Respiratory rate 20 /min JEWEL BEARING DRILLERAtilio Gipson [facility] Work Phone: [facility] 07-01-2024 12:43-0400 Hourly Rounding [facility] 07-01-2024 12:43-0400 Promise to Return [facility] 07-01-2024 11:00-0400 Hourly Rounding [facility] 07-01-2024 11:00-0400 Promise to Return [facility] 07-01-2024 10:13-0400 Hourly Rounding [facility] 07-01-2024 10:13-0400 Promise to Return [facility] 07-01-2024 07:26-0400 Heart rate 55 /min [facility] 07-01-2024 07:26-0400 SaO2% (BldA) [Mass fraction] 99 % [facility] 07-01-2024 07:24-0400 Body temperature 97.52 [degF] [facility] 07-01-2024 07:24-0400 Diastolic blood pressure 67 mm[Hg] [facility] 07-01-2024 07:24-0400 Mean blood pressure 79 mm[Hg] [facility] 07-01-2024 07:24-0400 Systolic blood pressure 102 mm[Hg] [facility] 07-01-2024 05:45-0400 Diastolic blood pressure 64 mm[Hg] [facility] 05:45-0400 Heart rate 60 /min [facility] 07-01-2024 05:45-0400 Mean blood pressure 77 mm[Hg] [facility] 05:45-0400 Respiratory rate 18 /min Angella [facility] 07-01-2024 05:45-0400 SaO2% (BldA) [Mass fraction] 98 % [facility] 07-01-2024 05:45-0400 Systolic blood pressure 103 mm[Hg] Angella [facility] 07-01-2024 05:30-0400 Body temperature 97.52 [degF] [facility] 07-01-2024 05:30-0400 Diastolic blood pressure 61 mm[Hg] [facility] 07-01-2024 05:30-0400 Heart rate 58 /min [facility] 07-01-2024 05:30-0400 Mean blood pressure 73 mm[Hg] [facility] 07-01-2024 05:30-0400 Respiratory rate 18 /min [facility] 07-01-2024 05:30-0400 SaO2% (BldA) [Mass fraction] 98 % Angella [facility] 07-01-2024 05:30-0400 Systolic blood pressure 98 mm[Hg] [facility] 07-01-2024 05:15-0400 Mean blood pressure 69 mm[Hg] [facility] 07-01-2024 05:15-0400 Respiratory rate 18 /min [facility] 07-01-2024 04:45-0400 Body temperature 97.88 [degF] [facility] 07-01-2024 03:45-0400 Body temperature 98.06 [degF] [facility] 06-30-2024 23:45-0400 Blood Pressure Location [facility] 06-30-2024 22:42-0400 Heart rate 103 /min [facility] 06-30-2024 22:32-0400 Mean blood pressure 84 mm[Hg] [facility] 06-30-2024 22:31-0400 Body temperature 97.7 [degF] [facility] 06-30-2024 22:15-0400 Respiratory rate 21 /min [facility] 06-30-2024 22:14-0400 Respiratory rate 15 /min [facility] 06-30-2024 22:00-0400 Respiratory rate 20 /min [facility] 06-30-2024 19:58-0400 Heart rate 112 /min [facility] 06-16-2024 08:01-0400 Heart rate 58 /min ЮЛИЯ CHRISTY [facility] 06-16-2024 08:01-0400 SaO2% (BldA) [Mass fraction] 99 % ЮЛИЯ CHRISTY [facility] 06-16-2024 08:01-0400 Respiratory rate 16 /min ЮЛИЯ CHRISTY [facility] 06-16-2024 08:00-0400 Body temperature 97.34 [degF] ЮЛИЯ CHRISTY [facility] 06-16-2024 08:00-0400 Blood Pressure Location ЮЛИЯ CHRISTY [facility] 06-16-2024 08:00-0400 Diastolic blood pressure 58 mm[Hg] ЮЛИЯ JAELYN [facility] 06-16-2024 08:00-0400 Mean blood pressure 68 mm[Hg] ЮЛИЯ JAELYN [facility] 06-16-2024 08:00-0400 Systolic blood pressure 87 mm[Hg] ЮЛИЯ JAELYN [facility] 05-15-2024 08:11-0400 Heart rate 62 /min ЮЛИЯ JAELYN [facility] 05-15-2024 08:11-0400 SaO2% (BldA) [Mass fraction] 100 % [facility] JAELYN [facility] [facility] 05-15-2024 08:10-0400 Respiratory rate 16 /min ЮЛИЯ JAELYN [facility] 05-15-2024 08:10-0400 Body temperature 97.34 [degF] ЮЛИЯ JAELYN [facility] 05-15-2024 08:10-0400 Blood Pressure Location ЮЛИЯ JAELYN [facility] 05-15-2024 08:10-0400 Diastolic blood pressure 62 mm[Hg] ЮЛИЯ JAELYN [facility] 05-15-2024 08:10-0400 Mean blood pressure 73 mm[Hg] ЮЛИЯ JAELYN [facility] 05-15-2024 08:10-0400 Systolic blood pressure 96 mm[Hg] ЮЛИЯ JAELYN [facility] 04-14-2024 07:59-0400 Heart rate 68 /min ЮЛИЯ CHRISTY [facility] 04-14-2024 07:59-0400 SaO2% (BldA) [Mass fraction] 98 % ЮЛИЯ JAELYN [facility] 04-14-2024 07:58-0400 Respiratory rate 16 /min ЮЛИЯ JAELYN [facility] 04-14-2024 07:58-0400 Blood Pressure Location ЮЛИЯ JAELYN [facility] 04-14-2024 07:58-0400 Diastolic blood pressure 61 mm[Hg] ЮЛИЯ JAELYN [facility] 04-14-2024 07:58-0400 Mean blood pressure 76 mm[Hg] ЮЛИЯ JAELYN [facility] 04-14-2024 07:58-0400 Systolic blood pressure 106 mm[Hg] ЮЛИЯ JAELYN [facility] 04-14-2024 07:57-0400 Body temperature 97.34 [degF] ЮЛИЯ JAELYN [facility] 03-14-2024 08:14-0400 Blood Pressure Location ЮЛИЯ JAELYN [facility] 03-14-2024 08:14-0400 Body temperature 97.88 [degF] ЮЛИЯ JAELYN [facility] 03-14-2024 08:14-0400 Diastolic blood pressure 70 mm[Hg] ЮЛИЯ CHRISTY [facility] 03-14-2024 08:14-0400 Heart rate 70 /min ЮЛИЯ CHRISTY [facility] 03-14-2024 08:14-0400 Respiratory rate 16 /min ЮЛИЯ CHRISTY [facility] 03-14-2024 08:14-0400 SaO2% (BldA) [Mass fraction] 99 % ЮЛИЯ CHRISTY [facility] 03-14-2024 08:14-0400 Systolic blood pressure 113 mm[Hg] ЮЛИЯ JAELYN [facility] 02-13-2024 07:30-0400 Heart rate 76 /min ЮЛИЯ JAELYN [facility] 02-13-2024 07:30-0400 SaO2% (BldA) [Mass fraction] 98 % ЮЛИЯ CHRISTY [facility] 02-13-2024 07:30-0400 Respiratory rate 18 /min ЮЛИЯ CHRISTY [facility] 02-13-2024 07:29-0400 Body temperature 97.7 [degF] ЮЛИЯ CHRISTY [facility] 02-13-2024 07:29-0400 Blood Pressure Location ЮЛИЯ JAELYN [facility] 02-13-2024 07:29-0400 Diastolic blood pressure 64 mm[Hg] ЮЛИЯ CHRISTY [facility] 02-13-2024 07:29-0400 Mean blood pressure 76 mm[Hg] ЮЛИЯ CHRISTY [facility] 02-13-2024 07:29-0400 Systolic blood pressure 101 mm[Hg] ЮЛИЯ CHRISTY [facility] 01-14-2024 08:01-0400 Heart rate 87 /min ЮЛИЯ CHRISTY [facility] 01-14-2024 08:01-0400 SaO2% (BldA) [Mass fraction] 100 % ЮЛИЯ CHRISTY [facility] 01-14-2024 08:01-0400 Diastolic blood pressure 66 mm[Hg] ЮЛИЯ CHRISTY [facility] 01-14-2024 08:01-0400 Mean blood pressure 82 mm[Hg] ЮЛИЯ JAELYN [facility] 01-14-2024 08:01-0400 Systolic blood pressure 112 mm[Hg] ЮЛИЯ CHRISTY [facility] 01-14-2024 08:01-0400 Respiratory rate 18 /min ЮЛИЯ CHRISTY [facility] 11-12-2023 08:07-0500 Blood Pressure Location ЮЛИЯ JAELYN [facility] 11-12-2023 08:07-0500 Body temperature 97.52 [degF] ЮЛИЯ JAELYN [facility] 11-12-2023 08:07-0500 Diastolic blood pressure 72 mm[Hg] ЮЛИЯ CHRISTY [facility] 11-12-2023 08:07-0500 Heart rate 66 /min ЮЛИЯ CHRISTY [facility] 11-12-2023 08:07-0500 Respiratory rate 16 /min ЮЛИЯ JAELYN [facility] 11-12-2023 08:07-0500 SaO2% (BldA) [Mass fraction] 99 % ЮЛИЯ CHRISTY [facility] 11-12-2023 08:07-0500 Systolic blood pressure 107 mm[Hg] ЮЛИЯ CHRISTY [facility] 10-11-2023 08:16-0500 Diastolic blood pressure 66 mm[Hg] ЮЛИЯ CHRISTY [facility] 10-11-2023 08:16-0500 Heart rate 65 /min ЮЛИЯ CHRISTY [facility] 10-11-2023 08:16-0500 Respiratory rate 16 /min ЮЛИЯ CHRISTY [facility] 10-11-2023 08:16-0500 SaO2% (BldA) [Mass fraction] 99 % ЮЛИЯ CHRISTY [facility] 10-11-2023 08:16-0500 Systolic blood pressure 110 mm[Hg] ЮЛИЯ CHRISTY [facility] 10-02-2023 09:30-0500 Body height 170.18 cm Pranav EasterIvaldi Other [facility] 10-02-2023 09:30-0500 Body mass index (BMI) [Ratio] 21.61 kg/m2 Pranav Easterwood Other [facility] Other 10-02-2023 09:30-0500 Body temperature 98 [degF] Pranav Easterwood Other [facility] Other 10-02-2023 09:30-0500 Body weight 62.6 kg Pranav Easterwood Other [employer] [facility] [employer] Other 10-02-2023 09:30-0500 Body weight 62.59 kg [facility] 10-02-2023 09:30-0500 Diastolic blood pressure 68 mm[Hg] Pranav Easterwood Other [facility] 10-02-2023 09:30-0500 Respiratory rate 20 /min Pranav Easterwood Other [employer] [facility] [employer] Other 10-02-2023 09:30-0500 SaO2% (BldA) [Mass fraction] 99 % Pranav Easterwood Other [facility] Other 10-02-2023 09:30-0500 Systolic blood pressure 112 mm[Hg] Pranav Easterwood Other [facility] 09-12-2023 08:50-0500 Diastolic blood pressure 71 mm[Hg] [employer] Pranav Easterwood Work Phone: [facility] 09-12-2023 08:50-0500 Heart rate 62 /min [employer] Pranav Easterwood Work Phone: [facility] 09-12-2023 08:50-0500 Respiratory rate 18 /min [employer] Pranav Easterwood Work Phone: [facility] 09-12-2023 08:50-0500 SaO2% (BldA) [Mass fraction] 99 % [employer] Pranav Easterwood Work Phone: [facility] 09-12-2023 08:50-0500 Systolic blood pressure 106 mm[Hg] [employer] Pranav Easterwood Work Phone: [facility] 09-12-2023 07:14-0500 Body height 172.72 cm [employer] Pranav Easterbebeto Work Phone: [facility] 09-12-2023 07:14-0500 Body weight 60.32 kg [employer] Pranav Easterwood Work Phone: [facility] 09-10-2023 08:08-0500 Heart rate 70 /min ЮЛИЯ CHRISTY [facility] 09-10-2023 08:08-0500 SaO2% (BldA) [Mass fraction] 98 % ЮЛИЯ CHRISTY [facility] 09-10-2023 08:07-0500 Respiratory rate 20 /min ЮЛИЯ CHRISTY [facility] 09-10-2023 08:07-0500 Diastolic blood pressure 54 mm[Hg] ЮЛИЯ CHRISTY [facility] 09-10-2023 08:07-0500 Mean blood pressure 66 mm[Hg] ЮЛИЯ JAELYN [facility] 09-10-2023 08:07-0500 Systolic blood pressure 90 mm[Hg] ЮЛИЯ JAELYN [facility] 08-08-2023 15:05-0500 Blood Pressure Location ЮЛИЯ JAELYN [facility] 08-08-2023 15:05-0500 Diastolic blood pressure 72 mm[Hg] ЮЛИЯ JAELYN [facility] 08-08-2023 15:05-0500 Heart rate 74 /min ЮЛИЯ CHRISTY [facility] 08-08-2023 15:05-0500 Respiratory rate 18 /min ЮЛИЯ CHRISTY [facility] 08-08-2023 15:05-0500 SaO2% (BldA) [Mass fraction] 99 % ЮЛИЯ JAELYN [facility] 08-08-2023 15:05-0500 Systolic blood pressure 114 mm[Hg] ЮЛИЯ CHRISTY [facility] 08-08-2023 14:10-0500 Blood Pressure Location ЮЛИЯ JAELYN [facility] 08-08-2023 14:10-0500 Diastolic blood pressure 69 mm[Hg] ЮЛИЯ CHRISTY [facility] 08-08-2023 14:10-0500 Heart rate 77 /min ЮЛИЯ CHRISTY [facility] 08-08-2023 14:10-0500 Respiratory rate 18 /min ЮЛИЯ CHRISTY [facility] 08-08-2023 14:10-0500 SaO2% (BldA) [Mass fraction] 97 % ЮЛИЯ CHRISTY [facility] 08-08-2023 14:10-0500 Systolic blood pressure 109 mm[Hg] ЮЛИЯ CHRISTY [facility] 07-26-2023 16:15-0400 Body height 170.18 cm Pranav LearnVesterIvaldi Other [email or web address] Other 07-26-2023 16:15-0400 Body mass index (BMI) [Ratio] 21.14 kg/m2 Pranav Learn[employer]valdi Other [email or web address] Other 07-26-2023 16:15-0400 Body temperature 98.2 [degF] Pranav Learn[employer]esterIvaldi Other [email or web address] Other 07-26-2023 16:15-0400 Body weight 61.24 kg Pranav EasterIvaldi Other [email or web address] Other 07-26-2023 16:15-0400 Diastolic blood pressure 76 mm[Hg] Pranav Easterwood Other [email or web address] Other 07-26-2023 16:15-0400 Respiratory rate 20 /min Pranav LearnVesterIvaldi Other [email or web address] Other 07-26-2023 16:15-0400 SaO2% (BldA) [Mass fraction] 95 % Pranav Easterwood Other [email or web address] Other 07-26-2023 16:15-0400 Systolic blood pressure 120 mm[Hg] Pranav Easterwood Other [email or web address] Other 07-05-2023 09:09-0400 Heart rate 83 /min Cristian Castro MD Work Phone: [facility] 07-05-2023 09:09-0400 Respiratory rate 18 /min Cristian Castro MD Work Phone: [facility] 07-05-2023 09:09-0400 SaO2% (BldA) [Mass fraction] 96 % Cristian Castro MD Work Phone: [facility] 06-08-2023 08:30-0400 Body height 170.18 cm Pranav Marblar Other [email or web address] Other 06-08-2023 08:30-0400 Body mass index (BMI) [Ratio] 21.14 kg/m2 Pranav LearnVesterIvaldi Other [email or web address] Other 06-08-2023 08:30-0400 Body temperature 97.6 [degF] Pranav Easterwood Other [email or web address] Other 06-08-2023 08:30-0400 Body weight 61.24 kg Pranav Easterwood Other [email or web address] Other 06-08-2023 08:30-0400 Diastolic blood pressure 80 mm[Hg] Pranav Easterwood Other [email or web address] Other 06-08-2023 08:30-0400 Respiratory rate 20 /min Pranav Easterwood Other [email or web address] Other 06-08-2023 08:30-0400 SaO2% (BldA) [Mass fraction] 98 % Pranav Easterwood Other [email or web address] Other 06-08-2023 08:30-0400 Systolic blood pressure 118 mm[Hg] Pranav Easterwood Other [email or web address] Other 03-19-2023 14:00-0400 Body height 170.18 cm Pranav Easterwood Other [email or web address] Other 03-19-2023 14:00-0400 Body mass index (BMI) [Ratio] 20.67 kg/m2 Pranav Easterwood Other [email or web address] Other 03-19-2023 14:00-0400 Body temperature 98 [degF] Pranav Easterwood Other [email or web address] Other 03-19-2023 14:00-0400 Body weight 59.88 kg Pranav EasterIvaldi Other [email or web address] Other 03-19-2023 14:00-0400 Diastolic blood pressure 80 mm[Hg] Pranav Easterwood Other [email or web address] Other 03-19-2023 14:00-0400 Respiratory rate 20 /min Pranav Easterwood Other [email or web address] Other 03-19-2023 14:00-0400 SaO2% (BldA) [Mass fraction] 97 % Pranav Easterwood Other [email or web address] Other 03-19-2023 14:00-0400 Systolic blood pressure 120 mm[Hg] Pranav Easterwood Other [email or web address] Other 10-12-2022 10:00-0500 Body height 170.18 cm Pranav EasterIvaldi Other [email or web address] Other 10-12-2022 10:00-0500 Body mass index (BMI) [Ratio] 19.11 kg/m2 Pranav Easterwood Other [email or web address] Other 10-12-2022 10:00-0500 Body temperature 98.2 [degF] Pranav Easterwood Other [email or web address] Other 10-12-2022 10:00-0500 Body weight 55.34 kg Pranav Easterwood Other [email or web address] Other 10-12-2022 10:00-0500 Diastolic blood pressure 70 mm[Hg] Pranav Easterwood Other [email or web address] Other 10-12-2022 10:00-0500 Respiratory rate 20 /min Pranav Easterwood Other [email or web address] Other 10-12-2022 10:00-0500 SaO2% (BldA) [Mass fraction] 98 % Pranav Easterwood Other [email or web address] Other 10-12-2022 10:00-0500 Systolic blood pressure 112 mm[Hg] Pranav Easterwood Other [email or web address] Other 09-26-2022 11:45-0500 Body height 170.18 cm Pranav Easterwood Other [email or web address] Other 09-26-2022 11:45-0500 Body mass index (BMI) [Ratio] 19.11 kg/m2 Pranav Easterwood Other [email or web address] Other 09-26-2022 11:45-0500 Body temperature 98.2 [degF] Pranav Easterwood Other [email or web address] Other 09-26-2022 11:45-0500 Body weight 55.34 kg Pranavluis miguel Godinezerwood Other [email or web address] Other 09-26-2022 11:45-0500 Diastolic blood pressure 76 mm[Hg] Pranav Easterwood Other [email or web address] Other 09-26-2022 11:45-0500 Respiratory rate 20 /min Pranav Herberterbebeto Other [email or web address] Other 09-26-2022 11:45-0500 SaO2% (BldA) [Mass fraction] 99 % Pranav Herberterwood Other [email or web address] Other 09-26-2022 11:45-0500 Systolic blood pressure 112 mm[Hg] Pranav Easterbebeto Other [email or web address] Other 08-03-2022 08:14-0500 Blood Pressure Location David Santoro [facility] 08-03-2022 08:14-0500 Diastolic blood pressure 72 mm[Hg] David Santoro [facility] 08-03-2022 08:14-0500 Heart rate 70 /min David Santoro [facility] 08-03-2022 08:14-0500 Systolic blood pressure 110 mm[Hg] David Santoro [facility] Encounters Encounter Date Encounter Type Care Provider Facility Start: 01-28-2025 Evaluation and management of inpatient [facility] Start: 01-27-2025 Evaluation and management of inpatient [facility] Start: 01-26-2025 Evaluation and management of inpatient HANI RANI [facility] Start: 01-25-2025 Evaluation and management of inpatient HANI RANI [facility] Start: 01-24-2025 Evaluation and management of inpatient MITZI [facility] Start: 01-23-2025 Evaluation and management of inpatient MITZI [facility] Start: 01-22-2025 Evaluation and management of inpatient MITZI [facility] Start: 01-21-2025 Evaluation and management of inpatient [facility] Start: 01-21-2025 ambulatory [facility] Start: 01-21-2025 ambulatory [facility] Start: 01-21-2025 End: 01-29-2025 Evaluation and management of inpatient [facility] Start: 01-19-2025 End: 01-19-2025 ambulatory Pranav Toro [employer] Work Phone: [facility] Work Phone: Start: 01-19-2025 End: 01-19-2025 Patient encounter procedure Pranav Toro [employer] Work Phone: [facility] Work Phone: Start: 01-13-2025 ambulatory [facility] Start: 01-13-2025 Non-patient / Non-visit Pranav shepherdwood [employer] Work Phone: [facility] Work Phone: Start: 01-12-2025 Non-patient / Non-visit Pranav shepherdwood [employer] Work Phone: [facility] Work Phone: Start: 01-12-2025 End: 01-12-2025 Patient encounter procedure Pranav Toro [employer] Work Phone: [facility] Start: 01-12-2025 End: 01-12-2025 ambulatory Pranav Toro [employer] Work Phone: [facility] Work Phone: Start: 01-07-2025 End: 01-07-2025 Telephone encounter Mireya F Gracie PETAL CUTTER Work Phone: [facility] Start: 12-16-2024 Non-patient / Non-visit Pranav Rui shepherdwood [employer] Work Phone: [facility] Work Phone: Start: 12-15-2024 Non-patient / Non-visit Pranav Rui shepherdwood [employer] Work Phone: [facility] Work Phone: Start: 12-02-2024 End: 12-02-2024 ambulatory [facility] Start: 11-29-2024 Non-patient / Non-visit Pranav robles [employer] Work Phone: [facility] Work Phone: Start: 11-14-2024 End: 11-14-2024 ambulatory OSCAR VENEGAS Facility:[facility] Start: 11-14-2024 End: 11-14-2024 Patient encounter procedure Oscar Venegas Work Phone: Podiatry Comment on above: Onychodystrophy (Gypsy zulay Dx) Start: 10-06-2024 End: 10-06-2024 ambulatory PRANAV GODINEZERWOOD Facility[facility] Start: 10-06-2024 End: 10-06-2024 Patient encounter procedure PRANAV TORO [facility] Start: 10-06-2024 End: 10-06-2024 ambulatory [facility] Work Phone: Start: 10-06-2024 End: 10-06-2024 Patient encounter procedure [facility] Work Phone: Start: 08-26-2024 Non-patient / Non-visit [facility] Work Phone: Start: 08-26-2024 End: 11-24-2024 ambulatory QUILL WORKER ЮЛИЯ CHRISTY Facility[facility] Start: 08-26-2024 End: 11-24-[address]RISTY [facility] Start: 07-29-2024 End: 07-29-2024 ambulatory Jesu Díaz Facility[facility] Start: 07-29-2024 End: 07-29-2024 Patient encounter procedure Jesu Díaz [facility] Start: 07-29-2024 End: 07-29-2024 ambulatory SELF REFERRAL Facility:[facility] Start: 07-29-2024 End: 07-29-2024 Patient encounter procedure SELF REFERRAL [facility] Start: 07-22-2024 Non-patient / Non-visit [facility] Work Phone: Start: 07-22-2024 End: 07-22-2024 ambulatory QUILL WORKER ЮЛИЯ CHRISTY Facility[facility] Start: 07-22-2024 End: 07-22-2024 Patient encounter procedure ЮЛИЯ CHRISTY [facility] Start: 07-21-2024 End: 07-21-2024 ambulatory Elvis Sharon Pace Facility[facility] Start: 07-21-2024 End: 07-21-2024 Patient encounter procedure Elvis D Susannanus [facility] Start: 07-14-2024 End: 07-14-2024 ambulatory Jesu Díaz Facility:[facility] Start: 07-14-2024 End: 07-14-2024 Patient encounter procedure Jesu Díaz [facility] Start: 07-04-2024 End: 07-04-2024 ambulatory JEW[employer]ER Pranav J Easterwood Work Phone: [facility] Work Phone: Start: 07-04-2024 End: 07-04-2024 Patient encounter procedure JEWEL BE[employer] DRILLER Pranav Godinezerwood Work Phone: [facility] Family Medicine [facility] Work Phone: Start: 06-30-2024 End: 07-01-2024 ambulatory Angella Castleadalid Facility:[facility] Start: 06-30-2024 Emergency department patient visit Hemal Layla Justin Facility:[facility] Start: 06-30-2024 End: 07-01-2024 Observation Angella Samano [facility] Start: 06-24-2024 End: 06-24-2024 ambulatory JEWEL BEARING DRILLER Pranavluis miguel Godinezerwood Work Phone: [facility] Work Phone: Start: 06-24-2024 End: 06-24-2024 Patient encounter procedure JEWEL [employer]LLER Pranav Godinezerwood Work Phone: [facility] Work Phone: Start: 06-19-2024 End: 06-19-2024 Patient encounter procedure JEWEL [employer]ARING DRILLER Pranav Herberterwood Work Phone: [facility] Work Phone: Start: 06-19-2024 End: 06-19-2024 ambulatory JEW[employer]LLER Pranav Emmanuel Easterwood Work Phone: [facility] Work Phone: Start: 06-16-2024 Non-patient / Non-visit JEWEL [employer]ARING DRILLER D shay GodinezDopplr Work Phone: [facility] Work Phone: Start: 06-16-2024 End: 06-16-2024 ambulatory ЮЛИЯ CHRISTY Facility[facility] Start: 06-16-2024 End: 06-16-2024 Patient encounter procedure ЮЛИЯ CHRISTY [facility] Start: 05-15-2024 Non-patient / Non-visit JEWEL BEARING DRILLER Sharon shay GodinezDopplr Work Phone: [facility] Work Phone: Start: 05-15-2024 End: 05-15-2024 ambulatory ЮЛИЯ CHRISTY Facility:[facility] Start: 05-15-2024 End: 05-15-2024 Patient encounter procedure ЮЛИЯ CHRISTY [facility] Start: 04-14-2024 Non-patient / Non-visit JEWEL BEARING DRILLERAtilio gonzalez Nathan Work Phone: [facility] Work Phone: Start: 04-14-2024 End: 04-14-2024 ambulatory ЮЛИЯ CHRISTY Facility[facility] Start: 04-14-2024 End: 04-14-2024 Patient encounter procedure ЮЛИЯ CHRISTY [facility] Start: 03-14-2024 End: 06-12-2024 ambulatory QUILL WORKER ЮЛИЯ CHRISTY Facility[facility] Start: 03-14-2024 End: 06-12-[address]Я [address]Y [facility] Start: 02-13-2024 ambulatory ЮЛИЯ VUAtilio CHRISTY Facility[facility] Start: 02-13-2024 Non-patient / Non-visit LEILA Toro Work Phone: [facility] Work Phone: Start: 02-13-2024 End: 02-13-2024 ambulatory ЮЛИЯ GUEVARA JAELYN Facility[facility] Start: 02-13-2024 End: 02-13-2024 Patient encounter procedure ЮЛИЯ HENSONARNEY [facility] Start: 02-05-2024 End: 02-05-2024 Patient encounter procedure Oscar Venegas Work Phone: Podiatry Comment on above: Hallux rigidus of ri ght foot (Primary Dx) Start: 02-05-2024 End: 02-05-2024 ambulatory OSCAR VENEGAS Facility:[facility] Start: 02-05-2024 End: 02-05-2024 Subsequent hospital visit by physician Xr [facility] Landen Horner Work Phone: Radiology Comment on above: Pain in right foot [ [id number]] Start: 01-29-2024 End: 01-29-2024 ambulatory LEILA Toro Work Phone: [facility] Work Phone: Start: 01-29-2024 End: 01-29-2024 Discharged Recurring LEILA Toro Work Phone: [facility] [place] Work Phone: Start: 01-21-2024 Telephone encounter Oscar Grey Work Phone: Podiatry Comment on above: Patient Question Start: 01-20-2024 ambulatory Oscar henson Work Phone: Podiatry Comment on above: Question Start: 01-16-2024 End: 01-16-2024 ambulatory MIREYA WASHINGTON Not Available Start: 01-14-2024 End: 01-15-2024 ambulatory ЮЛИЯ ISMAEL CHRISTY [place] Start: 01-14-2024 End: 01-14-2024 Patient encounter procedure ЮЛИЯ ISMAEL CHRISTY [facility] Start: 01-11-2024 End: 01-12-2024 ambulatory ЮЛИЯ ISMAEL CHRISTY [place] [place] Start: 01-11-2024 Non-patient / Non-visit LEILA Toro Work Phone: [facility] Work Phone: Start: 01-11-2024 End: 01-11-2024 Patient encounter procedure ЮЛИЯ ISMAEL CHRISTY [facility] Start: 12-27-2023 End: 12-27-2023 ambulatory [facility] Work Phone: Start: 12-27-2023 End: 12-27-2023 Patient encounter procedure [facility] Work Phone: Start: 12-11-2023 End: 12-12-2023 ambulatory ЮЛИЯ ISMAEL CHRISTY Facility[place] [place] Start: 12-11-2023 Non-patient / Non-visit [facility] Work Phone: Start: 12-11-2023 End: 12-11-2023 Patient encounter procedure ЮЛИЯ ISMAEL CHRISTY [facility] Start: 11-12-2023 End: 11-13-2023 ambulatory ЮЛИЯ ISMAEL CHRISTY Facility[place] Start: 11-12-2023 End: 11-12-2023 Patient encounter procedure ЮЛИЯ ISMAEL CHRISTY [facility] Start: 11-09-2023 End: 11-10-2023 ambulatory ЮЛИЯ ISMAEL CHRISTY Facility[place] Start: 11-09-2023 Non-patient / Non-visit [facility] Physician [facility] Professional [employer] Work Phone: Start: 11-09-2023 End: 11-09-2023 Patient encounter procedure ЮЛИЯ ISMAEL CHRISTY [facility] Start: 10-15-2023 End: 10-15-2023 ambulatory Pranav Herbertmargaritabebeto Other [email or web address] Other Start: 10-15-2023 [facility] Start: 10-11-2023 End: 10-12-2023 ambulatory ЮЛИЯ ISMAEL CHRISTY Facility[facility] Start: 10-11-2023 End: 10-11-2023 Patient encounter procedure ЮЛИЯ VUAtilio CHRISTY [facility] Start: 10-02-2023 End: 10-02-2023 ambulatory Pranav Nathan Other [email or web address] Other Start: 10-02-2023 Encounter for genera l adult medical examination without abnormal findings Pranav Toro [facility] Start: 10-02-2023 Periodic preventive med est patient 40-64yrs [facility] Start: 10-02-2023 End: 10-02-2023 Patient encounter procedure [facility] Physician [facility] Work Phone: Start: 09-12-2023 End: 09-12-2023 Admission to same day surgery center LEILA Toro Work Phone: [facility] Work Phone: Start: 09-12-2023 End: 09-12-2023 ambulatory LEILA Toro Work Phone: [facility] Work Phone: Start: 09-07-2023 End: 09-08-2023 ambulatory ЮЛИЯ CHRISTY Facility:[facility] Start: 09-07-2023 End: 09-07-2023 Patient encounter procedure ЮЛИЯ GUEVARA JAELYN [facility] Start: 08-08-2023 End: 01-08-2024 ambulatory QUILL WORKER ЮЛИЯ GUEVARA JAELYN Facility:[facility] Start: 08-08-2023 End: 01-07-2024 Recurring ЮЛИЯ HENSONARNEY [facility] Start: 08-01-2023 End: 08-01-2023 ambulatory Noah Rai Other [employer] [facility] [employer] Other Start: 08-01-2023 Telephone encounter Noah LANDIS G [facility] Start: 07-27-2023 End: 07-28-2023 ambulatory SHAHLA WASHINGTON Facility:[facility] Start: 07-27-2023 End: 07-27-2023 Patient encounter procedure Mireya WASHINGTON [facility] Start: 07-26-2023 End: 07-26-2023 ambulatory Pranav Toro Other [email or web address] Other Start: 07-26-2023 Office outpatient vi sit 15 minutes Pranav Toro 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 Start: 07-02-2023 End: 07-02-2023 ambulatory Юлия Christy Other [email or web address] Other Start: 07-02-2023 Telephone encounter Юлия Christy [facility] [employer] Start: 06-28-2023 End: 06-28-2023 ambulatory LEILA Toro Work Phone: [facility] Work Phone: Start: 06-28-2023 End: 06-28-2023 Patient encounter procedure JEWEL BEARING DRILLER Pranav Toro Work Phone: [facility] [place] Work Phone: Start: 06-08-2023 End: 06-08-2023 ambulatory Pranav Toro Other [email or web address] Other Start: 06-08-2023 Encounter for genera l adult medical examination without abnormal findings Pranav Toro [facility] Start: 06-08-2023 Office outpatient vi sit 25 minutes Pranav Toro [facility] Start: 06-05-2023 End: 06-05-2023 ambulatory Pranav Toro Other [email or web address] Other Start: 06-05-2023 Telephone encounter Pranav Toro [facility] Start: 06-01-2023 End: 06-01-2023 Patient encounter procedure JEWEL BEARING DRILLER Pranav Toro Work Phone: [facility] Work Phone: Start: 05-16-2023 End: 05-16-2023 Patient encounter procedure Oscar Venegas Work Phone: Podiatry Comment on above: Open wound of toe, i nitial encounter (Primary Dx) Start: 05-11-2023 ambulatory Oscar henson Work Phone: [facility] DARCIEAtilio Start: 05-11-2023 Follow-up encounter Oscar Grey Work Phone: Podiatry Comment on above: Toenail Removal Foll ow-Up Start: 05-11-2023 Telephone encounter Oscar Grey Work Phone: Podiatry Comment on above: Patient Update Start: 04-30-2023 End: 04-30-2023 Patient encounter procedure Oscar Venegas Work Phone: Podiatry Comment on above: Onychomycosis (Prima ry Dx); RSD (reflex sympathetic dystrophy) Start: 04-20-2023 ambulatory Oscar henson Work Phone: Podiatry Comment on above: ToeNail Infection? Start: 04-11-2023 Telephone encounter Oscar Grey Work Phone: Podiatry Start: 04-09-2023 Telephone encounter Oscar Grey Work Phone: Podiatry Comment on above: Appointment Start: 03-26-2023 End: 03-26-2023 ambulatory Pranav Toro Other [email or web address] Other Start: 03-26-2023 Telephone encounter Pranav Toro [facility] Start: 03-19-2023 End: 03-19-2023 ambulatory Pranav Toro Other [email or web address] Other Start: 03-19-2023 Office outpatient vi sit 15 minutes Pranav Toro [facility] Start: 10-27-2022 Telephone encounter Lemuel watts MD Work Phone: Urology Comment on above: Patient Question Start: 10-26-2022 ambulatory DOMINIQUE ESCOBAR Facility:[facility] Start: 10-26-2022 End: 10-26-2022 Patient encounter procedure Dominique Escobar [employer].QUILL WORKER Work Phone: Urology Comment on above: Recurrent UTI (Prima ry Dx); Urethral caruncle; Pelvic floor weakness Start: 10-25-2022 End: 10-25-2022 Lab Drop off Ramonarui Luis Miguel Hannons [facility] Start: 10-25-2022 End: 10-25-2022 Patient encounter procedure ЮЛИЯ Rui LITTLE [facility] Start: 10-12-2022 Office outpatient vi sit 25 minutes Pranav Toro [facility] Start: 10-12-2022 End: 10-12-2022 ambulatory JEWEL BEARING DRILLER Pranav Ayanapalmer Work Phone: [facility] Work Phone: Start: 10-12-2022 End: 10-12-2022 Departed Referred JEWEL BEARING DRILLER [facility] Work Phone: [facility] [place] Work Phone: Start: 10-11-2022 End: 10-14-2022 Pre-admission assessment Chava Marin [facility] Start: 09-26-2022 End: 09-26-2022 ambulatory Pranav Herbertmargaritapalmer Other [email or web address] Other Start: 09-26-2022 FQHC visit new patient Pranav Godinezlindsay [facility] Start: 08-31-2022 End: 08-31-[address] ELICEO CUELLO Facility:UNKNOWN Start: 08-09-2022 End: 08-22-2022 Pre-admission assessment Chava Marin [facility] Start: 08-03-2022 End: 08-03-2022 Patient encounter procedure David Santoro [facility] Start: 08-02-2022 ambulatory Nicolasa emery MD Work Phone: Neurology Comment on above: Question Start: 07-31-2022 ambulatory Nicolasa emery MD Work Phone: Neurology Comment on above: Question Start: 07-07-2022 End: 07-15-2022 Pre-admission assessment Chava Marin [facility] Start: 07-06-2022 ambulatory Nicolasa emery MD Work Phone: Neurology Comment on above: Flu Shot Start: 07-04-2022 End: 07-04-2022 Lab Drop off ЮЛИЯ LITTLE [facility] Start: 07-01-2022 ambulatory Nicolasa emery MD Work Phone: Neurology Comment on above: Bloodwork Vitamin B12 Start: 06-26-2022 Telephone encounter Elda Goldstein MD Work Phone: Neurology Comment on above: EMG Blood Thinner In structions Start: 06-26-2022 End: 06-26-2022 ambulatory Nicolasa Arizmendi MD Work Phone: Neurology Comment on above: Disturbance of skin sensation (Primary Dx) Start: 06-26-2022 End: 06-26-2022 Telemedicine consultation with patient Nicolasa Arizmendi MD Work Phone: [facility] Start: 05-18-2022 End: 05-18-2022 Lab Drop off David Santoro [facility] Start: 03-14-2022 End: 03-14-2022 Patient encounter procedure Willy Petty [facility] Start: 09-11-2018 End: 09-11-2018 Patient encounter procedure ELKIN MATT Facility:[facility] Start: 06-12-2018 End: 06-13-2018 Patient encounter procedure DOCTOR GARCIA Facility:[facility] Start: 08-07-2016 Well adult Pranav herrera Other [email or web address] Other Procedures Date Procedure Procedure Detail Performing Clinician Start: 06-19-2024 Dual energy X-ray absorptiometry J[employer]EL [employer]ARING D[employer]LLER [facility] Work Phone: Start: 09-12-2023 Colonoscopy JEWEL [employer]ARING DRILLER [facility] Work [facility]: Start: 08-24-2023 Mammography Mireya [place] [employer] Work Phone: Start: 06-01-2023 Dual energy X-ray absorptiometry JEWEL BEARING DRILLER [facility] Work Phone: Start: 11-13-2022 Microscopic observat ion [Identifier] in Cervix by Cyto stain Mireya [place] [employer] Work Phone: Start: 10-26-2022 Urnls dip stick/tabl et rgnt auto w/o microscopy Dominique Escobar JEWEL [employer]ARING DRILLER.QUILL WORKER Work Phone: Start: 10-12-2022 Piperacillin/tazobactam Pranav Godinezbebeto Other Start: 10-12-2022 Urine culture JEWEL BEARING DRILLER Pranav Godinezbebeto Work Phone: Start: 05-30-2011 General examination of patient Pranav Toro Other bilateral foot surgery 1 Breanne Petty Comment on above: 11/2012 bilateral foot surgery 1, 2 David Santoro Comment on above: Bunion Surgery on anjali th feet 11/2012 Colonoscopy Willy Petty Foot structure (body structure) David Santoro Procedure on foot Lanalice Cabral lynsey Tonsillectomy Willy Petty wisdom teeth removal 2 Willy Petty Comment on above: 1988 wisdom teeth removal Ric Santoro Comment on above: 1988 Plan of Treatment Date Care Activity Detail Author Start: 04-08-2030 Urine microalbumin profile DTa P,Tdap,Td Vaccine (2 - Td or Tdap) [facility] Start: 11-13-2027 Screening for malign ant neoplasm of cervix [facility] Start: 11-13-2025 Screening for malign ant neoplasm of cervix Pap Smear [facility] Start: 05-25-2025 Influenza vaccination Influenz a Vaccine (Season Ended) [facility] Start: 02-05-2025 End: 02-05-2025 Patient encounter procedure Podiatry Comment on above: 1 yr follow up Start: 08-24-2024 Screening for malign ant neoplasm of breast Mammogram [facility] Start: 05-25-2024 Covid-19 Vaccine ( season) Covid-19 Vaccine () [facility] Start: 05-25-2024 Influenza vaccination [facility] Start: 02-05-2024 End: 02-05-2024 Patient encounter procedure 02/05/2024 9:45 AM EDT Office Visit Podiatry [address] [place], [place] [id number] Oscar Venegas [address] [place], [place] [phone] bunion on right foot Podiatry Comment on above: bunion on right foot Start: 09-24-2023 Behavioral Health Screening Behavioral Health Screening [facility] Start: 09-12-2023 [facility] Start: 07-31-2023 End: 09-30-2023 Hepatic function 1999 panel - Serum or Plasma HEPATIC FUNCTION PNL Lab Routine Onychomycosis Expected: 07/31/2023, Expires: 09/30/2023 [facility] Work Phone: Comment on above: Expected: 07/31/2023 , Expires: 09/30/2023 Start: 07-26-2023 Screening for malign ant neoplasm of breast Mammogram Screening [facility] Start: 05-31-2023 End: 07-31-2023 Hepatic function 2000 panel - Serum or Plasma HEPATIC FUNCTION PNL Lab Routine Onychomycosis Expected: 05/31/2023, Expires: 07/31/2023 [facility] Work Phone: Comment on above: Expected: 05/31/2023 , Expires: 07/31/2023 Start: 05-25-2023 Covid-19 Vaccine () Covid-19 Vaccine () [facility] Start: 05-25-2023 Influenza vaccination [facility] Start: 09-24-2022 DEPRESSION ASSESSMENT DEPRESSION ASS ESSMENT [facility] Start: 06-26-2022 End: 08-26-2022 Cobalamin (Vitamin B12) [Mass/volume] in Serum or Plasma VITAMIN B12 BLOOD Lab Routine Disturbance of skin sensation Expected: 06/26/2022, Expires: 08/26/2022 [facility] Work Phone: Comment on above: Expected: 06/26/2022 , Expires: 08/26/2022 Start: 06-26-2022 End: 08-26-2022 Hemoglobin A1c in Blood HGB A1C Lab Routine Disturbance of skin sensation Expected: 06/26/2022, Expires: 08/26/2022 [facility] Work Phone: Comment on above: Expected: 06/26/2022 , Expires: 08/26/2022 Start: 06-26-2022 End: 08-26-2022 IMMUNOFIXATION SCREEN, SERUM IMMUNOFIXATION SCREEN, SERUM Lab Routine Disturbance of skin sensation Expected: 06/26/2022, Expires: 08/26/2022 [facility] Work Phone: Comment on above: Expected: 06/26/2022 , Expires: 08/26/2022 Start: 06-26-2022 End: 08-26-2022 KAPPA/GARCIA,FREE,SER KAPPA/GARCIA,FREE,SER Lab Routine Disturbance of skin sensation Expected: 06/26/2022, Expires: 08/26/2022 [facility] Work Phone: Comment on above: Expected: 06/26/2022 , Expires: 08/26/2022 Start: 06-26-2022 End: 12-03-2022 Methylmalonate [Moles/volume] in Serum or Plasma METHYLMALONIC ACID Lab Routine Disturbance of skin sensation Expected: 06/26/2022, Expires: 08/26/2022 [facility] Work Phone: Comment on above: Expected: 06/26/2022 , Expires: 08/26/2022 Start: 05-25-2022 Influenza vaccination INFLUENZA (#1) [facility] Start: 10-30-2021 COVID-19 VACCINE (4 - Booster for Pfizer series) COVID-19 VACCINE (4 - Booster for Pfizer series) [facility] Start: 10-30-2021 COVID-19 VACCINE (4 - Pfizer series) COVID-19 VACCINE (4 - Pfizer series) [facility] Start: 09-24-2021 DEPRESSION ASSESSMENT DEPRESSION ASS ESSMENT [facility] Start: 2018 Pneumococcal Vaccine : 50+ (1 of 1 - PCV) Pneumococcal Vaccine: 50+ (1 of 1 - PCV) [facility] Start: 2018 SHINGRIX VACCINE (1 of 2) GORDON GRIX VACCINE (1 of 2) [facility] Start: 2013 COLOGUARD (FIT-DNA) COLOGUARD (FIT-D NA) [facility] Start: 2013 Colonoscopy COLONOSCOPY [facility] Start: 2013 COLORECTAL CANCER SCREENING COLORECTAL CANCER SCREENING [facility] Start: [address] COLONOGRAPHY [facility] Start: 2013 DIABETES SCREEN DIABETES SCREEN [facility] Start: 2013 Diabetes Screening Diabetes Screenin g [facility] Start: 2013 FECAL OCCULT BLOOD FECAL OCCULT BLOO D [facility] Start: 2013 Lipid 1996 panel - S chino or Plasma Lipid Screening [facility] Start: 2013 Lipid panel Lipid Screening [facility] Start: 2013 LIPID SCREEN LIPID SCREEN [facility] Start: 2013 Screening for malign ant neoplasm of colon [facility] Start: 2013 SIGMO[facility]OSCOPY [facility] Start: 2008 Mammography [facility] Start: 2008 Screening for malign ant neoplasm of breast Mammogram Screening [facility] Start: 1998 HPV TESTING HPV TESTING [facility] Start: 1998 Screening for malign ant neoplasm of cervix HPV Testing [facility] Start: 1989 PAP TESTING PAP TESTING [facility] Start: 1989 Screening for malign ant neoplasm of cervix [facility] Start: 1987 Hepatitis B Vaccine (1 of 3 - 19+ 3-dose series) Hepatitis B Vaccine (1 of 3 - 19+ 3-dose series) [facility] Start: 1987 Urine microalbumin profile [facility] Start: 1986 Anxiety Screening Anxiety Screening [facility] Start: 1986 Depression Screening Depression Scre ening [facility] Start: 1986 HEPATITIS C SCREENING HEPATITIS C [facility] Start: 1986 Hepatitis C screening Hepatitis C [facility] Start: 1986 HIV SCREENING HIV SCREENING [facility] Start: 1986 HIV screening HIV Screening [facility] Start: 1968 HEPATITIS B (1 of 3 - 3-dose series) HEPATITIS B (1 of 3 - 3-dose series) [facility] Start: 1968 Hepatitis B Vaccine (1 of 3 - 3-dose series) Hepatitis B Vaccine (1 of 3 - 3-dose series) [facility] Start: 1968 Screening for malign ant neoplasm of colon [facility] Bacteria identified in Urine by Culture [facility] Cystourethroscopy CYSTO.PANENDO Procedures Routine Recurrent UTI Ordered: 10/26/2022 [facility] Work Phone: Comment on above: Ordered: 10/26/2022 DXA Skeletal system. axial Views for bone density [facility] DXA Skeletal system. axial Views for bone density [facility] End: 06-26-2023 EMG(NEURO/NI) EMG(NEURO/NI) EMG Routine Disturbance of skin sensation 1 Occurrences starting 06/26/2022 until 06/26/2023 [facility] Work Phone: Comment on above: 1 Occurrences starti ng 06/26/2022 until 06/26/2023 XR Foot - right AP a nd Lateral and oblique XR FOOT GENERAL 3V AP/LAT/OBL RIGHT Radiology Routine Pain in right foot 02/05/2024 9:34 AM EDT [facility] Work Phone: [facility] Immunizations Immunization Date Immunization Notes Care Provider Merna carpenter 07-14-2022 influenza, injectable, quadrivalent, preservative free [facility] 07-14-2022 influenza, injectable, quadrivalent, contains preservative Pranav Easterwood Other [email or web address] Other 07-14-2022 influenza virus vaccine, unspecified formulation Cristian Castro MD Work Phone: [facility] 12-14-2021 zoster vaccine recombinant [facility] 10-12-2021 zoster vaccine recombinant [facility] 09-04-2021 Do not use COVID-19 Pfizer 2 dose Pranav Easterwood Other [facility] 12-24-2020 COVID-19, mRNA, LNP-S, PF, 30 mcg/0.3 mL dose [facility] Comment on above: Reason for Medicatio n: Prophylaxis 12-03-2020 COVID-19, mRNA, LNP-S, PF, 30 mcg/0.3 mL dose [facility] Comment on above: Reason for Medicatio n: Prophylaxis 06-07-2020 influenza, injectable, quadrivalent, preservative free [facility] 04-08-2020 tetanus toxoid, reduced diphtheria toxoid, and acellular pertussis vaccine, adsorbed [facility] 06-20-2019 Seasonal, quadrivalent, recombinant, injectable influenza vaccine, preservative free [facility] 10-21-2018 influenza, injectable, quadrivalent, preservative free [facility] 06-20-2018 influenza, injectable, quadrivalent, preservative free [facility] 06-04-2017 influenza, seasonal, injectable Pranva Easterwood Other [facility] 05-30-2016 influenza, seasonal, injectable, preservative free [facility] 06-30-2015 influenza, seasonal, injectable [facility] 06-30-2015 influenza, seasonal, injectable, preservative free Pranav Easterwood Other [facility] 06-04-2013 influenza, seasonal, injectable, preservative free Pranav Easterwood Other [facility] 06-17-2012 influenza, injectable, quadrivalent, preservative free [facility] 09-08-2009 novel [id number], preservative-free, injectable [facility] Payers Date Payer Category Payer Self-pay [id number] 2023 Unknown [id number] 2012 Private Health Insurance [id number] 1968 Unknown [id number] 2.16.84 0.1.945426.3.579.2.593 1968 Unknown [id number] 2.16.84 0.1.398682.3.579.2.593 1968 Unknown [id number] 2.16.8 40.1.772989.3.579.2.693 1968 Unknown [id number] 2.16.84 0.1.339182.3.579.2.1259 1968 Unknown [id number] 2.16.8 40.1.056788.3.579.2.727 1968 Unknown [id number] 2.16.8 40.1.958182.3.579.2.727 1968 Unknown [id number] 2.16.8 40.1.470467.3.579.2.727 1968 Unknown [id number] 2.16.8 40.1.049727.3.579.2.727 1968 Unknown [id number] 2.16.8 40.1.568535.3.579.2. 1968 Unknown [id number] 2.16.8 40.1.369988.3.579.2. 1968 Unknown [id number] 2.16.8 40.1.742157.3.579.2. 1968 Unknown [id number] 2.16.8 40.1.619450.3.579.2. 1968 Unknown [id number] 2.16.8 40.1.398199.3.579.2 1968 Unknown [id number] 2.16.8 40.1.828413.3.579.2 1968 Unknown [id number] 2.16.8 40.1.805578.3.579.2 1968 Unknown [id number] 2.16.8 40.1.617518.3.579.2 1968 Unknown [id number] 2.16.8 40.1.812658.3.579.2 1968 Unknown [id number] 2.16.8 40.1.243912.3.579.2. 1968 Unknown [id number] 2.16.8 40.1.121867.3.579.2 1968 Unknown [id number] 2.16.8 40.1.046412.3.579.2 1968 Unknown [id number] 2.16.8 40.1.966276.3.579.2. 1968 Unknown [id number] 2.16.8 40.1.177683.3.579.2 1968 Unknown [id number] 2.16.8 40.1.245357.3.579.2. 1968 Unknown [id number] 2.16.8 40.1.980724.3.579.2.727 1968 Unknown [id number] 2.16.8 40.1.228586.3.579.2.727 1968 Unknown [id number] 2.16.8 40.1.848851.3.579.2.727 1968 Unknown [id number] 2.16.8 40.1.795928.3.579.2.727 1968 Unknown [id number] 2.16.8 40.1.714601.3.579.2.727 1968 Unknown [id number] 2.16.8 40.1.965154.3.579.2.727 1968 Unknown [id number] 2.16.8 40.1.259218.3.579.2.727 1968 Unknown [id number] 2.16.8 40.1.858162.3.579.2.727 1959 Unknown [id number] Unknown [id number] 2.1 6.840.1.523602.19 Unknown [id number] 2.16.8 40.1.588818.3.579.2.531 Unknown [id number] 2.16.8 40.1.676896.3.579.2.531 Unknown [id number] 2.16.8 40.1.334798.3.579.2.531 Social History Date Type Detail Facility Start: 03-11-2020 End: 07-03-2024 Tobacco smoking status Never smoked tobacco (finding) [facility] Tobacco smoking status Never [facility] Start: 04-05-2023 End: 01-16-2024 Sex Assigned [address] Female [facility] Tobacco smoking status MNIS Tobacco smoking consumption unknown [facility] Start: 1968 Sex Assigned At Not on file [facility] Start: 06-16-2022 End: 06-26-2022 Exposure to SARS-CoV-2 (event) Not sure [facility] Start: 1968 Sex Assigned At Female [facility] Start: 03-30-2023 End: 04-05-2023 Tobacco use and exposure Smokeless tobacco non-user [facility] [facility] Start: 04-05-2023 End: 01-16-2024 Alcohol intake Ex-drinker (finding) [facility] Start: 04-05-2023 End: 01-16-2024 History of Social function [facility] Start: 10-06-2024 End: 01-19-2025 Sex Female (finding) [facility] Start: 03-29-2023 Gender identity Identifies as female gender (finding) [facility] Start: 03-29-2023 Sexual orientation Heterosexual (fin ding) [facility] NEGATED: Highlighted rowStart: NINF History of tobacco use Passive smoker [facility] Goals Date Patient Goal Desired Activity /State Functional Status Date Assessment Result Facility 07-21-2024 Functional Status N/A [facility] 06-30-2024 Functional Status No [facility] 06-30-2024 Functional Status [facility] 08-03-2022 Functional Status N/A [facility] Clinical Notes 02-22-2022 to 01-29-2025 Telephone Encounter - Roberto Blankenship - 01/07/2025 9:27 AM EDTTelephone Encounter - Roberto Blankenship - 01/07/2025 9:27 AM EDTTelephone Encounter - Roberto Blankenship - 01/07/2025 8:33 AM EDT Note Date & Type Note Facility 01-29-2025 Note Hospital Medicine Discharge Summary Final Discharge Diagnosis: 1. Paroxysmal A-fib/A-flutter Status post ablation x and 01/27 2. Iatrogenic cardiac tamponade status post cardiocentesis with pericardial drainage placement 3. Pericarditis Admission Diagnosis: Paroxysmal atrial fibrillation (CMS/HCC) [I48.0] Cardiac tamponade [I31.4] Hospital course: Oleg Peck is a 54 y.o. female with pmh of paroxysmal atrial fibrillation, first knew about June 2024 at which she had sudden episode of Afib with RVR admitted to [facility] and converted spontaneously on the second day, had another episode in november that converted back on the next day. Patient was given pill in pocket by Dr. Ricardo. Patient underwent elective afib, patient vani HILARIOI (WAELIZABETH) with PFA ablation on 01/22/2025, patient turned sandy in the PACU, bedside echo showed cardiac tamponade, patient was taken to technology lab teacher with urgent pericardiocentesis with removal of 250 and admitted to MICU. Patient was going into a flutter underwent second ablation on 01/27/2025 with conversion to sinus rhythm. Later on cardial drainage catheter was removed. Patient being discharged today and to follow-up with EP in 1 week. Patient also being treated for pericarditis with colchicine small dose for 2-3 weeks Surgical, Invasive or Diagnostic Procedures Done During Admission: Cardiac ablation for A-fib/a flutter. Pericardial drainage catheter Consultations During Admission: Cardiology/cardiothoracic surgery and vascular Dear PARRISH Toro, Oleg is advised to follow up with you within 1-2 weeks. Items to follow up in ambulatory setting: None Follow-up with: Cardiology-EP Scheduled appointments: Future Appointments Date Time Provider Department Center 02/05/2025 11:20 AM Keyla Millard CNP [facility] 03/03/2025 1:45 PM Jesus Alberto Ricardo MD [facility] Your medication list START taking these medications Instructions Last Dose Given Next Dose Due amiodarone 200 mg tablet Commonly known as: Pacerone Start taking on: January 30, 2025 Take 1 tablet (200 mg) by mouth with breakfast. amoxicillin-pot clavulanate 875-125 mg tablet Commonly known as: Augmentin Take 1 tablet by mouth two times daily for 7 doses. colchicine 0.6 mg tablet Start taking on: January 30, 2025 Take 0.5 tablets (0.3 mg) by mouth in the morning for 14 days. magnesium oxide 400 mg (241.3 mg magnesium) tablet Commonly known as: Mag-Ox Take 1 tablet (400 mg) by mouth two times daily. CHANGE how you take these medications Instructions Last Dose Given Next Dose Due metoprolol tartrate 25 mg tablet Commonly known as: Lopressor What changed: when to take this reasons to take this additional instructions Take 1 tablet (25 mg) by mouth two times daily. CONTINUE taking these medications Instructions Last Dose Given Next Dose Due CALCIUM-VITAMIN D ORAL multivitamin tablet [place]-3 Fish OiL 300-1,000 mg capsule Generic drug: vfvik-[id number]-lro-epa-fish oil rivaroxaban 20 mg tablet Commonly known as: Xarelto Take 1 tablet (20 mg) by mouth daily with evening meal. Take with food. STOP taking these medications aspirin 81 mg EC tablet flecainide 100 mg tablet Commonly known as: Tambocor magnesium carb,citrate,oxide 300 mg magnesium tablet Where to Get Your Medications These medications were sent to [facility]/pharmacy #[id number] - [place], [place] - [address] OF [address] [address] amiodarone 200 mg tablet amoxicillin-pot clavulanate 875-125 mg tablet colchicine 0.6 mg tablet magnesium oxide 400 mg (241.3 mg magnesium) tablet metoprolol tartrate 25 mg tablet Oleg is allergic to codeine and sulfamide. Disposition: Home or Self Care () Discharge Condition: Stable Code Status: Full Code Diagnostic Results Hematology: Results from last 7 days Lab Units 01/28/25 1014 01/25/25 0927 01/23/25 2332 01/23/25 1601 01/23/25 0751 01/23/25 0344 WBC AUTO 10*3/uL -- 8.07 -- 11.06* -- 13.26* HEMOGLOBIN g/dL 12.0 13.2 < > 11.8* < > 11.3* HEMATOCRIT % 36.0 40.2 < > 36.3 < > 34.1* MCV fL -- 92.6 -- 94.3 -- 91.7 PLATELETS AUTO 10*3/uL -- 282 -- 220 -- 202 INR -- -- -- -- -- 1.23* < > = values in this interval not displayed. Chemistry: Results from last 7 days Lab Units 01/27/25 0356 01/25/25 0927 01/24/25 0333 01/23/25 1601 SODIUM mmol/L 138 140 140 138 POTASSIUM mmol/L 3.8 3.8 3.8 4.4 CHLORIDE mmol/L 105 105 112* 109* CO2 mmol/L 26 28 23 23 BUN mg/dL 12 13 6* 10 CREATININE mg/dL 0.68 0.76 0.54* 0.63 GLUCOSE mg/dL 108* 120* 90 89 MAGNESIUM mg/dL 1.7* -- 1.7* 1.9 CALCIUM mg/dL 8.9 8.9 8.2* 8.0* PHOSPHORUS mg/dL -- -- 2.4* 1.6* Results from last 7 days Lab Units 01/24/25 0333 01/23/25 0344 AST U/L 42* 66* ALT U/L 56* 54* ALK PHOS U/L 55 44 BILIRUBIN TOTAL mg/dL 0.7 0.9 Diet at the time of discharge: regular diet and cardiac diet Activity: Patient (more content not included)... [facility] 01-29-2025 Note [facility] CARDIOLOGY INPAT IENT PROGRESS NOTE Reason for follow up: s/p afib ablation complicated by cardiac tamponade s/p pericardiocentesis Subjective 01/26/25 Patient was seen and examined this morning, patient reports not feeling well this morning. She was woken up around 4 am with complaints of diarrhea, she had several episodes up until this morning associated with nausea. She reports an episode of chest heaviness when lying flat overnight, this resolved with sitting up. No shortness of breath. Was able to get up and walk around multiple times yesterday, will attempt later today. 01/27/25 Patient was seen and evaluated this morning, bedside. Patient states she had a good rest of her day yesterday, was able to walk the halls multiple times. No pain or tenderness at sight of drain removal. Overnight, patient converted into atrial flutter, patient was symptomatic could feel her heart racing and somewhat SOB. Had a few episodes of ongoing diarrhea overnight, but no nausea. She feels that the diarrhea is much more tolerable today. 01/28/25 Patient was seen and examined this morning. She is feeling well. Only had one episodes of diarrhea overnight. Slept better than she has been. She is very sore at groin access site. Denies chest pain or pressure. No shortness of breath. No palpitations/fluttering. 01/29/25 Patient was seen and examined this morning bedside. Patient is feeling well. Having loose stools but no more diarrhea. She denies any chest pain or pressure. Groin site is still mildly sore but much improved compared to yesterday. Tele: Reviewed with no arrhythmias ALLERGIES Allergies Allergen Reactions Codeine Headache Sulfamide Other JOINT PAIN CURRENT MEDS amiodarone, 200 mg, oral, Daily with breakfast amoxicillin-pot clavulanate, 1 tablet, oral, BID colchicine, 0.3 mg, oral, Daily magnesium oxide, 400 mg, oral, BID metoprolol tartrate, 25 mg, oral, BID [Held by provider] rivaroxaban, 20 mg, oral, Daily with evening meal PRN medications: acetaminophen, melatonin, prochlorperazine Objective Patient Vitals for the past 24 hrs: BP Temp Temp src Pulse Resp SpO2 Weight 01/29/25 0459 99/60 -- -- 65 -- 100 % -- 01/29/25 0411 95/64 -- -- 61 -- 98 % -- 01/29/25 0346 -- -- -- -- -- -- 63.6 kg (140 lb 3.2 oz) 01/29/25 0008 98/59 -- -- 63 -- 97 % -- 01/28/25 1953 109/71 -- -- 76 -- -- -- 01/28/25 1641 111/52 36.3 ???C (97.3 ???F) Temporal 70 18 -- -- 01/28/25 1224 102/52 36.1 ???C (97 ???F) Temporal 54 18 99 % -- 01/28/25 1100 107/56 -- -- 61 -- -- -- 01/28/25 1021 115/68 -- -- 64 -- -- -- BP 99/60 Pulse 65 Temp 36.3 ???C (97.3 ???F) (Temporal) Resp 18 Ht 1.727 m (5' 8 ) Wt 63.6 kg (140 lb 3.2 oz) SpO2 100% BMI 21.32 kg/m??? Wt Readings from Last 3 Encounters: 01/29/25 63.6 kg (140 lb 3.2 oz) 01/13/25 64.9 kg (143 lb) 12/02/24 66.7 kg (147 lb) Physical Exam: Constitutional General Appearance: well-nourished, well-developed, appears stated age, Normal body composition Level of Distress: comfortable Eyes CARLA Neck Neck: supple, trachea midline Carotid Arteries: bilateral normal upstroke, no bruits Jugular Veins: normal jugular venous pressure Thyroid: not enlarged Lungs Respiratory Effort: unlabored Chest Exam: normal curvature, no thoracic deformity Auscultation: Clear to auscultation b/l Cardiovascular Chest wall: Rate And Rhythm: Regular rate and rhythm Heart Sounds: normal S1, normal s2, no gallop Systolic Murmur: not heard Diastolic Murmur: not heard Extremities: No lower extremity edema in b/l extremities Peripheral Pulses Radial Pulse: normal Abdomen Inspection and Palpation: Soft Small incision from pericardial drain, covered with bandage Neurologic Gait: normal gait Skin -R femoral access site: mild ecchymosis, stitch removed this AM by Dr. Ricardo. Covered with fresh bandage. No bleeding or discharge. Lab Results Component Value Date NA 138 01/27/2025 K 3.8 01/27/2025 CL 105 01/27/2025 ANIONGAP 11 01/27/2025 BUN 12 01/27/2025 CREATININE 0.68 01/27/2025 CALCIUM 8.9 01/27/2025 MG 1.7 (L) 01/27/2025 PHOS 2.4 (L) 01/24/2025 Lab Results Component Value Date BILITOT 0.7 01/24/2025 BILIDIR 0.2 01/21/2025 ALKPHOS 55 01/24/2025 AST 42 (H) 01/24/2025 ALT 56 (H) 01/24/2025 PROT 5.9 (L) 01/24/2025 ALBUMIN 3.5 01/24/2025 Lab Results Component Value Date WBC 8.07 01/25/2025 RBC 4.34 01/25/2025 HGB 12.0 01/28/2025 HCT 36.0 01/28/2025 MCV 92.6 01/25/2025 MCH 30.4 01/25/2025 MCHC 32.8 01/25/2025 RDW 13.0 01/25/2025 NEUTOPHILPCT 72.5 (H) 01/23/2025 LYMPHOPCT 16.7 (L) 01/23/2025 MONOPCT 9.7 01/23/2025 EOSPCT 0.3 01/23/2025 BASOPCT 0.3 01/23/2025 NEUTROABS 8.03 (H) 01/23/2025 LYMPHSABS 1.85 01/23/2025 MONOSABS 1.07 (H) 01/23/2025 EOSABS 0.03 01/23/2025 BASOSABS 0.03 01/23/2025 PLT 282 01/25/2025 NRBC 0.0 01/23/2025 No X-ray results found for th (more content not included)... [facility] 01-28-2025 Note Status post pericard iocentesis with drainage catheter removed on 01/26 Limited echo was done today and read as: Minimal anterior pericardial effusion measuring 0.8 cm near RV distal free wall. Nothing posterior. Patient also will be placed on Augmentin for 1 week for infections prophylaxis [facility] 01-28-2025 Note s/p ablation 01/21 wi th PVI with PFA Patient had an episodes of A-fib with RVR after ablation/ Aflutter - Patient underwent a flutter ablation on 01/27/2025 -Continue amiodarone 200 daily as well as pressor 25 twice daily Xarelto on hold [facility] 01-28-2025 Note Patient on colchicin e and due to nausea and diarrhea, dose was decreased to 0.3 mg twice daily starting today. Patient to continue colchicine X 2-3 weeks [facility] 01-28-2025 Note Hospital Medicine Daily Progress Note - 01/28/2025 12:34 PM; Room: [address] [place] [address] Admission: 01/21/2025 9:47 AM; Length of stay: 7 days THE HOSPITALIST TEAM PREFERS TO USE [facility] FOR NON-URGENT COMMUNICATION 7AM-7PM. IF I DO NOT RESPOND WITHIN 20 MINUTES OR URGENT MATTERS, PLEASE CALL THROUGH THE CONTINUITY COORDINATOR. FROM 7PM-7AM, PLEASE PAGE [phone](COVR). Code Status: Full Code Barriers to Discharge: Post ablation tamponade Expected Discharge Date: 1 day ? Discharge Destination: home Overview Patient is seen for evaluation and management of post ablation tamponade Subjective Seen today in her room, denies any chest pain or shortness of breath. Physical Exam General: Patient is alert and oriented x3, not in acute distress. HEENT: Atraumatic, normocephalic Neck: Supple neck. Respiratory: Clear breathing sound bilaterally, no wheezing no crackles. Heart: Rhythm irregularly irregular Neurology: Can move all extremities, no focal deficit. Abdomen: Soft, not distended Skin: Warm and dry Visit Vitals BP 100/59 Pulse 60 Temp 36.2 ???C (97.2 ???F) (Temporal) Resp 20 Intake/Output Summary (Last 24 hours) at 01/28/2025 1234 Last data filed at 01/28/2025 0614 Gross per 24 hour Intake 358.67 ml Output 10 ml Net 348.67 ml Estimated body mass index is 20.85 kg/m??? as calculated from the following: Height as of this encounter: 1.727 m (5' 8 ). Weight as of this encounter: 62.2 kg (137 lb 2 oz). Assessment and Plan Assessment & Plan Paroxysmal atrial fibrillation (CMS/HCC) s/p ablation 01/21 with PVI with PFA Patient had an episodes of A-fib with RVR after ablation/ Aflutter - Patient underwent a flutter ablation on 01/27/2025 -Continue amiodarone 200 daily as well as pressor 25 twice daily Xarelto on hold Cardiac tamponade after operative procedure Status post pericardiocentesis with drainage catheter removed on 01/26 Limited echo was done today and read as: Minimal anterior pericardial effusion measuring 0.8 cm near RV distal free wall. Nothing posterior. Patient also will be placed on Augmentin for 1 week for infections prophylaxis Pericarditis Patient on colchicine and due to nausea and diarrhea, dose was decreased to 0.3 mg twice daily starting today. Patient to continue colchicine X 2-3 weeks VTE Prophylaxis: Xarelto Scheduled Meds amiodarone, 200 mg, oral, Daily with breakfast amoxicillin-pot clavulanate, 1 tablet, oral, BID colchicine, 0.3 mg, oral, Daily magnesium oxide, 400 mg, oral, BID metoprolol tartrate, 25 mg, oral, BID [Held by provider] rivaroxaban, 20 mg, oral, Daily with evening meal Pertinent Investigations Hematology: Results from last 7 days Lab Units 01/28/25 1014 01/25/25 0927 01/23/25 2332 01/23/25 1601 01/23/25 0751 01/23/25 0344 01/21/25 2342 01/21/25 1640 WBC AUTO 10*3/uL -- 8.07 -- 11.06* -- 13.26* < > 11.91* HEMOGLOBIN g/dL 12.0 13.2 < > 11.8* < > 11.3* < > 11.9* HEMATOCRIT % 36.0 40.2 < > 36.3 < > 34.1* < > 34.9* MCV fL -- 92.6 -- 94.3 -- 91.7 < > 89.9 PLATELETS AUTO 10*3/uL -- 282 -- 220 -- 202 < > 236 INR -- -- -- -- -- 1.23* -- 1.31* < > = values in this interval not displayed. Chemistry: Results from last 7 days Lab Units 01/27/25 0356 01/25/25 0927 01/24/25 0333 01/23/25 1601 SODIUM mmol/L 138 140 140 138 POTASSIUM mmol/L 3.8 3.8 3.8 4.4 CHLORIDE mmol/L 105 105 112* 109* CO2 mmol/L 26 28 23 23 BUN mg/dL 12 13 6* 10 CREATININE mg/dL 0.68 0.76 0.54* 0.63 GLUCOSE mg/dL 108* 120* 90 89 MAGNESIUM mg/dL 1.7* -- 1.7* 1.9 CALCIUM mg/dL 8.9 8.9 8.2* 8.0* PHOSPHORUS mg/dL -- -- 2.4* 1.6* Results from last 7 days Lab Units 01/24/25 0333 01/23/25 0344 01/21/25 1400 AST U/L 42* 66* -- ALT U/L 56* 54* -- ALK PHOS U/L 55 44 -- BILIRUBIN TOTAL mg/dL 0.7 0.9 0.9 BILIRUBIN DIRECT mg/dL -- -- 0.2 Results from last 7 days Lab Units 01/21/25 1628 POCT GLUCOSE mg/dL 213* Historical Values: (Includes values prior to this admission) No results found for: PREALBUMIN , TSH , T3FREE , FREET4 , CORTISOL , FEV1 , QHW8FCH , DLCO , RVSP , HDL , LDL No results found for: [id number] , IRON , TIBC , C3 , C4 , SHAY , CANCA , ASO , PSA , CEA , CA125 , CA199 , AFP , CA153 Imaging CT abdomen pelvis w IV contrast Narrative: CT ABDOMEN AND PELVIS WITH CONTRAST COMPARISON: None. HISTORY: Status post ablation, hematoma, rule out bleed. TECHNIQUE: 100 mL of Omnipaque nonionic contrast injected intravenously without reported complication. Axial images obtained from the lung bases to the pubic symphysis with sagittal and coronal 2D reformatted images. Oral contrast administered: No. Automatic exposure control (AEC) was utilized. FINDINGS: Gallbladder is present. Small noncalcified gallstone or polyp. Subcentimeter benign cyst or meningioma at the dome of the liver. Innumerable hypoattenuating splenic lesions including with an accessory spleen likely benign cysts or (more content not included)... [facility] 01-28-2025 Note Attestation signed by Mireya Betancourt RD at 01/28/2025 2:59 PM Read and reviewed student assessment and agree with interventions. Adult Nutrition Assessment: Name: Oleg Peck Date: 1970 Date of Visit: 01/28/25 Admission Dx: Paroxysmal atrial fibrillation (CMS/HCC) [I48.0] Cardiac tamponade [I31.4] Reason for assessment: length of stay Information obtained from: patient, medical record, and nursing Past Medical History: Diagnosis Date Atrial fibrillation (CMS/HCC) Complex regional pain syndrome of lower limb Deep vein thrombosis (CMS/HCC) Displaced fracture of fifth metatarsal bone, left foot, initial encounter for closed fracture Hallux rigidus of right foot Peripheral vascular disease Recurrent UTI Varicose veins of both lower extremities with pain Current Medications: amiodarone, 200 mg, oral, Daily with breakfast amoxicillin-pot clavulanate, 1 tablet, oral, BID colchicine, 0.3 mg, oral, Daily magnesium oxide, 400 mg, oral, BID metoprolol tartrate, 25 mg, oral, BID rivaroxaban, 20 mg, oral, Daily with evening meal Labs: 0 Lab Value Date/Time POCGLU 213 (H) 01/21/2025 1628 BUN 12 01/27/2025 0356 CREATININE 0.68 01/27/2025 0356 NA 138 01/27/2025 0356 K 3.8 01/27/2025 0356 PHOS 2.4 (L) 01/24/2025 0333 MG 1.7 (L) 01/27/2025 035 HGB 13.2 01/25/2025 0927 WBC 8.07 01/25/2025 0927 B-213 Troponin: 1765 (01/23/25) Allergies: Allergies Allergen Reactions Codeine Headache Sulfamide Other JOINT PAIN Nutrition Problems: Swallowing Assessment: pt denies swallowing difficulties Mouth: pt denies chewing difficulties Stated she had dry mouth prior to her procedure on 01/21; this has since resolved Abdominal Assessment: last BM: 01/28 per pt States stool was loose Pt states consistent diarrhea that has improved over the last couple of days Pt indicates nausea that has improved over the last couple of days I/O: Net fluid: +1.6L Appetite: good Pt states her appetite decreased upon admission d/t ablations however, she states it has improved Cognition: A/O x4 Feeding Skills: Pt is able to shop, cook for, and feed herself, good access to food Skin Integrity: intact Edema: none documented Other Factors: Ablation 01/21 and 01/27 Pericardiocentesis 01/21 EF 01/28: 65% Nutrition Data/Clinical Indicators of Nutrition Status: Height: 172.7 cm (5' 8 ) Weight: 62.2 kg (137 lb 2 oz) BMI (Calculated): 20.85 Wt Readings from Last 10 Encounters: 01/28/25 62.2 kg (137 lb 2 oz) 01/21/25 62.2 kg cardiology 01/13/25 64.9 kg (143 lb) 12/02/24 66.7 kg (147 lb) IBW: 63.6 kg 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 % weight change: 4% (2.7 kg) x 1 month Severity of weight change: mild Nutrition Assessment: Pt states her appetite is good and has improved since admission on 01/21. She states she was nauseous following her procedure on 01/21 due to medications however, this has decreased after medications dosage was decreased. She states she is eating 2-3 meals/day during this admission even when her appetite was not good, and has been experiencing diarrhea consistently. She states her diarrhea has improved over the past couple of days, but is still present. Encouraged hydration and discussed foods to help thicken stool if diarrhea to persist. Dietary Orders (From admission, onward) Start Ordered 01/27/251717 Regular Diet Diet effective now Question: Room Service? Answer: Yes 01/27/25171601/23/25 175 Special Kitchen Request Once Comments: [place] x 2 01/23/25 1757 Meal Intakes: 75-100% of documented meals on 01/25 Nutrition Risk: Low Nutrition Needs: Needs based on: actual body weight (62.2 kg) Calorie needs: 4213-0908 kcals/day based on Equation: 25-30 kcal/kg Protein needs: 50-62 g/day based on 0.8-1 g/kg Fluid needs: 1866 ml/day based on 30 ml/kg Nutrition Diagnosis: None at this time Malnutrition Assessment: Per Registered Dietitian assessment and evaluation, patient does not currently meet criteria OR there is not enough information to support the diagnosis of malnutrition per the clinical criteria set by the Academy of Nutrition and Dietetics (AND) and the [place] Society of Enteral and Parenteral Nutrition (ASPEN). Treatment Plan: Continue regular diet, monitor intakes Encourage adequate hydration r/t diarrhea Encourage small, frequent meals and stool-thickening foods Monitor nutrition related labs; replace electrolytes prn Monitor wt weekly Goals: Adequate po intakes (kcals and protein); >75% meals No significant unintentional wt loss Weight maintenance Nutrition-related (more content not included)... [facility] 01-28-2025 Note [facility] CARDIOLOGY INPAT IENT PROGRESS NOTE Reason for follow up: s/p afib ablation complicated by cardiac tamponade s/p pericardiocentesis Subjective 01/26/25 Patient was seen and examined this morning, patient reports not feeling well this morning. She was woken up around 4 am with complaints of diarrhea, she had several episodes up until this morning associated with nausea. She reports an episode of chest heaviness when lying flat overnight, this resolved with sitting up. No shortness of breath. Was able to get up and walk around multiple times yesterday, will attempt later today. 01/27/25 Patient was seen and evaluated this morning, bedside. Patient states she had a good rest of her day yesterday, was able to walk the halls multiple times. No pain or tenderness at sight of drain removal. Overnight, patient converted into atrial flutter, patient was symptomatic could feel her heart racing and somewhat SOB. Had a few episodes of ongoing diarrhea overnight, but no nausea. She feels that the diarrhea is much more tolerable today. 01/28/25 Patient was seen and examined this morning. She is feeling well. Only had one episodes of diarrhea overnight. Slept better than she has been. She is very sore at groin access site. Denies chest pain or pressure. No shortness of breath. No palpitations/fluttering. Tele: SR 64-85 bpm ALLERGIES Allergies Allergen Reactions Codeine Headache Sulfamide Other JOINT PAIN CURRENT MEDS amoxicillin-pot clavulanate, 1 tablet, oral, BID colchicine, 0.3 mg, oral, Daily magnesium oxide, 400 mg, oral, BID metoprolol tartrate, 25 mg, oral, BID rivaroxaban, 20 mg, oral, Daily with evening meal amiodarone, 0.5 mg/min, Last Rate: 0.5 mg/min (01/28/25 0614) PRN medications: acetaminophen, melatonin, prochlorperazine Objective Patient Vitals for the past 24 hrs: BP Temp Temp src Pulse Resp SpO2 Weight 01/28/25 0500 100/59 -- -- 60 -- 95 % 62.2 kg (137 lb 2 oz) 01/28/25 0400 99/67 -- -- 61 -- 98 % -- 01/28/25 0300 94/66 -- -- 62 -- 96 % -- 01/28/25 0000 94/69 -- -- 57 -- -- -- 01/27/25 2300 96/60 -- -- 58 -- -- -- 01/27/25 2230 123/76 -- -- 73 -- 98 % -- 01/27/25 2200 117/78 -- -- 76 -- 96 % -- 01/27/252156 127/69 -- -- 73 -- 96 % -- 01/27/252099 134/74 -- -- 81 20 97 % -- 01/27/252029 126/77 -- -- 70 17 98 % -- 01/27/251999 124/79 -- -- 64 11 97 % -- 01/27/25 193 122/79 -- -- 65 18 -- -- 01/27/25 1900 127/71 -- -- 64 18 -- -- 01/27/25 1830 117/77 -- -- 65 18 -- -- 01/27/25 1800 116/73 -- -- 67 15 -- -- 01/27/25 1730 113/77 -- -- 71 19 -- -- 01/27/25 1715 120/76 -- -- 67 19 -- -- 01/27/25 1700 119/76 -- -- 68 23 -- -- 01/27/25 1645 116/73 36.2 ???C (97.2 ???F) Temporal 71 22 98 % -- 01/27/25 1628 127/86 -- -- 67 22 100 % -- 01/27/25 1516 113/67 -- -- 66 25 100 % -- 01/27/25 1216 105/54 36 ???C (96.8 ???F) Temporal 57 18 100 % -- BP 100/59 Pulse 60 Temp 36.2 ???C (97.2 ???F) (Temporal) Resp 20 Ht 1.727 m (5' 8 ) Wt 62.2 kg (137 lb 2 oz) SpO2 95% BMI 20.85 kg/m??? Wt Readings from Last 3 Encounters: 01/28/25 62.2 kg (137 lb 2 oz) 01/13/25 64.9 kg (143 lb) 12/02/24 66.7 kg (147 lb) Physical Exam: Constitutional General Appearance: well-nourished, well-developed, appears stated age, Normal body composition Level of Distress: comfortable Eyes CARLA Neck Neck: supple, trachea midline Carotid Arteries: bilateral normal upstroke, no bruits Jugular Veins: normal jugular venous pressure Thyroid: not enlarged Lungs Respiratory Effort: unlabored Chest Exam: normal curvature, no thoracic deformity Auscultation: Clear to auscultation b/l Cardiovascular Chest wall: Rate And Rhythm: Regular rate and rhythm Heart Sounds: normal S1, normal s2, no gallop Systolic Murmur: not heard Diastolic Murmur: not heard Extremities: No lower extremity edema in b/l extremities Peripheral Pulses Radial Pulse: normal Abdomen Inspection and Palpation: Soft Small incision from pericardial drain, covered with bandage Neurologic Gait: normal gait Skin -R femoral access site: mild ecchymosis, moderate sized hematoma. Access site closed with suture. No bleeding or discharge. No bruit. Lab Results Component Value Date NA 138 01/27/2025 K 3.8 01/27/2025 CL 105 01/27/2025 ANIONGAP 11 01/27/2025 BUN 12 01/27/2025 CREATININE 0.68 01/27/2025 CALCIUM 8.9 01/27/2025 MG 1.7 (L) 01/27/2025 PHOS 2.4 (L) 01/24/2025 Lab Results Component Value Date BILITOT 0.7 01/24/2025 BILIDIR 0.2 01/21/2025 ALKPHOS 55 01/24/2025 AST 42 (H) 01/24/2025 ALT 56 (H) 01/24/2025 PROT 5.9 (L) 01/24/2025 ALBUMIN 3.5 01/24/2025 Lab Results Component Value Date WBC 8.07 01/25/2025 RBC 4.34 01/25/2025 HGB 13.2 01/25/2025 HCT 40.2 01/25/2025 MCV 92.6 01/25/2025 MCH 30.4 01/25/2025 MCHC 32.8 01/25/2025 RDW 13.0 01/25/2025 NEUTOPHILPCT 72.5 (H) 01/23/2025 LYMPHOPCT 16.7 (L) 01/23/2025 MONOPC (more content not included)... [facility] 01-27-2025 Note ATRIAL FLUTTER ABLAT ION PROCEDURE NOTE DATE OF PROCEDURE: 01/27/2025 PERFORMING PHYSICIAN: Dr. Jesus Alberto Ricardo CONSENT: Patient NAME OF THE PROCEDURE: Flutter ablation and Comprehensive EP study. INDICATIONS FOR PROCEDURE: Atrial flutter PROCEDURES PERFORMED: 1. Sonosite guided venous access as noted below and images stored in PACS. 2. Comprehensive EP study and catheter ablation for persistent atrial flutter. This includes right atrial recording and pacing, His bundle recording and right ventricular recording and pacing. 3. Intracardiac EP 3D mapping. 4. Intracardiac echocardiogram 5. Left atrial and coronary sinus recording and pacing to assess ablation results. 6. Conscious sedation. PROCEDURAL SEDATION: Versed and Fentanyl. Moderate sedation was administered by the sedation nurse under my supervision and noted in the CVL log. Intraprocedural face to face sedation time: 77min. Monitoring: Cardiac telemetry, Blood pressure, continuous pulse oxymetry. FLUOROSCOPY: NA EBL: 15cc SPECIMEN REMOVED: None PROCEDURE NOTE: Risks, benefits and alternatives of the procedure were discussed with the patient and family who agreed to proceed. Please refer to my consult note for details of the discussion and of indications. The patient was brought to the EP lab and a procedural pause was performed identifying the patient, the procedure. The patient presented in sinus rhythm and ICE imaging was used to rule out AMY clot. Both the groins were then prepared and draped. Ultrasound was used to determine the course and patency of the femoral veins on both sides and they were noted to be patent and the image stored in PACS. After infiltration with 1% lidocaine, 3 venous sheaths were placed in the right. RFV: 8Fx3 [employer] Thermo[employer] SF Bi-Directional over SL1/ Vizigo, ICE catheter. CS Catheter (EZ Steer) Heparin 2000U bolus was given followed by continuous intravenous drip to target ACT around 300. An intracardiac ultrasound catheter was inserted into the right atrium to examine the right atrial anatomy, atrial septum, pulmonary vein anatomy and to monitor for pericardial effusion. At baseline, there was no pericardial effusion and no AMY clot. CS os was mapped using the FeedBurnerUND 3D mapping software. Using ICE, the His and IVC junctions were marked with 3D CARTO mapping software. Vizigo sheath was exchanged for a short 8F sheath. Vizigo sheath was placed instead of short 8F sheath. The ablation catheter was advanced over to the CTI. Patient was noted to go into Afib that would organoze into flutter which would self terminate. Ablation was performed on the CTI line starting at the tricuspid valve aspect. 40W was utilized and I extended the ablation to the IVC aspect, but no bidirectional block was seen. There was a significant pouch noted which made it challenging to have good contact at the IVC aspect. Mapping was performed with CS pacing and this revealed leak adjacent to IVC aspect. Reablation was performed in this area which led to CTI block and bidirectional CTI block was noted. Pacing from the proximal CS as well as lateral aspect of RA (137ms) confirmed this. Differential pacing also confirmed CTI block. EP study was then performed. Atrial pacing was performed from CS poles. Burst atrial pacing down to 250ms did not induce any tachycardia. Repeat EP study could no longer demonstrate any tachycardia. EP study and ablation were then stopped at this time. ICE imaging confirmed the same extent of pericardial effusion. Sheaths were pulled and hemostasis was confirmed with manual compression and figure of 8 suture. ICE catheter and all catheters were removed.Venous sheaths were pulled and hemostasis noted. She was transferred to observation bay. AHms 87 HVms 54 VERPms NA AV Wenkebach ms 450ms AH jump ms NA AVNERP ms 600/340 AERP ms 600/300 POST PROCEDURE DIAGNOSIS 1. Symptomatic atrial flutter s/p CTI ablation. 2. EP study revealing no retrograde accessory conduction. PLAN: 1. Ct anticoagulation with Xarelto 2. Groin precautions. 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 Use of blood products discussed with patient who. Additional Equipment Requests [facility] 01-27-2025 Note s/p ablation 4/30 wi th PVI with PFA Patient had an episode of A-fib with RVR after ablation -Patient overnight went into a flutter and plan for a flutter ablation likely to be done today Continue Amio drip, metoprolol and Xarelto [facility] 01-27-2025 Note Status post pericard iocentesis with drainage catheter removed on 01/26 Limited echo was done today and read as: Minimal anterior pericardial effusion measuring 0.8 cm near RV distal free wall. Nothing posterior. Patient also will be placed on Augmentin for 1 week for infections prophylaxis [facility] 01-27-2025 Note Patient on colchicin e and due to nausea and diarrhea, dose was decreased to 0.3 mg twice daily starting today. Patient to continue colchicine X 2-3 weeks [facility] 01-27-2025 Note Hospital Medicine Daily Progress Note - 01/27/2025 12:44 PM; Room: [address] [place] [address] Admission: 01/21/2025 9:47 AM; Length of stay: 6 days THE HOSPITALIST TEAM PREFERS TO USE [employer] FOR NON-URGENT COMMUNICATION 7AM-7PM. IF I DO NOT RESPOND WITHIN 20 MINUTES OR URGENT MATTERS, PLEASE CALL THROUGH THE CONTINUITY COORDINATOR. FROM 7PM-7AM, PLEASE PAGE [phone](COVR). Code Status: Full Code Barriers to Discharge: Post ablation tamponade Expected Discharge Date: 1 day ? Discharge Destination: home Overview Patient is seen for evaluation and management of post ablation tamponade Subjective Seen today in her room, denies any chest pain or shortness of breath. Physical Exam General: Patient is alert and oriented x3, not in acute distress. HEENT: Atraumatic, normocephalic Neck: Supple neck. Respiratory: Clear breathing sound bilaterally, no wheezing no crackles. Heart: Rhythm irregularly irregular Neurology: Can move all extremities, no focal deficit. Abdomen: Soft, not distended Skin: Warm and dry Visit Vitals BP 105/81 (BP Location: Right arm, Patient Position: Sitting) Pulse (!) 120 Temp 36.3 ???C (97.3 ???F) (Temporal) Resp 18 Intake/Output Summary (Last 24 hours) at 01/27/2025 1244 Last data filed at 01/27/2025 1143 Gross per 24 hour Intake 883.74 ml Output 0 ml Net 883.74 ml Estimated body mass index is 21.32 kg/m??? as calculated from the following: Height as of this encounter: 1.727 m (5' 8 ). Weight as of this encounter: 63.6 kg (140 lb 3.2 oz). Assessment and Plan Assessment & Plan Paroxysmal atrial fibrillation (CMS/HCC) s/p ablation 01/21 with PVI with PFA Patient had an episode of A-fib with RVR after ablation -Patient overnight went into a flutter and plan for a flutter ablation likely to be done today Continue Amio drip, metoprolol and Xarelto Cardiac tamponade after operative procedure Status post pericardiocentesis with drainage catheter removed on 01/26 Limited echo was done today and read as: Minimal anterior pericardial effusion measuring 0.8 cm near RV distal free wall. Nothing posterior. Patient also will be placed on Augmentin for 1 week for infections prophylaxis Pericarditis Patient on colchicine and due to nausea and diarrhea, dose was decreased to 0.3 mg twice daily starting today. Patient to continue colchicine X 2-3 weeks VTE Prophylaxis: Xarelto Scheduled Meds amoxicillin-pot clavulanate, 1 tablet, oral, BID colchicine, 0.3 mg, oral, Daily magnesium oxide, 400 mg, oral, BID metoprolol tartrate, 25 mg, oral, BID rivaroxaban, 20 mg, oral, Daily with evening meal amiodarone, 0.5 mg/min, Last Rate: 0.5 mg/min (01/27/25 1143) Pertinent Investigations Hematology: Results from last 7 days Lab Units 01/25/25 0927 01/24/25 0720 01/23/25 2332 01/23/25 1601 01/23/25 0751 01/23/25 0344 01/21/25 2342 01/21/25 1640 WBC AUTO 10*3/uL 8.07 -- -- 11.06* -- 13.26* < > 11.91* HEMOGLOBIN g/dL 13.2 12.3 < > 11.8* < > 11.3* < > 11.9* HEMATOCRIT % 40.2 37.7 < > 36.3 < > 34.1* < > 34.9* MCV fL 92.6 -- -- 94.3 -- 91.7 < > 89.9 PLATELETS AUTO 10*3/uL 282 -- -- 220 -- 202 < > 236 INR -- -- -- -- -- 1.23* -- 1.31* < > = values in this interval not displayed. Chemistry: Results from last 7 days Lab Units 01/27/25 0356 01/25/25 0927 01/24/25 0333 01/23/25 1601 SODIUM mmol/L 138 140 140 138 POTASSIUM mmol/L 3.8 3.8 3.8 4.4 CHLORIDE mmol/L 105 105 112* 109* CO2 mmol/L 26 28 23 23 BUN mg/dL 12 13 6* 10 CREATININE mg/dL 0.68 0.76 0.54* 0.63 GLUCOSE mg/dL 108* 120* 90 89 MAGNESIUM mg/dL 1.7* -- 1.7* 1.9 CALCIUM mg/dL 8.9 8.9 8.2* 8.0* PHOSPHORUS mg/dL -- -- 2.4* 1.6* Results from last 7 days Lab Units 01/24/25 0333 01/23/25 0344 01/21/25 1400 AST U/L 42* 66* -- ALT U/L 56* 54* -- ALK PHOS U/L 55 44 -- BILIRUBIN TOTAL mg/dL 0.7 0.9 0.9 BILIRUBIN DIRECT mg/dL -- -- 0.2 Results from last 7 days Lab Units 01/21/25 1628 01/21/25 1030 POCT GLUCOSE mg/dL 213* 92 Historical Values: (Includes values prior to this admission) No results found for: PREALBUMIN , TSH , T3FREE , FREET4 , CORTISOL , FEV1 , VTP5YPJ , DLCO , RVSP , HDL , LDL No results found for: BJOGYKOH26 , IRON , TIBC , C3 , C4 , SHAY , CANCA , ASO , PSA , CEA , CA125 , CA199 , AFP , CA153 Imaging CT chest wo IV contrast Narrative: CT CHEST WO IV CONTRAST 01/27/2025 9:54 AM CLINICAL INDICATIONS:Pericardial effusion. Status post pericardiocentesis. TECHNIQUE: Multidetector CT axial slices of the chest were obtained without IV contrast. Multiplanar reformats were performed and viewed on a separate workstation and reviewed to further define anatomy and possible pathology. All CT scans at this facility use dose modulation, iterative reconstruction, and/or weight based dosing when appropriate to reduce radiation dose to as low as reasonably achievable. COMPARISON: Cardiac echo 01/26/2025 FINDINGS: Small concentric p (more content not included)... [facility] 01-27-2025 Note [facility]TP CARDIOLOGY INPAT IENT PROGRESS NOTE Reason for follow up: s/p afib ablation complicated by cardiac tamponade s/p pericardiocentesis Subjective 01/26/25 Patient was seen and examined this morning, patient reports not feeling well this morning. She was woken up around 4 am with complaints of diarrhea, she had several episodes up until this morning associated with nausea. She reports an episode of chest heaviness when lying flat overnight, this resolved with sitting up. No shortness of breath. Was able to get up and walk around multiple times yesterday, will attempt later today. 01/27/25 Patient was seen and evaluated this morning, bedside. Patient states she had a good rest of her day yesterday, was able to walk the halls multiple times. No pain or tenderness at sight of drain removal. Overnight, patient converted into atrial flutter, patient was symptomatic could feel her heart racing and somewhat SOB. Had a few episodes of ongoing diarrhea overnight, but no nausea. She feels that the diarrhea is much more tolerable today. Tele: SR, converted to aflutter at 00:34 65-77 bpm, highest 131 while in aflutter ALLERGIES Allergies Allergen Reactions Codeine Headache Sulfamide Other JOINT PAIN CURRENT MEDS amoxicillin-pot clavulanate, 1 tablet, oral, BID colchicine, 0.3 mg, oral, Daily magnesium oxide, 400 mg, oral, BID metoprolol tartrate, 25 mg, oral, BID rivaroxaban, 20 mg, oral, Daily with evening meal amiodarone, 0.5 mg/min, Last Rate: 0.5 mg/min (01/26/25 0028) PRN medications: acetaminophen, melatonin, prochlorperazine Objective Patient Vitals for the past 24 hrs: BP Temp Temp src Pulse Resp SpO2 Weight 01/27/25 0800 105/81 36.3 ???C (97.3 ???F) Temporal (!) 120 18 98 % -- 01/27/25 0530 -- -- -- -- -- -- 63.6 kg (140 lb 3.2 oz) 01/27/25 0000 94/55 -- -- 59 18 97 % -- 01/26/25 2036 130/82 36.3 ???C (97.3 ???F) Temporal 71 18 -- -- 01/26/25 1700 -- -- -- 69 -- -- -- 01/26/25 1315 98/69 35.9 ???C (96.6 ???F) Tympanic -- 18 99 % -- 01/26/25 1027 116/67 -- -- 76 -- -- -- 01/26/25 1014 -- -- -- 74 -- -- -- BP 105/81 (BP Location: Right arm, Patient Position: Sitting) Pulse (!) 120 Temp 36.3 ???C (97.3 ???F) (Temporal) Resp 18 Ht 1.727 m (5' 8 ) Wt 63.6 kg (140 lb 3.2 oz) SpO2 98% BMI 21.32 kg/m??? Wt Readings from Last 3 Encounters: 01/27/25 63.6 kg (140 lb 3.2 oz) 01/13/25 64.9 kg (143 lb) 12/02/24 66.7 kg (147 lb) Physical Exam: Constitutional General Appearance: well-nourished, well-developed, appears stated age, Normal body composition Level of Distress: comfortable Eyes CARLA Neck Neck: supple, trachea midline Carotid Arteries: bilateral normal upstroke, no bruits Jugular Veins: normal jugular venous pressure Thyroid: not enlarged Lungs Respiratory Effort: unlabored Chest Exam: normal curvature, no thoracic deformity Auscultation: Clear to auscultation b/l Cardiovascular Chest wall: Rate And Rhythm: Regular rate and rhythm Heart Sounds: normal S1, normal s2, no gallop Systolic Murmur: not heard Diastolic Murmur: not heard Extremities: No lower extremity edema in b/l extremities Peripheral Pulses Radial Pulse: normal Abdomen Inspection and Palpation: Soft Small incision from pericardial drain, covered with bandage Neurologic Gait: normal gait Lab Results Component Value Date NA 138 01/27/2025 K 3.8 01/27/2025 CL 105 01/27/2025 ANIONGAP 11 01/27/2025 BUN 12 01/27/2025 CREATININE 0.68 01/27/2025 CALCIUM 8.9 01/27/2025 MG 1.7 (L) 01/27/2025 PHOS 2.4 (L) 01/24/2025 Lab Results Component Value Date BILITOT 0.7 01/24/2025 BILIDIR 0.2 01/21/2025 ALKPHOS 55 01/24/2025 AST 42 (H) 01/24/2025 ALT 56 (H) 01/24/2025 PROT 5.9 (L) 01/24/2025 ALBUMIN 3.5 01/24/2025 Lab Results Component Value Date WBC 8.07 01/25/2025 RBC 4.34 01/25/2025 HGB 13.2 01/25/2025 HCT 40.2 01/25/2025 MCV 92.6 01/25/2025 MCH 30.4 01/25/2025 MCHC 32.8 01/25/2025 RDW 13.0 01/25/2025 NEUTOPHILPCT 72.5 (H) 01/23/2025 LYMPHOPCT 16.7 (L) 01/23/2025 MONOPCT 9.7 01/23/2025 EOSPCT 0.3 01/23/2025 BASOPCT 0.3 01/23/2025 NEUTROABS 8.03 (H) 01/23/2025 LYMPHSABS 1.85 01/23/2025 MONOSABS 1.07 (H) 01/23/2025 EOSABS 0.03 01/23/2025 BASOSABS 0.03 01/23/2025 PLT 282 01/25/2025 NRBC 0.0 01/23/2025 No X-ray results found for the past 24 hours CV Testing: Encounter Date: 01/21/25 ECG 12 lead Result Value Ventricular Rate 69 Atrial Rate 69 MN Interval 138 QRS DURATION 84 QT Interval 424 QTC CALCULATION(BAZETT) 454 P [place] 69 R-[place] 25 T Wave [place] 71 Impression Normal sinus rhythm Normal ECG When compared with ECG of 24-JAN-2025 04:23, Sinus rhythm has replaced Atrial fibrillation Vent. rate has decreased BY [address] no longer depressed in Anterior leads Nonspecific T wave abnormality, improved in Inferior lead Nonspecific T wave abnormality, improved (more content not included)... [facility] 01-26-2025 Note Attestation signed by Philip Montero PT at 01/27/2025 3:47 PM Spoke with treating PARENT EDUCATOR and reviewed charting. Patient has met all goals, no further skilled PT needs. PT to sign off. Physical Therapy Physical Therapy Treatment Patient Name: Oleg Peck : 1970 Today's Date: 01/26/2025 Patient Active Problem List Diagnosis Varicose veins of both lower extremities with pain Paroxysmal atrial fibrillation (CMS/HCC) Abdominal discomfort Cardiac tamponade after operative procedure Pericarditis Time: 14:10-14:40 01/26/25 1540 PT Last Visit PT Received On 01/26/25 General Subjective Pt had been cleared medically by nursing staff to receive therapy services . Upon automatic typewriter inspector entering the room pt was sitting in bedside chair with her in the room .Pt very pleasant and told automatic typewriter inspector that she had walked in the hallways earlier today .See details of treatment session below : Activity Tolerance Endurance Stage III Precautions Medical Precautions telemetry;IV Pain Assessment Pain Assessment No/denies pain Cognition Orientation Level Oriented X4 Therapeutic Exercise Therapeutic Exercise Activity 1 Pt stating that she is feeling much stronger today. Pt states she does not need any HEP but would like to go back to her previous exercise program . Jacquard Loom Heddles Tier went over with pt what her max HR should be with exercise and activity 164bpm Therapeutic Exercise Activity 2 Pt educated that when she goes home this week to just do walking in her home and next week she can start her exercise programs at 1/2 the weight she was using which she was using 10lb weight and will now be using a 5lb weight and the programs normally are youtube and they last from 20-30 minutes long , automatic typewriter inspector told pt to cut that time down to half and if she tolerates okay she can start to increase her time with doing them and maybe start to add more weight the week after that . Therapeutic Exercise Acitivity 3 Jacquard Loom Heddles Tier talked to pt about not exercising outside when it is too hot . Pt appreciated the information on how to start her home execise regimen again progressively building up . Pt will be using her apple watch to watch her HR with exercise Static Standing Balance Static Standing-Balance Support No upper extremity supported Static Standing-Level of Assistance Independent Dynamic Standing Balance Dynamic Standing-Balance Support No upper extremity supported Dynamic Standing-Balance (walking 500 ft in hallways and doing 16 stairs) Dynamic Standing Balance-Level of Assistance Independent Ambulation Ambulation Yes Ambulation 1 Surface 1 Level tile Device 1 No device Assistance 1 Independent;Distant supervision Comments/Distance (ft) 1 500 ft x 1 Stairs Stairs Yes Stairs Rails 1 Left (to simulate rails at home) Device 1 No device Assistance 1 Distant supervision Quality of Stairs 1 7 1/2 step depth Comment/Number of Steps 1 16 steps Bed Mobility Bed Mobility Yes Bed Mobility 1 Bed Mobility From 1 Supine Bed Mobility Type 1 To and from Bed Mobility to 1 Short sit (HOB flat to simulate bed at home) Level of Assistance 1 Independent Transfers Transfer Yes Transfer 1 Transfer From 1 Sit;Bed;Chair with arms Transfer Type 1 To and from Transfer to 1 Stand Technique 1 Sit to stand;Stand to sit Transfer Device 1 none Transfer Level of Assistance 1 Independent Transfers 2 Transfer From 2 Bed Transfer Type 2 To Transfer to 2 Chair with arms Technique 2 Lateral (sidestepping and stepping backwards) Transfer Device 2 none Transfer Level of Assistance 2 Independent PT Assessment PT Assessment/PARENT EDUCATOR Summary pt has met all goals on POC and can be discharged from PT services at this time . Plan PT Discharge Recommendations Patient is able to return to prior living environment Goals: Multi-Disciplinary Problems (from Physical Therapy) Active Problems Problem: PT Misc Start Date: 01/22/25 Goal Start Date Expected End Date End Date Patient to demonstrate the ability to complete all bed mobility independently with HOB flat 01/22/25 02/05/25 -- Goal Start Date Expected End Date End Date Patient to demonstrate the ability to complete all transfers independently with use of assistive device as needed 01/22/25 02/05/25 -- Goal Start Date Expected End Date End Date Patient to demonstrate the ability to ambulate 150 ft independently with assistive device only as needed 01/22/25 02/05/25 -- Goal Start Date Expected End Date End Date Patient to demo the ability to maintain standing balance throughout all standing functional tasks with assistive device as needed 01/22/25 02/05/25 -- Goal Start Date Expected End Date End Date Patient to participate in BLE exercise to improve strengt (more content not included)... [facility] 01-26-2025 Note Status post pericard iocentesis with drainage catheter remain in place Limited echo was done today and read as: Minimal anterior pericardial effusion measuring 0.8 cm near RV distal free wall. Nothing posterior. Patient also will be placed on Augmentin for 1 week for infections prophylaxis [facility] 01-26-2025 Note Patient on colchicin e and due to nausea and diarrhea, dose was decreased to 0.3 mg twice daily starting today. Patient to continue colchicine X 2-3 weeks [facility] 01-26-2025 Note s/p ablation 01/21 PVI with PFA Patient had an episode of A-fib with RVR ablation Continue Amio drip, metoprolol and Xarelto [facility] 01-26-2025 Note Hospital Medicine Daily Progress Note - 01/26/2025 12:44 PM; Room: [address] [place] [address] Admission: 01/21/2025 9:47 AM; Length of stay: 5 days THE HOSPITALIST TEAM PREFERS TO USE [employer] FOR NON-URGENT COMMUNICATION 7AM-7PM. IF I DO NOT RESPOND WITHIN 20 MINUTES OR URGENT MATTERS, PLEASE CALL THROUGH THE CONTINUITY COORDINATOR. FROM 7PM-7AM, PLEASE PAGE [phone](COVR). Code Status: Full Code Barriers to Discharge: Post ablation tamponade Expected Discharge Date: 1 day ? Discharge Destination: home Overview Patient is seen for evaluation and management of post ablation tamponade Subjective Seen today in her room, denies any chest pain or shortness of breath. Physical Exam General: Patient is alert and oriented x3, not in acute distress. HEENT: Atraumatic, normocephalic Neck: Supple neck. Respiratory: Clear breathing sound bilaterally, no wheezing no crackles. Heart: Regular rhythm, no murmur, no rub, no muffled heart sounds, pericardial drain in place Neurology: Can move all extremities, no focal deficit. Abdomen: Soft, not distended Skin: Warm and dry Visit Vitals BP 116/67 Pulse 76 Temp 36.1 ???C (97 ???F) (Temporal) Resp 17 Intake/Output Summary (Last 24 hours) at 01/26/2025 1244 Last data filed at 01/25/2025 2106 Gross per 24 hour Intake 916.43 ml Output -- Net 916.43 ml Estimated body mass index is 21.5 kg/m??? as calculated from the following: Height as of this encounter: 1.727 m (5' 8 ). Weight as of this encounter: 64.1 kg (141 lb 6.4 oz). Assessment and Plan Assessment & Plan Paroxysmal atrial fibrillation (CMS/HCC) s/p ablation 01/21 with PVI with PFA Patient had an episode of A-fib with RVR ablation Continue Amio drip, metoprolol and Xarelto Cardiac tamponade after operative procedure Status post pericardiocentesis with drainage catheter remain in place Limited echo was done today and read as: Minimal anterior pericardial effusion measuring 0.8 cm near RV distal free wall. Nothing posterior. Patient also will be placed on Augmentin for 1 week for infections prophylaxis Pericarditis Patient on colchicine and due to nausea and diarrhea, dose was decreased to 0.3 mg twice daily starting today. Patient to continue colchicine X 2-3 weeks VTE Prophylaxis: Xarelto Scheduled Meds amoxicillin-pot clavulanate, 1 tablet, oral, BID colchicine, 0.3 mg, oral, BID metoprolol tartrate, 25 mg, oral, BID rivaroxaban, 20 mg, oral, Daily with evening meal amiodarone, 0.5 mg/min, Last Rate: 0.5 mg/min (01/26/25 0901) Pertinent Investigations Hematology: Results from last 7 days Lab Units 01/25/25 0927 01/24/25 0720 01/23/25 23301/23/25 1601 01/23/25 0751 01/23/25 0344 01/21/25 2342 01/21/25 1640 WBC AUTO 10*3/uL 8.07 -- -- 11.06* -- 13.26* < > 11.91* HEMOGLOBIN g/dL 13.2 12.3 < > 11.8* < > 11.3* < > 11.9* HEMATOCRIT % 40.2 37.7 < > 36.3 < > 34.1* < > 34.9* MCV fL 92.6 -- -- 94.3 -- 91.7 < > 89.9 PLATELETS AUTO 10*3/uL 282 -- -- 220 -- 202 < > 236 INR -- -- -- -- -- 1.23* -- 1.31* < > = values in this interval not displayed. Chemistry: Results from last 7 days Lab Units 01/25/25 0927 01/24/25 03301/23/25 1601 SODIUM mmol/L 140 140 138 POTASSIUM mmol/L 3.8 3.8 4.4 CHLORIDE mmol/L 105 112* 109* CO2 mmol/L 28 23 23 BUN mg/dL 13 6* 10 CREATININE mg/dL 0.76 0.54* 0.63 GLUCOSE mg/dL 120* 90 89 MAGNESIUM mg/dL -- 1.7* 1.9 CALCIUM mg/dL 8.9 8.2* 8.0* PHOSPHORUS mg/dL -- 2.4* 1.6* Results from last 7 days Lab Units 01/24/25 03301/23/25 03401/21/25 1400 AST U/L 42* 66* -- ALT U/L 56* 54* -- ALK PHOS U/L 55 44 -- BILIRUBIN TOTAL mg/dL 0.7 0.9 0.9 BILIRUBIN DIRECT mg/dL -- -- 0.2 Results from last 7 days Lab Units 01/21/25 1628 01/21/25 1030 POCT GLUCOSE mg/dL 213* 92 Historical Values: (Includes values prior to this admission) No results found for: PREALBUMIN , TSH , T3FREE , FREET4 , CORTISOL , FEV1 , DIZ2CMJ , DLCO , RVSP , HDL , LDL No results found for: [id number] , IRON , TIBC , C3 , C4 , SHAY , CANCA , ASO , PSA , CEA , CA125 , CA199 , AFP , CA153 Imaging Limited Echo (TTE) w/wo Limited Doppler, Color Flow, Imaging Agent, Strain, 3D, Bubble Study 1 [facility] Heart Station [address] [place] [address] [phone] (fax) Echocardiogram-[facility] Name: OLEG PECK Study Date: 01/26/2025 09:11 AM B/P: 91 mmHg/76 mmHg HR: 67 bpm Date of : 1970 Location: [facility] Height: 68 in. Age: 54 year(s) Patient Room: 3107 Weight: 141 lb. Gender: Female Patient Status: InPt BSA: 1.76 m2 Indication: f/u pericardial effusion, s/p pericardiocentesis Examination: Limited Echo, Color flow imaging Image Quality: Fair Patient Consent: Procedure explained to patient Conclusions Left Ventricle: The left ventricle is normal size. Global left ventricular systolic function is normal. The EF is 65 % visu (more content not included)... [facility] 01-26-2025 Note [facility] CARDIOLOGY INPAT IENT PROGRESS NOTE Reason for follow up: s/p afib ablation complicated by cardiac tamponade s/p pericardiocentesis Subjective Patient was seen and examined this morning, patient reports not feeling well this morning. She was woken up around 4 am with complaints of diarrhea, she had several episodes up until this morning associated with nausea. She reports an episode of chest heaviness when lying flat overnight, this resolved with sitting up. No shortness of breath. Was able to get up and walk around multiple times yesterday, will attempt later today. Tele: SR 56-88 bpm ALLERGIES Allergies Allergen Reactions Codeine Headache Sulfamide Other JOINT PAIN CURRENT MEDS colchicine, 0.6 mg, oral, BID metoprolol tartrate, 25 mg, oral, BID rivaroxaban, 20 mg, oral, Daily with evening meal amiodarone, 0.5 mg/min, Last Rate: 0.5 mg/min (01/25/252105) PRN medications: acetaminophen, melatonin, prochlorperazine Objective Patient Vitals for the past 24 hrs: BP Pulse Resp SpO2 Weight 01/26/25 0500 -- -- -- -- 64.1 kg (141 lb 6.4 oz) 01/26/25 0458 91/76 67 17 97 % -- 01/26/25 0000 -- 64 16 96 % -- 01/25/25 2000 110/59 70 17 94 % -- 01/25/25 1200 109/58 62 18 98 % -- BP 91/76 Pulse 67 Temp 36.1 ???C (97 ???F) (Temporal) Resp 17 Ht 1.727 m (5' 8 ) Wt 64.1 kg (141 lb 6.4 oz) SpO2 97% BMI 21.50 kg/m??? Wt Readings from Last 3 Encounters: 01/26/25 64.1 kg (141 lb 6.4 oz) 01/13/25 64.9 kg (143 lb) 12/02/24 66.7 kg (147 lb) Physical Exam: Constitutional General Appearance: well-nourished, well-developed, appears stated age, Normal body composition Level of Distress: comfortable Eyes ACRLA Neck Neck: supple, trachea midline Carotid Arteries: bilateral normal upstroke, no bruits Jugular Veins: normal jugular venous pressure Thyroid: not enlarged Lungs Respiratory Effort: unlabored Chest Exam: normal curvature, no thoracic deformity Auscultation: Clear to auscultation b/l Cardiovascular Chest wall: Rate And Rhythm: Regular rate and rhythm Heart Sounds: normal S1, normal s2, no gallop Systolic Murmur: not heard Diastolic Murmur: not heard Extremities: No lower extremity edema in b/l extremities Peripheral Pulses Radial Pulse: normal Abdomen Inspection and Palpation: Soft Small incision from pericardial drain, covered with bandage Neurologic Gait: normal gait Lab Results Component Value Date NA 140 01/25/2025 K 3.8 01/25/2025 CL 105 01/25/2025 ANIONGAP 11 01/25/2025 BUN 13 01/25/2025 CREATININE 0.76 01/25/2025 CALCIUM 8.9 01/25/2025 MG 1.7 (L) 01/24/2025 PHOS 2.4 (L) 01/24/2025 Lab Results Component Value Date BILITOT 0.7 01/24/2025 BILIDIR 0.2 01/21/2025 ALKPHOS 55 01/24/2025 AST 42 (H) 01/24/2025 ALT 56 (H) 01/24/2025 PROT 5.9 (L) 01/24/2025 ALBUMIN 3.5 01/24/2025 Lab Results Component Value Date WBC 8.07 01/25/2025 RBC 4.34 01/25/2025 HGB 13.2 01/25/2025 HCT 40.2 01/25/2025 MCV 92.6 01/25/2025 MCH 30.4 01/25/2025 MCHC 32.8 01/25/2025 RDW 13.0 01/25/2025 NEUTOPHILPCT 72.5 (H) 01/23/2025 LYMPHOPCT 16.7 (L) 01/23/2025 MONOPCT 9.7 01/23/2025 EOSPCT 0.3 01/23/2025 BASOPCT 0.3 01/23/2025 NEUTROABS 8.03 (H) 01/23/2025 LYMPHSABS 1.85 01/23/2025 MONOSABS 1.07 (H) 01/23/2025 EOSABS 0.03 01/23/2025 BASOSABS 0.03 01/23/2025 PLT 282 01/25/2025 NRBC 0.0 01/23/2025 No X-ray results found for the past 24 hours CV Testing: Encounter Date: 01/21/25 ECG 12 lead Result Value Ventricular Rate 69 Atrial Rate 69 MN Interval 138 QRS DURATION 84 QT Interval 424 QTC CALCULATION(BAZETT) 454 P [place] 69 R-[place] 25 T Wave [place] 71 Impression Normal sinus rhythm Normal ECG When compared with ECG of 24-JAN-2025 04:23, Sinus rhythm has replaced Atrial fibrillation Vent. rate has decreased BY [address] no longer depressed in Anterior leads Nonspecific T wave abnormality, improved in Inferior lead Nonspecific T wave abnormality, improved in Lateral Confirmed by Aquilino JOYNER, FAIZA Garcia ([id number]) on 01/25/2025 10:20:30 AM Echo: Limited Echo 01/26/25 Conclusions Left Ventricle: The left ventricle is normal size. Global left ventricular systolic function is normal. The EF is 65 % visually. Left ventricular wall thickness is normal. No regional wall motion abnormality. Right Ventricle: The right ventricle appears normal in size. Right ventricular systolic function appears normal. Left Atrium: The left atrium appears normal in size. Pericardium: Minimal anterior pericardial effusion measuring 0.8 cm near RV distal free wall. Nothing posterior. . Limited Echo 01/25/25 Conclusions Left Ventricle: The left ventricle is normal size. Global left ventricular systolic function is normal. Right Ventricle: The right ventricle is normal in size. Normal right ventricular systolic function. Left Atrium: The left atrium is normal in size. Pericardium: Small an (more content not included)... [facility] 01-25-2025 Note s/p ablation 01/21 wi th PVI with PFA Patient had an episode of A-fib with RVR ablation Continue Amio drip, metoprolol and Xarelto [facility] 01-25-2025 Note Status post pericard iocentesis with drainage catheter remain in place Limited echo was done today and report still pending [facility] 01-25-2025 Note Hospital Medicine Daily Progress Note - 01/25/2025 9:59 AM; Room: [address] [place] [address] Admission: 01/21/2025 9:47 AM; Length of stay: 4 days THE HOSPITALIST TEAM PREFERS TO USE [facility] FOR NON-URGENT COMMUNICATION 7AM-7PM. IF I DO NOT RESPOND WITHIN 20 MINUTES OR URGENT MATTERS, PLEASE CALL THROUGH THE CONTINUITY COORDINATOR. FROM 7PM-7AM, PLEASE PAGE [phone](COVR). Code Status: Full Code Barriers to Discharge: Post ablation tamponade Expected Discharge Date: 1-2 days Discharge Destination: home Overview Patient is seen for evaluation and management of post ablation tamponade Subjective Seen today in her room, denies any chest pain or shortness of breath. Physical Exam General: Patient is alert and oriented x3, not in acute distress. HEENT: Atraumatic, normocephalic Neck: Supple neck. Respiratory: Clear breathing sound bilaterally, no wheezing no crackles. Heart: Regular rhythm, no murmur, no rub, no muffled heart sounds, pericardial drain in place Neurology: Can move all extremities, no focal deficit. Abdomen: Soft, not distended Skin: Warm and dry Visit Vitals BP 105/65 (BP Location: Left arm, Patient Position: Sitting) Pulse 72 Temp 36.1 ???C (97 ???F) (Temporal) Resp 18 Intake/Output Summary (Last 24 hours) at 01/25/2025 0959 Last data filed at 01/25/2025 09 Gross per 24 hour Intake 747.91 ml Output 200 ml Net 547.91 ml Estimated body mass index is 21.56 kg/m??? as calculated from the following: Height as of this encounter: 1.727 m (5' 8 ). Weight as of this encounter: 64.3 kg (141 lb 12.8 oz). Assessment and Plan Assessment & Plan Paroxysmal atrial fibrillation (CMS/HCC) s/p ablation 01/21 with PVI with PFA Patient had an episode of A-fib with RVR ablation Continue Amio drip, metoprolol and Xarelto Cardiac tamponade after operative procedure Status post pericardiocentesis with drainage catheter remain in place Limited echo was done today and report still pending VTE Prophylaxis: Xarelto Scheduled Meds colchicine, 0.6 mg, oral, BID metoprolol tartrate, 25 mg, oral, BID rivaroxaban, 20 mg, oral, Daily with evening meal amiodarone, 0.5 mg/min, Last Rate: 0.5 mg/min (01/25/25 09) Pertinent Investigations Hematology: Results from last 7 days Lab Units 01/25/25 0927 01/24/25 0720 01/23/25 2332 01/23/25 1601 01/23/25 0751 01/23/25 0344 01/21/25 2342 01/21/25 1640 WBC AUTO 10*3/uL 8.07 -- -- 11.06* -- 13.26* < > 11.91* HEMOGLOBIN g/dL 13.2 12.3 < > 11.8* < > 11.3* < > 11.9* HEMATOCRIT % 40.2 37.7 < > 36.3 < > 34.1* < > 34.9* MCV fL 92.6 -- -- 94.3 -- 91.7 < > 89.9 PLATELETS AUTO 10*3/uL 282 -- -- 220 -- 202 < > 236 INR -- -- -- -- -- 1.23* -- 1.31* < > = values in this interval not displayed. Chemistry: Results from last 7 days Lab Units 01/24/25 0333 01/23/25 1601 01/23/25 0344 SODIUM mmol/L 140 138 139 POTASSIUM mmol/L 3.8 4.4 3.7 CHLORIDE mmol/L 112* 109* 109* CO2 mmol/L 23 23 26 BUN mg/dL 6* 10 10 CREATININE mg/dL 0.54* 0.63 0.51* GLUCOSE mg/dL 90 89 98 MAGNESIUM mg/dL 1.7* 1.9 1.9 CALCIUM mg/dL 8.2* 8.0* 7.8* PHOSPHORUS mg/dL 2.4* 1.6* 1.6* Results from last 7 days Lab Units 01/24/25 0333 01/23/25 0344 01/21/25 1400 AST U/L 42* 66* -- ALT U/L 56* 54* -- ALK PHOS U/L 55 44 -- BILIRUBIN TOTAL mg/dL 0.7 0.9 0.9 BILIRUBIN DIRECT mg/dL -- -- 0.2 Results from last 7 days Lab Units 01/21/25 1628 01/21/25 1030 POCT GLUCOSE mg/dL 213* 92 Historical Values: (Includes values prior to this admission) No results found for: PREALBUMIN , TSH , T3FREE , FREET4 , CORTISOL , FEV1 , [id number] , DLCO , RVSP , HDL , LDL No results found for: [id number] , IRON , TIBC , C3 , C4 , SHAY , CANCA , ASO , PSA , CEA , CA125 , CA199 , AFP , CA153 Imaging ECG 12 lead Normal sinus rhythm Normal ECG When compared with ECG of 24-JAN-2025 04:23, Sinus rhythm has replaced Atrial fibrillation Vent. rate has decreased BY [address] no longer depressed in Anterior leads Nonspecific T wave abnormality, improved in Inferior lead Nonspecific T wave abnormality, improved in Lateral Discharge Planning Expected Discharge Disposition: Home or Self Care () PT Discharge Recommendations: Home Signed Abdon Kaye MD Hospital Medicine 01/25/2025 9:59 AM [facility] 01-25-2025 Note [facility] CARDIOLOGY INPAT IENT PROGRESS NOTE Reason for follow up: PMH of symptomatic paroxysmal atrial fibrillation diagnosed 06/2024, Complex regional pain syndrome of lower limb, Deep vein thrombosis on chronic Xarelto, Displaced fracture of fifth metatarsal bone, left foot . Hallux rigidus of right foot, Peripheral vascular disease, Recurrent UTI, and Varicose veins of both lower extremities with pain. Sleep study 07/2024 was negative for sleep apnea. She had onset of atrial fibrillation with RVR about June 2024 and treated at [facility], and converted to SR spontaneously on the second day. She had another episode in November that converted back spontaneously on the next day. Patient was given Lopressor 25mg and Flecainide 200mg for PRN use pill in pocket therapy by Dr. Ricardo and atrial fibrillation ablation was planned.. Admitted 01/21/25 after atrial fibrillation ablation with PVI ([facility]) with PFA and after EP study no retrograde accessory pathway. However was found to have mild pericardial effusion. In recovery room she developed profound hypotension with SBP around 60mmHg. Emergency echo found a large anterior and apical pericardial effusion and a moderate posterior pericardial effusion with tamponade.. She was given Kcentra to reverse the Xarelto that was received earlier, and rushed to technology lab teacher for for pericardiocentesis of 250 mL of hemorrhagic fluid and drain was secured. She was admitted to MICU. She also received 3 units FFP. Day 1, in ICU.Overnight patient had around 70ml of sanguinous drainage pericardial drain and MAP over 65, not require pressors or transfusion. Day 2, transferred out of ICU. had Afib with RVR x4 hours and converted spontaneously. Also 6 loose BM negative for Cdiff, Drained 11ml in past 12 hours and 31ml in past 24 hours. Amiodarone drip was started and pericardial drain was clamped. At 1800 drained 200ml Day 3, in [facility], ambulating halls. Drain clamped. Echo showing mild pericardial effusion 0.66cm. Diarrhea subsiding, onset with Colchicine Subjective 01/25/25 Examined at bedside, present, good spirits. Soft formed Bms, no nausea with colchicine or amiodarone drip. No further Afib/flutter since early 01/24. Walking in hallway though worried about precipitating another tachycardia episode. Discussed findings, and reassurance given. Reviewed triggers to avoid: caffeine, alcohol, otc decongestants, street drugs. She does not have any inhalers. On 02/09 she and leaving for family vacation on the [facility], reassured. She has smart watch for monitorin g. She has a collection bag that cannot be readily emptied, and contains 200ml serosanguinous fluid without clots, with serosanguinous fluid to tubing which is closed with 3 way stopcock. 01/24/25 Overnight patient went into A-fib with RVR for 4 hours. She also had 6 loose bowel movements overnight concern for C. difficile. Patient reports overnight she did not feel well and had palpitations. Denies shortness of breath, chest pain. She drained at 11 mL in the last 12 hours and 31 mL in the last 24 hours. Tele: converted from coarse afib/vs atrial flutter to SR at 0824 on 01/24/25. Maintaining SR ALLERGIES Allergies Allergen Reactions Codeine Headache Sulfamide Other JOINT PAIN CURRENT MEDS colchicine, 0.6 mg, oral, BID metoprolol tartrate, 25 mg, oral, BID rivaroxaban, 20 mg, oral, Daily with evening meal Continuous medications amiodarone, 0.5 mg/min, Last Rate: 0.5 mg/min (01/25/25 0919) PRN medications: acetaminophen, melatonin, prochlorperazine Objective Patient Vitals for the past 24 hrs: BP Temp Temp src Pulse Resp SpO2 Weight 01/25/25 0811 105/65 36.1 ???C (97 ???F) Temporal 72 18 98 % -- 01/25/25 0430 -- -- -- -- -- -- 64.3 kg (141 lb 12.8 oz) 01/25/25 0400 91/55 -- -- 65 18 95 % -- 01/25/25 0123 114/61 -- -- 73 25 97 % -- 01/25/25 0109 89/63 -- -- 68 18 97 % -- 01/24/25 2022 113/50 -- -- 82 23 98 % -- 01/24/25 1811 100/52 37.1 ???C (98.8 ???F) Temporal 91 22 -- -- BP 105/65 (BP Location: Left arm, Patient Position: Sitting) Pulse 72 Temp 36.1 ???C (97 ???F) (Temporal) Resp 18 Ht 1.727 m (5' 8 ) Wt 64.3 kg (141 lb 12.8 oz) SpO2 98% BMI 21.56 kg/m??? Wt Readings from Last 3 Encounters: 01/25/25 64.3 kg (141 lb 12.8 oz) 01/13/25 64.9 kg (143 lb) 12/02/24 66.7 kg (147 lb) General: Awake, alert, appropriate mood / affect, NAD Eyes: anicteric sclera. Non-injected conjunctiva. No xanthelasmas Neck: No elevated JVP. No carotid bruit Pulm: No increased work of breathing. Breath sounds clear to ascultation bilaterally with no wheeze, crackles or rhonchi Cards: HRRR, NL S1, S2. No S3 or S4 gallop. Murmur: none Abd: Soft, Nontender, physiologic bowel sounds are present Extr: Lower extremity edema: none. DP pulses present bilaterally Skin: warm, dry, well perfused Neuro: A&Ox3, No gross deficits Hematology: Results from last 7 (more content not included)... [facility] 01-25-2025 Note Physical Therapy Physical Therapy Treatment Patient Name: Oleg Peck : 1970 Today's Date: 01/25/2025 Patient Active Problem List Diagnosis Varicose veins of both lower extremities with pain Paroxysmal atrial fibrillation (CMS/HCC) Abdominal discomfort Cardiac tamponade after operative procedure Start Time: 822 Stop Time: 847 Time Calculation (min): 25 min 01/25/25 0856 PT Last Visit PT Received On 01/25/25 General Subjective pt up in chair upon arrival, pt with questions reguarding B le and ue rom strengthning exercises wanting more ue rom to perform on own, questions for home d/c, and rehab while in hospital Precautions Medical Precautions telemetry;drain;fall risk Pain Assessment Pain Assessment No/denies pain Cognition Overall Cognitive Status WFL Orientation Level Oriented X4 Therapeutic Exercise Therapeutic Exercise Activity 1 seated Ble ankle pumps, laq, marches x10 reps with a short hold at end range. full rom noted with all ex . pt without c/o pain or fatigue with ther ex Therapeutic Exercise Activity 2 pt performed 10 reps on Bicep curls, shouldre flex to ~70 degreees and ue ABC (name spelling ) at 70 degreee shoulder flexion . pt noted increase fatigue B with increase fatigue and slight pulling in R ue. pt instructed to only perform rom within a pain freee non pulling range pt in agreement Ambulation 1 Surface 1 Level tile Device 1 No device Assistance 1 Close supervision Quality of Gait 1 pt amb with a cont step through gait pattern no lob or unsteadiness noted, pt amb with decrease arm swing and stiff posture cues given to correct Comments/Distance (ft) 1 150*2 Stairs Stairs No (pt wishes to perform stairs tomorrow / next session) Transfer 1 Transfer From 1 Sit;Stand Transfer Type 1 To and from Transfer to 1 Sit;Stand Transfer Device 1 none Transfer Level of Assistance 1 Distant supervision;Independent PT Assessment PT Assessment/PARENT EDUCATOR Summary pt with improved mob this session , able to increase amb distance and amb without AD, d/t improved balance, Outcome Assessments 6 Clicks (Mobility) Help from another person turning from your back to your side while in a flat bed without using bedrails: A little Help from another person moving from lying on your back to sitting on the side of a flat bed without using bedrails: A little Help from another person moving to and from a bed to a chair (including a wheelchair): None Help from another person standing up from a chair using your arms (e.g. wheelchair or bedside chair): None Help from another person to walk in hospital room: None Help from another person climbing 3-5 steps with a railing: A little Mobility 6 Clicks T-Score: 21 Assessment/Plan PT Assessment PT Assessment/PARENT EDUCATOR Summary: pt with improved mob this session , able to increase amb distance and amb without AD, d/t improved balance, Goals: Multi-Disciplinary Problems (from Physical Therapy) Active Problems Problem[facility] Start Date: 01/22/25 Goal Start Date Expected End Date End Date Patient to demonstrate the ability to complete all bed mobility independently with HOB flat 01/22/25 02/05/25 -- Goal Start Date Expected End Date End Date Patient to demonstrate the ability to complete all transfers independently with use of assistive device as needed 01/22/25 02/05/25 -- Goal Start Date Expected End Date End Date Patient to demonstrate the ability to ambulate 150 ft independently with assistive device only as needed 01/22/25 02/05/25 -- Goal Start Date Expected End Date End Date Patient to demo the ability to maintain standing balance throughout all standing functional tasks with assistive device as needed 01/22/25 02/05/25 -- Goal Start Date Expected End Date End Date Patient to participate in BLE exercise to improve strength and limit effects of immobility related to hospital admission. 01/22/25 02/05/25 -- Goal Start Date Expected End Date End Date Patient to demo the ability to complete full flight of stairs with SBA and use of railing to gain access to 2nd floor bed/bath 01/22/25 02/05/25 -- [facility] 01-24-2025 Note Attestation signed by Mitzi Valero MD at 01/25/2025 4:50 PM I personally saw and examined the patient on the same date of service as resident/fellow Stephanie Betancourt MD. I discussed the findings and therapeutic plan with the Stephanie Betancourt MD. I agree with the documentation, except for any edits/updates below. Medical ICU Progress Note Patient - Oleg Peck Age - 54 [facility] 1970 [id number] Date of Admission - 01/21/2025 9:47 AM Subjective HPI/Hospital Course 54 years old female past medical history significant for A-fib presented on 01/21 for elective ablation with Dr. Ricardo. 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 Upon arrival to the ICU on 01/21, patient was on nonrebreather, blood pressure 140s/60s mmHg, not requiring pressors, heart rate in 90s, pericardial drain in place, feeling tired, with no SOB reported. She remained on room air and not requiring vasopressor support. The drain was aspirated every 4 hours then clamped after improvement. Repeat echo showed no evidence of tamponade. She had episode of atrial fibrillation which could be from acute diarrhea or pericarditis/pleural effusion. Cardiology was following and patient was eventually transitioned from heparin to home Xeralto. Amiodarone drip was started. SUBJECTIVE Patient seen and examined at bedside. She reports she felt the atrial fibrillation episode overnight when she got up to use the restroom. She felt palpitations and unsettling feeling. No chest pain, SOB, abdominal pain. Eating well. Consulting Service(s): Cardiology Cardiothoracic surgery Objective OBJECTIVE Vitals height is 1.727 m (5' 8 ) and weight is 64.8 kg (142 lb 12.8 oz). Her temporal temperature is 37 ???C (98.6 ???F). Her blood pressure is 102/71 and her pulse is 121 (abnormal). Her respiration is 17 and oxygen saturation is 97%. Temp: [37 ???C (98.6 ???F)-37.3 ???C (99.1 ???F)] 37 ???C (98.6 ???F) Heart Rate: [79-150] 121 Resp: [16-31] 17 BP: (86-137)/(36-95) 102/71 Physical Exam: General: Patient is alert and oriented x3, not in acute distress. HEENT: Atraumatic, normocephalic Neck: Supple neck. Respiratory: Clear breathing sound bilaterally, no wheezing no crackles. Heart: Regular rhythm, no murmur, no rub, no muffled heart sounds, pericardial drain in place Neurology: Can move all extremities, no focal deficit. Abdomen: Soft, not distended Skin: Warm and dry Weight: Admission weight: 64.9 kg (143 lb 1.3 oz) Wt Readings from Last 1 Encounters: 01/24/25 64.8 kg (142 lb 12.8 oz) Intake/Output Summary (Last 24 hours) at 01/24/2025 1416 Last data filed at 01/24/2025 0659 Gross per 24 hour Intake 350 ml Output 568 ml Net -218 ml Lab Results CBC: Results from last 7 days Lab Units 01/24/25 0720 01/23/25 2332 01/23/25 1601 01/23/25 0751 01/23/25 0344 01/23/25 0007 01/22/25 1517 01/22/25 0714 01/22/25 0318 WBC AUTO 10*3/uL -- -- 11.06* -- 13.26* -- -- -- 14.50* HEMOGLOBIN g/dL 12.3 10.9* 11.8* < > 11.3* < > 12.2 < > 10.8* HEMATOCRIT % 37.7 34.2* 36.3 < > 34.1* < > 36.6 < > 32.2* PLATELETS AUTO 10*3/uL -- -- 220 -- 202 -- 217 -- 214 < > = values in this interval not displayed. Coagulation: Results from last 7 days Lab Units 01/23/25 1046 01/23/25 0344 01/23/25 0005 01/22/25 1724 01/21/25 1640 01/21/25 1020 APTT Seconds 38.1* 130.3* 102.2* < > -- -- INR -- 1.23* -- -- 1.31* 1.05 < > = values in this interval not displayed. Metabolic Panel: Results from last 7 days Lab Units 01/24/25 0333 01/23/25 1601 01/23/25 0344 SODIUM mmol/L 140 138 139 POTASSIUM mmol/L 3.8 4.4 3.7 CHLORIDE mmol/L 112* 109* 109* CO2 mmol/L 23 23 26 BUN mg/dL 6* 10 10 CREATININE mg/dL 0.54* 0.63 0.51* GLUCOSE mg/dL 90 89 98 CALCIUM mg/dL 8.2* 8.0* 7.8* MAGNESIUM mg/dL 1.7* 1.9 1.9 Liver Panel: Results from last 7 days Lab Units 01/24/25 0333 01/23/25 0344 01/21/25 1400 ALBUMIN g/dL 3.5 3.5 -- BILIRUBIN TOTAL mg/dL 0.7 0.9 0.9 ALT U/L 56* 54* -- AST U/L 42* 66* -- ALK PHOS U/L 55 44 -- Radiology ECG 12 lead Atrial fibrillation with rapid ventricular response Nonspecific ST and T wave abnormality Abnormal ECG When compared with ECG of 23-JAN-2025 15:38, (unconfirmed) Atrial fibrillation has replaced Sinus rhythm ST now depressed in Anterior leads Nonspecific T wave abnormality, worse in Inferior lead Nonspecific T wave abnormality now evident in Anterolateral leads Confirmed by Aquilino JOYNER, FAIZA Garcia (55) on 01/24/2025 1 (more content not included)... [facility] 01-24-2025 Note Cardiology Progress Note Subjective Overnight patient went into A-fib with RVR for 4 hours. She also had 6 loose bowel movements overnight concern for C. difficile. Patient reports overnight she did not feel well and had palpitations. Denies shortness of breath, chest pain. She drained at 11 mL in the last 12 hours and 31 mL in the last 24 hours. Objective Patient Vitals for the past 24 hrs: BP Temp Temp src Pulse Resp SpO2 Weight 01/23/25 1100 -- -- -- 91 21 100 % -- 01/23/25 1000 105/58 -- -- 92 23 97 % -- 01/23/25 0800 109/60 -- -- 90 15 94 % -- 01/23/25 0700 100/68 -- -- 86 24 95 % -- 01/23/25 0600 113/68 -- -- 84 22 95 % 67.5 kg (148 lb 13 oz) 01/23/25 0500 111/69 -- -- 85 21 96 % -- 01/23/25 0400 104/64 37 ???C (98.6 ???F) Temporal 92 16 95 % -- 01/23/25 0300 102/58 -- -- 90 23 92 % -- 01/23/25 0200 99/63 -- -- 90 23 95 % -- 01/23/25 0100 101/61 -- -- 87 22 94 % -- 01/23/25 0000 110/77 37 ???C (98.6 ???F) Temporal 97 17 94 % -- 01/22/25 2300 103/59 -- -- 86 21 93 % -- 01/22/25 2200 105/70 -- -- 91 20 96 % -- 01/22/25 2100 116/77 -- -- 93 24 96 % -- 01/22/25 2005 127/77 37.2 ???C (99 ???F) Temporal 97 22 97 % -- 01/22/25 1900 133/77 -- -- 89 26 98 % -- 01/22/25 1800 122/76 -- -- 86 23 98 % -- 01/22/25 1700 127/73 -- -- 89 21 100 % -- 01/22/25 1600 128/77 -- -- 86 19 98 % -- 01/22/25 1500 118/73 -- -- 85 18 97 % -- 01/22/25 1400 116/72 -- -- 88 21 97 % -- Physical Examination: Constitutional: Appearance: Normal appearance. HENT: Head: Normocephalic and atraumatic. Nose: Nose normal. Eyes: Extraocular Movements: Extraocular movements intact. Pupils: Pupils are equal, round, and reactive to light. Cardiovascular: Rate and Rhythm: Normal rate and regular rhythm. Pulses: Normal pulses. Heart sounds: Normal heart sounds. Comments: Pericardial drain in place Pulmonary: Effort: Pulmonary effort is normal. Breath sounds: Normal breath sounds. No wheezing or rales. Abdominal: General: Abdomen is flat. Palpations: Abdomen is soft. Musculoskeletal: General: Normal range of motion. Skin: General: Skin is warm and dry. Neurological: Mental Status: She is alert. Relevant Lab Results Encounter Date: 01/21/25 ECG 12 lead Result Value Ventricular Rate 130 QRS DURATION 72 QT Interval 298 QTC CALCULATION(BAZETT) 438 R-Piketon 66 T Wave P[place] 246 Impression Atrial fibrillation with rapid ventricular response Nonspecific ST and T wave abnormality Abnormal ECG When compared with ECG of 23-JAN-2025 15:38, (unconfirmed) Atrial fibrillation has replaced Sinus rhythm ST now depressed in Anterior leads Nonspecific T wave abnormality, worse in Inferior lead Nonspecific T wave abnormality now evident in Anterolateral leads Confirmed by Aquilino JOYNER, FAIZA Garica ([id number]) on 01/24/2025 1:12:01 PM No results found for: CKTOTAL , CKMB , CKMBINDEX , TROPONINI Limited Echo (TTE) w/wo Limited Doppler, Color Flow, Imaging Agent, Strain, 3D, Bubble Study Result Date: 01/22/2025 1 1 [facility] Heart Station [address] [place] [address] [phone] (fax) Echocardiogram-[facility] Name: OLEG PECK Study Date: 01/22/2025 07:44 AM B/P: 125 mmHg/65 mmHg HR: 80 bpm Date of : 1970 Location: [facility] Height: 68 in. Age: 54 year(s) Patient Room: 3207 Weight: 152 lb. Gender: Female Patient Status: InPt BSA: 1.82 m2 Indication: S/P Pericardiocentesis done 01/21/25 Examination: Limited Echo, Color flow imaging Image Quality: Good Patient Consent: Procedure explained to patient Conclusions Left Ventricle: The left ventricle is normal size. Global left ventricular systolic function is normal. EF range is estimated at 60 % -65 %. Left ventricular wall thickness is normal. No regional wall motion abnormality. Concentric cardiac remodeling. Right Ventricle: The right ventricle is normal in size. Left Atrium: The left atrium appears normal in size. Pericardium: There is a minimal pericardial effusion. Features are not consistent with tamponade physiology. Measurements Left Ventricle Label Value Normal Value LVDd, 2D 4.03 cm (3.9cm - 5.3cm) LVDs, 2D 2.59 cm (2.1cm - 4cm) IVSd, 2D 0.88 cm (0.6cm - 1.1cm) LVPWd, 2D 1 cm (0.6cm - 0.9cm) LV Mass, 2D ASE 117.89 g LV Mass Index, 2D ASE 64.8 g/m?? (44g/m?? - 88.4g/m??) RWT, MM 0.5 (0 - 0.42) LVSVI, 2D 25.8 ml/m2 Findings Left Ventricle: The left ventricle is normal size. Global left ventricular systolic function is normal. EF range is estimated at 60 % -65 %. Left ventricular wall thickness is normal. No regional wall motion abnormality. Concentric cardiac remodeling. Right Ventricle: The right ventricle is normal in size. Left Atrium: The left atrium appears normal in size. Right Atrium: The right atrium appears normal in size. Mitral Valve: The mitral valve is normal in mobility and thickness. Aortic Valve: The aortic va (more content not included)... [facility] 01-23-2025 Note Physical Therapy Can cellation note for Sunday01/23/2025 Pt per nursing will have to be a medical hold for therapy services secondary to v tach rhythm Attempted time : 03:47-03:48 [facility] 01-23-2025 Note Attestation signed by Rubin Alcantara MD at 01/23/2025 3:55 PM I personally saw and evaluated the patient on rounds with the medical anthropology director and I agree with his assessment and plan as documented in the patient's progress note from today Cardiology Progress Note Subjective Subjective: Oleg Peck is a 54 y.o. female patient was seen and examined at the bedside, had no overnight event. Drain is slowing down with only 5 ml this morning and 39 overnight. Had no chest pain or shortness of breath. Objective Current Facility-Administered Medications: acetaminophen (Tylenol) solution 650 mg, 650 mg, oral, q4h PRN, Tesfaye Pina MD, 650 mg at 01/23/25 0026 amoxicillin-pot clavulanate (Augmentin) 875-125 mg per tablet 1 tablet, 1 tablet, oral, BID, Jesus Alberto Ricardo MD, 1 tablet at 01/23/25 1042 colchicine tablet 0.6 mg, 0.6 mg, oral, BID, Jesus Alberto Ricardo MD, 0.6 mg at 01/23/25 1042 furosemide (Lasix) injection 40 mg, 40 mg, intravenous, Once, Jesus Alberto Ricardo MD melatonin tablet 6 mg, 6 mg, oral, Nightly PRN, Tesfaye Pina MD, 6 mg at 01/23/25 0026 prochlorperazine (Compazine) injection 5 mg, 5 mg, intravenous, Once PRN, Uriah Tierney MD rivaroxaban (Xarelto) tablet 15 mg, 15 mg, oral, Daily with evening meal, Luz Maria Torres MD, 15 mg at 01/23/25 1202 Objective: Patient Vitals for the past 24 hrs: BP Temp Temp src Pulse Resp SpO2 Weight 01/23/25 1100 -- -- -- 91 21 100 % -- 01/23/25 1000 105/58 -- -- 92 23 97 % -- 01/23/25 0800 109/60 -- -- 90 15 94 % -- 01/23/25 0700 100/68 -- -- 86 24 95 % -- 01/23/25 0600 113/68 -- -- 84 22 95 % 67.5 kg (148 lb 13 oz) 01/23/25 0500 111/69 -- -- 85 21 96 % -- 01/23/25 0400 104/64 37 ???C (98.6 ???F) Temporal 92 16 95 % -- 01/23/25 0300 102/58 -- -- 90 23 92 % -- 01/23/25 0200 99/63 -- -- 90 23 95 % -- 01/23/25 0100 101/61 -- -- 87 22 94 % -- 01/23/25 0000 110/77 37 ???C (98.6 ???F) Temporal 97 17 94 % -- 01/22/25 2300 103/59 -- -- 86 21 93 % -- 01/22/25 2200 105/70 -- -- 91 20 96 % -- 01/22/252099 116/77 -- -- 93 24 96 % -- 01/22/252004 127/77 37.2 ???C (99 ???F) Temporal 97 22 97 % -- 01/22/25 1900 133/77 -- -- 89 26 98 % -- 01/22/25 1800 122/76 -- -- 86 23 98 % -- 01/22/25 1700 127/73 -- -- 89 21 100 % -- 01/22/25 1600 128/77 -- -- 86 19 98 % -- 01/22/25 1500 118/73 -- -- 85 18 97 % -- 01/22/25 1400 116/72 -- -- 88 21 97 % -- Physical Examination: Physical Exam Constitutional: Appearance: Normal appearance. HENT: Head: Normocephalic and atraumatic. Nose: Nose normal. Eyes: Extraocular Movements: Extraocular movements intact. Pupils: Pupils are equal, round, and reactive to light. Cardiovascular: Rate and Rhythm: Normal rate and regular rhythm. Pulses: Normal pulses. Heart sounds: Normal heart sounds. Comments: Pericardial in place Pulmonary: Effort: Pulmonary effort is normal. Breath sounds: Normal breath sounds. No wheezing or rales. Abdominal: General: Abdomen is flat. Palpations: Abdomen is soft. Musculoskeletal: General: Normal range of motion. Skin: General: Skin is warm and dry. Neurological: Mental Status: She is alert. Relevant Lab Results Encounter Date: 01/21/25 ECG 12 lead Result Value Ventricular Rate 80 Atrial Rate 80 MN Interval 150 QRS DURATION 78 QT Interval 406 QTC CALCULATION(BAZETT) 468 P Piketon 72 R-Piketon 3 T Wave [place] 41 Impression Normal sinus rhythm Cannot rule out Anterior infarct , age undetermined Abnormal ECG When compared with ECG of 21-JAN-2025 19:13, ST no longer depressed in Anterolateral leads Nonspecific T wave abnormality no longer evident in Inferior lead T wave inversion no longer evident in Anterolateral leads Confirmed by Aquilino JOYNER, FAIZA Garcia (55) on 01/22/2025 10:04:53 AM No results found for: CKTOTAL , CKMB , CKMBINDEX , TROPONINI Limited Echo (TTE) w/wo Limited Doppler, Color Flow, Imaging Agent, Strain, 3D, Bubble Study Result Date: 01/22/2025 1 1 [facility] Heart Station [address] [place] [address] [phone] (fax) Echocardiogram-[facility] Name: OLEG PECK Study Date: 01/22/2025 07:44 AM B/P: 125 mmHg/65 mmHg HR: 80 bpm Date of : 1970 Location: [facility] Height: 68 in. Age: 54 year(s) Patient Room: 3207 Weight: 152 lb. Gender: Female Patient Status: InPt BSA: 1.82 m2 Indication: S/P Pericardiocentesis done 01/21/25 Examination: Limited Echo, Color flow imaging Image Quality: Good Patient Consent: Procedure explained to patient Conclusions Left Ventricle: The left ventricle is normal size. Global left ventricular systolic function is normal. EF range is estimated at 60 % -65 %. Left ventricular wall thickness is normal. No regional wall motion abnormality. Conc (more content not included)... [facility] 01-23-2025 Note Cardiology Progress Note Subjective Oleg Peck is a 54 y.o. female patient was seen and examined at the bedside, had no overnight event. Drain is slowing down with only 5 ml this morning and 39 overnight. Had no chest pain or shortness of breath. Tolerating heparin Gtt. Objective Patient Vitals for the past 24 hrs: BP Temp Temp src Pulse Resp SpO2 Weight 01/23/25 1100 -- -- -- 91 21 100 % -- 01/23/25 1000 105/58 -- -- 92 23 97 % -- 01/23/25 0800 109/60 -- -- 90 15 94 % -- 01/23/25 0700 100/68 -- -- 86 24 95 % -- 01/23/25 0600 113/68 -- -- 84 22 95 % 67.5 kg (148 lb 13 oz) 01/23/25 0500 111/69 -- -- 85 21 96 % -- 01/23/25 0400 104/64 37 ???C (98.6 ???F) Temporal 92 16 95 % -- 01/23/25 0300 102/58 -- -- 90 23 92 % -- 01/23/25 0200 99/63 -- -- 90 23 95 % -- 01/23/25 0100 101/61 -- -- 87 22 94 % -- 01/23/25 0000 110/77 37 ???C (98.6 ???F) Temporal 97 17 94 % -- 01/22/25 2300 103/59 -- -- 86 21 93 % -- 01/22/25 2200 105/70 -- -- 91 20 96 % -- 01/22/25 2100 116/77 -- -- 93 24 96 % -- 01/22/25 2005 127/77 37.2 ???C (99 ???F) Temporal 97 22 97 % -- 01/22/25 1900 133/77 -- -- 89 26 98 % -- 01/22/25 1800 122/76 -- -- 86 23 98 % -- 01/22/25 1700 127/73 -- -- 89 21 100 % -- 01/22/25 1600 128/77 -- -- 86 19 98 % -- 01/22/25 1500 118/73 -- -- 85 18 97 % -- 01/22/25 1400 116/72 -- -- 88 21 97 % -- Physical Examination: Constitutional: Appearance: Normal appearance. HENT: Head: Normocephalic and atraumatic. Nose: Nose normal. Eyes: Extraocular Movements: Extraocular movements intact. Pupils: Pupils are equal, round, and reactive to light. Cardiovascular: Rate and Rhythm: Normal rate and regular rhythm. Pulses: Normal pulses. Heart sounds: Normal heart sounds. Comments: Pericardial drain in place Pulmonary: Effort: Pulmonary effort is normal. Breath sounds: Normal breath sounds. No wheezing or rales. Abdominal: General: Abdomen is flat. Palpations: Abdomen is soft. Musculoskeletal: General: Normal range of motion. Skin: General: Skin is warm and dry. Neurological: Mental Status: She is alert. Relevant Lab Results Encounter Date: 01/21/25 ECG 12 lead Result Value Ventricular Rate 130 QRS DURATION 72 QT Interval 298 QTC CALCULATION(BAZETT) 438 R-Piketon 66 T Wave P[place] 246 Impression Atrial fibrillation with rapid ventricular response Nonspecific ST and T wave abnormality Abnormal ECG When compared with ECG of 23-JAN-2025 15:38, (unconfirmed) Atrial fibrillation has replaced Sinus rhythm ST now depressed in Anterior leads Nonspecific T wave abnormality, worse in Inferior lead Nonspecific T wave abnormality now evident in Anterolateral leads No results found for: CKTOTAL , CKMB , CKMBINDEX , TROPONINI Limited Echo (TTE) w/wo Limited Doppler, Color Flow, Imaging Agent, Strain, 3D, Bubble Study Result Date: 01/22/2025 1 1 [facility] Heart Station [address] [place] [address] [phone] (fax) Echocardiogram-[facility] Name: OLEG PECK Study Date: 01/22/2025 07:44 AM B/P: 125 mmHg/65 mmHg HR: 80 bpm Date of : 1970 Location: [facility] Height: 68 in. Age: 54 year(s) Patient Room: 3207 Weight: 152 lb. Gender: Female Patient Status: InPt BSA: 1.82 m2 Indication: S/P Pericardiocentesis done 01/21/25 Examination: Limited Echo, Color flow imaging Image Quality: Good Patient Consent: Procedure explained to patient Conclusions Left Ventricle: The left ventricle is normal size. Global left ventricular systolic function is normal. EF range is estimated at 60 % -65 %. Left ventricular wall thickness is normal. No regional wall motion abnormality. Concentric cardiac remodeling. Right Ventricle: The right ventricle is normal in size. Left Atrium: The left atrium appears normal in size. Pericardium: There is a minimal pericardial effusion. Features are not consistent with tamponade physiology. Measurements Left Ventricle Label Value Normal Value LVDd, 2D 4.03 cm (3.9cm - 5.3cm) LVDs, 2D 2.59 cm (2.1cm - 4cm) IVSd, 2D 0.88 cm (0.6cm - 1.1cm) LVPWd, 2D 1 cm (0.6cm - 0.9cm) LV Mass, 2D ASE 117.89 g LV Mass Index, 2D ASE 64.8 g/m?? (44g/m?? - 88.4g/m??) RWT, MM 0.5 (0 - 0.42) LVSVI, 2D 25.8 ml/m2 Findings Left Ventricle: The left ventricle is normal size. Global left ventricular systolic function is normal. EF range is estimated at 60 % -65 %. Left ventricular wall thickness is normal. No regional wall motion abnormality. Concentric cardiac remodeling. Right Ventricle: The right ventricle is normal in size. Left Atrium: The left atrium appears normal in size. Right Atrium: The right atrium appears normal in size. Mitral Valve: The mitral valve is normal in mobility and thickness. Aortic Valve: The aortic valve is normal. Aortic valve is tri-leaflet. Tricuspid Valve: Normal tricuspid valve. Great Vessels: IVC: Normal size and course of the I (more content not included)... [facility] 01-23-2025 Note Attestation signed by Mitzi Valero MD at 01/25/2025 4:50 PM I personally saw and examined the patient on the same date of service as resident/fellow Stephanie Betancourt MD. I discussed the findings and therapeutic plan with the Stephanie Betancourt MD. I agree with the documentation, except for any edits/updates below. Medical ICU Progress Note Patient - Oleg Peck [facility] 54 [facility] 1970 [id number] Date of Admission - 01/21/2025 9:47 AM Subjective HPI/Hospital Course 54 years old female past medical history significant for A-fib presented today for elective ablation with Dr. Ricardo. After A-fib ablation procedure, while in PACU, patient was observed to be hernandez?, Blood pressure dropped to systolic of 60s in PACU, stat bedside echo did show cardiac tamponade, Kcentra was given to reverse the Xarelto that was received earlier, patient was taken emergently [facility] for pericardiocentesis, with 280 mL fluid removed. Upon arrival to the ICU on 01/21, patient was on nonrebreather, blood pressure 140s/60s mmHg, not requiring pressors, heart rate in 90s, pericardial drain in place, feeling tired, with no SOB reported. SUBJECTIVE Patient seen and examined at bedside. Since yesterday morning, pericardial drain drained serosanguinous 484 mL of fluid. She denies chest pain, SOB, abdominal pain, n/v/d. Consulting Service(s): Cardiology Cardiothoracic surgery Objective OBJECTIVE Vitals height is 1.727 m (5' 8 ) and weight is 67.5 kg (148 lb 13 oz). Her temporal temperature is 37 ???C (98.6 ???F). Her blood pressure is 100/68 and her pulse is 86. Her respiration is 24 and oxygen saturation is 95%. Temp: [37 ???C (98.6 ???F)-37.2 ???C (99 ???F)] 37 ???C (98.6 ???F) Heart Rate: [77-97] 86 Resp: [12-29] 24 BP: (99-133)/(58-77) 100/68 Physical Exam: General: Patient is alert and oriented x3, not in acute distress. HEENT: Atraumatic, normocephalic Neck: Supple neck. Respiratory: Clear breathing sound bilaterally, no wheezing no crackles. Heart: Regular rhythm, no murmur, no rub, pericardial drain in place Neurology: Can move all extremities, no focal deficit. Abdomen: Soft, not distended, not tender Extremities: No cyanosis, no edema. Skin: Warm and dry Weight: Admission weight: 64.9 kg (143 lb 1.3 oz) Wt Readings from Last 1 Encounters: 01/23/25 67.5 kg (148 lb 13 oz) Input/Output: Pericardial drained 73 mL since 8 AM this morning Intake/Output Summary (Last 24 hours) at 01/23/2025 0715 Last data filed at 01/23/2025 0700 Gross per 24 hour Intake 220.05 ml Output 516 ml Net -295.95 ml Lab Results CBC: Results from last 7 days Lab Units 01/23/25 0344 01/23/25 0007 01/22/25 1517 01/22/25 0714 01/22/25 0318 01/21/25 2342 01/21/25 1640 WBC AUTO 10*3/uL 13.26* -- -- -- 14.50* -- 11.91* HEMOGLOBIN g/dL 11.3* 12.6 12.2 < > 10.8* < > 11.9* HEMATOCRIT % 34.1* 38.2 36.6 < > 32.2* < > 34.9* PLATELETS AUTO 10*3/uL 202 -- 217 -- 214 -- 236 < > = values in this interval not displayed. Coagulation: Results from last 7 days Lab Units 01/23/25 0344 01/23/25 0005 01/22/25 1724 01/21/25 1640 01/21/25 1020 APTT Seconds 130.3* 102.2* 27.8 -- -- INR 1.23* -- -- 1.31* 1.05 Metabolic Panel: Results from last 7 days Lab Units 01/23/25 0344 01/22/25 0319 SODIUM mmol/L 139 139 POTASSIUM mmol/L 3.7 3.6 CHLORIDE mmol/L 109* 106 CO2 mmol/L 26 26 BUN mg/dL 10 15 CREATININE mg/dL 0.51* 0.60 GLUCOSE mg/dL 98 132* CALCIUM mg/dL 7.8* 7.9* MAGNESIUM mg/dL 1.9 1.3* Liver Panel: Results from last 7 days Lab Units 01/23/25 0344 01/21/25 1400 ALBUMIN g/dL 3.5 -- BILIRUBIN TOTAL mg/dL 0.9 0.9 ALT U/L 54* -- AST U/L 66* -- ALK PHOS U/L 44 -- Radiology Limited Echo (TTE) w/wo Limited Doppler, Color Flow, Imaging Agent, Strain, 3D, Bubble Study 1 1 [facility] Heart Station [address] [place] [address] [phone] (fax) Echocardiogram-[facility] Name: OLEG PECK Study Date: 01/22/2025 07:44 AM B/P: 125 mmHg/65 mmHg HR: 80 bpm Date of : 1970 Location: [facility] Height: 68 in. Age: 54 year(s) Patient Room: 3207 Weight: 152 lb. Gender: Female Patient Status: InPt BSA: 1.82 m2 Indication: S/P Pericardiocentesis done 01/21/25 Examination: Limited Echo, Color flow imaging Image Quality: Good Patient Consent: Procedure explained to patient Conclusions Left Ventricle: The left ventricle is normal size. Global left ventricular systolic function is normal. EF range is estimated at 60 % -65 %. Left ventricular wall thickness is normal. No regional wall motion abnormality. Concentric cardiac remodeling. Right Ventricle: The right ventricle is normal in size. Left Atrium: The (more content not included)... [facility] 01-22-2025 Note Attestation signed by Mitzi Valero MD at 01/22/2025 3:25 PM I personally saw and examined the patient on the same date of service as resident/fellow Stephanie Betancourt MD. I discussed the findings and therapeutic plan with the Stephanie Betancourt MD. I agree with the documentation, except for any edits/updates below. Medical ICU Progress Note Patient - Oleg Peck Age - 54 y.o. - 1970 Date of Admission - 01/21/2025 9:47 AM Subjective HPI/Hospital Course 54 years old female past medical history significant for A-fib presented today for elective ablation with Dr. Ricardo. After A-fib ablation procedure, while in PACU, patient was observed to be hernandez?, Blood pressure dropped to systolic of 60s in PACU, stat bedside echo did show cardiac tamponade, Kcentra was given to reverse the Xarelto that was received earlier, patient was taken emergently [facility] for pericardiocentesis, with 280 mL fluid removed. Upon arrival to the ICU on 01/21, patient was on nonrebreather, blood pressure 140s/60s mmHg, not requiring pressors, heart rate in 90s, pericardial drain in place, feeling tired, with no SOB reported. SUBJECTIVE On 01/22, she reported improvement overall. and daughter at bedside. She has good appetite. Denies shortness of breath, nausea, vomiting, abdominal pain. Does report a couple episodes of chest pain overnight however resolved with Tylenol. Session with PT this morning also went well. She denied having dizziness or headaches. EKG and echo done this morning. A few low blood pressures overnight. Consulting Service(s): Cardiology Cardiothoracic surgery Objective OBJECTIVE Vitals height is 1.727 m (5' 8 ) and weight is 69 kg (152 lb 1.9 oz). Her temporal temperature is 36.4 ???C (97.5 ???F). Her blood pressure is 106/62 and her pulse is 78. Her respiration is 24 and oxygen saturation is 97%. Temp: [36 ???C (96.8 ???F)-36.6 ???C (97.9 ???F)] 36.4 ???C (97.5 ???F) Heart Rate: [59-111] 78 Resp: [6-29] 24 BP: (59-161)/(48-89) 106/62 Arterial Line BP 1: (45-150)/(34-77) 130/77 Physical Exam: General: Patient is alert and oriented x3, not in acute distress. HEENT: Atraumatic, normocephalic Neck: Supple neck. Respiratory: Clear breathing sound bilaterally, no wheezing no crackles. Heart: Regular rhythm, no murmur, no rub, pericardial drain in place Neurology: Can move all extremities, no focal deficit. Abdomen: Soft, not distended, not tender Extremities: No cyanosis, no edema. Skin: Warm and dry Weight: Admission weight: 64.9 kg (143 lb 1.3 oz) Wt Readings from Last 1 Encounters: 01/22/25 69 kg (152 lb 1.9 oz) Input/Output: Pericardial drained 73 mL since 8 AM this morning Intake/Output Summary (Last 24 hours) at 01/22/2025 1215 Last data filed at 01/22/2025 1200 Gross per 24 hour Intake 1630 ml Output 3144 ml Net -1514 ml Lab Results CBC: Results from last 7 days Lab Units 01/22/25 0714 01/22/25 0318 01/21/25 2342 01/21/25 1640 01/21/25 1445 WBC AUTO 10*3/uL -- 14.50* -- 11.91* 7.62 HEMOGLOBIN g/dL 11.6* 10.8* 11.5* 11.9* 12.7 12.7 HEMATOCRIT % 34.3* 32.2* 33.7* 34.9* 38.5 PLATELETS AUTO 10*3/uL -- 214 -- 236 248 Coagulation: Results from last 7 days Lab Units 01/21/25 1640 01/21/25 1020 INR 1.31* 1.05 Metabolic Panel: Results from last 7 days Lab Units 01/22/25 0319 SODIUM mmol/L 139 POTASSIUM mmol/L 3.6 CHLORIDE mmol/L 106 CO2 mmol/L 26 BUN mg/dL 15 CREATININE mg/dL 0.60 GLUCOSE mg/dL 132* CALCIUM mg/dL 7.9* MAGNESIUM mg/dL 1.3* Liver Panel: Results from last 7 days Lab Units 01/21/25 1400 BILIRUBIN TOTAL mg/dL 0.9 Radiology Limited Echo (TTE) w/wo Limited Doppler, Color Flow, Imaging Agent, Strain, 3D, Bubble Study 1 1 [facility] Heart Station [address] [place] [address] [phone] (fax) Echocardiogram-[facility] Name: OLEG PECK Study Date: 01/22/2025 07:44 AM B/P: 125 mmHg/65 mmHg HR: 80 bpm Date of : 1970 Location: [facility] Height: 68 in. Age: 54 year(s) Patient Room: 3207 Weight: 152 lb. Gender: Female Patient Status: InPt BSA: 1.82 m2 Indication: S/P Pericardiocentesis done 01/21/25 Examination: Limited Echo, Color flow imaging Image Quality: Good Patient Consent: Procedure explained to patient Conclusions Left Ventricle: The left ventricle is normal size. Global left ventricular systolic function is normal. EF range is estimated at 60 % -65 %. Left ventricular wall thickness is normal. No regional wall motion abnormality. Concentric cardiac remodeling. Right Ventricle: The right ventricle is normal in size. Left Atrium: The left atrium appears normal in size. Pericardium: There is a minima (more content not included)... [facility] 01-22-2025 Note Physical Therapy Physical Therapy Evaluation Patient Name: Oleg Peck : 1970 Today's Date: 01/22/2025 Start Time: 841 Stop Time: 924 Time Calculation (min): 43 min PT Evaluation Time Entry PT Evaluation (Moderate) Time Entry: 30 PT Therapeutic Procedures Time Entry Therapeutic Exercise Time Entry: 15 General Subjective: RN approved PT session and OOB activity this date. In bed upon arrival, agreeable to session. Upon completion, patient left in the chair with family present, call light within reach Patient Summary: Patient is a 54 y/o female presenting 01/21/25 for scheduled ablation. Post-op complications including hypotension, cardiac tamponade, underwent emergent pericardiocentesis with drain placement. PT Diagnosis: Impaired activity tolerance/functional mobility Patient Active Problem List Diagnosis Varicose veins of both lower extremities with pain Paroxysmal atrial fibrillation (CMS/HCC) Abdominal discomfort Tamponade Past Medical History: Diagnosis Date Atrial fibrillation (CMS/HCC) Complex regional pain syndrome of lower limb Deep vein thrombosis (CMS/HCC) Displaced fracture of fifth metatarsal bone, left foot, initial encounter for closed fracture Hallux rigidus of right foot Peripheral vascular disease Recurrent UTI Varicose veins of both lower extremities with pain Past Surgical History: Procedure Laterality Date FOOT FRACTURE SURGERY KNEE SURGERY Precautions Precautions Medical Precautions: telemetry, drain, fall risk, luz Pain Pain Assessment Pain Assessment: 0-10 Pain Score: 3 Pain Type: Acute pain Pain Location: Chest Cognition Cognition Overall Cognitive Status: Within Functional Limits Arousal/Alertness: Appropriate responses to stimuli Orientation Level: Oriented X4 Following Commands: Follows all commands and directions without difficulty General Assessment General Assessment Hearing: Intact Hand Dominance: Right Home Living Home Living Type of Home: House Lives With: Spouse Home Adaptive Equipment: (Acces to RW and cane) Home Layout: Two level, 1/2 bath on main level, Bed/bath upstairs Home Access: Stairs to enter without rails Entrance Stairs-Rails: None Entrance Stairs-Number of Steps: 3 Bathroom Shower/Tub: Walk-in shower Bathroom Toilet: Standard Bathroom Equipment: Grab bars in shower Prior Level of Function Prior Function Level of [place]: Independent with ADLs and functional transfers, Independent with homemaking with ambulation Prior Functional Mobility: Independent without device ADL Assistance: Independent Homemaking Assistance: Independent Vision Basic Assessment Vision - Basic Assessment Current Vision: No visual deficits Vision - Complex General Assessments Activity Tolerance Endurance: Stage II Sensation Light Touch: No apparent deficits Coordination Movements are Fluid and Coordinated: Yes Postural Control Postural Control: Within Functional Limits Static Sitting Balance Static Sitting-Balance Support: Feet supported Static Sitting-Level of Assistance: Close supervision Dynamic Sitting Balance Dynamic Sitting-Balance Support: Feet supported, Left upper extremity supported, Right upper extremity supported Dynamic Sitting-Balance: Lateral lean, Forward lean Dynamic Sitting Balance-Level of Assistance: Close supervision Static Standing Balance Static Standing-Balance Support: With device (RW) Static Standing-Level of Assistance: Close supervision Dynamic Standing Balance Dynamic Standing-Balance Support: With device (RW) Dynamic Standing Balance-Level of Assistance: Contact guard Functional Assessments Bed Mobility Bed Mobility: Yes Bed Mobility 1 Bed Mobility From 1: Supine Bed Mobility Type 1: To Bed Mobility to 1: Short sit Level of Assistance 1: Close supervision Bed Mobility Comments 1: HOB elevated ~45 degrees Transfers Transfer: Yes Transfer 1 Technique 1: Sit to stand, Stand to sit Transfer Device 1: rolling walker Transfer Level of Assistance 1: Close supervision Ambulation Ambulation: Yes Ambulation 1 Surface 1: Level tile Device 1: Rolling walker Assistance 1: Contact guard Quality of Gait 1: Short step length, slow cautious pace without significant instability or LOB Comments/Distance (ft) 1: 75 ft Extremity Assessments RUE Assessment RUE Assessment: Within Functional Limits LUE Assessment LUE Assessment: Within Functional Limits RLE Assessment RLE Assessment: Within Functional Limits (Grossly 4/5) LLE Assessment LLE Assessment: Within Functional Limits (Grossly 4/5) Therapeutic Exercise Therapeutic Exercise Therapeutic Exercise Time Entry: 15 Outcome Assessments 6 Clicks (Mobility) Help from another person turning from your back to your side while in a flat bed without using bedrails: A little Help from another person moving from lying on y (more content not included)... [facility] 01-22-2025 Note Attestation signed by Jesus Alberto Ricardo MD at 01/22/2025 8:22 PM By using the attestations below, the signing clinician agrees that I have read and verify that the documentation has been personally reviewed by me and ensure that the documentation accurately reflects the encounter. GC: I performed the [place] portion(s) of the service and participated in the management and confirm the resident's documentation. Please note there may be an additional personal documentation from me. Pt doing better. I saw her in AM and then in evening. By 4pm, drain is clear with serosanguinous fluid. Will start her on Heparin gtt and observe drain. If no bloody drain, then will switch to Xarelto 15mg and see how she does. If no bloody drain, then clamp and see how she does. Cardiology Progress Note Subjective Subjective: Patient is seen and examined this morning; she denies any SOB or dizziness but complains from pleuritic chest pain. RN at bedside mentioned that her pericardial drain output was 10+10+24+27 ml (Q4h). ICU attending and RN are kindly updated on plan of care detailed below. Objective Current Facility-Administered Medications: acetaminophen (Tylenol) solution 650 mg, 650 mg, oral, q4h PRN, Tesfaye Pina MD, 650 mg at 01/22/25 0507 amoxicillin-pot clavulanate (Augmentin) 875-125 mg per tablet 1 tablet, 1 tablet, oral, BID, Jesus Alberto Ricardo MD, 1 tablet at 01/21/25 2300 colchicine tablet 0.6 mg, 0.6 mg, oral, BID, Jesus Alberto Ricardo MD, 0.6 mg at 01/21/25 2300 furosemide (Lasix) injection 40 mg, 40 mg, intravenous, Once, Jesus Alberto Ricardo MD melatonin tablet 6 mg, 6 mg, oral, Nightly PRN, Tesfaye Pina MD, 6 mg at 01/22/25 0119 prochlorperazine (Compazine) injection 5 mg, 5 mg, intravenous, Once PRN, Uriah Tierney MD Objective: Patient Vitals for the past 24 hrs: BP Temp Temp src Pulse Resp SpO2 Height Weight 01/22/25 0700 125/65 -- -- 75 20 98 % -- -- 01/22/25 0600 125/66 -- -- 73 24 98 % -- -- 01/22/25 0500 83/52 -- -- 62 (!) 28 98 % -- -- 01/22/25 0400 116/73 36.4 ???C (97.5 ???F) Temporal 74 25 99 % -- 69 kg (152 lb 1.9 oz) 01/22/25 0306 94/54 -- -- -- -- -- -- -- 01/22/25 0300 (!) 86/48 -- -- 59 21 98 % -- -- 01/22/25 0200 126/71 -- -- 87 21 97 % -- -- 01/22/25 0100 136/79 -- -- 89 (!) 27 99 % -- -- 01/22/25 0045 -- -- -- 90 (!) 27 99 % -- -- 01/22/25 0000 125/78 36.4 ???C (97.5 ???F) Temporal 95 20 98 % -- -- 01/21/252299 129/78 -- -- 98 25 99 % -- -- 01/21/252244 -- -- -- 95 23 99 % -- -- 01/21/252229 128/75 -- -- -- -- -- -- -- 01/21/252200 -- -- -- 96 22 99 % -- -- 01/21/252199 128/78 -- -- 100 (!) 27 99 % -- -- 01/21/252145 117/89 36.4 ???C (97.5 ???F) -- -- -- -- 01/21/252133 -- 36.5 ???C (97.7 ???F) -- 96 21 99 % -- -- 01/21/252099 -- -- -- 95 22 99 % -- -- 01/21/252044 -- -- -- 97 22 100 % -- -- 01/21/252031 -- 36.5 ???C (97.7 ???F) -- 24 99 % -- -- 01/21/252016 140/67 36.5 ???C (97.7 ???F) -- -- -- -- 01/21/251999 -- 36.5 ???C (97.7 ???F) Temporal 97 19 100 % -- -- 01/21/251944 -- -- -- 97 20 100 % -- -- 01/21/251929 -- -- -- 98 17 99 % -- -- 01/21/251914 -- -- -- 96 21 100 % -- -- 01/21/251913 -- -- -- 93 19 99 % -- -- 01/21/251904 133/62 36.6 ???C (97.9 ???F) -- 93 24 -- -- -- 01/21/251899 -- -- -- 91 20 99 % -- -- 01/21/251842 -- -- -- 98 20 99 % -- -- 01/21/251817 -- -- -- -- -- 100 % -- -- 01/21/25 1816 -- -- -- 99 22 100 % -- -- 01/21/25 1731 161/76 -- -- 99 18 100 % -- -- 01/21/25 1656 -- -- -- -- -- 100 % -- -- 01/21/25 1656 81/60 -- -- (!) 111 12 100 % -- -- 01/21/25 1641 -- -- -- 107 17 -- -- -- 01/21/25 1640 -- -- -- 102 17 -- -- -- 01/21/25 1635 74/60 -- -- 106 20 -- -- -- 01/21/25 1630 -- -- -- 93 11 99 % -- -- 01/21/25 1625 -- -- -- 102 23 95 % -- -- 01/21/25 1620 (!) 65/54 -- -- 102 20 98 % -- -- 01/21/25 161 (!) 59/50 -- -- 101 18 98 % -- -- 01/21/25 1610 -- -- -- 99 16 -- -- -- 01/21/25 1600 -- -- -- 95 (!) 28 99 % -- -- 01/21/25 1555 -- -- -- 81 17 98 % -- -- 01/21/25 1540 -- -- -- 83 17 96 % -- -- 01/21/25 1525 -- -- -- 93 (!) 6 98 % -- -- 01/21/25 1510 -- -- -- 93 19 100 % -- -- 01/21/25 1455 -- 36 ???C (96.8 ???F) Temporal 94 14 99 % -- -- 01/21/25 1452 -- -- -- 71 12 100 % -- -- 01/21/25 1150 -- -- -- -- -- 100 % -- -- 01/21/25 1148 122/62 -- -- 76 12 100 % -- -- 01/21/25 1028 117/69 -- -- 70 16 100 % 1.727 m (5' 8 ) 64.9 kg (143 lb 1.3 oz) 01/21/25 1019 -- 35.9 ???C (96.6 ???F) Temporal -- -- -- -- -- Physical Examination: Physical Exam Constitutional: Appearance: Normal appearance. HENT: Head: Normocephalic and atraumatic. Nose: Nose normal. Eyes: Extraocular Movements: Extraocular movements intact. Pupils: Pupils are equal, round, and reactive to light. Cardiovascular: Rate and Rhythm: Normal rate and (more content not included)... [facility] 01-21-2025 Note Patient: Oleg Clark vuzzo Procedure Summary Date: 01/21/25 Room / Location: [facility] SLACKLINE OPERATOR 3 / [facility] (Cath) Anesthesia Start: 1627 Anesthesia Stop: 1810 Procedure: Pericardiocentesis Diagnosis: Cardiac tamponade (Status post successful pericardiocentesis and placement of a pericardial drain.) Providers: Olaf Pizano MD Responsible Provider: Pretty Brown MD Anesthesia Type: MAC ASA Status: 4 - Emergent Anesthesia Type: MAC Vitals Value Taken Time BP 133/62 01/21/25 1905 Temp 36.6 ???C (97.9 ???F) 01/21/25 1905 Pulse 92 01/21/251950 Resp 19 01/21/251950 SpO2 99 % 01/21/251950 Vitals shown include unfiled device data. Anesthesia Post Evaluation Patient location during evaluation: ICU Patient participation: complete - patient participated Level of consciousness: awake Pain management: adequate Airway patency: patent Cardiovascular status: acceptable and blood pressure returned to baseline Respiratory status: acceptable Hydration status: acceptable There were no known notable events for this encounter. [facility] 01-21-2025 Note Patient: Oleg Love Sca vuzzo Procedure Summary Date: 01/21/25 Room / Location: [facility] SLACKLINE OPERATOR 1 EP / [facility] (Cath) Anesthesia Start: 1137 Anesthesia Stop: 1456 Procedure: Ablation a-fib paroxysmal Diagnosis: Paroxysmal atrial fibrillation (CMS/HCC) (Paroxysmal atrial fibrillation (CMS/HCC) [I48.0]) Providers: Jesus Alberto Ricardo MD Responsible Provider: Ncio Waggoner MD Anesthesia Type: general ASA Status: 3 Anesthesia Type: general Vitals Value Taken Time BP 74/60 01/21/25 1635 Temp 36 ???C (96.8 ???F) 01/21/25 1455 Pulse 107 01/21/25 1641 Resp 17 01/21/25 1641 SpO2 99 % 01/21/25 1630 Anesthesia Post Evaluation Patient location during evaluation: PACU Patient participation: complete - patient participated Level of consciousness: awake and alert Pain score: 4 Pain management: adequate Multimodal analgesia pain management approach Airway patency: patent Two or more strategies used to mitigate risk of obstructive sleep apnea Cardiovascular status: hemodynamically unstable and hypotensive Respiratory status: face mask and nonlabored ventilation Hydration status: hypovolemic Comments: Cardiac tamponade became apparent in PACU with development of hypotension and with transthoracic echocardiography by Dr. Brown. Pt. Taken to catheterization laboratory for pericardiocentesis with anesthesia monitoring. TAR Encounter Notable Events Notable Event Outcome Phase Comment Cardiac tamponade Intraprocedure Discovered in PACU [facility] 01-21-2025 Note Patient: Oleg frankel Procedure Information Anesthesia Start Date/Time: 01/21/25 1625 Procedure: Pericardiocentesis Location: [facility] SLACKLINE OPERATOR 3 / [facility] (Cath) Providers: Olaf Pizano MD Relevant Problems Cardio (+) Paroxysmal atrial fibrillation (CMS/HCC) (+) Varicose veins of both lower extremities with pain Circulatory (+) Tamponade Clinical information reviewed: Tobacco Allergies Meds Problems Med Hx Surg Hx OB Status Fam Hx Soc Hx Physical Exam Airway Mallampati: II TM distance: >3 FB Cardiovascular Rhythm: regular Rate: abnormal Dental - normal exam Pulmonary Breath sounds clear to auscultation Abdominal Other findings: Bedside POCUS showed evidence of pericardial effusion and Tamponade, with hyperdynamic small LV. This was confirmed with TTE by the squeezer operator. Anesthesia Plan ASA 4 - emergent MAC The patient is not a current smoker. Anesthetic plan and risks discussed with patient. Use of blood products discussed with patient who consented to blood products. Plan discussed with attending and CAA. Additional Equipment Requests [facility] 01-21-2025 Note Patient: Oleg krishnamurthyo Procedure Summary Date: 01/21/25 Room / Location: [facility] SLACKLINE OPERATOR 3 / [facility] (Cath) Anesthesia Start: 162 Anesthesia Stop: Procedure: Pericardiocentesis Diagnosis: Tamponade (Tamponade [I31.4]) Providers: Olaf Pizano MD Responsible Provider: Pretty Brown MD Anesthesia Type: MAC ASA Status: 4 - Emergent Anesthesia Post Transport Note Transport to: ICU O2 Route: face mask Oxygen Flow (L/min): 8 Patient Monitor: transport monitor Transport monitor type: ECG, SpO2 and Art Line Transport: uneventful Patient condition is: stable Comments: VSS, report given to RN, 141/62, SpO2 100%, HR 101, RR 16 [facility] 01-21-2025 Note Patient: Oleg frankel Procedure Information Date/Time: 01/21/251835 Procedure: Pericardiocentesis Location: [facility] SLACKLINE OPERATOR 3 / [facility] (Cath) Providers: John Hamm MD Clinical information reviewed: Tobacco Allergies Meds Problems Med Hx Surg Hx OB Status Fam Hx Soc Hx Physical Exam Airway Mallampati: II TM distance: >3 FB Neck ROM: full Cardiovascular Rhythm: regular Rate: abnormal Dental Pulmonary - normal exam Abdominal - normal exam Anesthesia Plan ASA 3 other (Conscious sedation) Plan discussed with attending. No consent is needed in the context of emergency procedure. Additional Equipment Requests [facility] 01-21-2025 Note Subjective Pt noted to have drop in BP. Stat ECHO reveals pericardial effusion with likely tamponade physiology. Objective Patient Vitals for the past 24 hrs: BP Temp Temp src Pulse Resp SpO2 Height Weight 01/21/25 1731 161/76 -- -- 99 18 100 % -- -- 01/21/25 1656 -- -- -- -- -- 100 % -- -- 01/21/25 1656 81/60 -- -- (!) 111 12 100 % -- -- 01/21/25 1641 -- -- -- 107 17 -- -- -- 01/21/25 1640 -- -- -- 102 17 -- -- -- 01/21/25 1635 74/60 -- -- 106 20 -- -- -- 01/21/25 1630 -- -- -- 93 11 99 % -- -- 01/21/25 1625 -- -- -- 102 23 95 % -- -- 01/21/25 1620 (!) 65/54 -- -- 102 20 98 % -- -- 01/21/25 1615 (!) 59/50 -- -- 101 18 98 % -- -- 01/21/25 1610 -- -- -- 99 16 -- -- -- 01/21/25 1600 -- -- -- 95 (!) 28 99 % -- -- 01/21/25 1555 -- -- -- 81 17 98 % -- -- 01/21/25 1540 -- -- -- 83 17 96 % -- -- 01/21/25 1525 -- -- -- 93 (!) 6 98 % -- -- 01/21/25 1510 -- -- -- 93 19 100 % -- -- 01/21/25 1455 -- 36 ???C (96.8 ???F) Temporal 94 14 99 % -- -- 01/21/25 1452 -- -- -- 71 12 100 % -- -- 01/21/25 1150 -- -- -- -- -- 100 % -- -- 01/21/25 1148 122/62 -- -- 76 12 100 % -- -- 01/21/25 1028 117/69 -- -- 70 16 100 % 1.727 m (5' 8 ) 64.9 kg (143 lb 1.3 oz) 01/21/25 1019 -- 35.9 ???C (96.6 ???F) Temporal -- -- -- -- -- Physical Exam No results found for: NA , K , CL , BICARB , ANIONGAP , BUN , CREATININE , CALCIUM , MG , PHOS Lab Results Component Value Date BILITOT 0.9 01/21/2025 BILIDIR 0.2 01/21/2025 Lab Results Component Value Date WBC 11.91 (H) 01/21/2025 RBC 3.88 01/21/2025 HGB 11.9 (L) 01/21/2025 HCT 34.9 (L) 01/21/2025 MCV 89.9 01/21/2025 MCH 30.7 01/21/2025 MCHC 34.1 01/21/2025 RDW 12.8 01/21/2025 NEUTOPHILPCT 88.2 (H) 01/21/2025 LYMPHOPCT 9.2 (L) 01/21/2025 MONOPCT 1.9 (L) 01/21/2025 EOSPCT 0.1 01/21/2025 BASOPCT 0.2 01/21/2025 NEUTROABS 10.50 (H) 01/21/2025 LYMPHSABS 1.10 (L) 01/21/2025 MONOSABS 0.23 01/21/2025 EOSABS 0.01 01/21/2025 BASOSABS 0.02 01/21/2025 PLT 236 01/21/2025 NRBC 0.0 01/21/2025 No X-ray results found for the past 24 hoursNo MRI results found for the past [address] results found for the past 24 hours Encounter Date: 01/21/25 ECG 12 lead Result Value Ventricular Rate 104 Atrial Rate 104 MN Interval 172 QRS DURATION 72 QT Interval 372 QTC CALCULATION(BAZETT) 489 P [place] 81 R-[place] 63 T Wave [place] 82 Impression Sinus tachycardia Nonspecific ST abnormality Abnormal ECG When compared with ECG of 21-JAN-2025 10:41, Vent. rate has increased BY [address] now depressed in Anterior leads Nonspecific T wave abnormality no longer evident in Inferior lead Nonspecific T wave abnormality no longer evident in Lateral Assessment & Plan Pericardial effusion with evidence of cardia tamponade. Stat IC consult and pericardial tap. Leave drain to assess response. Administer Kcentra stat. Already informed pharmacy and IC team and informed CT Sx. IF there is no resolution of bleed, then will need pericardial window Discussed with pts and cath team. Addendum: Post pericardial tap, Bp was 160mmHg systolic with 250cc of hemorrhagic pericardial fluid removed. Plan: Leave pericardial drain. Remove pericardial fluid Q4h. Daily Limited ECHO. Daily H/H If minimal output x 48hrs, then will restart anticoagulation with Heparin gtt and see response. If no pericardial drain output, then switch to Xarelto 15mg daily and see response. If no ouput, then will remove drain. CT Chest prior to discharge. Jesus Alberto Ricardo MD [facility] 04-30-2025 Note ATRIAL FIBRILLATION ABLATION PROCEDURE NOTE DATE OF PROCEDURE: 01/21/2025 PERFORMING PHYSICIAN: Dr. Jesus Alberto Ricardo FIRER MARINE: AMEE CONSENT: Patient NAME OF THE PROCEDURE: Pulmonary Vein Isolation and Comprehensive EP study. INDICATIONS FOR PROCEDURE: 1. Paroxysmal atrial fibrillation. PROCEDURES PERFORMED: 1. Sonosite guided venous access as noted below and images stored. 2. Comprehensive EP study and catheter ablation for persistent atrial fibrillation through the pulmonary vein isolation technique. This includes right atrial recording and pacing, His bundle recording and right ventricular recording and pacing. 3. Intracardiac EP 3D mapping. 4. Intracardiac echocardiogram 5. Left atrial and coronary sinus recording and pacing to assess ablation results. 6. Left heart pressure measurements and LV pacing and recording. 7. Induction of arrhythmia and testing of ablation results using intravenous adenosine infusion. 8. Fluroscopy. FLUROSCOPY: 18.5min/ 38mGray EBL: 25cc PROCEDURE NOTE: Pt was brought to EP lab and she was in sinus rhythm, so NAVIN was deferred. Thereafter, we proceeded to do atrial fibrillation ablation. Both the groins were then prepared and draped. Ultrasound was used to determine the course and patency of the femoral veins on both sides and they were noted to be patent and the image stored in PACS. After infiltration with 1% lidocaine, 4 venous sheaths were placed in the right as noted below and radial arterial access was placed by me. RFV: 8Fx1 CS Catheter (EZ Steer) 9Fx1: ICE catheter. 8F -->17F: Faradrive sheath for PFA catheter Heparin bolus was given followed by additional bolus and continuous intravenous drip to target ACT around 350. An intracardiac ultrasound catheter was inserted into the right atrium to examine the right atrial anatomy, atrial septum, pulmonary vein anatomy and to monitor for pericardial effusion and guide transseptal access. ICE revealed that the patient had a mildly dilated right atrium and left atrium and minimal pericardial effusion. Patient went into Afib with catheter movement which organized into Atrial flutter. DCCV was done to convert to sinus but she reverted to Afib. At this point I decided to proceed with the transseptal puncture to perform A. fib ablation. Single transseptal access technique was used to cross to the left side. Following the first transeptal access, which was achieved via puncture of the thinner aspect of the septum using Oscar needle, Octoray catheter was placed in the left atrium. Pulmonary vein and left atrial anatomic mapping were performed using a 3-D CARTOcomputer-based mapping system. Identification of the pulmonary vein ostia was assisted by the left atrial signals on the ablation catheter, the ICE catheter and the Octoray catheter placed in the individual pulmonary veins. I then proceeded to exchange the SL1 for 17F Faradrive sheath. Farawave multipolar catheter was advanced over a wire with negative aspiration in periodic fashion to avoid any air bubbles. Thereafter the catheter was advanced to each of the veins over the wire to maintain coaxial placement of catheter. 2 PFA energy pulses were given in each position and then position rotated to 36degrees to get new location and repeat PFA energy were provided. Then this process was repeated in the flower configuration in each veins. I gave extra lesion in all 4 veins toensure there was good contact. This led to complete isolation of each vein. Patient converted to sinus and would go in and out of Afib. After ciompletion of right sided energy delivery, no more of this was seen. Repeat mapping with Octoray catheter revealed isolation of all 4 veins. LV pacing revealed no left sided retrograde accessory pathway. Adenosine did not reveal any reconnection. Burst pacing did not induce any arhrythmia except for a few beats of non sustained atrial flutter. The ICE catheter was used to reexamine the intracardiac anatomy and this showed mild increase in pericardial effusion. Since no sustained flutter could be induced, I did not proceed with flutter ablation. ICE catheter and all catheters were removed. Venous sheaths were pulled, and hemostasis achieved with Perclose sutures. She was transferred to observation bay and then to hospital room for observation. LA baseline (mmHg) 1st and 2nd 17/12 HR 142bpm: Afib LA 600ms pacing (mmHg) NA LA 400ms pacing (mmHg) NA AHms 69, 62 HVms 51, 55 VERPms 600/280, VA condunction+ AV Wenkebach ms 380ms AH jump ms NA AVNERP ms Straight to AERP AERP ms 600/250 POST PROCEDURE DIAGNOSIS 1. Paroxysmal atrial fibrillation s/p PVI (WACA) with PFA. 2. EP study revealing no retrograde accessory pathway. 3. Normal LA voltage 4. Normal LA pressures. SPECIMEN REMOVED: None PLAN: 1. Anticoagulation after 2 hrs of sheath removal. 2. Protonix 40mg bid x 1 month. 3. Groin precautions. Jesus Alberto Ricardo (more content not included)... [facility] 01-21-2025 Note Arterial Line: Date/Time: 01/21/2025 11:05 AM An arterial line was placed Procedure performed using surface landmarks.in the pre-op for the following indication(s): continuous blood pressure monitoring and blood sampling needed. A 20 G (size), 1 and 1/4 inch (length), Angiocath (type) catheter was placed, Seldinger technique used , into the Left radial artery, secured by tape, Tegaderm and Biodisc/Biopatch. Events: patient tolerated procedure well with no complications. Medications Administered lidocaine (XYLOCAINE) 1 % SubQ - infiltration 5 mL - 01/21/2025 11:05:00 AM Staffing Performed: resident/STEAM CONDITIONING OPERATOR/CAA Anesthesiologist: Nico Waggoner MD Resident/STEAM CONDITIONING OPERATOR: Uriah Tierney MD Performed by: Uriah Tierney MD Authorized by: Nico Waggoner MD [facility] 01-21-2025 Note Airway Date/Time: 01/21/2025 11:57 AM Urgency: elective General Information and Staff Patient location during procedure: OR Anesthesiologist: Nico Waggoner MD Resident/STEAM CONDITIONING OPERATOR/CAA: Uriah Tierney MD Performed: resident/STEAM CONDITIONING OPERATOR/CAA Indications and Patient Condition Indications for airway management: anesthesia Spontaneous Ventilation: absent Sedation level: deep Preoxygenated: yes Mask difficulty assessment: 1 - vent by mask Final Airway Details Final airway type: endotracheal airway Successful airway: ETT Cuffed: yes Successful intubation technique: video laryngoscopy Facilitating devices/methods: intubating stylet Endotracheal tube insertion site: oral Blade: Karimi Blade size: #3 ETT size (mm): 7.0 Cormack-Lehane Classification: grade I - full view of glottis Placement verified by: chest auscultation and capnometry Measured from: lips ETT to lips (cm): 21 Number of attempts at approach: 1 Number of other approaches attempted: 0 [facility] 01-13-2025 Note [place] Electrophysiology Consult Note [place] Cardiology [facility] Reason for visit: Afib 01/13/25 Pt here to discuss about ablation. Prior HPI: Oleg Peck is a 54 y.o. year old with JASE? no significant cardiac medical history has come here to establish care for afib. She was recently admitted to [facility] in Jun 2024 for afib. Cardiology was consulted for AF while she was inpatient where she spontaneously converted to SR. Patient then presented to [facility] ED last week for palpitations and was noted to be in Afib and converted to SR without any DCCV. Sleep study done 07/2024 negative for sleep apnea. She has come to seek more treatment options. EKG: SR PMH: Past Medical History: Diagnosis Date Atrial fibrillation (CMS/HCC) Complex regional pain syndrome of lower limb Deep vein thrombosis (CMS/HCC) Displaced fracture of fifth metatarsal bone, left foot, initial encounter for closed fracture Hallux rigidus of right foot Peripheral vascular disease Recurrent UTI Varicose veins of both lower extremities with pain PSH: Past Surgical History: Procedure Laterality Date FOOT FRACTURE SURGERY KNEE SURGERY SH: Social Determinants of Health Tobacco Use: Low Risk (01/13/2025) Patient History Smoking Tobacco Use: Never Smokeless Tobacco Use: Never Passive Exposure: Not on file Alcohol Use: Not on file Financial Resource Strain: Not on file Food Insecurity: Not on file Transportation Needs: Not on file Physical Activity: Not on file Stress: Not on file Social Connections: Not on file Intimate Partner Violence: Not on file Depression: Not at risk (07/05/2023) Received from [facility] PHQ-2 PHQ-2 score: 0 Housing Stability: Not on file Utilities: Not on file Health Literacy: Not on file Allergies: Allergies Allergen Reactions Codeine Headache Sulfamide Other JOINT PAIN Weight: 64.9kg Visit Vitals BP 118/66 (BP Location: Left arm, Patient Position: Sitting) Pulse 69 Ht 1.727 m (5' 8 ) Wt 64.9 kg (143 lb) SpO2 100% BMI 21.74 kg/m??? Smoking Status Never BSA 1.76 m??? Meds: Current Outpatient Medications on File Prior to Visit Medication Sig Dispense Refill calcium carb/vit D3/minerals (CALCIUM-VITAMIN D ORAL) Take by mouth. flecainide (Tambocor) 100 mg tablet Take 2 tablets (200 mg) by mouth 1 (one) time if needed (take with metoprolol when in Afib. Do not repeat) for up to 4 doses. (Patient taking differently: Take 200 mg by mouth 1 (one) time if needed (take with metoprolol when in Afib. Do not repeat). As need when in A-Fib) 2 tablet 3 magnesium carb,citrate,oxide 300 mg magnesium tablet Take 30 mg by mouth twice a day. metoprolol tartrate (Lopressor) 25 mg tablet Take 25 mg by mouth if needed. As needed when in A-Fib multivitamin tablet Take by mouth. rivaroxaban (Xarelto) 20 mg tablet Take 1 tablet (20 mg) by mouth daily with evening meal. Take with food. 90 tablet 3 aspirin 81 mg EC tablet Take 81 mg by mouth in the morning. evder-0n-rel-epa-fish oil ([place]-3 Fish OiL) 300-1,000 mg capsule Take by mouth in the morning. No current facility-administered medications on file prior to visit. ROS: Review of Systems Cardiovascular: Positive for chest pain and irregular heartbeat. Respiratory: Negative for hemoptysis. Physical Exam: Constitutional General Appearance: well-nourished, well-developed, appears stated age Level of Distress: comfortable Eyes CARLA Neck Neck: supple, trachea midline Carotid Arteries: bilateral normal upstroke, no bruits Jugular Veins: normal jugular venous pressure Thyroid: not enlarged Lungs Respiratory Effort: unlabored Chest Exam: normal curvature, no thoracic deformity Auscultation: clear, no wheezing, no rales, no rhonchi Cardiovascular Chest wall: Rate And Rhythm: regular Heart Sounds: normal S1, normal s2, no gallop Systolic Murmur: not heard Diastolic Murmur: not heard Extremities: no cyanosis, no edema, no peripheral signs of emboli Peripheral Pulses Radial Pulse: normal Abdomen Inspection and Palpation: soft, non distended, no bruit, non tender Neurologic Gait: normal gait Labs: @LABRESULTS@ No results found for: CHOLESTEROL TOTAL , HDL , LDL CALC , LDL DIRECT , TRIGLYCERIDES , TSH , T3 TOTAL , T4 TOTAL , THYROID PEROXIDASE AB , BNP EKG: No results found for this or any previous visit (from the past 4464 hour(s)). Echo: 07/01/24 Assessment and Plan: - New Dx of AF: Patient has a new Dx of AF. I discussed with her about various treatment options and RF modification. At this stage, the option would be to consider a pill in pocket approach vs Afib ablation as she wants to rely less on medications mcc. Afib ablation would require placement of multiple catheters in the heart under moderate sedation which will include diagnostic catheters, ICE catheters and ablation catheters. The risk of the procedur (more content not included)... [facility] 01-07-2025 Telephone encounter Note scheduled [facility] 01-07-2025 Miscellaneous Notes scheduled LVM to return call to r/s 5/ appt with SH documented in this encounter [facility] 01-07-2025 Telephone encounter Note LVM to return call to r/s 5/ appt with SH [facility] 12-17-2024 Note Pt had stress test that was neg. [facility] 12-02-2024 Note [place] Electrophysiology Consult Note [place] [facility]iology - [facility] Reason for visit: Afib HPI: Oleg Peck is a 54 y.o. year old with JASE? no significant cardiac medical history has come here to establish care for afib. She was recently admitted to [facility] in Jun 2024 for afib. Cardiology was consulted for AF while she was inpatient where she spontaneously converted to SR. Patient then presented to [facility] ED last week for palpitations and was noted to be in Afib and converted to SR without any DCCV. Sleep study done 07/2024 negative for sleep apnea. She has come to seek more treatment options. EKG: SR PMH: Past Medical History: Diagnosis Date Abnormal ECG Arrhythmia Atrial fibrillation (CMS/HCC) PSH: Past Surgical History: Procedure Laterality Date FOOT FRACTURE SURGERY KNEE SURGERY SH: Social Determinants of Health Tobacco Use: Low Risk (12/02/2024) Patient History Smoking Tobacco Use: Never Smokeless Tobacco Use: Never Passive Exposure: Not on file Alcohol Use: Not on file Financial Resource Strain: Not on file Food Insecurity: Not on file Transportation Needs: Not on file Physical Activity: Not on file Stress: Not on file Social Connections: Not on file Intimate Partner Violence: Not on file Depression: Not at risk (07/05/2023) Received from [facility] PHQ-2 PHQ-2 score: 0 Housing Stability: Not on file Utilities: Not on file Health Literacy: Not on file Allergies: Allergies Allergen Reactions Codeine Headache Sulfamide Other Weight: 66.7kg Visit Vitals BP 120/73 (BP Location: Right arm, Patient Position: Sitting) Pulse 51 Ht 1.727 m (5' 8 ) Wt 66.7 kg (147 lb) SpO2 100% BMI 22.35 kg/m??? Smoking Status Never BSA 1.79 m??? Meds: Current Outpatient Medications on File Prior to Visit Medication Sig Dispense Refill aspirin 81 mg EC tablet Take 81 mg by mouth in the morning. calcium carb/vit D3/minerals (CALCIUM-VITAMIN D ORAL) Take by mouth. magnesium carb,citrate,oxide 300 mg magnesium tablet Take 30 mg by mouth twice a day. metoprolol tartrate (Lopressor) 25 mg tablet Take 25 mg by mouth two times daily. multivitamin tablet Take by mouth. slgzl-8t-hyo-epa-fish oil ([place]-3 Fish OiL) 300-1,000 mg capsule Take by mouth in the morning. No current facility-administered medications on file prior to visit. ROS: Review of Systems Cardiovascular: Positive for chest pain and irregular heartbeat. Respiratory: Negative for hemoptysis. Physical Exam: Constitutional General Appearance: well-nourished, well-developed, appears stated age Level of Distress: comfortable Eyes CARLA Neck Neck: supple, trachea midline Carotid Arteries: bilateral normal upstroke, no bruits Jugular Veins: normal jugular venous pressure Thyroid: not enlarged Lungs Respiratory Effort: unlabored Chest Exam: normal curvature, no thoracic deformity Auscultation: clear, no wheezing, no rales, no rhonchi Cardiovascular Chest wall: Rate And Rhythm: regular Heart Sounds: normal S1, normal s2, no gallop Systolic Murmur: not heard Diastolic Murmur: not heard Extremities: no cyanosis, no edema, no peripheral signs of emboli Peripheral Pulses Radial Pulse: normal Abdomen Inspection and Palpation: soft, non distended, no bruit, non tender Neurologic Gait: normal gait Labs: @LABRESULTS@ No results found for: CHOLESTEROL TOTAL , HDL , LDL CALC , LDL DIRECT , TRIGLYCERIDES , TSH , T3 TOTAL , T4 TOTAL , THYROID PEROXIDASE AB , BNP EKG: No results found for this or any previous visit (from the past 4464 hour(s)). Echo: 07/01/24 Assessment and Plan: - New Dx of AF: Patient has a new Dx of AF. I discussed with her about various treatment options and RF modification. At this stage, the option would be to consider a pill in pocket approach vs Afib ablation as she wants to rely less on medications mcc. Jesus Alberto Ricardo MD Cardiac Electrophysiology [facility] 11-14-2024 History of Present illness Narrative FOLLOW UP PODIATRIC OFFICE VISIT Chief Complaint: This 54 year old who presents for follow up:left 2nd toenail Patient presents to clinic for follow-up left 2nd toenail thickening. She complains of thickening of the left 2nd toenail with discoloration. She has tried oral medication (lamisil) x 3 months back in 2022 but the nail is still discolored. She is here to discuss options. PAIN EVALUATION No data found in the last 1 encounters. No results found for: HBA1C PCP: Pranav King (Inactive) PAST MEDICAL HISTORY Diagnosis Date Complex regional pain syndrome History of DVT in adulthood +Xarelto Current Outpatient Medications Medication Sig aspirin, enteric coated (ASPIRIN, ENTERIC COATED) 81 mg EC tablet Take 81 mg by mouth once daily. Ciclopirox (CICLODAN) 8 % solution Apply to affected area daily at bedtime. romosozumab-aqqg 105 mg/1.17 mL subcutaneous syringe every 3 months. terbinafine HCl (LAMISIL) 250 mg tablet Take 1 tablet by mouth once daily. (Patient not taking: Reported on 07/05/2023) cephALEXin (KEFLEX) 500 mg capsule Take 1 capsule by mouth three times daily. (Patient not taking: Reported on 04/30/2023) rivaroxaban (XARELTO) 20 mg tablet Take 20 mg by mouth daily with dinner. (Patient not taking: Reported on 07/05/2023) cephALEXin (KEFLEX) 500 mg capsule Take 1 capsule by mouth every 8 hours. (Patient not taking: Reported on 04/05/2023) estradiol (ESTRACE) 0.01 % (0.1 mg/gram) vaginal cream Use 1 g vaginally two times a week. (Patient not taking: Reported on 04/05/2023) No current facility-administered medications for this visit. ALLERGIES Allergen Reactions Codeine Intolerance migraines Sulfa (Sulfonamide * Rash Rash and then muscle tightening PAST SURGICAL HISTORY Procedure Laterality Date ARTHRS KNEE W/MENISCECTOMY MED&LAT W/SHAVING Left Clean out [email or web address] 11/02/2022 FOOT SURGERY HX Left 03/23/2022 5th Metatarsal Physical Exam: OBJECTIVE: Constitutional: Pt is a well developed 54 year old female who is alert, oriented, cooperative and in no apparent distress. Eyes: Following during examination. No redness or drainage. Respiratory: RR normal and nonlabored. Even breathing. No evidence of distress. Psychology: Patient is engaged during conversation. Normal affect and mood. Does not appear depressed or anxious. NVSI unchanged from previous visit. Dermatological: Left 2nd toenail is discolored, dystrophic. Small black discoloration is noted along the left 5th toenail Musculoskeletal/Orthopaedic: Patient has no pain to palpation of left foot ASSESSMENT: (L60.3) Onychodystrophy (primary encounter diagnosis) PLAN: Discussed dystrophic appearance of left 2nd toenail. Has already tried lamisil without success to the 2nd nail. Discussed options not limited to periodic filing vs trying topical medication (low success), repeating oral medication vs removal. Patient is going to try topical. If no improvement, may consider removal In order to perform a complete physical exam, debridement of 2nd toenail was performed. This incidental service is integral to the evaluation and management visit in order to appropriately manage and treat the patient (for their complaint or for this visit). Discussed small area of black discoloration of left 5th toenail. Patient does not recall any trauma. Discussed options not limited to monitoring vs debridement of nail vs referral to derm. She is going to monitor. If no change, consider removal of nail and biopsy Can follow-up in 3 months Oscar Venegas DPM AMB ROOMING INTAKE FLOWSHEET DATA Risk Screening Do you have concerns about personal safety or safety in the home?: No Patient presents with: Left Foot - Established Patient, Nail Fungus Esmer Bravo LPN documented in this encounter [facility] 11-14-2024 Note HNO ID: [id number] Author: OSCAR VENEGAS, ? Service: ? Author Type: Physician Type: Progress Notes Filed: 11/15/2024 08:43 Note Text: FOLLOW UP PODIATRIC OFFICE VISIT Chief Complaint: This 54 year old who presents for follow up:left 2nd toenail Patient presents to clinic for follow-up left 2nd toenail thickening. She complains of thickening of the left 2nd toenail with discoloration. She has tried oral medication (lamisil) x 3 months back in 2022 but the nail is still discolored. She is here to discuss options. PAIN EVALUATION No data found in the last 1 encounters. No results found for: HBA1C PCP: Pranav King (Inactive) PAST MEDICAL HISTORY Diagnosis Date Complex regional pain syndrome History of DVT in adulthood +Xarelto Current Outpatient Medications Medication Sig aspirin, enteric coated (ASPIRIN, ENTERIC COATED) 81 mg EC tablet Take 81 mg by mouth once daily. Ciclopirox (CICLODAN) 8 % solution Apply to affected area daily at bedtime. romosozumab-aqqg 105 mg/1.17 mL subcutaneous syringe every 3 months. terbinafine HCl (LAMISIL) 250 mg tablet Take 1 tablet by mouth once daily. (Patient not taking: Reported on 07/05/2023) cephALEXin (KEFLEX) 500 mg capsule Take 1 capsule by mouth three times daily. (Patient not taking: Reported on 04/30/2023) rivaroxaban (XARELTO) 20 mg tablet Take 20 mg by mouth daily with dinner. (Patient not taking: Reported on 07/05/2023) cephALEXin (KEFLEX) 500 mg capsule Take 1 capsule by mouth every 8 hours. (Patient not taking: Reported on 04/05/2023) estradiol (ESTRACE) 0.01 % (0.1 mg/gram) vaginal cream Use 1 g vaginally two times a week. (Patient not taking: Reported on 04/05/2023) No current facility-administered medications for this visit. ALLERGIES Allergen Reactions Codeine Intolerance migraines Sulfa (Sulfonamide * Rash Rash and then muscle tightening PAST SURGICAL HISTORY Procedure Laterality Date ARTHRS KNEE W/MENISCECTOMY MEDANDLAT W/SHAVING Left Clean out [email or web address].[email or web address] 11/02/2022 FOOT SURGERY HX Left 03/23/2022 5th Metatarsal Physical Exam: OBJECTIVE: Constitutional: Pt is a well developed 54 year old female who is alert, oriented, cooperative and in no apparent distress. Eyes: Following during examination. No redness or drainage. Respiratory: RR normal and nonlabored. Even breathing. No evidence of distress. Psychology: Patient is engaged during conversation. Normal affect and mood. Does not appear depressed or anxious. NVSI unchanged from previous visit. Dermatological: Left 2nd toenail is discolored, dystrophic. Small black discoloration is noted along the left 5th toenail Musculoskeletal/Orthopaedic: Patient has no pain to palpation of left foot ASSESSMENT: (L60.3) Onychodystrophy (primary encounter diagnosis) PLAN: Discussed dystrophic appearance of left 2nd toenail. Has already tried lamisil without success to the 2nd nail. Discussed options not limited to periodic filing vs trying topical medication (low success), repeating oral medication vs removal. Patient is going to try topical. If no improvement, may consider removal In order to perform a complete physical exam, debridement of 2nd toenail was performed. This incidental service is integral to the evaluation and management visit in order to appropriately manage and treat the patient (for their complaint or for this visit). Discussed small area of black discoloration of left 5th toenail. Patient does not recall any trauma. Discussed options not limited to monitoring vs debridement of nail vs referral to derm. She is going to monitor. If no change, consider removal of nail and biopsy Can follow-up in 3 months Oscar Venegas DPM [facility] 11-14-2024 Note HNO ID: [id number] Author: ESMER BRAVO LPN Service: ? Author Type: LICENSED NURSE Type: Progress Notes Filed: 11/15/2024 08:43 Note Text: AMB ROOMING INTAKE FLOWSHEET DATA Risk Screening Do you have concerns about personal safety or safety in the home?: No Patient presents with: Left Foot - Established Patient, Nail Fungus Esmer Bravo LPN [facility] 07-14-2024 Note Sleep Office/Clinic Note History of Present Illness Here for evaluation for obstructive sleep apnea. The patient reports that she was told by her that she snores loudly at night but was not told that she stops breathing. She was told. Her sleep quality is somewhat disrupted but has only mild fatigue and daytime sleepiness throughout the day. Recently she was diagnosed with atrial fibrillation and was advised evaluation given the above. She reports that her weight has been relatively stable for some time now. Review of Systems Constitutional: no fever, no chills, no sweats, no weakness Skin: no Jaundice, no rash, no lesions, no petechiae ENT: no ear pain, no sore throat, no congestion, no hoarseness Respiratory: Denies shortness of breath, cough or wheezing Cardiovascular: no chest pain, no palpitations, no edema Gastrointestinal: no nausea, no vomiting, no diarrhea, no GI bleeding Genitourinary: no dysuria, no hematuria, no discharge, no pain Musculoskeletal: no back pain, no trauma Neurologic: no headache, no dizziness, no numbness, no weakness Psychiatric: no irritability, no mood swings/depression. Heme/Lymph: no bleeding tendency, no bruising tendency, no petechiae, no swollen nodes Allergy/Immunologic: no seasonal allergies, no food allergies, no recurrent infections, no impaired immunity Additional ROS info: Except as noted in the above Review of Systems and in the History of Present Illness all other systems have been reviewed and are negative or noncontributory. Physical Exam General: Awake, alert, in no acute distress Skin: warm, dry Head: no trauma, normocephalic. Prolonged soft palate Neck: Trachea midline, no adenopathy, no tenderness Eye: normal conjunctiva, sclera clear ENMT: TM's clear, oral mucosa moist, no pharyngeal erythema or exudate Cardiovascular: regular rate and rhythm, normal peripheral perfusion Respiratory: Good breath sounds to both lung baumann without wheezing or crackles. Gastrointestinal: soft, non distended, no tenderness, no guarding. Back: No tenderness, Normal ROM, Normal alignment. Extremities: no deformity, no trauma Neurological: oriented x 4, LOC appropriate for age, CN II-XII intact, motor strength equal & normal bilaterally, sensation equal & normal bilaterally, speech normal Psychiatric: cooperative, affect appropriate for age, normal judgement, normal psychiatric thoughts. Assessment/Plan 1. JASE (obstructive sleep apnea) (G47.33: Obstructive sleep apnea (adult) (pediatric)) Highly likely given the patient's symptoms, physical examination and risk factors. The etiology of obstructive sleep apnea and methods of diagnoses and treatment were discussed with the patient in details. The patient is agreeable to testing and treatment if clinically indicated. I will arrange for sleep study and see her back after her testing is completed. She will call me back in the meantime if any issues. Ordered: Sleep Study Baseline Follow-up With When Contact Information Jesu Díaz MD, PUL, SHEILA [address] [facility] (Heart & Vascular) [place] [address]- Additional Instructions: after his testing is completed Problem List/Past Medical History Ongoing Abdominal discomfort Asymptomatic microscopic hematuria History of kidney stones Leaking of urine Microscopic hematuria JASE (obstructive sleep apnea) Recurrent UTI Varicose veins of both lower extremities with pain Historical None Procedure/Surgical History bilateral foot surgery, Colonoscopy, Foot, Procedure on foot, Tonsillectomy, wisdom teeth removal. Medications aspirin 81 mg Oral EC Tab, 81 mg= 1 tab(s), Oral, Daily calcium-vitamin D, 1 tab, Oral, BID Daily Multiple Vitamins, Oral, Daily Evenity, 210 mg, SubCutaneous, qMonth Allergies codeine sulfa drugs (Rash) Social History Alcohol - Denies Alcohol Use, 06/30/2024 DENIES, Household alcohol concerns: No., 03/11/2020 Substance Abuse - Denies Substance Abuse, 06/30/2024 DENIES, Household substance abuse concerns: No., 03/11/2020 Tobacco - Denies Tobacco Use, 06/30/2024 Never (less than 100 in lifetime) Tobacco Use:. Never Smokeless Tobacco Use:., 08/03/2022 Family History Heart disease: Brother. Rheumatoid arthritis: Mother. Immunizations Vaccine Date Status Comments SARS-CoV-2 (COVID-19) mRNA BNT-162b2 vax 12/24/2020 Given Prophylaxis SARS-CoV-2 (COVID-19) mRNA BNT-162b2 vax 12/03/2020 Given Prophylaxis [facility] Comment on above: Result Comment: Elec tronically Signed By: Jesu Díaz MD\.br\Date and Time Signed: 07/14/24 10:39 EDT 07-02-2024 Hospital Discharge instructions Follow Up Care 07/02/2024 09:11:46 With:Jesu Díaz MD, PUL, SHEILA Address: [address] [place] [address] Pulmonary Clinic (Heart & Vascular) [place] [address]- When: Unknown Comments:after his testing is completed [facility] 07-01-2024 Note Progress Note-Physic yany Assessment/Plan PLAN 1. Atrial fibrillation, new onset (I48.91: Unspecified atrial fibrillation) With mild RVR. --now RSR/bradycardia Cardizem gtt off currently Telemetry Anticoagulated with a dose of Lovenox in the ED. Will defer further AC to cardiology. Check TSH Cardiac Echo pending [facility] Cardiology consultation-pending. 2. Osteoporosis (M81.0: Age-related osteoporosis without current pathological fracture) On Evenity injections 3. History of DVT in adulthood (Z86.718: Personal history of other venous thrombosis and embolism) Occurred after foot surgery. Was on Xarelto-which was stopped 6 months after. Subjective Patient seen at bedside this morning. Daughter who is a nurse is at bedside. Updated on plan of care. Patient without chest pain, shortness of breath, nausea or vomiting. Converted in the RSR during the night. Cardizem drip is off. Pending echo and cardiac evaluation and recommendations. Objective Vitals & Measurements T: 36.4 ?C(Axillary) TMIN: 35.5 ?C(Oral) TMAX: 36.7 ?C(Oral) HR: 55(Monitored) RR: 18 BP: 102/67 SpO2: 99% HT: 170.18 cm WT: 63.2 kg Intake & Output This visit (24 hour periods starting at 07:00 EDT) 07/01/24 * 06/30/24 06/29/24 Total Summary Intake mL -- 1 -- Output mL -- -- -- Fluid Balance -- 1 -- Intake (1) diltiazem mL -- 1 -- Total -- 1 -- Output (0) Counts (0) * This column has not completed the indicated time period. Physical Exam General: non-toxic appearing Skin: warm, dry, no rash Head: AT/NC Neck: Trachea midline, supple Eye: normal conjunctiva, sclera clear Cardiovascular: irregular irregular S1S2, normal peripheral perfusion Respiratory: Lungs CTA, respirations non labored, breath sounds equal, no w/r/r Chest wall: no deformity Gastrointestinal: soft, NT, ND, no peritoneal signs Extremities: no deformity, trace BLE edema Neurological: alert and oriented, no focal deficits, normal speech Psychiatric: cooperative, mildly anxious Lab Results WBC: 7.5 E9/L (06/30/24 20:10:00) RBC: 4.8 E12/L (06/30/24 20:10:00) HGB: 14.6 gm/dL (06/30/24 20:10:00) Hct: 42.8 % (06/30/24 20:10:00) MCV: 89.7 fL (06/30/24 20:10:00) MCH: 30.6 pg (06/30/24 20:10:00) MCHC: 34.1 gm/dL (06/30/24 20:10:00) RDW: 13 % (06/30/24 20:10:00) Platelet: 254 E9/L (06/30/24 20:10:00) MPV: 6.9 fL (06/30/24 20:10:00) Neutro Auto: 48.9 % (06/30/24 20:10:00) Lymph Auto: 41.2 % (06/30/24 20:10:00) Kerr Auto: 7.5 % (06/30/24 20:10:00) Eos Auto: 1.7 % (06/30/24 20:10:00) Basophil Auto: 0.7 % (06/30/24 20:10:00) Neutro Absolute: 3.7 E9/L (06/30/24 20:10:00) Lymph Absolute: 3.1 E9/L (06/30/24 20:10:00) Kerr Absolute: 0.6 E9/L (06/30/24 20:10:00) Eos Absolute: 0.1 E9/L (06/30/24 20:10:00) Basophil Absolute: 0.1 E9/L (06/30/24 20:10:00) PT: 10.9 second(s) (06/30/24 20:10:00) INR: 0.97 (06/30/24 20:10:00) PTT: 37.8 second(s) High (06/30/24 20:10:00) Glucose Lvl: 102 mg/dL (06/30/24 20:10:00) BUN: 19 mg/dL (06/30/24 20:10:00) Creatinine: 0.7 mg/dL (06/30/24 20:10:00) eGFR: 101 mL/min/1.73 m2 (06/30/24 20:10:00) BUN/Creat Ratio: 18 (06/30/24 20:10:00) Sodium Lvl: 141 mmol/L (06/30/24 20:10:00) Potassium Lvl: 3.6 mmol/L (06/30/24 20:10:00) Chloride: 106 mmol/L (06/30/24 20:10:00) CO2: 29 mmol/L (06/30/24 20:10:00) AGAP: 9 mEq/L (06/30/24 20:10:00) Calcium Lvl: 9.2 mg/dL (06/30/24 20:10:00) Magnesium: 1.9 mg/dL (06/30/24 20:10:00) Troponin HS: 23.5 pg/mL (07/01/24 02:44:00) UA Spec Desc: Clean Catch (07/01/24 02:06:00) UA Color: Colorless Abnormal (07/01/24 02:06:00) UA Clarity: Clear (07/01/24 02:06:00) UA Spec Grav: 1.010 (07/01/24 02:06:00) UA pH: 7.0 (07/01/24 02:06:00) UA Protein: Negat (07/01/24 02:06:00) UA Glucose: Negat (07/01/24 02:06:00) UA Ketones: Negat (07/01/24 02:06:00) UA Bili: Negat (07/01/24 02:06:00) UA Blood: Negat (07/01/24 02:06:00) UA Nitrite: Negat (07/01/24 02:06:00) UA Urobilinogen: Negat (07/01/24 02:06:00) UA Leuk Est: 25 Mouna/uL (07/01/24 02:06:00) UA RBC: 0-3 (07/01/24 02:06:00) UA Squam Epithelial: 0-2 (07/01/24 02:06:00) UA WBC: 0-5 (07/01/24 02:06:00) UA Mucous: Negat (07/01/24 02:06:00) Problem List/Past Medical History Ongoing Abdominal discomfort Asymptomatic microscopic hematuria History of kidney stones Leaking of urine Microscopic hematuria Recurrent UTI Varicose veins of both lower extremities with pain Historical None Medications Inpatient acetaminophen 325 mg Tab, 650 mg= 2 tab(s), Oral, q6hr, PRN Al hydroxide/Mg hydroxide/simethicone 200 mg-200 mg-20 mg/5 mL oral suspension, 30 mL, Oral, q6hr, PRN Calcium 600 D Tab, 1 tab(s), Oral, BID diltiazem additive 100 mg [5 mg/hr] + Sodium Chloride 0.9% intravenous solution 100 mL Multi Vitamins oral tablet, 1 tab(s), Oral, Daily Senokot 8.6 mg Tab, 17.2 mg= 2 tab(s), Oral, BID, PRN Zofran 4 mg/2 mL Injection, 4 mg= 2 mL, IV Push, q6hr, PRN (more content not included)... [facility] Comment on above: Result Comment: Elec tronically Signed By: Franca BERGMAN\.br\Date and Time Signed: 07/01/24 10:03 EDT\.br\Electronically Co-Signed By: Stanley Prince MD\.br\Date and Time Co-Signed: 07/01/24 15:41 EDT 07-01-2024 Note Discharge Summary Admission and Discharge Information Admitting Physician - Selwyn SANTILLAN, Angella Consulting Physician - [facility] Cardio, XXXX Katelynn SANTILLAN, Elvis Herrera Admitting Diagnoses: Discharge Diagnoses 1. Atrial fibrillation, new onset, 06/30/2024 2. Osteoporosis, 07/01/2024 3. History of DVT in adulthood, 07/01/2024 Palpitations, 06/30/2024 Shortness of breath, 06/30/2024 Procedure History bilateral foot surgery, Colonoscopy, Foot, Procedure on foot, Tonsillectomy, wisdom teeth removal. Hospital Course 54-year-old female who presented to the hospital with new onset atrial fibrillation. Was given Cardizem bolus and started on Cardizem drip. She was treated with Lovenox for anticoagulation and referred to the hospitalist group for admission. Patient was monitored on telemetry. Cardiology consultation was obtained patient underwent echocardiogram which was normal. Patient was started on aspirin 81 mg as her [id number] score risk was 1. Patient was cleared by cardiology for discharge home today as her vitals and labs are stable and patient has converted back to RSR. Patient will undergo outpatient sleep study and will follow-up with cardiology in 2 to 3 weeks. Case was discussed with who is in agreement with current discharge plan. Patient discharged home in stable condition. Services Consulted Consult to Cardiology - Ordered -- 07/01/24 0:36:00 EDT, New onset Afib, Consult and Co-manage, [facility] Physical Exam Vitals & Measurements T: 36.4 ?C(Axillary) TMIN: 35.5 ?C(Oral) TMAX: 36.7 ?C(Oral) HR: 55(Monitored) RR: 18 BP: 102/67 SpO2: 99% HT: 170.18 cm WT: 63.2 kg General: Alert and oriented, No acute distress. Eye: Pupils are equal, round and reactive to light. HENT: Normocephalic, Normal hearing, No pharyngeal erythema. Neck: Supple, Non-tender, No lymphadenopathy. Respiratory: Lungs are clear to auscultation, Respirations are non-labored, Breath sounds are equal, Symmetrical chest wall expansion. Cardiovascular: Normal rate, Regular rhythm, Good pulses equal in all extremities, Normal peripheral perfusion, No edema. Gastrointestinal: Soft, Non-tender, Non-distended, Normal bowel sounds. Musculoskeletal Normal range of motion. Normal strength. Integumentary: Warm, Dry, Intact. Neurologic: Alert, Oriented, No focal deficits. Psychiatric: Cooperative, Appropriate mood & affect, Normal judgment. Tests Performed T4 & TSH -- Results Pending -- TSH With T4fr Reflex -- Results Pending -- Cardiac Echo -- Results Pending -- XR Chest Single View Please visit your patient portal for your results or contact your primary care physician. Discharge Plan Discharge Diet Discharge Diet(s): Fat Modified- Low cholesterol (07/01/24 11:10:00) Discharge Medication List Prescriptions aspirin 81 mg Oral EC Tab, 81 mg= 1 tab(s), Oral, Daily Home calcium-vitamin D, 1 tab, Oral, BID Daily Multiple Vitamins, Oral, Daily Evenity, 210 mg, SubCutaneous, qMonth Follow-up With When Contact Information Elvis Pace [address] [place] [address] [phone] Business (1) Additional Instructions: Call for followup appointment 2-3 weeks [facility] [address] [place] [address] [phone] Business (1) Additional Instructions: Call for followup appointment 10-14 days Patient Education Atrial Fibrillation [facility] Comment on above: Result Comment: Elec tronically Signed By: Franca BERGMAN\.br\Date and Time Signed: 07/01/24 13:34 EDT\.br\Electronically Co-Signed By: Suresh SANTILLAN, Stanley Chaudhary\.br\Date and Time Co-Signed: 07/01/24 15:41 EDT 07-01-2024 Note Echocardiology Procedure Exam Date/Time Accession # Ordering Echo Transthoracic 07/01/2024 12:15 EDT [id number] Angella Samano MD Complete CPT code 43750 [id number] Reason for Exam (Echo Transthoracic Complete) Atrial fib;Other (please specify) Report [facility] [address] [place] [address] Adult Echocardiogram Report Name: OLEG PECK Study Date: 07/01/2024 11:32 AM BP: 102/67 mmHg Patient Location: [address] [place] [address] Bed(s) [facility] HR: 65 : 1970 Gender: Female Height: 67.5 in Age: 54 yrs Ethnicity: T Weight: 139 lb Reason For Study: Atrial fibrillation BSA: 1.7 m2 History: DVT Ordering Physician: Gabriel Performed By: Monica Peña, [facility] Interpretation Summary Left ventricular systolic function is normal. Ejection Fraction = 65-70%. There is no pericardial effusion. No significant valvular disease Procedure A complete two-dimensional transthoracic echocardiogram was performed (2D, M-mode, spectral and color flow Doppler). Left Ventricle The left ventricle is normal in size. Left ventricular systolic function is normal. Ejection Fraction = 65-70%. The left ventricular wall motion is normal. Normal diastolic function. Left Atrium The left atrial size is normal. There is no atrial septal defect. Right Atrium Echocardiology Report Right atrial size is normal. Right Ventricle The right ventricular systolic function is normal. The right ventricle is normal size. Aortic Valve The trileaflet aortic valve opening is normal. No aortic regurgitation. There is no aortic stenosis. Mitral Valve The mitral valve is normal in structure and function. Tricuspid Valve The tricuspid valve is grossly normal. There is trace tricuspid regurgitation. No evidence of tricuspid stenosis. Pulmonic Valve The pulmonic valve is normal. There is no pulmonic valve regurgitation. No evidence of stenosis. Arteries The aortic root is normal in size. Effusion There is no pericardial effusion. MMode/2D Measurements & Calculations RVDd: 1.9 cm LVIDd: 4.1 cm FS: 39.6 % Ao root diam: 3.1 cm IVSd: 0.66 cm LVIDs: 2.5 cm EDV(Teich): 75.1 ml Ao root area: 7.4 cm2 LVPWd: 0.65 cm ESV(Teich): 22.1 ml LA dimension: 2.9 cm EF(Teich): 70.6 % LVOT diam: 1.8 cm LVLd ap4: 8.3 cm EDV(MOD-sp2): 51.2 ml SV(MOD-sp4): 40.1 ml LVOT area: 2.7 cm2 EDV(MOD-sp4): 59.9 ml ESV(MOD-sp2): 16.2 ml LVLs ap4: 6.7 cm EF(MOD-sp2): 68.4 % ESV(MOD-sp4): 19.8 ml EF(MOD-sp4): 66.9 % TAPSE: 3.1 cm IVC Diam: 2.3 cm RVIDd/LVIDd: 0.46 EF (MOD-bp): 68.3 % LA Vol Index: 14.2 ml/m2 Doppler Measurements & Calculations MV E max mohsen: 91.7 cm/sec MV dec time: 0.20 sec Ao V2 max: 119.0 cm/sec LV V1 max P.3 mmHg MV A max mohsen: 51.8 cm/sec Ao max P.7 mmHg LV V1 max: 125.1 cm/sec MV E/A: 1.8 Lat Peak E' Mohsen: 12.0 cm/sec WILLIS(V,D): 2.8 cm2 E/E' Lat: 7.7 Med Peak E' Mohsen: 9.6 cm/sec E/E' Med: 9.6 RAP systole: 8.0 mmHg AV VR: 1.1 Echocardiology Report FINAL REPORT Dictated: 07/01/2024 11:32 am Elvis Pace MD Signed (Electronic Signature): 07/01/2024 2:44 pm Signed by: Elvis Pace MD Transcribed by: JUSTEN Technologist: [facility] 07-01-2024 Evaluation + Plan note Extrac jacob from: Title:Discharge Note Author:Tray BERGMAN Date:07/01/24 Discharge Diet(s): Fat Modif ied- Low cholesterol (07/01/24 11:10:00) Prescriptions aspirin 81 mg Oral EC Tab, 81 mg= 1 tab(s), Oral, Daily Home calcium-vitamin D, 1 tab, Oral, BID Daily Multiple Vitamins, Oral, Daily Evenity, 210 mg, SubCutaneous, qMonth With When Contact Information Elvis Pace [address] [place] [address] [phone] Business (1) Additional Instructions: Call for followup appointment 2-3 weeks PRANAV TORO [address] [place] [address] [phone] Business (1) Additional Instructions: Call for followup appointment 10-14 days Atrial Fibrillation Extracted from: Title:APSO Note Author:Gui BERGMAN Date:07/01/24 PLAN 1. Atrial fibrillation, new onset (I48.91: Unspecified atrial fibrillation) With mild RVR. --now RSR/bradycardia Cardizem gtt off currently Telemetry Anticoagulated with a dose of Lovenox in the ED. Will defer further AC to cardiology. Check TSH Cardiac Echo pending [facility] Cardiology consultation-pending. 2. Osteoporosis (M81.0: Age-related osteoporosis without current pathological fracture) On Evenity injections 3. History of DVT in adulthood (Z86.718: Personal history of other venous thrombosis and embolism) Occurred after foot surgery. Was on Xarelto-which was stopped 6 months after. Extracted from: Title:Consult Note Author:Elvis Pace MD ate:07/01/24 1. Atrial fibrillation, new onset (I48.91: Unspecified atrial fibrillation) Paroxysmal atrial fibrillation. The patient is now in normal sinus rhythm. Echocardiogram today. Check T4/TSH. Based on [id number] risk score of 1, would qualify for aspirin for cardioembolic protection, unless echocardiogram is abnormal. 2. Osteoporosis (M81.0: Age-related osteoporosis without current pathological fracture) 3. History of DVT in adulthood (Z86.718: Personal history of other venous thrombosis and embolism) Orders: T4 & TSH Extracted from: Title:Admission H & P Author:Angella Samano MD Date:07/01/24 1. Atrial fibrillation, new onset (I48.91: Unspecified atrial fibrillation) With mild RVR. Was bolused with Cardizem in ED and currently on Cardizem drip Anticoagulated with a dose of Lovenox in the ED. Will defer further AC to cardiology. Check TSH Cardiac Echo ordered [facility] Cardiology consultation 2. Osteoporosis (M81.0: Age-related osteoporosis without current pathological fracture) On Evenity injections 3. History of DVT in adulthood (Z86.718: Personal history of other venous thrombosis and embolism) Occurred after foot surgery. Was on Xarelto Extracted from: Title:ED Note Author:Baudilio Lui PA-C te:07/01/24 Atrial fibrillation, new ons et (I48.91: Unspecified atrial fibrillation) Orders: diltiazem, 5 mg = 1 mL, Soln-IV, IV Push, Once, Stop date 06/30/24 21:34:00 EDT, NOW, Start date 06/30/24 21:34:00 EDT, Infuse over 2 minute(s), 06/30/24 21:34:00 EDT diltiazem 100 mg [5 mg/hr] + Sodium Chloride 0.9% intravenous solution 100 mL, 100 mL, IV, 5 mL/hr, STAT, Start date 06/30/24 21:34:00 EDT, 20 hour(s), Total volume (mL): 100, 5-15 mg/hr, Titrate per protocol, 65.1 kg, 1.76, m2 enoxaparin, 60 mg = 0.6 mL, Injection, SubCutaneous, Once, Stop date 06/30/24 21:34:00 EDT, STAT, Start date 06/30/24 21:34:00 EDT, 06/30/24 21:34:00 EDT Basic Metabolic Panel CBC w/ Auto Diff ED Cardiac Monitoring eGFR Extra SST Tube Magnesium Level PT & PTT Saline Lock Insert Troponin 0 Hr. Troponin 1 Hr. Troponin 3 Hr. Troponin 6 Hr. UA with Cult Rflx XR Chest Single View Future Appointments Appointment Date:07/14/2024 08:00:00 AM Scheduled Provider: Location:[facility] Appointment Type:ASU IV Other (FT) Appointment Date:07/21/2024 08:00:00 AM Scheduled Provider:Elvis Pace MD Location:FT.Cardiology Clinic Appointment Type:Cardiology Follow Up (FT) Appointment Date:07/29/2024 08:00:00 AM Scheduled Provider: Location:.MAMMOGRAM Appointment Type:MA Screen (FT) Future Scheduled Tests Radiology* MA Mamm Screen w/CAD if perf and 3D Perry 07/29/24 [facility] 10-08-2024 NotePatient Education - Text Cardiovascular Atrial Fibrillation Atrial fibrillation (AFib) is a type of irregular or rapid heartbeat (arrhythmia). In AFib, the toppart of the heart (atria) beats in an irregular pattern. This makes the heart unable to pump blood normally and effectively. The goal of treatment is to prevent blood clots from forming, control your heart rate, or restore your heartbeat to a normal rhythm. If this condition is not treated, it can cause serious problems, such as a weakened heart muscle (cardiomyopathy) or a stroke. What are the causes? This condition is often caused by medical conditions that damage the heart's electrical system. These include: ? High blood pressure (hypertension). This is the most common cause. ? Certain heart problems or conditions, such as heart failure, coronary artery disease, heart valveproblems, or heart surgery. ? Diabetes. ? Overactive thyroid (hyperthyroidism). ? Chronic kidney disease. ? Certain lung conditions, such as emphysema, pneumonia, or COPD. ? Obstructive sleep apnea. In some cases, the cause of this condition is not known. What increases the risk? This condition is more likely to develop in: ? Older adults. ? Athletes who do endurance exercise. ? People who have a family history of AFib. ? Males. ? People who are . ? People who are obese. ? People who smoke or misuse alcohol. What are the signs or symptoms? Symptoms of this condition include: ? Fast or irregular heartbeats (palpitations). ? Discomfort or pain in your chest. ? Shortness of breath. ? Sudden light-headedness or weakness. ? Tiring easily during exercise or activity. ? Syncope (fainting). ? Sweating. In some cases, there are no symptoms. How is this diagnosed? Your health care provider may detect AFib when taking your pulse. If detected, this condition may be diagnosed with: ? An electrocardiogram (ECG) to check electrical signals of the heart. ? An ambulatory clinical research monitor to record your heart's activity for a few days. ? A transthoracic echocardiogram (TTE) to create pictures of your heart. ? A transesophageal echocardiogram (NAVIN) to create even clearer pictures of your heart. ? A stress test to check your blood supply while you exercise. ? Imaging tests, such as a CT scan or chest X-ray. ? Blood tests. How is this treated? Treatment depends on underlying conditions and how you feel when you get AFib. This condition may be treated with: ? Medicines to prevent blood clots or to treat heart rate or heart rhythm problems. ? Electrical cardioversion to reset the heart's rhythm. ? A pacemaker to correct abnormal heart rhythm. ? Ablation to remove the heart tissue that sends abnormal signals. ? Left atrial appendage closure to seal the area where blood clots can form. In some cases, underlying conditions will be treated. Follow these instructions at home: Medicines ? Take over-the counter and prescription medicines only as told by your provider. ? Do not take any new medicines without talking to your provider. ? If you are taking blood thinners: ? Talk with your provider before taking aspirin or NSAIDs. These medicines can raise your risk of bleeding. ? Take your medicines as told. Take them at the same time each day. ? Do not do things that could hurt or bruise you. Be careful to avoid falls. ? Wear an alert bracelet or carry a card that says that you take blood thinners. Lifestyle ? Do not use any products that contain nicotine or tobacco. These products include cigarettes, chewing tobacco, and vaping devices, such as e-cigarettes. If you need help quitting, ask your provider. ? Eat heart-healthy foods. Talk with a food expert (dietitian) to make an eating plan that is rightfor you. ? Exercise regularly as told by your provider. ? Do not drink alcohol. ? Lose weight if you are overweight. General instructions ? If you have obstructive sleep apnea, manage your condition as told by your provider. ? Do not use diet pills unless your provider approves. Diet pills can make heart problems worse. ? Keep all follow-up visits. Your provider will want to check your heart rate and rhythm regularly. Contact a health care provider if: ? You notice a change in the rate, rhythm, or strength of your heartbeat. ? You are taking a blood thinner and you notice more bruising. ? You tire more easily when you exercise or do heavy work. ? You have a sudden change in weight. Get help right away if: ? You have chest pain. ? You have trouble breathing. ? You have side effects of blood thinners, such as blood in your vomit, poop (stool), or pee (urine), or bleeding that does not stop. ? You have any symptoms of a stroke. BE FAST is an easy way to remember the main warning signs ofa stroke: ? B - Balance. Signs are dizziness, sudden trouble walking, or loss of balanc (more content not included)...[facility]10-08-2024 Hospital Discharge instructions Patient Education 07/01/2024 11:10:43 Atrial Fibrillation Atrial Fibrillation Atrial fibrillation (AFib) is a type of irregular or rapid heartbeat (arrhythmia). In AFib, the toppart of the heart (atria) beats in an irregular pattern. This makes the heart unable to pump blood normally and effectively. The goal of treatment is to prevent blood clots from forming, control your heart rate, or restore your heartbeat to a normal rhythm. If this condition is not treated, it can cause serious problems, such as a weakened heart muscle (cardiomyopathy) or a stroke. What are the causes? This condition is often caused by medical conditions that damage the heart's electrical system. These include: High blood pressure (hypertension). This is the most common cause. Certain heart problems or conditions, such as heart failure, coronary artery disease, heart valve problems, or heart surgery. Diabetes. Overactive thyroid (hyperthyroidism). Chronic kidney disease. Certain lung conditions, such as emphysema, pneumonia, or COPD. Obstructive sleep apnea. In some cases, the cause of this condition is not known. What increases the risk? This condition is more likely to develop in: Older adults. Athletes who do endurance exercise. People who have a family history of AFib. Males. People who are . People who are obese. People who smoke or misuse alcohol. What are the signs or symptoms? Symptoms of this condition include: Fast or irregular heartbeats (palpitations). Discomfort or pain in your chest. Shortness of breath. Sudden light-headedness or weakness. Tiring easily during exercise or activity. Syncope (fainting). Sweating. In some cases, there are no symptoms. How is this diagnosed? Your health care provider may detect AFib when taking your pulse. If detected, this condition may be diagnosed with: An electrocardiogram (ECG) to check electrical signals of the heart. An ambulatory clinical research monitor to record your heart's activity for a few days. A transthoracic echocardiogram (TTE) to create pictures of your heart. A transesophageal echocardiogram (NAVIN) to create even clearer pictures of your heart. A stress test to check your blood supply while you exercise. Imaging tests, such as a CT scan or chest X-ray. Blood tests. How is this treated? Treatment depends on underlying conditions and how you feel when you get AFib. This condition may be treated with: Medicines to prevent blood clots or to treat heart rate or heart rhythm problems. Electrical cardioversion to reset the heart's rhythm. A pacemaker to correct abnormal heart rhythm. Ablation to remove the heart tissue that sends abnormal signals. Left atrial appendage closure to seal the area where blood clots can form. In some cases, underlying conditions will be treated. Follow these instructions at home: Medicines Take over-the counter and prescription medicines only as told by your provider. Do not take any new medicines without talking to your provider. If you are taking blood thinners: ?Talk with your provider before taking aspirin or NSAIDs. These medicines can raise your risk of bleeding. ?Take your medicines as told. Take them at the same time each day. ?Do not do things that could hurt or bruise you. Be careful to avoid falls. ?Wear an alert bracelet or carry a card that says that you take blood thinners. Lifestyle Do not use any products that contain nicotine or tobacco. These products include cigarettes, chewing tobacco, and vaping devices, such as e-cigarettes. If you need help quitting, ask your provider. Eat heart-healthy foods. Talk with a food expert (dietitian) to make an eating plan that is right for you. Exercise regularly as told by your provider. Do not drink alcohol. Lose weight if you are overweight. General instructions If you have obstructive sleep apnea, manage your condition as told by your provider. Do not use diet pills unless your provider approves. Diet pills can make heart problems worse. Keep all follow-up visits. Your provider will want to check your heart rate and rhythm regularly. Contact a health care provider if: You notice a change in the rate, rhythm, or strength of your heartbeat. You are taking a blood thinner and you notice more bruising. You tire more easily when you exercise or do heavy work. You have a sudden change in weight. Get help right away if: You have chest pain. You have trouble breathing. You have side effects of blood thinners, such as blood in your vomit, poop (stool), or pee (urine),or bleeding that does not stop. You have any symptoms of a stroke. BE FAST is an easy way to remember the main warning signs of astroke: ?B - Balance. Signs are dizziness, sudden trouble walking, or loss of balance. ?E - Eyes. Signs are trouble seeing or a sudden change in vision. ?F - Face. Signs are sudden weakness or numbness of the face, or the face or eyelid drooping on oneside. ?A - Arms. Signs are weakness or numbness in an arm. This happens suddenly and usually on one side of the body. ?S - Speech.Signs are sudden trouble speaking, slurred speech, or trouble understanding what peoplesay. ?T - Time. Time to call emergency services. Write down what time symptoms started. Other signs of a stroke, such as: ?A sudden, severe headache with no known cause. ?Nausea or vomiting. ?Seizure. These symptoms may be an emergency. Get help right away. Call 911. Do not wait to see if the symptoms will go away. Do not drive yourself to the hospital. This information is not intended to replace advice given to you by your health care provider. Make sure you discuss any questions you have with your health care provider. Document Revised: 05/30/2023 Document Reviewed: 05/30/2023 [employer] Patient Education 2023 [employer]. Follow Up Care 06/30/2024 19:54:50 With:Elvis Pace Address: [address] [place] [address] [phone] Business (1) When: Unknown Comments:Call for followup appointment 2-3 weeks With:PRANAV PIÑAHENNEPIN Address: [address] [place] [address] [phone] Business (1) When: Unknown Comments:Call for followup appointment 10-[address] [facility] 10-08-2024 NoteConsultation Note Chief Complaint pt to ED with c/o possible afib. pt denies known diagnosis. denies meds for afib. states apple watch alerted afib for last hour and nurse daughter instructed patient to come get checked. denies CP,mild SOB per pt. heart rate 100-130s in triage. Reason for Consultation A-fib History of Present Illness The patient is a very pleasant 54-year-old female with, which she believes, is a history of paroxysmal atrial fibrillation, who presented with complaints of palpitations times approximately 1 hour prior to the presentation. She checked her Apple Watch which demonstrated atrial fibrillation. She wasfound to be in atrial fibrillation with rapid ventricular response. She received Cardizem 5 mg and was placed on Cardizem drip. Converted to NSR. No history of diabetes, hypertension, CVA, obstructive CAD or PVD. She does have a history of snoring and is scheduled to undergo a sleep study. Review of Systems ROS - Provider Constitutional: no fever, no chills, no fatigue Skin:no rash, no lesions ENMT: no ear pain, no sore throat, no congestion. Respiratory: no shortness of breath, no cough, no wheezing. Cardiovascular: no chest pain, yes palpitations, no edema. Gastrointestinal: no nausea, no vomiting, no diarrhea, no GI bleeding. Genitourinary: no dysuria, no frequencyno hematuria Musculoskeletal: no back pain, no trauma. Neurologic: no headache, no dizziness, no numbness, no weakness. Psychiatric: no sleeping problems, no irritability, no mood swings/depression. Heme/Lymph: no bleeding tendency, no bruising tendency, no petechiae, Allergy/Immuno logic: no seasonal allergies, no food allergies, no recurrent infections Physical Exam Vitals & Measurements T: 36.4 ?C(Axillary) TMIN: 35.5 ?C(Oral) TMAX: 36.7 ?C(Oral) HR: 55(Monitored) RR: 18 BP: 102/67 SpO2: 99% HT: 170.18 cm WT: 63.2 kg General: alert, no acute distress Neck: Supple, noJVD nocarotid bruit Cardiovascular: regular rate and rhythm, no murmur normal peripheral perfusion Respiratory: Lungs CTAB, respirations non labored Extremities: no edema left lower extremity. no edema right lower extremity Neurological: oriented x 4, LOC appropriate for age, speech normal Skin: Warm, dry, intact- no rash or concerning lesions Assessment/Plan 1. Atrial fibrillation, new onset (I48.91: Unspecified atrial fibrillation) Paroxysmal atrial fibrillation. The patient is now in normal sinus rhythm. Echocardiogram today. Check T4/TSH. Based on [id number] risk score of 1, would qualify for aspirin for cardioembolic protection, unless echocardiogram is abnormal. 2. Osteoporosis (M81.0: Age-related osteoporosis without current pathological fracture) 3. History of DVT in adulthood (Z86.718: Personal history of other venous thrombosis and embolism) Orders: T4 & TSH Problem List/Past Medical History Ongoing Abdominal discomfort Asymptomatic microscopic hematuria History of kidney stones Leaking of urine Microscopic hematuria Recurrent UTI Varicose veins of both lower extremities with pain Historical None Procedure/Surgical History bilateral foot surgery, Colonoscopy, Foot, Procedure on foot, Tonsillectomy, wisdom teeth removal. Medications Inpatient acetaminophen 325 mg Tab, 650 mg= 2 tab(s), Oral, q6hr, PRN Al hydroxide/Mg hydroxide/simethicone 200 mg-200 mg-20 mg/5 mL oral suspension, 30 mL, Oral, q6hr, PRN Calcium 600 D Tab, 1 tab(s), Oral, BID diltiazem additive 100 mg [5 mg/hr] + Sodium Chloride 0.9% intravenous solution 100 mL Multi Vitamins oral tablet, 1 tab(s), Oral, Daily Senokot 8.6 mg Tab, 17.2 mg= 2 tab(s), Oral, BID, PRN Zofran 4 mg/2 mL Injection, 4 mg= 2 mL, IV Push, q6hr, PRN Home calcium-vitamin D, 1 tab, Oral, BID Daily Multiple Vitamins, Oral, Daily Evenity, 210 mg, SubCutaneous, qMonth Allergies codeine sulfa drugs (Rash) Social History Alcohol - Denies Alcohol Use, 06/30/2024 DENIES, Household alcohol concerns: No., 03/11/2020 Substance Abuse - Denies Substance Abuse, 06/30/2024 DENIES, Household substance abuse concerns: No., 03/11/2020 Tobacco - Denies Tobacco Use, 06/30/2024 Never (less than 100 in lifetime) Tobacco Use:. Never Smokeless Tobacco Use:., 08/03/2022 Family History Heart disease: Brother. Rheumatoid arthritis: Mother. Immunizations Vaccine Date Status Comments SARS-CoV-2 (COVID-19) mRNA BNT-162b2 vax 12/24/2020 Given Prophylaxis SARS-CoV-2 (COVID-19) mRNA BNT-162b2 vax 12/03/2020 [facility]:Result Comment: Electronically Signed By: Elvis Pace MD.cabrera\Date and Time Signed: 07/01/24 11:41 [id number] Note GetWell Education Video Atrial Fibrillation: Managing Your Symptoms GetWell Learning Participants Patient GetWell Understands Education [facility]10-08-2024 NoteGetWell Learning Participants Patient GetWell Understands Education Yes GetWell Education Video Atrial Fibrillation: Living [facility]10-08-2024 Note GetWell Learning Participants Patient GetWell Understands Education Yes GetWell Education Video Atrial Fibrillation: Feeling More in [facility] 07-01-2024 NoteGetWell Learning Participants Patient Alicia Understands Education Yes Neuro Kinetics[employer] Education Video Avoiding Infections in the [facility]10-08-2024 Note Alicia Understands Education Yes Neuro [employer] Education Video What Is Atrial Fibrillation? AbhishekWell Learning Participants [facility]10-08-2024 NoteHistory and Physical Chief Complaint pt to ED with c/o possible afib. pt denies known diagnosis. denies meds for afib. states apple watch alerted afib for last hour and nurse daughter instructed patient to come get checked. denies CP,mild SOB per pt. heart rate 100-130s in triage. History of Present Illness 54yo female with a PMH of osteoporosis. She presented to the ED with concern that she was in Afib. She reports noting some palpitations around dinner time. Has an Apple Watch and ended up taking an EKG reading on her watch that said she was in Afib. She touched base with her daughter who is a nursewho told her to go to the ED. She has no prior hx Afib. States her brother has cardiac history and her mother has underlying Afib. Patient does have anxiety and reports normal stress in her life. Denies significant caffeine intake. Is on Evenity injections for Osteoporosis, and has been on these about 11 months now. Does not believe she snores, but reports daytime fatigue. Workup in the ED. EKG revealed A fib with RVR. Patient was bolused with 5mg of IV Cardizem and placed on a Cardizem drip which is currently at 10 mg/hr. HR improved. Anticoagulated with 60mg SC Lovenox. Labs unremarkable. Troponin negative. Review of Systems Constitutional: no fever, no chills, no sweats, + fatigue Skin: no jaundice, no rash, no lesions, no petechiae ENMT: no ear pain, no sore throat, no congestion, no hoarseness Respiratory: no shortness of breath, no cough, no orthopnea, no wheezing Cardiovascular: no chest pain, + palpitations, no new edema Gastrointestinal: no nausea, no vomiting, no diarrhea, no abdominal pain Genitourinary: no dysuria, no hematuria Musculoskeletal: no trauma, no joint or muscle pain Neurologic: no headache, no dizziness Psychiatric: no depression, + anxiety Heme/Lymph: no bleeding tendency, no bruising tendency Additional ROS info: Except as noted in the above Review of Systems and in the History of Present Illness all other systems have been reviewed and are negative or noncontributory. Scoring Brown Fall Risk Score: 35 (06/30/24) Physical Exam Vitals & Measurements T: 35.5 ?C(Oral) TMIN: 35.5 ?C(Oral) TMAX: 36.6 ?C(Oral) HR: 103(Peripheral) RR: 21 BP: 119/67 SpO2: 98% HT: 170.18 cm WT: 63.2 kg General: non-toxic appearing Skin: warm, dry, no rash Head: AT/NC Neck: Trachea midline, supple Eye: normal conjunctiva, sclera clear Cardiovascular: irregular irregular S1S2, normal peripheral perfusion Respiratory: Lungs CTA, respirations non labored, breath sounds equal, no w/r/r Chest wall: no deformity Gastrointestinal: soft, NT, ND, no peritoneal signs Extremities: no deformity, trace BLE edema Neurological: alert and oriented, no focal deficits, normal speech Psychiatric: cooperative, mildly anxious Lab Results WBC: 7.5 E9/L (06/30/24 20:10:00) RBC: 4.8 E12/L (06/30/24 20:10:00) HGB: 14.6 gm/dL (06/30/24 20:10:00) Hct: 42.8 % (06/30/24 20:10:00) MCV: 89.7 fL (06/30/24 20:10:00) MCH: 30.6 pg (06/30/24 20:10:00) MCHC: 34.1 gm/dL (06/30/24 20:10:00) RDW: 13 % (06/30/24 20:10:00) Platelet: 254 E9/L (06/30/24 20:10:00) MPV: 6.9 fL (06/30/24 20:10:00) Neutro Auto: 48.9 % (06/30/24 20:10:00) Lymph Auto: 41.2 % (06/30/24 20:10:00) Kerr Auto: 7.5 % (06/30/24 20:10:00) Eos Auto: 1.7 % (06/30/24 20:10:00) Basophil Auto: 0.7 % (06/30/24 20:10:00) Neutro Absolute: 3.7 E9/L (06/30/24 20:10:00) Lymph Absolute: 3.1 E9/L (06/30/24 20:10:00) Kerr Absolute: 0.6 E9/L (06/30/24 20:10:00) Eos Absolute: 0.1 E9/L (06/30/24 20:10:00) Basophil Absolute: 0.1 E9/L (06/30/24 20:10:00) PT: 10.9 second(s) (06/30/24 20:10:00) INR: 0.97 (06/30/24 20:10:00) PTT: 37.8 second(s) High (06/30/24 20:10:00) Glucose Lvl: 102 mg/dL (06/30/24 20:10:00) BUN: 19 mg/dL (06/30/24 20:10:00) Creatinine: 0.7 mg/dL (06/30/24 20:10:00) eGFR: 101 mL/min/1.73 m2 (06/30/24 20:10:00) BUN/Creat Ratio: 18 (06/30/24 20:10:00) Sodium Lvl: 141 mmol/L (06/30/24 20:10:00) Potassium Lvl: 3.6 mmol/L (06/30/24 20:10:00) Chloride: 106 mmol/L (06/30/24 20:10:00) CO2: 29 mmol/L (06/30/24 20:10:00) AGAP: 9 mEq/L (06/30/24 20:10:00) Calcium Lvl: 9.2 mg/dL (06/30/24 20:10:00) Magnesium: 1.9 mg/dL (06/30/24 20:10:00) Troponin HS: 9.1 pg/mL Low (07/01/24 00:13:00) Diagnostic Results CXR personally reviewed. Negative for acute process. Assessment/Plan 1. Atrial fibrillation, new onset (I48.91: Unspecified atrial fibrillation) With mild RVR. Was bolused with Cardizem in ED and currently on Cardizem drip Anticoagulated with a dose of Lovenox in the ED. Will defer further AC to cardiology. Check TSH Cardiac Echo ordered [facility] Cardiology consultation 2. Osteoporosis (M81.0: Age-related osteoporosis without current pathological fracture) On Evenity injections 3. History of DVT in adulthood (Z86.718: Personal history of other venous thrombosis and embolism) Occurred after foot surgery. Was on Xarelto Attestation (more content not included)...[facility] HospitalComment on above:Result Comment: Electronically Signed By: Angella Samano MD\.cabrera\Date and Time Signed: 07/01/24 01:16 [id number] Telephone encounter Note* Telephone Encounter - Lorena Pereira RN - 02/06/2024 3:[address] Venegas responded to [employer] message. [facility]05-15-2024 Miscellaneous Notes* Telephone Encounter - Lorena Pereira RN - 02/06/2024 3:[address] Venegas responded to [employer] message. * Telephone Encounter - Stephanie Song - 01/21/2024 2:20 PM EDT Patient called wanting to see if Dr. Venegas would prefer to have an x-ray performed while she is up at [facility]. Please refer to 01/20/24 [employer] message. documented in this encounterUniversity Hospitals [facility]05-[facility]24 NoteHNO ID: [id number] Author: OSCAR VENEGAS, ? Service: ? Author Type: Physician Type: Progress Notes Filed: 02/05/2024 12:30 Note Text: FOLLOW UP PODIATRIC OFFICE VISIT Chief Complaint: This 53 year old who presents for right foot pain Patient presents to clinic for evaluation of right foot Has been doing therapy for osteoporosis. Was doing a baps board and noticed after doing the exercises, started having pain in the right great toe, medial eminence. Patient states she has slowed down the therapy and the pain has gotten better She made this appointment becasuse she has history of rsd and wanted to have her foot evaluated. Complains of dull ache, 1- PAIN EVALUATION 02/05/2024 0938 Pain Level: 2 Pain Location: Foot-Right Description: Dull;Aching Duration Amount of Time: 3 Duration Units: Weeks Frequency: Intermittent Intervention/Comfort measure: Reposition;Relaxation No results found for: HBA1C PCP: Pranav King PAST MEDICAL HISTORY Diagnosis Date Complex regional pain syndrome History of DVT in adulthood +Xarelto Current Outpatient Medications Medication Sig romosozumab-aqqg 105 mg/1.17 mL subcutaneous syringe every 3 months. terbinafine HCl (LAMISIL) 250 mg tablet Take 1 tablet by mouth once daily. (Patient not taking: Reported on 07/05/2023) cephALEXin (KEFLEX) 500 mg capsule Take 1 capsule by mouth three times daily. (Patient not taking: Reported on 04/30/2023) rivaroxaban (XARELTO) 20 mg tablet Take 20 mg by mouth daily with dinner. (Patient not taking: Reported on 07/05/2023) cephALEXin (KEFLEX) 500 mg capsule Take 1 capsule by mouth every 8 hours. (Patient not taking: Reported on 04/05/2023) estradiol (ESTRACE) 0.01 % (0.1 mg/gram) vaginal cream Use 1 g vaginally two times a week. (Patient not taking: Reported on 04/05/2023) No current facility-administered medications for this visit. ALLERGIES Allergen Reactions Codeine Intolerance migraines Sulfa (Sulfonamide * Rash Rash and then muscle tightening PAST SURGICAL HISTORY Procedure Laterality Date ARTHRS KNEE W/MENISCECTOMY MEDANDLAT W/SHAVING Left Clean out CYSTO.PANENDO 11/02/2022 FOOT SURGERY HX Left 03/23/2022 5th Metatarsal Physical Exam: OBJECTIVE: Constitutional: Pt is a well developed 53 year old female who is alert, oriented, cooperative and in no apparent distress. Eyes: Following during examination. No redness or drainage. Respiratory: RR normal and nonlabored. Even breathing. No evidence of distress. Psychology: Patient is engaged during conversation. Normal affect and mood. Does not appear depressed or anxious. NVSI unchanged from previous visit. Dermatological: Nails 1-5 b/l are normal. Webspaces clean and dry 1-4 b/l. Skin appears well hydrated and supple. good color, texture, turgor. No open lesions present. No callosities present. Musculoskeletal/Orthopaedic: Patient has no pain to palpation of b/l feet Small dorsal exostosis noted to the dorsal aspect of right 1st metatarsal Xrays of b/l feet reviewed. There has been distal metatarsal osteotomy of b/l 1st metatarsal with one screw fixation. Healed fifth metatarsal fracture, left foot. There is dorsal spurring of right 1st metatarsal ASSESSMENT: (M20.21) Hallux rigidus of right foot (primary encounter diagnosis) PLAN: Discussed pain in right foot. She does have small dorsal spurring of right 1st metatarsal Would continue with wider shoes and/or gel padding to avoid rubbing on dorsal spur Could consider cheilectomy but with her history of rsd, if the pain is tolerable, would continue with conservative care Can follow-up carin Venegas [facility]05-14-2024 History of Present illness Narrative* Oscar Venegas - 02/05/2024 9:58 AM EDT FOLLOW UP PODIATRIC OFFICE VISIT Chief Complaint: This 53 year old who presents for right foot pain Patient presents to clinic for evaluation of right foot Has been doing therapy for osteoporosis. Was doing a baps board and noticed after doing the exercises, started having pain in the right great toe, medial eminence. Patient states she has slowed down the therapy and the pain has gotten better She made this appointment becasuse she has history of rsd and wanted to have her foot evaluated. Complains of dull ache, 1-2 / PAIN EVALUATION 02/05/2024 0938 Pain Level: 2 Pain Location: Foot-Right Description: Dull;Aching Duration Amount of Time: 3 Duration Units: Weeks Frequency: Intermittent Intervention/Comfort measure: Reposition;Relaxation No results found for: HBA1C PCP: Pranav King PAST MEDICAL HISTORY Diagnosis Date Complex regional pain syndrome History of DVT in adulthood +Xarelto Current Outpatient Medications Medication Sig romosozumab-aqqg 105 mg/1.17 mL subcutaneous syringe every 3 months. terbinafine HCl (LAMISIL) 250 mg tablet Take 1 tablet by mouth once daily. (Patient not taking: Reported on 07/05/2023) cephALEXin (KEFLEX) 500 mg capsule Take 1 capsule by mouth three times daily. (Patient not taking: Reported on 04/30/2023) rivaroxaban (XARELTO) 20 mg tablet Take 20 mg by mouth daily with dinner. (Patient not taking: Reported on 07/05/2023) cephALEXin (KEFLEX) 500 mg capsule Take 1 capsule by mouth every 8 hours. (Patient not taking: Reported on 04/05/2023) estradiol (ESTRACE) 0.01 % (0.1 mg/gram) vaginal cream Use 1 g vaginally two times a week. (Patientnot taking: Reported on 04/05/2023) No current facility-administered medications for this visit. ALLERGIES Allergen Reactions Codeine Intolerance migraines Sulfa (Sulfonamide * Rash Rash and then muscle tightening PAST SURGICAL HISTORY Procedure Laterality Date ARTHRS KNEE W/MENISCECTOMY MED&LAT W/SHAVING Left Clean out CYSTO.PANENDO 11/02/2022 FOOT SURGERY HX Left 03/23/2022 5th Metatarsal Physical Exam: OBJECTIVE: Constitutional: Pt is a well developed 53 year old female who is alert, oriented, cooperative and in no apparent distress. Eyes: Following during examination. No redness or drainage. Respiratory: RR normal and nonlabored. Even breathing. No evidence of distress. Psychology: Patient is engaged during conversation. Normal affect and mood. Does not appear depressed or anxious. NVSI unchanged from previous visit. Dermatological: Nails 1-5 b/l are normal. Webspaces clean and dry 1-4 b/l. Skin appears well hydrated and supple. good color, texture, turgor. No open lesions present. No callosities present. Musculoskeletal/Orthopaedic: Patient has no pain to palpation of b/l feet Small dorsal exostosis noted to the dorsal aspect of right 1st metatarsal Xrays of b/l feet reviewed. There has been distal metatarsal osteotomy of b/l 1st metatarsal with one screw fixation. Healed fifth metatarsal fracture, left foot. There is dorsal spurring of right 1st metatarsal ASSESSMENT: (M20.21) Hallux rigidus of right foot (primary encounter diagnosis) PLAN: Discussed pain in right foot. She does have small dorsal spurring of right 1st metatarsal Would continue with wider shoes and/or gel padding to avoid rubbing on dorsal spur Could consider cheilectomy but with her history of rsd, if the pain is tolerable, would continue with conservative care Can follow-up jasminn Oscar Venegas DPM * Esmer Bravo LPN - 02/05/2024 9:37 AM EDT AMB ROOMING INTAKE FLOWSHEET DATA Pain Pain Level: 2 Pain Location: Foot-Right Description: Dull, Aching Duration Amount of Time: 3 Duration Units: Weeks Frequency: Intermittent Intervention/Comfort measure: Reposition, Relaxation Patient presents with: Right Foot - Established Patient, Follow Up, Pain Esmer Bravo LPN documented in this encounterUniversity Hospitals [facility]05-14-2024 NoteHNO ID: [id number] Author: ESMER BRAVO LPN Service: ? Author Type: LICENSED NURSE Type: Progress Notes Filed: 02/05/2024 12:30 Note Text: AMB ROOMING INTAKE FLOWSHEET DATA Pain Pain Level: 2 Pain Location: Foot-Right Description: Dull, Aching Duration Amount of Time: 3 Duration Units: Weeks Frequency: Intermittent Intervention/Comfort measure: Reposition, Relaxation Patient presents with: Right Foot - Established Patient, Follow Up, [facility] of Present illness Narrative* Bell Quintana, RT(R) - 02/05/2024 9:10 AM EDT Radiology Service Progress Note PATIENT NAME: Oleg Peck DATE OF SERVICE: February 05, 2024 TIME: 11:07 AM PATIENT IDENTITY VERIFICATION COMPLETED USING TWO (2) IDENTIFIERS: Name and Date of confirmedby patient verbally. FALL SCREENING: Has the patient had 2 falls in the last year or 1 fall with injury or currently using an Ambulatory Assistive Device (Walker, Cane, Wheelchair, Crutches, etc.)? No PATIENT GENDER DATA: Female. status: : No status: NO. PATIENT RELEVANT IMPLANT DATA REVIEWED: Not Applicable PATIENT PRESENTS WITH AN IMPLANTABLE OR ATTACHED JOB SETTER HONING: No RADIOLOGY DEPARTMENT: General X-ray: Exam(s) Completed: Lower Extremity X- Ray(s): Foot, Right and Wt. Bearing PERIPHERAL IV DATA: Not applicable SIGNED BY: RT Palomo(Jhonny) February 05, 2024 11:07 AM documented in this encounterUniversity [facility]05-14-2024 NoteHNO ID: [id number] Author: BELL QUINTANA RT(R) Service: ? Author Type: Technologist Type: Progress Notes Filed: 02/05/2024 11:07 Note Text: Radiology Service Progress Note PATIENT NAME: Oleg Peck DATE OF SERVICE: February 05, 2024 TIME: 11:07 AM PATIENT IDENTITY VERIFICATION COMPLETED USING TWO (2) IDENTIFIERS: Name and Date of confirmed by patient verbally. FALL SCREENING: Has the patient had 2 falls in the last year or 1 fall with injury or currently using an Ambulatory Assistive Device (Walker, Cane, Wheelchair, Crutches, etc.)? No PATIENT GENDER DATA: Female. status: : No status: NO. PATIENT RELEVANT IMPLANT DATA REVIEWED: Not Applicable PATIENT PRESENTS WITH AN IMPLANTABLE OR ATTACHED JOB SETTER HONING: No RADIOLOGY DEPARTMENT: General X-ray: Exam(s) Completed: Lower Extremity X-Ray(s): Foot, Right and Wt. Bearing PERIPHERAL IV DATA: Not applicable SIGNED BY: RT Palomo(Jhonny) February 05, 2024 11:07 [facility]04-29-2024 Telephone encounter Note* Telephone Encounter - Stephanie Song - 01/21/2024 2:20 PM EDT Patient called wanting to see if Dr. Venegas would prefer to have an x-ray performed while she is up at [facility]. Please refer to 01/20/24 [employer] message. [facility]01-09-[facility] Evaluation note* Encounter Date Diagnosis Assessment Notes Treatment Notes Treatment Clinical Notes Sep, Well adult exam (ICD-10 - Z00.00) We have discussed the necessity of following up with PCP regularly as well as specialists, as needed. Discussed F/U with dentistry and optometry at least yearly. Discussed all preventative measures/ cancer screenings as applicable to this patient. Emphasized the importance of a reduced fat, low carb diet to promote heart health and controlled blood sugars. Reviewed social history and ensured patient is safe within the home today. Pt denies any abuse of alcohol, nicotine, caffeine or recreational drugs. I have ensured patient is of stable mental and physical health today. We have discussed appropriate F/U schedule as well as blood work and vaccinations that apply. All questions answered and patient is sent home pleased, without concerns. Sep, Other *Progress note was completed with the assistance of voice recognition software for dictation purposes. Please excuse any grammatical errors that were not corrected during review process. [email or web address] Other 12-20-2023 [facility]* Encounter Date Diagnosis Assessment Notes Treatment Notes Treatment Clinical Notes Jul, Rhinosinusitis (ICD-10 - J32.9) Discussed viral symptomology today. Does not require antibiotic at this time. Educated on the risk of over prescribing antibiotics. Conservative measures always recommended. Discussed [id number] medications for symptom relief as well. If patient would like to be more aggressive in regards to treating symptoms, I am agreeable to low-dose steroid, Medrol Dosepak, for symptom relief. Take with food, watch for jitteriness and do not take with NSAIDs. Discussed Tessalon Perles for cough as needed. Will write short-term prescription today. Antibiotic and imaging of chest not warranted today. All questions answered and patient sent home stable. Deferring COVID/flu testing today. Jul, Acute cough (ICD-10 - R05.1) Discussed viral symptomology today. Does not require antibiotic at this time. Educated on the risk of over prescribing antibiotics. Conservative measures always recommended. Discussed [id number] medications for symptom relief as well. If patient would like to be more aggressive in regards to treating symptoms, I am agreeable to low-dose steroid, Medrol Dosepak, for symptom relief. Take with food, watch for jitteriness and do not take with NSAIDs. Discussed Tessalon Perles for cough as needed. Will write short-term prescription today. Antibiotic and imaging of chest not warranted today. All questions answered and patient sent home stable. Deferring COVID/flu testing today. Jul, Other *Progress note was completed with the assistance of voice recognition software for dictation purposes. Please excuse any grammatical errors that were not corrected during review process. [email or web address] Other 10-12-2023 NoteHNO ID: [id number] Author: Jie Pastrana LPN Service: ? Author Type: LICENSED NURSE Type: Progress Notes Filed: 07/05/2023 10:00 AM Note Text: Review of Systems Constitutional: Negative for activity change, chills, fever and unexpected weight change. Gastrointestinal: Negative for bowel retention or incontinence Genitourinary: Negative for difficulty urinating. Negative for bladder retention or incontinence Musculoskeletal: Positive for arthralgias and joint swelling. Negative for back pain, gait problem, myalgias, neck pain and neck stiffness. Neurological: Positive for numbness. Negative for weakness and headaches. Psychiatric/Behavioral: Negative for dysphoric mood, sleep disturbance and suicidal ideas. The patient is not nervous/anxious.[facility]10-12-20[facility] History of Present illness Narrative* Jie Pastrana LPN - 07/05/2023 9:06 AM EDT Review of Systems Constitutional: Negative for activity change, chills, fever and unexpected weight change. Gastrointestinal: Negative for bowel retention or incontinence Genitourinary: Negative for difficulty urinating. Negative for bladder retention or incontinence Musculoskeletal: Positive for arthralgias and joint swelling. Negative for back pain, gait problem,myalgias, neck pain and neck stiffness. Neurological: Positive for numbness. Negative for weakness and headaches. Psychiatric/Behavioral: Negative for dysphoric mood, sleep disturbance and suicidal ideas. The patient is not nervous/anxious. * Cristian Castro MD - 07/04/2023 3:49 PM EDT Images from the original note were not included. [facility] [place] [facility] Today's Date: 07/05/2023 Last Visit: N/A Name: Oleg Peck : 1970 Purpose: New Patient Consultation Chief complaint: left foot pain Referring Clinician: Oscar Venegas Pertinent Past Medical History: H/O DVT in adulthood, Complex regional pain syndrome, Pertinent Past Surgeries: left 5th Metatarsal repair (03/23/2022) History of Present Illness (HPI): 07/04/2023 - Initial HPI (Cristian Castro MD ) DURATION AND ONSET: The pain complaint has been present for approximately 15 months. The pain had asudden onset. The mechanism of injury is known and is as follows: she fell and fractured her left 5th metatarsal, had surgery 2 weeks later (03/23/2022), complicated recovery by DVT. Also had meniscaltear left knee, repaired on 09/15/2022). She reports that, shortly after the surgery, she began noticing some tremors at night in the left foot, numbness was also noted during the daytime. She saw Neurology virtually, was advised alpha-lipoic acid. EMG was advised, cost considerations were a factorin not obtaining. She was diagnosed with possible CRPS by a pain management doctor, had sympatheticblock a few weeks prior to the knee surgery, reports this did not help. Reports was advised an antidepressant, which she declined talking. Overall, she has reported gradual improvement in her condition, but she was not entirely satisfied with her experience and is looking for another pain physicianto be on her team as needed. Reports that she had DEXA scan, diagnosed with Osteoporosis, starting infusions soon. PRIOR TREATMENTS: Medications, Injections: (Sympathetic Nerve Block, left lumbar, 08/2022), Surgery(See Past Surgeries), Physical Therapy PAIN DESCRIPTION: Currently, she is having no pain. She has intermittent numbness, primarily in thedorsal and lateral foot. There is no radiation. The numbness is worse when sitting, better when on her feet. RED FLAG SYMPTOMS: denies red flags. Current Pain Medications: Neuropathics: NSAIDS: Opioids (when applicable): Date last refilled: Quantity supplied: Quantity remaining: Last taken: Muscle Relaxants: Topicals: Other Prescription or OTC Pain Medications: Anti-depressants or Mood-Stabilizers: None Anti-Coagulants: None Current Therapies Attended: PT virtually Treatment History: PAIN PROCEDURES: DATE PROCEDURE IMPROVEMENT 08/2022 Lumbar Sympathetic, Left No relief MEDICATIONS Taken TO DATE (for the chief complaint(s)): Neuropathics: none NSAIDS: None Opioids: None Muscle Relaxants: none Topicals: None Other Prescription or OTC Pain Medications: None Past Therapies Attended: Physical Therapy: Around 40 visits have been attended. Treatment dates: Between 05/2022 and 11/2022. Improvement in pain and function: yes. 40 Visits of Acupuncture (2022) - out of pocket, minimal relief (in [place], private practice) Data Reviewed Today: Allergies: ALLERGIES Allergen Reactions Codeine Intolerance migraines Sulfa (Sulfonamide * Rash Rash and then muscle tightening INTAKE PAIN ASSESSMENT 07/03/2023 07/05/2023 Are you having pain associated with your visit today? No Yes, Provider notified Pain Scales - Verbal (Numeric Rating or Visual Analog Scale) Pain Level - - Pain Location - Foot-Left Description - Numbness;Aching Duration Amount of Time - - Duration Units - Years Frequency - Continuous Intervention/Comfort measure - (No Data) Compliance: PDMP website checked and validated on 07/05/2023 by Cristian Castro MD All prescriptions have been APPROPRIATELY filled. No suspicious activity was identified. [facility] 5/325, #30 (08/2022) Recent Drug screens: AG SPINE COMBINATION 07/05/2023 Questionnaire GREENLIGHT Completed Date 07/05/2023 Questionnaire Opiod Risk Tool Completed Date 07/05/2023 Greenlight Questionnaire GREENLIGHT Completed Date 07/05/2023 Opioid Risk Tool Opiod Risk Tool Date Completed 07/05/2023 MADAY-7 Anxiety Score 0 Completed Date 07/05/2023 PHQ9P Score 0 Completed Date 07/05/2023 (All drug screens are appropriate unless indicated otherwise) Risk Assessment: MADAY-7: MADAY - 7 SCORES 06/26/2022 07/05/2023 MADAY-7 Score 3 0 (0-4) minimal anxiety, (5-9) mild anxiety, (10-14) moderate anxiety, (15-21) severe anxiety PHQ-9: PHQ-9 06/26/2022 07/05/2023 Score 1 0 (0-4) minimal depression, (5-9) mild depression, (10-14) moderate depression, (15-19) moderately severe depression, (20-27) severe depression Opioid Risk Tool: Family History of Substance Abuse: 0 - No Personal History of Substance Abuse: 0 - No Age between 16-45: 0 - No History of Pre-Adolescence Sexual Abuse: 0 - No Psychological Disease: 0 - No Risk Total: 0 Total Score Risk Category: Low Risk 0-3 (0-3, low risk or no risk; 4-7, moderate risk, 8+, high risk) Diagnostic Studies: Relevant Imaging: MRI Spine Report No resulted procedures found. X-ray Foot 03/2023 FINDINGS: Diffuse osseous demineralization. Surgical screw in the first metatarsal. Surgical plate and multiple screw device transfixes the proximal fifth metatarsal. No radiographic evidence of hardware complications. No acute fracture or dislocation identified. Comparison radiograph of the right foot demonstrates a surgical screw in the first metatarsal. IMPRESSION: 1. Osseous demineralization of the left foot. 2. Postsurgical changes as described without radiographic evidence of hardware complications. Electrodiagnostic Study (EMG): None Recent Labs: No results found for: CREAT No results found for: EGFR No results found for: PCGLUCOSE Current Medications, Past Medical History, Past Surgical History, Family History, Social History and Review of Systems: On today's date, noted above, I have confirmed and edited as necessary, the PFSH and ROS obtained by others. Physical Exam: 07/05/23 0909 Pulse: 83 Resp: 18 SpO2: 96% Bilateral Ankle/Foot: Inspection: Mild edema left ankle, darker hue left ankle > foot compared to contralateral side Surgical scar lateral left 5th metatarsal Nails are thickened left > right foot Palpation: No pain to palpation over the Anterior and Posterior Talofibular Ligaments (ATFL) and PTFL), Calcaneofibular Ligament (CFL) No pain to palpation over the distal Achilles tendon, Achilles insertion, Retrocalcaneal & Retroachilles bursa(e) Range of Motion: Active: Normal and non-painful ankle and 1st-5th digit range of motion Gait: Normal Neurological: Sensation intact in the L4 through S1 dermatomes to light touch and temperature Normal (5/5) strength to resisted motion 1. Continuing pain, which is disproportionate to any inciting event 2. Must report at least one symptom in three of the four following categories: Sensory: ___ Hyperesthesia ____ Allodynia Vasomotor: _X__ Temperature asymmetry __X_ Skin color changes (purple left arm) ___ Sudomotor Edema: __X__ Edema ___ Sweating asymmetry (right ankle) Motor/Trophic: ____ Motor dysfunction (weakness, tremor, dystonia) __X_ Trophic changes (hair, nail, skin) 3. Must display at least one sign at time of evaluation in two or more of the following categories: Sensory: ___ Hyperalgesia ___ Allodynia Vasomotor: _X__ Evidence of temperature asymmetry __X_ skin color changes and/or asymmetry Sudomotor/Edema: __X_ Temperature asymmetry (>1 C) __X_ Skin color changes and/or asymmetry __X_ Evidence of edema ___ sweating asymmetry Trophic: ____ Decreased range of motion ___ Motor dysfunction (weakness, tremor, dystonia) ___ Trophic changes (hair, nail, skin) (ref: Harden et al. Proposed new diagnostic criteria for complex regional pain syndrome. Pain Med. 2006;8(4):326-31.) IMPRESSION: 53 year old female presents with complaint(s) of left foot paresthesias following trauma, meets criteria for CRPS type 2. Diagnoses: (G57.72) Complex regional pain syndrome type 2 of left lower extremity (primary encounter diagnosis) PLAN: Oleg Peck would benefit from the following to reach personal goals for decreasing pain, improving function and work participation, and/or improving quality of life: Medications: Continue Alpha-Lipoic Acid 200mg BID until symptoms resolve Interventional Procedures: None Studies: None Functional Presybeterian: Physical Therapy Consultation (Land-Based) - continue virtual PT Referrals: No additional considerations at present Follow-up: PRN basis with Physician or KARY (Either In Person or Virtual Visit) Depending on response to the above plan, consider: anti-epileptic drugs Patient Education, Compliance and Clinic Policies Reviewed and/or Discussed Today: None Attribution: In addition to reviewing the information noted above, some elements copied from my most recent clinical note(s), including the physical exam (completed in entirety today), and the impression and plan sections, have been updated where appropriate. All reflect current medical decision making from today's date. Cristian Castro MD Pain Management [facility] [place] [facility], [facility] documented in this encounterUniversity Hospitals A[facility] Center10-11-2023 NoteHNO ID: [id number] Author: Cristian Castro MD Service: ? Author Type: Physician Type: Progress Notes Filed: 07/05/2023 10:00 AM Note Text: [facility] Today's Date: 07/05/2023 Last Visit: N/A Name: Oleg Peck : 1970 Purpose: New Patient Consultation Chief complaint: left foot pain Referring Clinician: Oscar Venegas Pertinent Past Medical History: H/O DVT in adulthood, Complex regional pain syndrome, Pertinent Past Surgeries: left 5th Metatarsal repair (03/23/2022) History of Present Illness (HPI): 07/04/2023 - Initial HPI (Cristian Castro MD ) DURATION AND ONSET: The pain complaint has been present for approximately 15 months. The pain had a sudden onset. The mechanism of injury is known and is as follows: she fell and fractured her left 5th metatarsal, had surgery 2 weeks later (03/23/2022), complicated recovery by DVT. Also had meniscal tear left knee, repaired on 09/15/2022). She reports that, shortly after the surgery, she began noticing some tremors at night in the left foot, numbness was also noted during the daytime. She saw Neurology virtually, was advised alpha-lipoic acid. EMG was advised, cost considerations were a factor in not obtaining. She was diagnosed with possible CRPS by a pain management doctor, had sympathetic block a few weeks prior to the knee surgery, reports this did not help. Reports was advised an antidepressant, which she declined talking. Overall, she has reported gradual improvement in her condition, but she was not entirely satisfied with her experience and is looking for another pain physician to be on her team as needed. Reports that she had DEXA scan, diagnosed with Osteoporosis, starting infusions soon. PRIOR TREATMENTS: Medications, Injections: (Sympathetic Nerve Block, left lumbar, 08/2022), Surgery (See Past Surgeries), Physical Therapy PAIN DESCRIPTION: Currently, she is having no pain. She has intermittent numbness, primarily in the dorsal and lateral foot. There is no radiation. The numbness is worse when sitting, better when on her feet. RED FLAG SYMPTOMS: denies red flags. Current Pain Medications: Neuropathics: NSAIDS: Opioids (when applicable): Date last refilled: Quantity supplied: Quantity remaining: Last taken: Muscle Relaxants: Topicals: Other Prescription or OTC Pain Medications: Anti-depressants or Mood-Stabilizers: None Anti-Coagulants: None Current Therapies Attended: PT virtually Treatment History: PAIN PROCEDURES: DATE PROCEDURE IMPROVEMENT 08/2022 Lumbar Sympathetic, Left No relief MEDICATIONS Taken TO DATE (for the chief complaint(s)): Neuropathics: none NSAIDS: None Opioids: None Muscle Relaxants: none Topicals: None Other Prescription or OTC Pain Medications: None Past Therapies Attended: Physical Therapy: Around 40 visits have been attended. Treatment dates: Between 05/2022 and 11/2022. Improvement in pain and function: yes. 40 Visits of Acupuncture (2022) - out of pocket, minimal relief (in [place], private practice) Data Reviewed Today: Allergies: ALLERGIES Allergen Reactions Codeine Intolerance migraines Sulfa (Sulfonamide * Rash Rash and then muscle tightening INTAKE PAIN ASSESSMENT 07/03/2023 07/05/2023 Are you having pain associated with your visit today? No Yes, Provider notified Pain Scales - Verbal (Numeric Rating or Visual Analog Scale) Pain Level - - Pain Location - Foot-Left Description - Numbness;Aching Duration Amount of Time - - Duration Units - Years Frequency - Continuous Intervention/Comfort measure - (No Data) Compliance: PDMP website checked and validated on 07/05/2023 by Cristian Castro MD All prescriptions have been APPROPRIATELY filled. No suspicious activity was identified. [facility] 5/325, #30 (08/2022) Recent Drug screens: AG SPINE COMBINATION 07/05/2023 Questionnaire GREENLIGHT Completed Date 07/05/2023 Questionnaire Opiod Risk Tool Completed Date 07/05/2023 Greenlight Questionnaire GREENLIGHT Completed Date 07/05/2023 Opioid Risk Tool Opiod Risk Tool Date Completed 07/05/2023 MADAY-7 Anxiety Score 0 Completed Date 07/05/2023 PHQ9P Score 0 Completed Date 07/05/2023 (All drug screens are appropriate unless indicated otherwise) Risk Assessment: MADAY-7: MADAY - 7 SCORES 06/26/2022 07/05/2023 MADAY-7 Score 3 0 (0-4) minimal anxiety, (5-9) mild anxiety, (10-14) moderate anxiety, (15-21) severe anxiety PHQ-9: PHQ-9 06/26/2022 07/05/2023 Score 1 0 (0-4) minimal depression, (5-9) mild depression, (10-14) moderate depression, (15-19) moderately severe depression, (20-27) severe depression Opioid Risk Tool: Family History (more content not included)...[facility] 06-08-2023 Evaluation note* Encounter Date Diagnosis Assessment Notes Treatment Notes Treatment Clinical Notes May, Osteoporosis without current pathological fracture, unspecified osteoporosis type (ICD-10 - M81.0) Very lengthy discussion regarding the pathology behind osteopenia and osteoporosis. Discussed her DEXA scan at length today. Discussed all possible options moving forward conservatively and through medication management. Also printed and discussed up-to-date's osteoporosis- beyond the basics. Discussion regarding risk and benefits of different treatment options. At this point I do not feel there is anything she could have done significantly to reduce this risk. I do congratulate her on her other efforts towards a healthy lifestyle. Since she does have quite a few questions and concerns, I would highly recommend a referral to Ethel MOE through orthopedics for the state the bone program. Patient is agreeable at this time. May, Laboratory exam ordered as part of routine general medical examination (ICD-10 - Z00.00) Intensive lab review done. Discussed how blood sugar, blood pressure and cholesterol may all be impacted by a healthy diet and aerobic exercise atleast 3 days a week. Discussed how many of the processes happening in our body are governed by genetic disposition. Discussed F/U as needed as well as possible lifestyle changes, conservative measures fr treatment as well as and symptom recognition and management. May, Other *Progress note was completed with the assistance of voice recognition software for dictation purposes. Please excuse any grammatical errors that were not corrected during review process. I have spent 30 minutes with this patient and over 50% of the visit was counseling done by myself, Pranav MOE. [email or web address] Other 08-24-2023 History of Present illness Narrative* Oscar Venegas - 05/17/2023 8:59 AM EDT FOLLOW UP PODIATRIC OFFICE VISIT Chief Complaint: This 53 year old who presents for follow up:total nail matrixectomy of right 5th toe and left 3rd toe Patient presents to clinic for evaluation of b/l feet She is s/p total nail matrixectomy of right 5th toe and left 3rd toe Denies any pain Denies any drainage Feels well PAIN EVALUATION No data found in the last 1 encounters. No results found for: HBA1C PCP: No primary care provider on file. PAST MEDICAL HISTORY Diagnosis Date Complex regional pain syndrome History of DVT in adulthood +Xarelto Current Outpatient Medications Medication Sig terbinafine HCl (LAMISIL) 250 mg tablet Take 1 tablet by mouth once daily. cephALEXin (KEFLEX) 500 mg capsule Take 1 capsule by mouth three times daily. (Patient not taking: Reported on 04/30/2023) rivaroxaban (XARELTO) 20 mg tablet Take 20 mg by mouth daily with dinner. cephALEXin (KEFLEX) 500 mg capsule Take 1 capsule by mouth every 8 hours. (Patient not taking: Reported on 04/05/2023) estradiol (ESTRACE) 0.01 % (0.1 mg/gram) vaginal cream Use 1 g vaginally two times a week. (Patientnot taking: Reported on 04/05/2023) No current facility-administered medications for this visit. ALLERGIES Allergen Reactions Codeine Intolerance migraines Sulfa (Sulfonamide * Rash Rash and then muscle tightening PAST SURGICAL HISTORY Procedure Laterality Date CYSTO.PANENDO 11/02/2022 Physical Exam: OBJECTIVE: Constitutional: Pt is a well developed 53 year old female who is alert, oriented, cooperative and in no apparent distress. Eyes: Following during examination. No redness or drainage. Respiratory: RR normal and nonlabored. Even breathing. No evidence of distress. Psychology: Patient is engaged during conversation. Normal affect and mood. Does not appear depressed or anxious. NVSI unchanged from previous visit. Dermatological: Right 5th nail bed s/p nail matrixectomy. Nail bed appears to be healing without infection Left 3rd nail bed s/p nail matrixectomy. Nail bed appears to be healing without infection Musculoskeletal/Orthopaedic: Patient has no pain to palpation of b/l feet Does report some swelling to left ankle along peroneal tendon ASSESSMENT: (S91.109A) Open wound of toe, initial encounter (primary encounter diagnosis) PLAN: Patient is s/p total nail matrixectomy of right 5th toe and left 3rd toe. Appears to be healing without signs of infection. Continue with local wound care until the toe is completely healed. Discussed swelling in left ankle. I do not appreciate significant swelling. Suspect she may have some swelling because of lateral column overload in the setting of flatfoot/lateral impingment. Recommend she continue with inserts. If pain fails to improve, could consider referral to therapy F/u prn Oscar Venegas DPM * Lorena Pereira RN - 05/16/2023 11:58 AM EDT Patient presents with: Left 5th Toe - Follow Up, Avulsion Right 5th Toe - Follow Up, Avulsion Patient is 16 days s/p total nail avulsion, toenails b/l 5th toes. documented in this encounterUniversity Hospitals [facility]huja [facility]08-21-2023 Miscellaneous Notes* Telephone Encounter - Esmer Bravo LPN - 05/14/2023 3:26 PM EDT See [employer] message. Esmer Bravo LPN * Telephone Encounter - Natasha Vogel - 05/11/2023 8:35 AM EDT Pt calling with update on status since ingrown toenail procedure x 2 on 04/30/2023. Pt states that she is still having some reddness and swelling. No streaking. No drainage. Post op nail instructions reviewed with patient per protocol. Information in patients [employer] message dated 04/30/2023. She states she will send a [employer] message later today with photo to make sure provider thinks she is going in the right direction. She also has follow up appt Sunday. Natasha Vogel MA documented in this encounterUniversity Hospitals Ahuja [facility]08-08-2023 History of Present illness Narrative* Oscar Venegas - 05/01/2023 7:28 AM EDT FOLLOW UP PODIATRIC OFFICE VISIT Chief Complaint: This 53 year old who presents for follow up:dystrophic toenail of right 5th toenail and dystrophic toenail of left 3rd toenail Patient presents to clinic for evaluation of b/l feet She complains of dystrophic toenail of right 5th toenail and left 3rd toenail. These nails tend to cause swelling of proximal nail fold and at times, she has developed cellulitis. She is here with interest on removing Of note, she does have history of left 5th metatarsal fracture requiring orif last year. She later developed RSD requiring treatment. She has concerns that removal of toenails could exacerbate an rsdflare-up. PAIN EVALUATION No data found in the last 1 encounters. No results found for: HBA1C PCP: No primary care provider on file. PAST MEDICAL HISTORY Diagnosis Date Complex regional pain syndrome History of DVT in adulthood +Xarelto Current Outpatient Medications Medication Sig Ciclopirox (LOPROX) 8 % solution Apply to affected area daily at bedtime. terbinafine HCl (LAMISIL) 250 mg tablet Take 1 tablet by mouth once daily. cephALEXin (KEFLEX) 500 mg capsule Take 1 capsule by mouth three times daily. (Patient not taking: Reported on 04/30/2023) rivaroxaban (XARELTO) 20 mg tablet Take 20 mg by mouth daily with dinner. cephALEXin (KEFLEX) 500 mg capsule Take 1 capsule by mouth every 8 hours. (Patient not taking: Reported on 04/05/2023) estradiol (ESTRACE) 0.01 % (0.1 mg/gram) vaginal cream Use 1 g vaginally two times a week. (Patientnot taking: Reported on 04/05/2023) No current facility-administered medications for this visit. ALLERGIES Allergen Reactions Codeine Intolerance migraines Sulfa (Sulfonamide * Rash Rash and then muscle tightening PAST SURGICAL HISTORY Procedure Laterality Date CYSTO.PANENDO 11/02/2022 Physical Exam: OBJECTIVE: Constitutional: Pt is a well developed 53 year old female who is alert, oriented, cooperative and in no apparent distress. Eyes: Following during examination. No redness or drainage. Respiratory: RR normal and nonlabored. Even breathing. No evidence of distress. Psychology: Patient is engaged during conversation. Normal affect and mood. Does not appear depressed or anxious. Vascular: DP and PT pulses are palpable b/l. CFT is less than 5 seconds. Skin temperature is warm to warm. No erythema is noted. Mild swelling present to legs Dermatological: Right 5th toenail is dystrophic, thick, deformed. No signs of infection Left 3rd toenail is dystrophic, thick, deformed loose. No signs of infection Right hallux, left hallux, left 5th nail is discolored yellow but not thick Musculoskeletal/Orthopaedic: Patient has no pain to palpation of b/l lower extremity ASSESSMENT: Onychomycosis (primary encounter diagnosis) Rsd (reflex sympathetic dystrophy) PLAN: We had long discussion with patient regarding the appearance of her toenails. Multiple toenails areyellow but specifically, the right 5th nail and left 3rd nail are thick and they tend to cause swelling of proximal nail fold. I discussed options for the nails not limited to topical medication which she is already using, use of lamisil vs removal. She is interested in trying lamisil but she is unsure about what to do with the 5th nail of the right foot and 3rd nail of left foot as these tend tocause pain, swelling and at times infection due to the thickening. We discussed removal of the toenails. Specifically, we discussed removal of the right 5th toenail and left 3rd toenail. I discussed risks of the procedure not limited to infection, pain, swelling, bleeding, slow wound healing, recurrent nail growth, loss of toe, exacerbation of rsd. She understandsthese risks and consents to proceed with total nail matrixectomy of the right 5th and left 3rd nail. Discussed risks of toenail procedure not limited to infection, pain, swelling, bleeding, painful scarring, recurrence, need for revised procedure. Patient consented to proceed. Patient was properly identified by name and procedure. The right 5th toe was then injected with 2 cc of 1% lidocaine plain. The toe was then prepped and draped in the usual aseptic technique. A digital tournicot was applied to the toe. The entire nail was then freed and removed. Careful inspection was performed to assureno remaining spicule present. 3 applications of phenol were then administered x 30 seconds each followed by alcohol rinse. Sterile dressing was then applied consisting of amerigel, guaze, rasheeda and co ban. Tournicot was removed and hyperemic response was noted. Patient tolerated well. Patient will f/u in 2 weeks. Discussed risks of toenail procedure not limited to infection, pain, swelling, bleeding, painful scarring, recurrence, need for revised procedure. Patient consented to proceed. Patient was properly identified by name and procedure. The left 3rd toe was then injected with 2 cc of 1% lidocaine plain.The toe was then prepped and draped in the usual aseptic technique. A digital tournicot was appliedto the toe. The entire border was then freed and removed. Careful inspection was performed to assure no remaining spicule present. 3 applications of phenol were then administered x 30 seconds each followed by alcohol rinse. Sterile dressing was then applied consisting of amerigel, guaze, rasheeda and c oban. Tournicot was removed and hyperemic response was noted. Patient tolerated well. Patient will f/u in 2 weeks. We discussed the possible etiologies of discolored, dystrophic, and thickened nails including fungus, yeast, mold as well as in some instances, prior trauma, or mechanical causes such as repetitive microtrauma in shoe gear. We discussed topical medication for discolored toenails which has very low success but no major side effects. We discussed oral medication. Patient will need hepatic testing prior to use. Patient informed of risks associated with Lamisil. We discussed removal of toenails. Patient would like to proceed with lamisil pending lft. For her RSD and history of rsd, she really would like to establish care with a provider in the [facility] system. I am going to make referral to Dr. Cristian Castro here in [place]. Oscar Venegas DPM * Esmer Bravo LPN - 04/30/2023 9:24 AM EDT UNIVERSAL PROTOCOL / SAFETY CHECKLIST Procedure to be Performed: Total nail chemical matrixectomy, right 5th toenail Total nail chemicla matrixectomy, left 3rd toenail Sign In: A Moment of CARE was completed. Personnel directly involved with the procedure wore the appropriate PPE (Personal Protective Equipment). No special equipment needed. Patient/Surrogate Stated/Verified: PATIENT VERIFIED(optional for EMERGENT procedures): Patient name, Date of , Relevant allergies, and The intended procedure Time Out Communication: Intended patient and procedure match the source documents. Consent documented and matches the intended procedure. Relevant labs, photos, and/or imaging studies have been reviewed. Correct side/site marked and visible. Medications required for procedure verified. No fire risk assessment and interventions applicable. No implant(s) inserted. Sign Out: SIGN OUT (optional for EMERGENT procedures): No specimen collected. All instruments, equipment, possible retained foreign bodies accounted for. Post-procedure follow-up management communicated and Plan of Care Visit completed when applicable. Esmer Bravo LPN * Esmer Bravo LPN - 04/30/2023 8:04 AM EDT AMB ROOMING INTAKE FLOWSHEET DATA Patient presents with: Left Foot - Established Patient, Ingrown Toenail Patient present to office to possibly have left 3rd toenail, and right 5th toenail removed. Patientstates she would also like left 5th toe nail evaluated. Patient does not complain of pain at this time but does state that she does have some sensitivity at time. Esmer Bravo LPN documented in this encounterUniversity Hospitals Ahuja [facility] Center07-19-2023 Miscellaneous Notes* Telephone Encounter - Esmer Bravo LPN - 04/11/2023 3:09 PM EDT Patient notified of results and provider's instructions. Patient verbalizes understanding. Patient placed on wait list and instructed if drainage appears present to Urgent care. Esmer Bravo LPN * Telephone Encounter - Esmer Bravo LPN - 04/11/2023 3:05 PM EDT Images from the original note were not included. Oscar Venegas You Just now (3:04 PM) The toenail is likely thick, irregular in appearance and placing pressure on the base of the nail fold. If she is open to removal of the toenail, possibly permanent removal, this would likely resolvethe issue for the foreseeable future. If she has no drainage, she can consider trying to file down with an [place] board If we have any availability, we can try to see if she could come in earlier. Oscar Venegas DPM * Telephone Encounter - Esmer Bravo LPN - 04/11/2023 2:58 PM EDT Patient called in stating that her right 5th toe is red around nail and painful rated 6/10 on pain scale. Patient states there is no drainage at this time and symptoms started this morning. Please advise. Patient is currently scheduled on 04/30/2023 Esmer Bravo LPN documented in this encounterUniversity Hospitals Ahuja [facility] Center07-18-2023 Miscellaneous Notes* Telephone Encounter - Esmer Bravo LPN - 04/10/2023 3:51 PM EDT Patient notified of providers instructions. Esmer Bravo LPN * Telephone Encounter - Esmer Bravo LPN - 04/10/2023 8:16 AM EDT Images from the original note were not included. Oscar Venegas 19 minutes ago (7:56 AM) If she wants the third and 5th toenail removed, she could have removed in the office if she wants. If she has anxiety of having removed, would have her schedule in the operating room Oscar Venegas DPM * Telephone Encounter - Esmer Bravo LPN - 04/09/2023 4:25 PM EDT Patient returned call regarding procedure to remove left middle toenail and pinky toenail. Advised patient that following procedure a bandage will be place around toe and she will be instruction to leave it on for 24 hours. Patient will be instruction to place band aid to toe daily and soak in Epson salt and water or soap and water. Please advise will patient be eligable to have procedure done inoffice or will patient need to be taken to OR. Esmer Bravo LPN * Telephone Encounter - Esmer Bravo LPN - 04/09/2023 4:01 PM EDT Called patient to answer questions patient has regarding having toenails removed. No answer. Left VM Esmer Bravo LPN * Telephone Encounter - [place] Neri - 04/09/2023 3:55 PM EDT Patient called in wanting to schedule the removal of her problem toenail. She would also like to speak to someone about what recovery from that procedure would be like - if there are restrictions, ifbina has to stay off her feet, etc. Please review and advise. documented in this encounterUniversity Hospitals Ahuja [facility] Center02-03-2023 Miscellaneous Notes* Telephone Encounter - Юлия Rodriguez RN.BSN - 10/27/2022 12:19 PM EST Spoke to patient. Discussed what cystoscopy is looking for re: recurrent UTI Gave directions to REJ Pt also had + urine culture locally, starting abx today. OK to still have cysto next week, will have UA day of. Pt appreciative of call, all questions and concerns addressed. Юлия Rodriguez RN BSN * Telephone Encounter - Nilsa Rosales RN - 10/27/2022 11:26 AM EST Pt scheduled for a CYSTO with Dr. Gusman 11/02 Pt has questions about the procedure She is asking for a UROL specialty nurse to call her back directly she declined my offer to try and assist her in any way please call her back on [phone], thanks documented in this encounterUniversity Hospitals Ahuja [facility] Center02-02-2023 NoteHNO ID: [id number] Author: El Bolanos RDMS Service: ? Author Type: Technologist Type: Progress Notes Filed: 10/26/2022 7:44 PM Note Text: Radiology Service Progress Note PATIENT NAME: Oleg Peck DATE OF SERVICE: October 26, 2022 TIME: 7:43 PM PATIENT IDENTITY VERIFICATION COMPLETED USING TWO (2) IDENTIFIERS: Name and Date of confirmed by patient verbally and Name and Date of confirmed by identification band. FALL SCREENING: Has the patient had 2 falls in the last year or 1 fall with injury or currently using an Ambulatory Assistive Device (Walker, Cane, Wheelchair, Crutches, etc.)? Yes, Patient High Risk for Falls What interventions were put in place to prevent falls during this visit? Yellow Falls Risk Wristband Applied, Instructed Patient to Call for Help if Needed, Offered Assistance with Transfers/Clothing, Instructed Patient to Remain Seated (Not on Exam Table) Until Exam, Increased Observations by Caregivers, and Escorted to/from Restroom PATIENT GENDER DATA: Female. status: Unknown status: N/A PATIENT RELEVANT IMPLANT DATA REVIEWED: Not Applicable RADIOLOGY DEPARTMENT: Ultrasound PERIPHERAL IV DATA: Not applicable SIGNED BY: El Bolanos RDMS October 26, 2022 7:43 [id number] Instructions* Patient Instructions* Dominique Escobar APRN.QUILL WORKER - 10/26/2022 10:46 AM EST Images from the original note were not included. [facility] [place] TOPICAL ESTROGEN THERAPY Indication: You have been prescribed vaginal estrogen cream for one or more of the indications below: To reduce the occurrence of urinary tract infections (UTIs) Rejuvenation of the vaginal tissue Increase the effect of medications used for the bladder Improve painful intercourse caused by menopausal changes Use: We recommend what we call Finger Tip Application meaning you do not use the provided applicator (itis often messy and wasteful). Instead, squeeze an inch of vaginal estrogen cream onto your index finger. With your other hand, separate the lips of your vagina. Insert the finger with the cream on itinto your vagina to your first knuckle and smear the cream onto the vaginal tissue. Please do this before bed so the cream can be absorbed while lying down. Frequency: Please use the cream every night for the first two weeks. After two weeks, use the cream two nights per week (for example: Sunday and Sunday) Cystoscopy with Dr. Gusman Start antibiotic if the culture is positive documented in this encounterUniversity Hospitals Ahuja Medical Center02-02-2023 History of Present illness Narrative* Dominique Escobar APRN.JAIDA - 10/26/2022 9:50 AM EST [facility] NEW UROLOGY VISIT PATIENT HISTORY AND PHYSICAL EXAM PATIENT INFO: Oleg Peck is a 52 year old female. HISTORY CHIEF COMPLAINT: Recurrent UTI HPI : Oleg Peck is a 52 year old female with a history of kidney stones, recurrent UTIs, and fall on 02/2020 which resulted in fracture of fifth metatarsal, recovery c/b DVT (on blood thinners), meniscus tear in left knee, and complex regional pain syndrome in left leg. She is using crutches toambulate and First established with Urology (Dr. Villalpando) 11/2019 and was given self-start Macrobid and post coital abx. UTIs persisted with post coital abx. She denies having upper tract imaging or cystoscopy. Compliant with UTI prevention plan: cranberry, D-mannose, and probiotics daily UTI sx: gross hematuria, frequency, dysuria, and feeling of incomplete emptying. Denies constipation or flank pain. UA= small blood PVR= 0mL Obtained from Care Everywhere: Urine Cultures 10/25/2022: PENDING 10/12/2022: E coli 07/2022: E coli 04/2022: E coli SEXUALLY ACTIVE: Yes, but not since her fall DYSPAREUNIA: NO PREGNANCIES: 3, Para 3, Vaginal births 3 Post-menopause: yes Have you had a hysterectomy:NO Postmenopausal bleeding:No Sense of vaginal bulge:NO HEMATURIA HX: Yes, with UTI GI: No Problem Do you have a history of any diagnosed back or Neurological problems:NO HISTORIES: PAST MEDICAL HISTORY Diagnosis Date Complex regional pain syndrome History of DVT in adulthood +Xarelto No past surgical history on file. MEDICATIONS: No current outpatient medications on file. No current facility-administered medications for this visit. ALLERGIES: Patient has no allergy information on record. PHYSICAL EXAM: VITAL SIGNS: There were no vitals taken for this visit. GENERAL: Well appearing, alert, in no acute distress, well-hydrated, well nourished. and Crutches RESPIRATORY: Non-labored breathing on RA GENITOURINARY: small urethral caruncle, no abnormal vaginal lesions. EXTREMITY: No edema, wearing compression stockings IMPRESSION & PLAN: 52 y/o female with long history of recurrent UTIs. No previous workup. Breakthrough infections withpost coital abx, daily D-mannose, probiotics, and cranberry supplements. Started on topical vaginalestrogen, side effects discussed, and recommend upper tract imaging and cysto. Procedures were expla ined, including risks, and patient was agreeable to proceed. Culture not obtained as patient has pending culture through OSH. 1. Recurrent UTI 2. Urethral caruncle - US KIDNEY/BLADDER - CYSTO.PANENDO - ESTRADIOL 0.01% (0.1 MG/GRAM) VAGINAL CREAM 3. Pelvic floor weakness - CONSULT TO PHYSICAL THERAPY RTC for cysto and f/u with [place] [facility] in 3 months I spent a total of 40 minutes on the date of the service which included preparing to see the patient, peni-tn-stsm patient care, completing clinical documentation, performing a medically appropriate examination, counseling and educating the patient/family/caregiver, and ordering medications, tests,or procedures. Dominique Escobar APRN.CNP documented in this encounterUniversity Hospitals Ahuja Medical Center01-19-2023 Evaluation note* Encounter Date Diagnosis Assessment Notes Treatment Notes Treatment Clinical Notes Sep, Dysuria (ICD-10 - R30.0) Increase fluid intake, decrease carbonated and caffeine drinks, avoid high sugar drinks, bubble baths, wear all-cotton undergarment and remove wet clothing and swimsuits immediately after use, good perineal hygiene. Avoid unprotected sex. Drink cranberry juice as bladder antiseptic. Will call with culture results in 2 days if anbx needs to be changed. If flank pain or fevers occur, go to ER. Patient questions if she should increase her d-mannose supplementation dosing to prevent further UTIs.She does have complicated UTIs and since she is already seeing urology with continued recurrence,I do not necessarily feel that increasing the d-mannose would be the solution to the urologic problems. Again I do not necessarily feel that it would cause her any sort of harm, I just do not feel that it would resolve her symptoms As substantially as she would like. Sep, Viral upper respiratory tract infection (ICD-10 - J06.9) Discussed acute symptomology as being secondary to viral infection. Does not warrant antibiotic for treatment at this time. Assessment is essentially benign. I did offer the possibility of trying Tessalon Perles for relief of the cough. Patient is agreeable. Take as directed. Do not crush or chew the Capsules.Follow-up if symptoms persist or worsen. Sep, Conjunctivitis of both eyes, unspecified conjunctivitis type (ICD-10 - H10.9) Discussed conjunctivitis to the eyes. While I do feel this is more viral in nature and secondary to viral infection, I will prescribe her antibiotic Drop for good measure. This will reduce the risk of infection, lubricate the eye, protect from corneal abrasions if eye scratching and itching was to occur.Use eyedrops as directed. Please follow-up if symptoms persist, change or worsen. Sep, Other *Progress note was completed with the assistance of voice recognition software for dictation purposes. Please excuse any grammatical errors that were not corrected during review process. [email or web address] Other 01-03-2023 Evaluation note* Encounter Date Diagnosis Assessment Notes Treatment Notes Treatment Clinical Notes Sep, Polyp of colon, unspecified part of colon, unspecified type (ICD-10 - K63.5) I recommend staying with [facility] gastroenterology for repeat colonoscopy due to polyps. Although the previous provider is no longer in that office, they will stop access to the notes, this is my recommendation in regards to continuity of care. Sep, Post-operative state (ICD-10 - Z98.890) Discussed postoperative state, being mindful of possibility of DVT with S/S, continuing anticoagulants, concerns if present for bleeding, following closely with orthopedics. Discussed physical therapy next week and her concerns. Much emotional and motivational support given today. I do feel for the patient as she is young, healthy and takes good care of her self however she has had a very unfortunate series of events this past year.Mental health seems to be well however and no intervention from a psychiatric perspective is needed today. Sep, Postmenopausal (ICD-10 - Z78.0) Did discuss appropriate supplementations for this patient. I highly encouraged the supplementation of vitamin D 2000 units daily with calcium. Discussed that calcium and vitamin D are best absorbed together. Did make her aware that a DEXA scan would not necessarily be covered at this current age. Sep, Transient total loss of muscle tone (ICD-10 - G47.411) Discussed dietary intake and activity, likely will improve quickly with time and physical therapy. Patient is happy to lose the weight however understands that this is likely muscle mass. Much encouragement given and I am pleasantly optimistic that she will return to her baseline in the coming year. Sep, Recurrent UTI (ICD-10 - N39.0) Okay to continue supplementation. Nothing further needed at this time. Does not require imaging of the bladder or referral back to urology. Sep, Other Lengthy visit totaling 50 minutes spent in regards to establishing care and rapport, reviewing history, documentation, coorination of care. Discussed current specialties and obtaining medical records from all including previous PCP. Wellness sheet was updated with current blood pressure which is normal today. Nothing further needed at this time. Likely will only need yearly wellness visit this year and to follow-up PRN. *Progress note was completed with the assistance of voice recognition software for dictation purposes. Please excuse any grammatical errors that were not corrected during review process. [email or web address] Other 11-10-2022 Evaluation + Plan note Future Scheduled Tests Laboratory* Urine Culture 08/03/22 [facility]10[facility]2022 Hospital Discharge instructions Patient Education 08/03/2022 09:03:34 Urinary Tract Infection, Adult Urinary Tract Infection, Adult A urinary tract infection (UTI) is an infection of any part of the urinary tract. The urinary tractincludes the kidneys, ureters, bladder, and urethra. These organs make, store, and get rid of urinein the body. Your health care provider may use other names to describe the infection. An upper UTI affects the ureters and kidneys (pyelonephritis). A lower UTI affects the bladder (cystitis) and urethra (urethritis). What are the causes? Most urinary tract infections are caused by bacteria in your genital area, around the entrance to your urinary tract (urethra). These bacteria grow and cause inflammation of your urinary tract. What increases the risk? You are more likely to develop this condition if: You have a urinary catheter that stays in place (indwelling). You are not able to control when you urinate or have a bowel movement (you have incontinence). You are female and you: ?Use a spermicide or diaphragm for control. ?Have low estrogen levels. ?Are . You have certain genes that increase your risk (genetics). You are sexually active. You take antibiotic medicines. You have a condition that causes your flow of urine to slow down, such as: ?An enlarged prostate, if you are male. ?Blockage in your urethra (stricture). ?A kidney stone. ?A nerve condition that affects your bladder control (neurogenic bladder). ?Not getting enough to drink, or not urinating often. You have certain medical conditions, such as: ?Diabetes. ?A weak disease-fighting system (immunesystem). ?Sickle cell disease. ?Gout. ?Spinal cord injury. What are the signs or symptoms? Symptoms of this condition include: Needing to urinate right away (urgently). Frequent urination or passing small amounts of urine frequently. Pain or burning with urination. Blood in the urine. Urine that smells bad or unusual. Trouble urinating. Cloudy urine. Vaginal discharge, if you are female. Pain in the abdomen or the lower back. You may also have: Vomiting or a decreased appetite. Confusion. Irritability or tiredness. A fever. Diarrhea. The first symptom in older adults may be confusion. In some cases, they may not have any symptoms until the infection has worsened. How is this diagnosed? This condition is diagnosed based on your medical history and a physical exam. You may also have other tests, including: Urine tests. Blood tests. Tests for sexually transmitted infections (STIs). If you have had more than one UTI, a cystoscopy or imaging studies may be done to determine the cause of the infections. How is this treated? Treatment for this condition includes: Antibiotic medicine. Rijm-yol-obqxqio medicines to treat discomfort. Drinking enough water to stay hydrated. If you have frequent infections or have other conditions such as a kidney stone, you may need to see a health care provider who specializes in the urinary tract (urologist). In rare cases, urinary tract infections can cause sepsis. Sepsis is a life- threatening condition that occurs when the body responds to an infection. Sepsis is treated in the hospital with IV antibiotics, fluids, and other medicines. Follow these instructions at home: Medicines Take kest-qyt-iwbgewu and prescription medicines only as told by your health care provider. If you were prescribed an antibiotic medicine, take it as told by your health care provider. Do notstop using the antibiotic even if you start to feel better. General instructions Make sure you: ?Empty your bladder often and completely. Do not hold urine for long periods of time. ?Empty your bladder after sex. ?Wipe from front to back after a bowel movement if you are female. Use each tissue one time when you wipe. Drink enough fluid to keep your urine pale yellow. Keep all follow-up visits as told by your health care provider. This is important. Contact a health care provider if: Your symptoms do not get better after 1 2 days. Your symptoms go away and then return. Get help right away if you have: Severe pain in your back or your lower abdomen. A fever. Nausea or vomiting. Summary A urinary tract infection (UTI) is an infection of any part of the urinary tract, which includes the kidneys, ureters, bladder, and urethra. Most urinary tract infections are caused by bacteria in your genital area, around the entrance to your urinary tract (urethra). Treatment for this condition often includes antibiotic medicines. If you were prescribed an antibiotic medicine, take it as told by your health care provider. Do notstop using the antibiotic even if you start to feel better. Keep all follow-up visits as told by your health care provider. This is important. This information is not intended to replace advice given to you by your health care provider. Make sure you discuss any questions you have with your health care provider. Document Released: 06/20/2006 Document Revised: 08/28/2019 Document Reviewed: 03/20/2019 [employer] Patient Education 2020 [employer]. Follow Up Care 05/18/2022 13:55:46 With:Yvan BRIAN, David Bolanos, URL Address: When:Within 2 Month(s) Comments:Recurrent UTI [facility] 11-09-2022 Miscellaneous Notes* Telephone Encounter - Isidro Calvin Pss - 08/02/2022 4:23 PM EST Pt called, she had further questions about EMG. 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 Isidro Calvin Pss * Telephone Encounter - Michelle Keita RN - 08/02/2022 1:47 PM EST Patient asking if xarelto will effect labs and if the EMG will have any effect on blood clots or torn meniscus. Giulia Keita RN documented in this encounterUniversity Hospitals [facility]11-07-2022 Miscellaneous Notes* Telephone Encounter - Michelle Keita RN - 07/31/2022 11:48 AM EST Patient giving update on symptoms and appointments. Asking if nerve reduction study and labs are still needed. Has out of pocket costs so trying to prevent if not necessary. Giulia Keita RN documented in this encounterUniversity Hospitals Ahu[facility] Center10-13-2022 Miscellaneous Notes* Telephone Encounter - iMchelle Keita RN - 07/06/2022 3:00 PM EDT Patient asking if ok to get flu shot. Giulia Keita RN documented in this encounterUniversity Hospitals Ahu[facility] Center10-10-2022 Miscellaneous Notes* Telephone Encounter - Michelle Keita RN - 07/03/2022 12:09 PM EDT Patient asking if she should take vitamin B12. Giulia Keita RN documented in this encounterUniversity Hospitals Ahu[facility] Center10-10-2022 Miscellaneous Notes* Telephone Encounter - Michelle Keita RN - 07/03/2022 10:39 AM EDT Patient unable to stop xarelto due to current blood clots so EMG testing cannot be completed at this time. Giulia Keita RN documented in this encounterUniversity Hospitals Ahuja [facility] Center10-03-2022 Miscellaneous Notes* Telephone Encounter - Shivani Howell Emg - 06/26/2022 12:05 PM EDT Spoke with Ca on 06/26 in regards to getting Oleg scheduled for their EMG appointment. Patient indicated that they are taking the medication Xarelto. Instructed Ca that Xarelto is to be held for 24 hours prior to testing. Patient is to reach out to prescribing physician to ensure that it is safe to hold prior to testing. Ca expressed understanding with these instructions and the need to reiterate them to the patient before proceeding with scheduling. documented in this encounterUniversity Hospitals Ahuja [facility] Center10-03-2022 History of Present illness Narrative* Nicolasa Arizmendi MD - 06/26/2022 10:57 AM EDT NEW PATIENT DISTANCE HEALTH VISIT (COVID-19 pandemic-related contingency encounter format)- Encounter completed via virtual visit (audio and video) using Zoom software* *(special provision to allow the use of this under the current pandemic circumstances per [place] Department of Health and Human Services- [email or web address]) Provider location during distance health encounter: [facility] Patient location during distance health encounter: Home Date of Distance Health Visit: June 26, 2022 [facility] [place] New Patient Distance Health Visit Note Consultation requested by Self for an opinion regarding numbness/tingling. My final recommendationswill be communicated back to the requesting physician by way of shared Medical record or letter to requesting physician via [place] mail. History of Present Illness: Ms. Peck is a pleasant 52 year old right-handed female with a history of DVTs (on Xarelto) presenting for evaluation of numbness/tingling. March 10 she had a fall, breaking a bone in her left foot. Had surgery March 23 to repair. On April 18 she was using a boot. In April, she developed swelling, discoloration in her foot. Numbness in the foot started in April. Goes numb when she is sitting. Better with elevation. Toes are cold. In May was found to have DVTs in her calf. Now on Xarelto. Now working with PT. Completely weight baring at this time. Seen by Ortho last week. C/f torn meniscus and reflex sympathetic dystrophy (ie CRPS). Plan for MRIof the knee. More recently noticed tremor in the leg at night, as well as the hand. She shows me a picture today of this discoloration which is blotchy, erythremia affecting the left foot. The patient denies noticing any recent muscle bulk loss. There is no muscle pain, no cramps or muscle twitching. A history suggestive of myotonia/difficulty with muscle relaxation after contraction is not present. There is no clear fatigable weakness- the patient does not believe that weakness is generally worseat the end of the day. Strength does not seem to improve after brief exercise. Knee is affecting her ambulation. The patient is able to brush her hair and teeth without difficulty. She is easily able to button shirts and use zips. There is no apparent hand clumsiness/ dropping of grasped objects. She is able to arise from the squatted position without difficulty and can get up from the seated position without the use of her arms. The patient is able to go up steps in a staircase with some difficulty due to knee pain. Cannot walk a block without needing to stop for rest due to pain. She is using crutches and now a walker 2/2 to pain in the knee. No recent falls. She denies symptoms suggestive of oculobulbar weakness including diplopia, ptosis, dysphagia, poor saliva control, dysarthria/dysphonia, impaired mastication. +Foot will get blotchy red after hot showers. The patient does not report symptoms referable to autonomic dysfunction including impaired sweating, heat or cold intolerance, excessive mucosal dryness,gastroparetic early satiety, postprandial abdominal bloating, constipation, bowel or bladder dyscontrol or syncope/presyncope/orthostatic intolerance. The patient does not report any other symptoms referrable to neurological focality or neuromusculardeficits. The patient has not noticed any recent skin rashes (other than the blotchiness in the foot) nor does she report any constitutional symptoms like fever, night sweats, anorexia or unintentional weight loss. No past medical history on file. No past surgical history on file. Medications: No current outpatient medications on file. No current facility-administered medications for this visit. Allergies: See updated allergies documented below. ALLERGIES Not on File No family history on file. The patient is of Khmer/Tel[place] ancestry. Mom with RA. No known history of neuromuscular disease. ROS: CONSTITUTIONAL: No reported fevers, chills, night sweats, or significant unintentional weight loss. EYES: No visual changes indicated. No eye pain or orbital swelling reported. HEENT: No hearing changes or vertiginous symptoms indicated. No history of nose bleeds reported. RESPIRATORY: No reported cough, sputum, wheezing and dyspnea. CARDIOVASCULAR: Negative for significant chest pain, and palpitations per report. GI: Negative for significant abdominal discomfort, blood in stools or black stools reported. No recent reported change in bowel habits. : No reported history of incontinence. No dark/cola colored urine reported. MUSCLOSKELETAL: No history of significant joint pain or swelling, or myalgias reported. SKIN: Negative for pertinent lesions, rash, and itching per report. HEMATOLOGY/ONCOLOGY: Negative for reported prolonged bleeding, bruising easily, and swollen nodes. ENDOCRINE: Negative for reported significant cold or heat intolerance, no reported goitrous neck swelling or polydipsia PSYCH: No reported depression or anxiety symptoms. No reported SI or HI. NEURO: Per HPI above. No reported sleep disturbance. OBJECTIVE (what is observable/audible via web cam & laurent, if applicable): No dysarthria, ptosis. OUTSIDE RECORDS: Outside medical records, were reviewed during the course of the [facility] health visit. The relevant details are summarized below: None INTERNAL RECORDS: The patient's electronic medical record was reviewed. The relevant details include: None IMPRESSION: Ms. Peck is a pleasant 52 year old right-handed female with a history of DVTs (on Xarelto) presenting for evaluation of numbness/tingling, episodic discoloration in the setting of recent surgery. No risk factors associated with neuropathy, and her presentation would be unusual given it's asymmetry and episodic nature. History concern for CRPS, which is a diagnosis of exclusion. PLAN/RECOMMENDATIONS: - The impression above as well as the plan as outlined below were extensively discussed with the patient who voiced understanding. All questions were answered to her stated satisfaction. - Will pursue the following w/u studies including those for secondary/potentially treatable underlying conditions, and mimics: -EMG w PN protocol -Blood work to include MMA, B12, A1C, TERESA, Hessmer/Lambda -Alpha Lipoic Acid 400-600mg daily - Will recommend making an in-person follow-up visit when pandemic-related restrictions are sufficiently lifted (in about 1 month), with the understanding that the physical examination component thatwill be added at that time may revise/further refine the diagnostic impression above, and inform further and/or other testing. - When available, results of the above investigations and possible further recommendations will be communicated to the patient via telephone/VinPerfecthart. Patient to call office if not contacted after expected testing turnaround time. To aid with communication, patients (and primary care physicians) can sign up for [employer] (or [employer]), which allows online appointment scheduling, transmission of labs results and chart notes, andsecure email communication. To establish either account, visit [email or web address]. Nicolasa Arizmendi MD Neuromuscular Medicine ([place] Staff) [NB- note not considered final until co-signed by staff provider] Electronically signed June 26, 2022 10:58 AM Referring provider: SELF Phone: N/A Fax: Primary care physician: To use this Smartlink, specify the provider ID whose address you want to display, e.g., .[email or web address][1(where 1 is the provider ID). documented in this encounterUniversity Hospitals Ahuja [facility] Center06-01-2022 History general Narrative - Reported* Type Description Date Medical History DVTs post surgery 02/2022- Seeing Vascular Medical History Complex regional pain syndrome- Seeing pain mng Medical History Meniscal tear 2021- Seeing Ortho Medical History Varicose veins bilaterally Medical History Colon polyp 2017- Seeing GI Medical History Bunions bilaterally- Seeing podi atry Medical History Recurrent UTI- menopause seeing Urology Medical History EAC trauma seeing ENT 08/2022 Medical History Thrombophlebitis left tibial cheo Deleon 09/2022 Surgical History Vaginal childbirth x3 Surgical History Bilateral bunionectomy 2013 Surgical History Sclerotherapy - Dr. Rosenthal 07/26 014 Surgical History Colonoscopy with polypectomy Surgical History Phlebectomy 09/2021 Surgical History 5th metatarsal fracture after f all - Dr. Petty 02/2022 Surgical History Left knee arthroscop y, plica removal, torn meniscus - Dr. Marin 08/2022 Surgical History Sclerotherapy annually by Dr. Atilio rashid Surgical History Cystoscopy 10/2022 Hospitalization History See surgical hx Hospitalization History Childbirth x3 [email or web address] Other 06-01-2022 History general Narrative - Reported* Type Description Date Medical History DVTs post surgery 02/2022- Seeing Vascular Medical History Complex regional pain syndrome- Seeing pain mng Medical History Meniscal tear 2021- Seeing Ortho Medical History Varicose veins bilaterally Medical History Colon polyp 2017- Seeing GI Medical History Bunions bilaterally- Seeing podi atry Medical History Recurrent UTI- menopause seeing Urology Medical History EAC trauma seeing ENT 08/2022 Medical History Thrombophlebitis left tibial cheo Deleon 09/2022 Surgical History Vaginal childbirth x3 Surgical History Bilateral bunionectomy 2013 Surgical History Sclerotherapy - Dr. Rosenthal 07/26 014 Surgical History Colonoscopy with polypectomy Surgical History Phlebectomy 09/2021 Surgical History Left 5th metatarsal fracture af ter fall - Dr. Petty 02/2022 Surgical History Left knee arthroscop y, plica removal, torn meniscus - Dr. Marin 08/2022 Surgical History Sclerotherapy annually by Dr. Atilio rashid Surgical History Cystoscopy 10/2022 Hospitalization History See surgical hx Hospitalization History Childbirth x3 [email or web address] Other 06-01-2022 History general Narrative - Reported* Type Description Date Medical History DVTs post surgery 02/2022- Seeing Vascular Medical History Complex regional pain syndrome- Seeing pain mng Medical History Meniscal tear 2021- Seeing Ortho Medical History Varicose veins bilaterally Medical History Colon polyp 2017- Seeing GI Medical History Bunions bilaterally- Seeing podi atry Medical History Recurrent UTI- menopause seeing Urology Medical History EAC trauma seeing ENT 08/2022 Medical History Thrombophlebitis left tibial vei n- Dr. Deleon 09/2022 Surgical History Vaginal childbirth x3 Surgical History Bilateral bunionectomy 2013 Surgical History Sclerotherapy - Dr. Rosenthal 07/26 014 Surgical History Colonoscopy with polypectomy Surgical History Phlebectomy 09/2021 Surgical History Left 5th metatarsal fracture af ter fall - Dr. Petty 02/2022 Surgical History Left knee arthroscop y, plica removal, torn meniscus - Dr. Marin 08/2022 Surgical History Sclerotherapy annually by Dr. Atilio rashid Surgical History Cystoscopy 10/2022 Surgical History Toenail removal 03/2023 Hospitalization History See surgical hx Hospitalization History Childbirth x3 [email or web address] Other 06-01-2022 History general Narrative - Reported* Type Description Date Medical History DVTs post surgery 02/2022- Seeing Vascular Medical History EAC trauma seeing ENT 08/2022 Medical History Complex regional pain syndrome I , unspecified Medical History Varicose veins Medical History History of colon polyps Medical History Bunion Medical History Recurrent UTI Medical History Thrombophlebitis of left tibial vein Medical History Postmenopausal Medical History HLD (hyperlipidemia) Medical History Sciatica Medical History Torn meniscus Medical History Age-related osteopor osis without current pathological fracture Surgical History Vaginal childbirth x3 Surgical History Bilateral bunionectomy 2013 Surgical History Sclerotherapy - Dr. Rosenthal 11/2 014 Surgical History Colonoscopy with polypectomy Surgical History Phlebectomy 09/2021 Surgical History Left 5th metatarsal fracture af ter fall - Dr. Petty 02/2022 Surgical History Left knee arthroscop y, plica removal, torn meniscus - Dr. Marin 08/2022 Surgical History Sclerotherapy annually by Dr. Atilio rashid Surgical History Cystoscopy 10/2022 Surgical History Toenail removal 03/2023 Hospitalization History See surgical hx Hospitalization History Childbirth x3 [email or web address] Other 06-01-2022 History general Narrative - Reported* Type Description Date Medical History DVTs post surgery 02/2022- Seeing Vascular Medical History EAC trauma seeing ENT 08/2022 Medical History Complex regional pain syndrome I , unspecified Medical History Varicose veins Medical History History of colon polyps Medical History Bunion Medical History Recurrent UTI Medical History Thrombophlebitis of left tibial vein Medical History Postmenopausal Medical History HLD (hyperlipidemia) Medical History Sciatica Medical History Torn meniscus Medical History Age-related osteopor osis without current pathological fracture Medical History History of DVT (deep vein thromb osis) Surgical History Vaginal childbirth x3 Surgical History Bilateral bunionectomy 2013 Surgical History Sclerotherapy - Dr. Rosenthal 07/26 014 Surgical History Colonoscopy with polypectomy Surgical History Phlebectomy 09/2021 Surgical History Left 5th metatarsal fracture after fall - Dr. Petty 02/2022 Surgical History Left knee arthroscop y, plica removal, torn meniscus - Dr. Marin 08/2022 Surgical History Sclerotherapy annually by Dr. Atilio rashid Surgical History Cystoscopy 10/2022 Surgical History Toenail removal 03/2023 Surgical History Colonoscopy 09/12/2023 Hospitalization History See surgical hx Hospitalization History Childbirth x3 [email or web address] Other Evaluation + Plan note Future Appointments Appointment Date:03/22/2022 08:00:00 AM Scheduled Provider:Mireya GOMEZ Location:[facility] App[facility]ment [facility] Future Appointments Appointment Date:05/22/2022 08:15:00 AM Scheduled Provider: Location:[facility] [place] Appointment Type:PT 45 (FT) Appointment Date:05/24/2022 07:30:00 AM Scheduled Provider: Location:[facility] [place] Appointment Type:PT 45 (FT) Appointment Date:05/31/2022 08:30:00 AM Scheduled Provider: Location[facility] Appointment Type:PT 45 (FT) Appointment Date:06/02/2022 08:30:00 AM Scheduled Provider: Location:[facility] [place] Appointment Type:PT 45 (FT) Appointment Date:06/05/2022 02:00:00 PM Scheduled Provider: Location:[facility] [place] Appointment Type:PT 45 (FT) Appointment Date:06/07/2022 09:45:00 AM Scheduled Provider: Location:[facility] [place] Appointment Type:PT Re-Eval 30 (FT) Appointment Date:06/12/2022 10:00:00 AM Scheduled Provider: Location:[facility] [place] Appointment Type:PT 45 (FT) Appointment Date:06/14/2022 08:30:00 AM Scheduled Provider: Location:[facility] [place] Appointment Type:PT 45 (FT) Appointment Date:06/19/2022 10:00:00 AM Scheduled Provider: Location[facility] Appointment Type:PT 45 (FT) Appointment Date:06/21/2022 08:30:00 AM Scheduled Provider: Location:[facility] [place] Appointment Type:PT 45 (FT) Appointment Date:06/26/2022 10:00:00 AM Scheduled Provider: Location:[facility] [place] Appointment Type:PT 45 (FT) Appointment Date:06/28/2022 08:30:00 AM Scheduled Provider: Location:.[place] Appointment Type:PT 45 (FT) Appointment Date:07/03/2022 07:30:00 AM Scheduled Provider: Location:[facility] Appointment Type:PT Re-Eval 30 (FT) Appointment Date:07/10/2022 08:00:00 AM Scheduled Provider:David Harry Location:[facility] Appointment Type:URO Office Visit Diagnostic Tests Pending * Urine [facility] Future Appointments Appointment Date:07/10/2022 08:00:00 AM Scheduled Provider:David Harry Location:[facility] Appointment Type:URO Office Visit Appointment Date:07/26/2022 07:15:00 AM Scheduled Provider: Location:FT.MAMMOGRAM Appointment Type:MA Screen (FT) Diagnostic Tests Pending * Urine Culture 07/04/22 Future Scheduled Tests Radiology* MA Mamm Screen w/CAD if perf and 3D [place] [facility] Future Appointments Appointment Date:07/26/2022 07:15:00 AM Scheduled Provider: Location:.[facility] Appointment Type:MA Screen (FT) Appointment Date:08/03/2022 08:00:00 AM Scheduled Provider:David Harry Location:[facility] Appointment Type:URO Office Visit Future Scheduled Tests Radiology* MA Mamm Screen w/CAD if perf and 3D [place] [facility] Future Appointments Appointment Date:10/05/2022 08:00:00 AM Scheduled Provider:David Harry Location:[facility] Appointment Type:URO Office Visit Future Scheduled Tests Laboratory* Urine Culture 08/03/22 [facility] Evaluation + Plan note Future Appointments Appointment Date:10/16/2022 07:30:00 AM Scheduled Provider: [facility] App[facility] Type:PT 60 (FT) Appointment Date:10/18/2022 07:30:00 AM Scheduled Provider: [facility] App[facility] Type:PT 60 (FT) Future Scheduled Tests Laboratory* Urine Culture 08/03/22 [facility] Future Appointments Appointment Date:10/27/2022 07:30:00 AM Scheduled Provider: [place] Appointment Type:PT 60 (FT) Appointment Date:10/30/2022 07:30:00 AM Scheduled Provider: [place] Appointment Type:PT 60 (FT) Appointment Date:11/02/2022 08:00:00 AM Scheduled Provider:David Harry Location:[facility] Appointment Type:URO Office Visit Appointment Date:11/03/2022 07:30:00 AM Scheduled Provider: [place] [place] Appointment Type:PT 60 (FT) Appointment Date:11/06/2022 07:30:00 AM Scheduled Provider: [place] [place] Appointment Type:PT 60 (FT) Appointment Date:11/10/2022 01:00:00 PM Scheduled Provider: [place] Appointment Type:PT 60 (FT) Appointment Date:12/19/2022 08:00:00 AM Scheduled Provider:Gian PATEL MD Location:[facility] Appointment Type:URO Office Visit Future Scheduled Tests Laboratory* Urine Culture 08/03/22 [facility] Evaluation + Plan note Future Appointments Appointment Date:10/27/2022 07:30:00 AM Scheduled Provider: [place] [place] Appointment Type:PT 60 (FT) Appointment Date:10/30/2022 07:30:00 AM Scheduled Provider: [place] Appointment Type:PT 60 (FT) Appointment Date:11/02/2022 08:00:00 AM Scheduled Provider:David Harry Location:[facility] Appointment Type:URO Office Visit Appointment Date:11/03/2022 07:30:00 AM Scheduled Provider: [place] [place] Appointment Type:PT 60 (FT) Appointment Date:11/06/2022 07:30:00 AM Scheduled Provider: [place] [place] Appointment Type:PT 60 (FT) Appointment Date:11/10/2022 01:00:00 PM Scheduled Provider: [place] Appointment Type:PT 60 (FT) Appointment Date:12/19/2022 08:00:00 AM Scheduled Provider:Gian PATEL MD Location:[facility] Appointment Type:URO Office Visit Diagnostic Tests Pending * Urine Culture 10/25/22 Future Scheduled Tests Laboratory* Urine Culture 08[facility] Future Appointments Appointment Date:11/12/2023 08:00:00 AM Scheduled Provider: Location:[facility] Appointment Type:ASU IV Other (FT) Appointment Date:12/12/2023 01:00:00 PM Scheduled Provider: Location:[facility] Appointment Type:ASU IV Other (FT) Appointment Date:01/14/2024 08:00:00 AM Scheduled Provider: Location:[facility] Appointment Type:ASU IV Other (FT) Appointment Date:02/13/2024 08:00:00 AM Scheduled Provider: Location:[facility] Appointment Type:ASU IV Other (FT) Appointment Date:03/14/2024 08:00:00 AM Scheduled Provider: [facility] Appointment Type:ASU IV Other (FT) Appointment Date:04/14/2024 08:00:00 AM Scheduled Provider: Location:[facility] Appointment Type:ASU IV Other (FT) Appointment Date:05/15/2024 08:00:00 AM Scheduled Provider: Location:[facility] Appointment Type:ASU IV Other (FT) Appointment Date:06/16/2024 08:00:00 AM Scheduled Provider: Location:[facility] Appointment Type:ASU IV Other (FT) [facility] + Plan note Future Appointments Appointment Date:12/12/2023 01:00:00 PM Scheduled Provider: Location:[facility] Appointment Type:ASU IV Other (FT) Appointment Date:01/14/2024 08:00:00 AM Scheduled Provider: Location:[facility] Appointment Type:ASU IV Other (FT) Appointment Date:02/13/2024 08:00:00 AM Scheduled Provider: Location:[facility] Appointment Type:ASU IV Other (FT) Appointment Date:03/14/2024 08:00:00 AM Scheduled Provider: Location:[facility] Appointment Type:ASU IV Other (FT) Appointment Date:04/14/2024 08:00:00 AM Scheduled Provider: Location:[facility] Appointment Type:ASU IV Other (FT) Appointment Date:05/15/2024 08:00:00 AM Scheduled Provider: Location:[facility] Appointment Type:ASU IV Other (FT) Appointment Date:06/16/2024 08:00:00 AM Scheduled Provider: Location:[facility] Appointment Type:ASU IV Other (FT) [facility] + Plan note Future Appointments Appointment Date:01/14/2024 08:00:00 AM Scheduled Provider: Location:[facility] Appointment Type:ASU IV Other (FT) Appointment Date:02/13/2024 08:00:00 AM Scheduled Provider: Location:[facility] Appointment Type:ASU IV Other (FT) Appointment Date:03/14/2024 08:00:00 AM Scheduled Provider: Location:[facility] Appointment Type:ASU IV Other (FT) Appointment Date:04/14/2024 08:00:00 AM Scheduled Provider: Location:[facility] Appointment Type:ASU IV Other (FT) Appointment Date:05/15/2024 08:00:00 AM Scheduled Provider: Location:[facility] Appointment Type:ASU IV Other (FT) Appointment Date:06/16/2024 08:00:00 AM Scheduled Provider: Location:[facility] Appointment Type:ASU IV Other (FT) Appointment Date:07/14/2024 08:00:00 AM Scheduled Provider: Location:[facility] Appointment Type:ASU IV Other (FT) [facility] Future Appointments Appointment Date:02/13/2024 08:00:00 AM Scheduled Provider: Location:[facility] Appointment Type:ASU IV Other (FT) Appointment Date:03/14/2024 08:00:00 AM Scheduled Provider: Location:[facility] Appointment Type:ASU IV Other (FT) Appointment Date:04/14/2024 08:00:00 AM Scheduled Provider: Location:[facility] Appointment Type:ASU IV Other (FT) Appointment Date:05/15/2024 08:00:00 AM Scheduled Provider: Location:[facility] Appointment Type:ASU IV Other (FT) Appointment Date:06/16/2024 08:00:00 AM Scheduled Provider: Location:[facility] Appointment Type:ASU IV Other (FT) Appointment Date:07/14/2024 08:00:00 AM Scheduled Provider: Location:[facility] Appointment Type:ASU IV Other (FT) [facility] + Plan note Future Appointments Appointment Date:03/14/2024 08:00:00 AM Scheduled Provider: Location:[facility] Appointment Type:ASU IV Other (FT) Appointment Date:04/14/2024 08:00:00 AM Scheduled Provider: Location:[facility] Appointment Type:ASU IV Other (FT) Appointment Date:05/15/2024 08:00:00 AM Scheduled Provider: Location:[facility] Appointment Type:ASU IV Other (FT) Appointment Date:06/16/2024 08:00:00 AM Scheduled Provider: Location:[facility] Appointment Type:ASU IV Other (FT) Appointment Date:07/14/2024 08:00:00 AM Scheduled Provider: Location:[facility] Appointment Type:ASU IV Other (FT) Appointment Date:07/29/2024 08:00:00 AM Scheduled Provider: Location:.[facility] Appointment Type:MA Screen (FT) Future Scheduled Tests Radiology* MA Mamm Screen w/CAD if perf and 3D Perry 07/29/[facility] Future Appointments Appointment Date:05/15/2024 08:00:00 AM Scheduled Provider: Location:[facility] Appointment Type:ASU IV Other (FT) Appointment Date:06/16/2024 08:00:00 AM Scheduled Provider: Location:[facility] Appointment Type:ASU IV Other (FT) Appointment Date:07/14/2024 08:00:00 AM Scheduled Provider: Location:[facility] Appointment Type:ASU IV Other (FT) Appointment Date:07/29/2024 08:00:00 AM Scheduled Provider: Location:.[facility] Appointment Type:MA Screen (FT) Future Scheduled Tests Radiology* MA Mamm Screen w/CAD if perf and 3D Perry 07/29/[facility] Future Appointments Appointment Date:06/16/2024 08:00:00 AM Scheduled Provider: Location:[facility] Appointment Type:ASU IV Other (FT) Appointment Date:07/14/2024 08:00:00 AM Scheduled Provider: Location:[facility] Appointment Type:ASU IV Other (FT) Appointment Date:07/29/2024 08:00:00 AM Scheduled Provider: Location:.[facility] Appointment Type:MA Screen (FT) Future Scheduled Tests Radiology* MA Mamm Screen w/CAD if perf and 3D Perry 07/29/24 [facility] Evaluation + Plan note Future Appointments Appointment Date:07/14/2024 08:00:00 AM Scheduled Provider: Location:[facility] Appointment Type:ASU IV Other (FT) Appointment Date:07/29/2024 08:00:00 AM Scheduled Provider: Location:.[facility] Appointment Type:MA Screen (FT) Future Scheduled Tests Radiology* MA Mamm Screen w/CAD if perf and 3D Perry 07/29/24 [facility]nuhp + Plan note Future Appointments Appointment Date:07/21/2024 08:00:00 AM Scheduled Provider:Elvis Pace MD Location[facility] Appointment Type:Cardiology Follow Up (FT) Appointment Date:07/22/2024 08:00:00 AM Scheduled Provider: Location:[facility] Appointment Type:ASU IV Other (FT) Appointment Date:07/29/2024 08:00:00 AM Scheduled Provider: Location:.[facility] Appointment Type:MA Screen (FT) Future Scheduled Tests Radiology* MA Mamm Screen w/CAD if perf and 3D Perry 07/29/24 [facility] evaluation + Plan note Future Appointments Appointment Date:07/22/2024 08:00:00 AM Scheduled Provider: Location:[facility] Appointment Type:ASU IV Other (FT) Appointment Date:07/29/2024 08:00:00 AM Scheduled Provider: Location:.[facility] Appointment Type:MA Screen (FT) Appointment Date:07/29/2024 08:15:00 PM Scheduled Provider: Location:.S[facility]EP [facility]_ Appointment Type:COLLEGE [employer]ER Sleep Study PSG (FT) Future Scheduled Tests Radiology* MA Mamm Screen w/CAD if perf and 3D Perry 07/29/24 [facility] evaluation + Plan note Future Appointments Appointment Date:07/29/2024 08:00:00 AM Scheduled Provider: Location:.[facility] Appointment Type:MA Screen (FT) Appointment Date:07/29/2024 08:15:00 PM Scheduled Provider: Location:.S[facility]EP LAB_ Appointment Type:COLLEGE TE[employer]ER Sleep Study PSG (FT) Future Scheduled Tests Radiology* MA Mamm Screen w/CAD if perf and 3D Perry 07/29/24 [facility] evaluation + Plan note Future Appointments Appointment Date:09/10/2023 08:00:00 AM Scheduled Provider: Location:[facility] Appointment Type:ASU IV Other (FT) Appointment Date:10/11/2023 08:00:00 AM Scheduled Provider: Location:[facility] Appointment Type:ASU IV Other (FT) Appointment Date:11/12/2023 08:00:00 AM Scheduled Provider: Location:[facility] Appointment Type:ASU IV Other (FT) Appointment Date:12/12/2023 01:00:00 PM Scheduled Provider: Location:[facility] Appointment Type:ASU IV Other (FT) Appointment Date:01/14/2024 08:00:00 AM Scheduled Provider: Location:[facility] Appointment Type:ASU IV Other (FT) Appointment Date:02/13/2024 08:00:00 AM Scheduled Provider: Location:[facility] Appointment Type:ASU IV Other (FT) Appointment Date:03/14/2024 08:00:00 AM Scheduled Provider: Location:[facility] Appointment Type:ASU IV Other (FT) Appointment Date:04/14/2024 08:00:00 AM Scheduled Provider: Location:[facility] Appointment Type:ASU IV Other (FT) Appointment Date:05/15/2024 08:00:00 AM Scheduled Provider: Location:[facility] Appointment Type:ASU IV Other (FT) Appointment Date:06/16/2024 08:00:00 AM Scheduled Provider: Location:[facility] Appointment Type:ASU IV Other (FT) [facility] Future Appointments Appointment Date:02/26/2025 08:00:00 AM Scheduled Provider: Location:[facility] Appointment Type:ASU Prolia (FT) Diagnostic Tests Pending * HgbA1c 10/06/24 [facility] Evaluation + Plan note Future Appointments Appointment Date:02/26/2025 08:00:00 AM Scheduled Provider: Location:[facility] Appointment Type:ASU Prolia (FT) [facility] Evaluation note* Diagnosis Disturbance of skin sensation- Primary [facility] noteNo assessment information [facility] Work Phone: evaluation note* Diagnosis Recurrent UTI- Primary Urinary tract infection, site not specified Urethral caruncle Pelvic floor weakness Other specified genital prolapse [facility] noteNortGe[facility] Compring Other Evaluation noteNo InformationNolafayette [facility] RENTISH Other Evaluation note* Diagnosis Onychomycosis- Primary Dermatophytosis of nail RSD (reflex sympathetic dystrophy) Reflex sympathetic dystrophy, unspecified [facility]* Diagnosis Open wound of toe, initial encounter- Primary [facility]* Diagnosis Complex regional pain syndrome type 2 of left lower extremity- Primary documented in this encounter [facility] note* Diagnosis Onset Date Resolution Status Age related osteoporosis acu te Asymptomatic menopausal state acute Loss of height acute [facility] Work Phone: Evaluation note* Diagnosis Hallux rigidus of right foot- Primary Hallux rigidus documented in this encounter [facility] note* Diagnosis Pain in right foot Pain in limb [facility]* Diagnosis Onset Date Resolution Status Age related osteoporosis acu te [facility] Work Phone: Evaluation note* Diagnosis Onychodystrophy- Primary Other specified disease of nail documented [facility]* Diagnosis Onset Date Resolution Status Admit Date Encounter for medication management acute January 19, 2025 12:07pm Low calcium levels acute January 19, 2025 12:07pm Osteoporosis acute January 19, 2025 12:07pm [facility] Work Phone: History and physical note Author Noah Rai [facility] September 12, 2023 8:06am Note Date/Time September 12, 2023 8:06am [facility] [address] [place] [address] Gastroenterology H&P Signed Patient: Oleg Peck MR#: [id number] : 1970 Acct:[id number] Age/Sex: 53 / F Adm Date: 3 Loc: Room: Type: [facility] Attending Dr: Noah Rai MD Copies to: Noah Rai MD Pranav Lien Toro [employer]ER~ Date of Service: 09/12/2023 HISTORY & PHYSICAL: Patient's history with special attention to the cardiovascular, pulmonary systems and the current problem was reviewed with the patient immediately prior to the procedure. Present medications and doses reviewed in the EMR. Allergies and pertinent laboratory tests were also reviewedat this time in the EMR. The physical examination, as below, was then performed. Indication, assessment and HPI: 53-year-old female presents for surveillance colonoscopy Family history of GI malignancy? No PHYSICAL EXAMINATION Mouth and Pharynx : Moist mucus membranes, normal dentition Cardiac: Regular rate, regular rhythm Pulmonary: Clear to auscultation bilaterally, no wheezing Neurological: Alert and oriented x3, no focal deficits noted Abdomen: Abdomen soft, non-tender REVIEW OF SYSTEMS Constitutional: Denies malaise, fevers Cardiovascular: Denies chest pain, palpitations Respiratory: Denies shortness of breath, wheezing Gastrointestinal: Per HPI Genitourinary: Denies dysuria, polyuria Musculoskeletal: Denies joint swelling, joint stiffness Neurological: Denies numbness, tingling Integumentary: Denies rashes, skin lesions Endocrine: Denies fatigue, weight loss Written informed consent obtained from the patient. Risks (including but not limited to perforation, infection, bloating, bleeding, need for emergent surgeryand loss of life), benefits and alternatives explained and questions answered. The patient verbalized understanding. Based on history patient is an appropriate candidate for the procedure. Noah Rai MD Documented By: Noah Rai MD 09/12/23805 Signed By: <Electronically signed by Noah Rai MD> 09/12/23805 [facility] Work Phone: History general Narrative - ReportedNort RENTISH Other Hospital course Narrative No data available for this section [facility] No data available for this section [facility] Additional Instructions DISCHARGE INSTRUCTIONS FOR COLONOSCOPY WHAT TO EXPECT: - You may feel full, gassy or cramping after your procedure. In some cases, this may be from a few hours to a day. Walking may help relieve the discomfort. - If you have polyp(s) removed you may note some minor bloody discharge after your first bowel movements. - You should begin to recover from anesthesia within 1 hour of the procedure, however may feel groggy for the next 24 hours. DO's AND DON'Ts: - Call your doctor right away if you have a hard abdomen, severe pain, are passing lots of bright red blood or clots. - Call your doctor if you develop any rashes, hives or difficulty breathing. - Let your doctor know if you have not had a bowel movement by 3 days after your procedure. - If you take 81 mg aspirin for your heart it is safe to resume this medication. - If you take other blood thinner medications your doctor will instruct you when these can safely be resumed. - Do NOT drive for 24 hours. - Do NOT operate machinery such as power tools, [employer] mowers, [employer], sewing machines, etc. for 24 hours. - Avoid alcoholic beverages and drugs for allergies, nerves, or sleep. - Do NOT stay alone. Do NOT leave your child unattended. - Do NOT make important personal or business decisions or sign any legal documents. - Eat solid foods and drink liquids in smaller amounts than usual until normal appetite returns. If you should experience an upset stomach, liquids high in sugar content (soda, Lai-Aid, non-acid juices) are recommended. - You can resume normal activities tomorrow. FOLLOW UP & RECOMMENDATIONS: -Follow-up with the GI office as needed. -Notify the doctor if you have any problems. -Repeat colonoscopy in 7 years. -Follow up with PCP. -Office number [phone].[facility] Work Phone: Progress note No data available for this section [facility] (narrative)* Outpatient Procedure (Routine) - Pending Review Specialty Diagnoses / Procedures Referred By Renae white Referred [facility] Diagnoses Disturbance of skin sensation Procedures EMG(NEURO/NI) NERVE CONDUCTION STUDIES 9-10 STUDIES Nicolasa Arizmendi MD [address] [place] [address] [facility] [address] [place] [address] Referral ID Status Reason Start Date Expiration Date Visits Requested Visits Authorized [id number] Pending Review Auto-Generat ed Referral 06/26/2022 06/26/2023 1 1 [facility] for visit Narrative* Diagnostic Procedure Only (Routine) - Closed Specialty Diagnoses / Procedures Referred By Contac t Referred To Contact XR IMAGING Diagnoses Pain in right foot Procedures XR FOOT GENERAL 3V AP/LAT/OBL RIGHT RADEX FOOT COMPLETE MINIMUM 3 VIEWS Oscar Venegas [address] [place] [address] Xr Imaging [place] [address] Referral ID Status Reason Start Date Expiration Date V isits Requested Visits Authorized [id number] Closed Auto-Generate d Referral 01/30/2024 02/28/2025 1 1 [facility] Summary Purpose Family History No Family History Records Found Relationship Condition Age at Onset Recorded Date/T sg Not Specified Rheumatoid arthritis Unknown father Hypertension Unknown High blood cholesterol Unknown Relationship Condition Age at Onset Recorded Date/T sg Not Specified Rheumatoid arthritis Unknown father Hypertension Unknown High blood cholesterol Unknown family member Unknown grandparent Unknown grandparent Heart disease Unknown Unknown Relationship Condition Age at Onset Recorded Date/T sg mother Rheumatoid arthritis Unknown father Hypertension Unknown High blood cholesterol Unknown aunt Unknown grandparent Unknown grandparent Heart disease Unknown Unknown Advance Directives No Advanced Directives Records Found Advance Directive Response Recorded Date/ Time Advance Directives No July 31, 2017 8:30am Advance Directive Response Recorded Date/ Time Advance Directives No July 31, 2017 9:30am Procedure Findings Note OPERATIVE NOTEOPERATION DATE : [id number]:Versed 6 mg IV, Demerol 50 mg IV.PREOPERATIVE DIAGNOSIS:Screening exam.POSTOPERATIVE DIAGNOSIS:Small benign appearing polyp, distal transverse colon,cold snared, removed, and retrieved.PROCEDURE NAME:Colonoscopy to the cecum with polypectomy.PROCEDURE: The patient was placed in the left lateral decubitus position. TheOlympus 180 colonoscope inserted into the rectum and easily advanced throughthe entire colon to the cecum.In the distal transverse colon there was a small sessile polyp which was coldsnared, removed and retrieved. The rest of the examination was unremarkableinto the cecum.FINAL DIAGNOSIS: Transverse colon polyp, removed.RECOMMENDATION: Repeat colonoscopy in 5 years pending pathology of the removedspecimen.cc:Dr. Heather Mendoza Signed and Approved by: DR ELKIN GUTIERREZ09/18/2018 11:30:00 Chief Complaint and Reason for Visit Chief Complaint Dysuria Chief Complaint z13.82 m81.0 r29.890 z78.0 Chief Complaint m81.0 r29.890 z78.0 Hx of Colon Polyps Chief Complaint 1 Year Follow Up 6 Month Follow Up Reason for Visit Age related osteopor osis Asymptomatic menopausal state Loss of height Chief Complaint 6 Month Follow Up muscle weakness Reason for Visit Age related osteopor osis Asymptomatic menopausal state Loss of height Chief Complaint z78.0 R29.890 M81.0 Chief Complaint z78.0 R29.890 M81.0 OCTOBER F/U Reason for Visit Age related osteopor osis Chief Complaint z78.0 R29.890 M81.0 JUNE F/U ER Follow up A Fib Reason for Visit Age related osteopor osis Chief Complaint Admit Date yearly wellness October 06, 2024 8 :23am Chief Complaint Admit Date Amb Documentation January 12, 2025 3:0 4pm Chief Complaint Admit Date E83.51 January 12, 2025 12: 51pm Amb Documentation January 12, 2025 3:0 4pm OWN THE THE BONE F/U January 19, 2025 12 :07pm Reason for Visit Admit Date Encounter for medication management Apri l 2024 12:07pm Low calcium levels January 19, 2025 12: 07pm Osteoporosis January 19, 2025 12: 07pm Reason for Referral Reason 07/02/23 @ 10:30am Save the Bone program with Ethel VICTORIA at Ortho Diagnosis 1 Osteoporosis without current pathological fracture, unspecified osteoporosis type (M81.0) Referral Organization [facility] Referring Provider First Name Pranav Referring Provider Last Name Nathan Referring Provider Specialty Nurse Pract itioner Referred Organization [facility] pedics Referred Provider Юлия Christy Referred Address [address] [place], [place],[address] Referred Provider Specialty Nurse Logan velez Referral Priority Routine Referral Appointment Date 2023-07-02 General Notes Tenisha Duffy 023 01:46:38 PM >Received today and patient has already been scheduled. Sent P2P Specialty Diagnoses / Procedures Referred By Contac t Referred To Contact [facility] [place] Diagnoses RSD (reflex sympathetic dystrophy) Procedures CONSULT TO [facility] ([facility]) OFFICE/OUTPATIENT [facility] MDM 60-74 MINUTES Oscar Venegas [address] [place] [address] Referral ID Status Reason Start Date Expiration Date Visits Requested Visits Authorized [id number] Pending Review PCP Requested Referral 04/30/2023 04/29/2024 1 1 Specialty Diagnoses / Procedures Referred By Contac t Referred To Contact [facility] Diagnoses Pelvic floor weakness Procedures CONSULT TO PHYSICAL THERAPY PHYSICAL THERAPY EVALUATION HIGH COMPLEX 45 MINS Dominique Escobar APRN.QUILL WORKER [address] [place] [address] [facility] [place] [address] [place] [address] Referral ID Status Reason Start Date Expiration Date Visits Requested Visits Authorized [id number] Pending Review Auto-Generat ed Referral 10/26/2022 10/26/2023 1 1 Specialty Diagnoses / Procedures Referred By Contac t Referred To Contact [facility] Diagnoses Recurrent UTI Procedures US KIDNEY/BLADDER US RETROPERITONEAL REAL TIME W/IMAGE COMPLETE Dominique Escobar APRN.QUILL WORKER [address] [place] [address] [facility] Referral ID Status Reason Start Date Expiration Date V isits Requested Visits Authorized [id number] Closed Auto-Generate d Referral 10/26/2022 11/25/2023 1 1 Additional Source Comments INFORMATION SOURCE (unrecogn ized section and content) DATE CREATED AUTHOR 09/26/2018 [facility] DATE CREATED AUTHOR AUTHOR'S ORGANIZ ATION 09/13/2022 [facility] DATE CREATED AUTHOR AUTHOR'S ORGANIZ ATION 10/27/2022 [facility] DATE CREATED AUTHOR AUTHOR'S ORGANIZ ATION 07/06/2023 [facility] DATE CREATED AUTHOR AUTHOR'S ORGANIZ ATION 01/17/2024 [facility] EPIC DATE CREATED AUTHOR AUTHOR'S ORGANIZ ATION 02/15/2024 [facility] DATE CREATED AUTHOR AUTHOR'S ORGANIZ ATION 03/15/2024 [facility] DATE CREATED AUTHOR AUTHOR'S ORGANIZ ATION 05/17/2024 [facility] DATE CREATED AUTHOR AUTHOR'S ORGANIZ ATION 06/15/2024 [facility] DATE CREATED AUTHOR AUTHOR'S ORGANIZ ATION 06/17/2024 [facility] DATE CREATED AUTHOR AUTHOR'S ORGANIZ ATION 07/02/2024 [facility] DATE CREATED AUTHOR AUTHOR'S ORGANIZ ATION 08/05/2024 [facility] DATE CREATED AUTHOR AUTHOR'S ORGANIZ ATION 08/27/2024 [facility] DATE CREATED AUTHOR AUTHOR'S ORGANIZ ATION 10/09/2024 [facility] DATE CREATED AUTHOR AUTHOR'S ORGANIZ ATION 10/13/2024 [facility] DATE CREATED AUTHOR AUTHOR'S ORGANIZ ATION 11/16/2024 [facility] DATE CREATED AUTHOR AUTHOR'S ORGANIZ ATION 11/26/2024 [facility] DATE CREATED AUTHOR AUTHOR'S ORGANIZ ATION 01/17/2025 [facility] DATE CREATED AUTHOR AUTHOR'S ORGANIZ ATION 02/02/2025 [facility] Care Team (unrecognized sect ion and content) Team Status: Active Member Role Status Dates Pranav Toro APRN Primary Care Provider Active Team Status: Active Member Role Status Dates Pranav Toro APRN Primary Care Provider Active Start: December 11, 2023 ROCIO Wiggins Attending Provider Active Start: December 11, 2023 Team Status: Inactive Member Role Status Dates Pranav Toro APRN Primary Care Provider Active Start: December 27, 2023 End: December 27, 2023 ROCIO Wiggins Attending Provider Active Start: December 27, 2023 End: December 27, 2023 Team Status: Active Member Role Status Dates Pranav Toro , [employer] Primary Care Provider Active Start: January 11, 2024 ROCIO Wiggins Attending Provider Active Start: January 11, 2024 Team Status: Inactive Member Role Status Dates Pranav Toro , [employer]ER Primary Care Provider Active Start: January 29, 2024 End: January 29, 2024 ROCIO Wiggins Attending Provider Active Start: January 29, 2024 End: January 29, 2024 Team Status: Active Member Role Status Dates Pranav Toro APRN Primary Care Provider Active Start: February 13, 2024 ROCIO Wiggins Attending Provider Active Start: February 13, 2024 Team Status: Inactive Member Role Status Dates Pranav Toro , [employer] Attending Provider Active Team Status: Inactive Member Role Status Dates Pranav Toro APRN Primary Care Provider, Attend ing Provider Active Team Status: Inactive Member Role Status Dates Pranav Toro APRN Primary Care Provider Active ROCIO Wiggins Attending Provider Active Team Status: Inactive Member Role Status Dates Noah Rai MD Attending Provider Active Pranav Toro APRN Primary Care Provider Active Team Status: Inactive Member Role Status Dates Pranav Toro , [employer] Attending Provider Active Start: October 02, 2023 End: October 02, 2023 Team Status: Active Member Role Status Dates Pranav Toro , [employer] Primary Care Provider Active Start: November 09, 2023 ROCIO Wiggins Attending Provider Active Start: November 09, 2023 Addictions Counselor Relationship Specialty Start Date End Date FernandoPranav samayoa PCP - General 07/31/23 Addictions Counselor Relationship Specialty Start Date End Date [place] PCP - General 07/31/23 Addictions Counselor Relationship Specialty Start Date End Date Shahida PCP - General 07/31/23 Addictions Counselor Relationship Specialty Start Date End Date Shahida PCP - General 07/31/23 Team Status: Active Member Role Status Dates Pranav Toro APRN Primary Care Provider Active Start: April 14, 2024 ROCIO Wiggins Attending Provider Active Start: April 14, 2024 Team Status: Active Member Role Status Dates Pranav Toro APRN Primary Care Provider Active Start: May 15, 2024 ROCIO Wiggins Attending Provider Active Start: May 15, 2024 Team Status: Active Member Role Status Dates Pranav Toro APRN Primary Care Provider Active Start: June 16, 2024 ROCIO Wiggins Attending Provider Active Start: June 16, 2024 Team Status: Inactive Member Role Status Dates Pranav Toro APRN Primary Care Provider Active Start: June 19, 2024 End: June 19, 2024 ROCIO Wiggins Attending Provider Active Start: June 19, 2024 End: June 19, 2024 Team Status: Inactive Member Role Status Dates Pranav Toro APRN Primary Care Provider Active Start: June 24, 2024 End: June 24, 2024 ROCIO Wiggins Attending Provider Active Start: June 24, 2024 End: June 24, 2024 Team Status: Inactive Member Role Status Dates Pranav Toro APRN Primary Care Pr ovider, Attending Provider Active Start: July 04, 2024 End: July 04, 2024 Team Status: Active Member Role Status Dates Pranav Toro APRN Primary Care Provider Active Start: July 22, 2024 ROCIO Wiggins Attending Provider Active Start: July 22, 2024 Team Status: Active Member Role Status Dates Pranav Toro APRN Primary Care Provider Active Start: August 26, 2024 MARIANO WigginsC Attending Provider Active Start: August 26, 2024 Team Status: Inactive Member Role Status Dates Pranav Toro APRN Primary Care Pr ovider, Attending Provider Active Start: October 06, 2024 End: October 06, 2024 Addictions Counselor Relationship Specialty Start Date End Date Pranav King PCP - General 07/31/23 Addictions Counselor Relationship Specialty Start Date End Date Tino Alan MD PCP - General Family Medicine 01/16/24 Team Status: Active Member Role Status Dates Elvis Pace MD Director [employer] Active Nico Ochoa MD Specialist Active Olaf Salas MD Specialist Active Юлия Christy NP-C Specialist Active Pranav Toro APRN Primary Care Provider Active Team Status: Active Member Role Status Dates Pranav Toro APRN Primary Care Provider Active Start: November 29, 2024 Nico Ochoa MD Attending Provider Active Star t: November 29, 2024 Team Status: Active Member Role Status Dates Pranav Toro APRN Primary Care Provider Active Start: December 15, 2024 Philip Wu DO Attending Provider Active Start : December 15, 2024 Team Status: Active Member Role Status Dates Pranav Toro APRN Primary Care Provider Active Start: December 16, 2024 Tyrel Santiago MD Attending Provider Active Sta rt: December 16, 2024 Team Status: Inactive Member Role Status Dates Pranav Toro APRN Primary Care Provider Active Start: January 12, 2025 End: January 12, 2025 Nico Ochoa MD Attending Provider Active Star t: January 12, 2025 End: January 12, 2025 Team Status: Active Member Role Status Dates Pranav Toro APRN Primary Care Provider Active Start: January 12, 2025 Oneyda Hadley RN Attending Provider Active Sta rt: January 12, 2025 Team Status: Active Member Role Status Dates Pranav Toro APRN Primary Care Provider Active Start: January 13, 2025 Jesus Alberto Ricardo MD Attending Provider Active Start : January 13, 2025 Team Status: Inactive Member Role Status Dates Pranav Toro APRN Primary Care Provider Active Start: January 19, 2025 End: January 19, 2025 Nico Ochoa MD Attending Provider Active Star t: January 19, 2025 End: January 19, 2025 Source Comments (unrecognize d section and content) In the event this informatio n is protected by the Federal Confidentiality of Alcohol and Drug Abuse Patient Records regulations: The Federal rules restrict any use of the information to criminally investigate or prosecute any alcohol or drug abuse patient.[facility] Center[facility] the event this information is protected by the Federal Confidentiality of Alcohol and Drug Abuse Patient Records regulations: The Federal rules restrict any use of the information to criminally investigate or prosecute any alcohol or drug abuse patient.[facility] CenterIn the event this information is protected by the Federal Confidentiality of Alcohol and Drug Abuse Patient Records regulations: The Federal rules restrict any use of the information to criminally investigate or prosecute any alcohol or drug abuse patient.[facility] CenterIn the event this information is protected by the Federal Confidentiality of Alcohol and Drug Abuse Patient Records regulations: The Federal rules restrict any use of the information to criminally investigate or prosecute any alcohol or drug abuse patient.[facility] CenterIn the event this information is protected by the Federal Confidentiality of Alcohol and Drug Abuse Patient Records regulations: The Federal rules restrict any use of the information to criminally investigate or prosecute any alcohol or drug abuse patient.[facility] CenterIn the event this information is protected by the Federal Confidentiality of Alcohol and Drug Abuse Patient Records regulations: The Federal rules restrict any use of the information to criminally investigate or prosecute any alcohol or drug abuse patient.[facility] CenterIn the event this information is protected by the Federal Confidentiality of Alcohol and Drug Abuse Patient Records regulations: The Federal rules restrict any use of the information to criminally investigate or prosecute any alcohol or drug abuse patient.[facility] CenterIn the event this information is protected by the Federal Confidentiality of Alcohol and Drug Abuse Patient Records regulations: The Federal rules restrict any use of the information to criminally investigate or prosecute any alcohol or drug abuse patient.[facility] CenterIn the event this information is protected by the Federal Confidentiality of Alcohol and Drug Abuse Patient Records regulations: The Federal rules restrict any use of the information to criminally investigate or prosecute any alcohol or drug abuse patient.[facility] CenterIn the event this information is protected by the Federal Confidentiality of Alcohol and Drug Abuse Patient Records regulations: The Federal rules restrict any use of the information to criminally investigate or prosecute any alcohol or drug abuse patient.[facility] CenterIn the event this information is protected by the Federal Confidentiality of Alcohol and Drug Abuse Patient Records regulations: The Federal rules restrict any use of the information to criminally investigate or prosecute any alcohol or drug abuse patient.[facility] CenterIn the event this information is protected by the Federal Confidentiality of Alcohol and Drug Abuse Patient Records regulations: The Federal rules restrict any use of the information to criminally investigate or prosecute any alcohol or drug abuse patient.[facility] CenterIn the event this information is protected by the Federal Confidentiality of Alcohol and Drug Abuse Patient Records regulations: The Federal rules restrict any use of the information to criminally investigate or prosecute any alcohol or drug abuse patient.[facility] CenterIn the event this information is protected by the Federal Confidentiality of Alcohol and Drug Abuse Patient Records regulations: The Federal rules restrict any use of the information to criminally investigate or prosecute any alcohol or drug abuse patient.[facility] CenterIn the event this information is protected by the Federal Confidentiality of Alcohol and Drug Abuse Patient Records regulations: The Federal rules restrict any use of the information to criminally investigate or prosecute any alcohol or drug abuse patient.[facility] CenterIn the event this information is protected by the Federal Confidentiality of Alcohol and Drug Abuse Patient Records regulations: The Federal rules restrict any use of the information to criminally investigate or prosecute any alcohol or drug abuse patient.[facility] CenterIn the event this information is protected by the Federal Confidentiality of Alcohol and Drug Abuse Patient Records regulations: The Federal rules restrict any use of the information to criminally investigate or prosecute any alcohol or drug abuse patient.[facility] CenterIn the event this information is protected by the Federal Confidentiality of Alcohol and Drug Abuse Patient Records regulations: The Federal rules restrict any use of the information to criminally investigate or prosecute any alcohol or drug abuse patient.[facility] CenterIn the event this information is protected by the Federal Confidentiality of Alcohol and Drug Abuse Patient Records regulations: The Federal rules restrict any use of the information to criminally investigate or prosecute any alcohol or drug abuse patient.[facility] CenterIn the event this information is protected by the Federal Confidentiality of Alcohol and Drug Abuse Patient Records regulations: The Federal rules restrict any use of the information to criminally investigate or prosecute any alcohol or drug abuse patient.[facility] CenterIn the event this information is protected by the Federal Confidentiality of Alcohol and Drug Abuse Patient Records regulations: The Federal rules restrict any use of the information to criminally investigate or prosecute any alcohol or drug abuse patient.[facility] CenterIn the event this information is protected by the Federal Confidentiality of Alcohol and Drug Abuse Patient Records regulations: The Federal rules restrict any use of the information to criminally investigate or prosecute any alcohol or drug abuse patient.[facility] Reason for Visit (unrecogniz ed section and content) Reason Comments New Patient Specialty Diagnoses / Procedures Referred By Contac t Referred To Contact Neurology / NEUROMUSCULAR Diagnoses Peripheral neuropathy Peripheral neuropathy Procedures PHYS/QHP TELEPHONE EVALUATION 5-10 MIN VIDEO SPEC NEW Self Nicolasa Arizmendi MD [address] [place] [address] Referral ID Status Reason Start Date Expiration Date Visits Re quested Visits Authorized [id number] Closed 06/26/2022 09/23/2022 1 1 Reason Comments EMG Blood Thinner Instructions Reason Comments Established Patient Reason Comments Patient Question Reason Comments Appointment Reason Comments Established Patient Ingrown Toenail Reason Comments Patient Update Reason Comments Follow Up Avulsion Reason Comments Pain (foot) Left Reason Comments Established Patient Follow Up Pain Reason Comments Established Patient Nail Fungus Goals (unrecognized section and content) Goals may be documented in a n alternate section FOR RECORDS PERTAINING TO PATIENTS WHO ARE OR HAVE BEEN ENROLLED IN A CHEMICAL DEPENDENCY/SUBSTANCEABUSE PROGRAM, SOME INFORMATION MAY BE OMITTED. This clinical summary was aggregated from multiple sources. Caution should be exercised in using it in the provision of clinical care. This summary normalizes information from multiple sources, and as a consequence, information in this document may materially change the coding, format and clinical context of patient data. In addition, data may be omitted in some cases. CLINICAL DECISIONS SHOULD BE BASED ON THE PRIMARY CLINICAL RECORDS. [facility] [employer] [facility]. provides no warranty or guarantee of the accuracy or completeness of information in this document.
--- NOTE | 2025-02-03 11:00 | CA_ITS ---
Patient Name: OLEG CORDOVA MR#: [id number] : 1970 Exam Date: 02/03/2025 Ordering Doctor: ANTONETTE RICARDO ECHOCARDIOGRAM REPORT PROCEDURE: CA ECHO DOPPLER COMPLETE INDICATIONS: Pericardial effusion, s/p ablation, s/p pericardial centesis COMPARISON: None. DESCRIPTION: COMPLETE ECHOCARDIOGRAM Real-time transthoracic echocardiography with 2D, M-mode, spectral and color flow Doppler performed. QUALITY: Technical quality was good. LEFT VENTRICLE: Normal chamber size. Normal left ventricular wall thickness. LV EF: Global left ventricular systolic function is normal; visually estimated ejection fraction is 60 to 65%. No significant wall motion abnormalities. DIASTOLIC: Normal diastolic function. ATRIAL SEPTUM: Visually appears intact. LEFT ATRIUM: Normal chamber size. RIGHT ATRIUM: Normal chamber size. RIGHT VENTRICLE: Normal chamber size. Normal right ventricular systolic function TRICUSPID VALVE: Normal mobility and thickness. No stenosis with trivial regurgitation. No evidence of pulmonary hypertension. RVSP 20 mmHg MITRAL VALVE: Normal mobility and thickness. No evidence of mitral valve stenosis. There is no mitral annular calcification. Trivial mitral regurgitation. AORTIC VALVE: Normal trileaflet appearance. No visible sclerosis. Normal leaflet mobility. No evidence of aortic valve stenosis. No aortic regurgitation. AORTIC ROOT: Normal diameter and appearance. PULMONIC VALVE: Normal thickness and mobility. No stenosis. No regurgitation. PERICARDIUM: No evidence of pericardial effusion. IVC: Collapses with inspirations. IVC is normal in size. PLEURA: CONCLUSION: 1. Global left ventricular systolic function is normal; visually estimated ejection fraction is 60 to 65% 2. The right ventricle is normal in size and systolic function 3. Normal diastolic function 4. The left atrium is normal in size 5. No significant valvular abnormalities 6. No significant pericardial effusion Adult Echocardiography Procedure Report Left Ventricle LVEDD (3.7 - 5.6 cm): 3.52 cm LVESD (2.2 - 4.0 cm): 2.80 cm LVIVS thickness (0.6 - 1.2 cm): 0.92 cm LVPW thickness (0.5 - 1.0 cm): 0.83 cm e': 0.11 m/s E - e': 8.00 LVOT Max Gradient: 4.95 mm[Hg] LVOT Area (cm2): 1.11 m/s Peak Velocity (LVOT): 1.11 m/s Mean Velocity (LVOT): 0.75 m/s LVOT Diameter 1.60 cm Left Atrium LA Volume Index (2D A2C): 27.07 ml/m2 Left Atrium Systolic Dimension: 2.82 cm Mitral Valve MV E to A Ratio: 1.49 Mitral Valve A-Wave Peak Velocity: 0.59 m/s Mitral Valve E-Wave Peak Velocity: 0.87 m/s Right Ventricle Aorta AO Root Diam: 3.08 cm Aortic Valve AoV Area (Peak Reik): 1.88 cm2, 1.88 cm2 AoV Area (VTI): 1.65 cm2, 1.65 cm2 Peak Velocity(Antegrade Flow): 1.19 m/s Peak Gradient(Antegrade Flow): 5.66 mm[Hg] Mean Velocity(Antegrade Flow): 0.81 m/s Mean Gradient(Antegrade Flow): 2.95 mm[Hg] Velocity Time Integral: 25.79 cm Tricuspid Valve Peak Velocity (Regurgitant Flow): 2.08 m/s Pulmonic Valve Mean Gradient: 2.34 mm[Hg] Mean Velocity: 0.71 m/s Peak Velocity: 1.08 m/s, 0.93 m/s Peak Gradient: 3.43 mm[Hg], 4.69 mm[Hg] Right Atrium Right Atrium Systolic Pressure: 26.40 ml, 26.40 ml Dictated by: Oscar Young M.D. on 02/04/2025 at 15:32 Approved by: Oscar Young M.D. on 02/04/2025 at 15:35
== END 2025-02-03 10:38 | disposition home or self-care (01) ==
LOC: CARD 10:39
PROVIDERS: PCP Nurse Practitioner Family; Visit Provider Internal Medicine Cardiovascular Disease
DX: I31.39 Other pericardial effusion (noninflammatory) (principal)
CPT/HCPCS: 93306

== ENCOUNTER 2025-02-05 12:36 | Outpatient (OUT) | payer OTHER, SELFPAY | END 2025-02-05 12:37 | disposition home or self-care (01) | LOC: US 12:38 | PROVIDERS: PCP Nurse Practitioner Family; Visit Provider Nurse Practitioner Family | DX: S30.1XXA Contusion of abdominal wall, initial encounter (principal) | CPT/HCPCS: 76882 ==